=== PATIENT | male | born 2000 | race Caucasian/White ===

== ENCOUNTER 2019-03-16 00:37 | Emergency (ER) | payer MEDICAID, SELFPAY ==
[2019-03-16 00:38] VITALS: BP 162/92; PULSE 112; RESP 16; TEMP 36.8; O2SAT 98; BMI 29.9
--- NOTE | 2019-03-16 01:12 | ED.VISSUMM ---
- ER Visit Summary Date of Service: 03/16/19 Chief Complaint: Suicidal ideation History of Present Illness: The patient is a 18 M presenting with suicidal ideation. Patient states this started tonight. He states he wanted to talk to the on-call counselor. They were not available. He then ran away. He did not have a specific plan. States he tried to cut himself with a waggoner. History of previous suicide attempt 7-8 months ago. He denies visual or auditory hallucinations. He takes Lexapro for depression. Denies other complaints. Physical Examination: Vitals are stable. Patient is afebrile. Alert no acute distress. HEENT exam is unremarkable. Neck is supple. Lungs are clear and equal bilaterally. Heart is regular rate and rhythm. Extremities superficial abrasions left forearm Skin is warm and dry. No focal neurologic deficit. Suicidal ideation Remainder of exam is unremarkable. Emergency Department Course and Treatment: CBC, chemistries unremarkable. Tox is negative. Alcohol negative. Discussed with the counseling center for evaluation. Disposition: Per counseling center Impression: Suicidal ideation This note was generated with [employer] dictation software. It may contain incorrect words, spelling, and punctuation that were not noted in review of the chart prior to signing ED Disposition - Plan for ED Patient: Referrals: Dionisio Garza MD [Primary Care Provider] -
[2019-03-16 01:16] LABS: Absolute Neutrophil Count 4.3 X10^3/uL (2.0-7.7); Basophil# 0.01 X10^3/uL; Basophil% 0.1 % (0-1); Eosinophil# 0.05 X10^3/uL; Eosinophils% 0.7 % (0-5); Hematocrit 41.5 % (40-54); Hemoglobin 14.2 g/dl (13.0-16.5); Lymphocyte % 33.1 % (19-41); Mean Corp Hgb Conc 34.2 g/gl (32-36); Mean Corpuscular Hgb 30.3 pg (27.0-32.0); Mean Corpuscular Volume 88.7 fL (80-94); Mean Platelet Vol. 10.4 fl (6.2-12.0); Monocyte# 0.64 X10^3/uL; Monocyte% 8.5 % (0-10); Neutrophil # 4.33 X10^3/uL (2.7-7.7); Neutrophil % 57.3 % (47-70); Platelet Count 182 K/mm3 (150-450); RBC Distribution Width CV 12.8 % (11.6-14.6); RBC Distribution Width SD 41.2 fl (35.1-43.9); Red Blood Count 4.68 M/mm3 (4.6-6.2); White Blood Count 7.6 K/mm3 (4.4-11.0)
[2019-03-16 01:21] LABS: POSITIVE COUNT NO; POSITIVE DIFFERENTIAL NO; POSITIVE MORPHOLOGY NO
[2019-03-16 01:26] LABS: Anion Gap 8 (5-15); BUN 15 mg/dL (7-18); BUN/Creat Ratio 14.7 RATIO (10-20); Calcium,Total 8.8 mg/dL (8.5-10.1); Chloride 106 mmol/L (98-107); Creatinine, Serum 1.02 mg/dL (0.70-1.30); EST Glomerular Filtration Rate 98 mL/min (>60); Est Glom Filt Rate - Afr Amer 119 mL/min (>60); Estimated Creatinine Clearance 115.52 ml/min; Glucose 129 mg/dL (74-106); Potassium 3.6 mmol/L (3.5-5.1); Sodium Level 140 mmol/L (136-145)
[2019-03-16 01:28] LABS: Amphetamine Urine VISTA NEGATIVE (<1000 ng/mL); Barbiturate Urine VISTA NEGATIVE (< 200 ng/mL); Benzodiazepine Urine VISTA NEGATIVE (< 200 ng/mL); Cocaine Urine VISTA NEGATIVE (< 300 ng/mL); Ecstacy Urine VISTA NEGATIVE (< 500 ng/mL); Methadone Urine VISTA NEGATIVE (< 300 ng/mL); PCP Urine VISTA NEGATIVE (< 25 ng/mL); THC Urine VISTA NEGATIVE (< 50 ng/mL); Vista UDS pH Range 6
[2019-03-16 01:36] LABS: Alcohol, Blood (Medical)-Serum < 3.0 mg/dL
[2019-03-16 01:38] VITALS: RESP 16
--- NOTE | 2019-03-16 01:39 | ED.RN ---
CRISIS PAGED AT THIS TIME
--- NOTE | 2019-03-16 01:56 | ED.RN ---
CRISIS HERE TO SEE PATIENT
[2019-03-16 02:00] VITALS: RESP 16
[2019-03-16 02:27] VITALS: RESP 16
--- NOTE | 2019-03-16 02:28 | ED.DEP ---
ED Disposition - Plan for ED Patient: Instructions: ED Depression Referrals: Dionisio Garza MD [Primary Care Provider] -
== END 2019-03-16 03:01 | disposition home or self-care (01) ==
PROVIDERS: Emergency Provider Emergency Medicine; Family Provider Pediatrics; PCP Pediatrics
DX: R45.851 Suicidal ideations (principal); F32.9 Major depressive disorder, single episode, unspecified; Z79.899 Other long term (current) drug therapy
CPT/HCPCS: 80048; 80307; 80320; 85025; 99283; G0480

== ENCOUNTER 2019-07-10 20:47 | Emergency (ER) | payer MEDICAID, SELFPAY ==
[2019-07-10 20:48] VITALS: BP 139/77; PULSE 103; RESP 16; TEMP 36.5; O2SAT 98; BMI 27.1
[2019-07-10 21:00] VITALS: RESP 20
--- NOTE | 2019-07-10 21:08 | ED.VISSUMM ---
- ER Visit Summary Date of Service: 07/10/19 Chief Complaint: [Injury to right leg] History of Present Illness: The patient is a 18 M [presents to the emergency department with an injury to his right leg that occurred prior to arrival in the emergency department. Patient states that he was at [employer] doing leg curls when he felt a pop in the back of his leg and he is now having pain and hard time ambulating secondary to pain. Patient has no medical history.] Physical Examination: [Right leg-patient has tenderness to palpation over the distal lateral hamstring area of the bicep femoris. Patient has pain with flexion of the knee. Neurovascular intact distally with normal station normal cap refill. No bony tenderness on exam. Knees ligaments are stable.] Test Results: [None indicated] Emergency Department Course and Treatment: [Patient was given an Alex wrap and crutches] Treatment Plan: [Follow-up with orthopedics] Disposition: [Discharged home stable condition] Impression: [Right hamstring strain] This note was generated with [employer] dictation software. It may contain incorrect words, spelling, and punctuation that were not noted in review of the chart prior to signing ED Disposition - Plan for ED Patient: Referrals: Dionisio Garza MD [Primary Care Provider] -
[2019-07-10 21:10] VITALS: RESP 20
--- NOTE | 2019-07-10 21:10 | ED.DEP ---
ED Disposition - Plan for ED Patient: Instructions: MUSCLE STRAIN, Extremity Prescriptions: Ibuprofen [Motrin] 800 mg PO TID PRN PRN #20 tab PRN Reason: Pain Prescription Printed Referrals: Dionisio Garza MD [Primary Care Provider] - 5-7 Days Raman Grullon DO [STAFF PHYSICIAN] - 5-7 Days
[2019-07-10] MEDS: Ibuprofen 600 MG Tablet PO (21:35)
== END 2019-07-10 21:45 | disposition home or self-care (01) ==
PROVIDERS: Emergency Provider Emergency Medicine; Family Provider Pediatrics; PCP Pediatrics
DX: S76.311A Strain of muscle, fascia and tendon of the posterior muscle group at thigh level, right thigh, initial encounter (principal); X58.XXXA Exposure to other specified factors, initial encounter; Y93.B9 Activity, other involving muscle strengthening exercises; Y92.39 Other specified sports and athletic area as the place of occurrence of the external cause; Z72.0 Tobacco use
CPT/HCPCS: 99284

== ENCOUNTER 2019-07-24 14:33 | Emergency (ER) | payer MEDICAID, SELFPAY ==
[2019-07-24 14:35] VITALS: BP 142/80; PULSE 76; RESP 18; TEMP 36.9; O2SAT 100; BMI 28.8
--- NOTE | 2019-07-24 15:12 | NURSING ---
CHRISTOPHER, MICHAELA, CALLED. SHE WILL BE HERE IN ABOUT HALF HOUR
[2019-07-24 15:31] LABS: Absolute Lymphocyte Count 2.48 X10^3/uL (0.83-4.51); Absolute Neutrophil Count 3.2 X10^3/uL (2.0-7.7); Basophil# 0.03 X10^3/uL; Basophil% 0.5 % (0-1); Eosinophil# 0.06 X10^3/uL; Eosinophils% 0.9 % (0-5); Hematocrit 44.4 % (40-54); Hemoglobin 15.1 g/dL (13.0-16.5); Lymphocyte # 2.48 X10^3/ul (4.0); Lymphocyte % 38.7 % (19-41); Mean Corpuscular Volume 91.2 fL (80-94); Mean Platelet Vol. 10.4 fl (6.2-12.0); Monocyte# 0.62 X10^3/uL; Monocyte% 9.7 % (0-10); NRBC Flagged by Analyzer 0 % (0-5); Neutrophil # 3.19 X10^3/uL (2.7-7.7); Neutrophil % 49.7 % (47-70); Platelet Count 175 K/mm3 (150-450); RBC Distribution Width CV 12.4 % (11.6-14.6); RBC Distribution Width SD 41.4 fl (35.1-43.9); Red Blood Count 4.87 M/mm3 (4.6-6.2); White Blood Count 6.4 K/mm3 (4.4-11.0)
--- NOTE | 2019-07-24 15:37 | ED.VIS.PSYCH ---
History of Present Illness Chief Complaint: Overdose Informant: Patient, - - Clinical Quality Assurance Associate staff Onset: Today, Hours - 1 Context: Sudden Onset Conflict: - - Denies conflict Timing: Continuous Narrative: Patient admits to taking 4 of his Lexapro and 2 of his ibuprofen 800 mg tablets about an hour prior to arrival to get high. He states he had no other pills available, those are prescribed to him, so he took them. He understands that they were unlikely to get HI. He states he did no other drugs or substances, did not drink any alcohol today. He mostly answers yes or no to all of my questions and offers a very little information. alf staff states yesterday, he was very upset with her and usually they are friends. He recently left a senior living, [facility] a couple months ago and now lives in an apartment with roommates. He denies any suicidal ideation to me as he did with staff and nursing here. States he has had no thoughts of suicide. He states no one else was involved with his decision to take these pills today. He states he has no symptoms as a result of taking his pills. Clinical Quality Assurance Associate staff was concerned that he was walking crooked. They state that yesterday he spent the day with young man from the [facility], and they are concerned that they may be drug abusers and that his visit with them may be related to his ingestion today. When I asked about this the patient simply says no. - Past Medical History (1) Bipolar 1 disorder Status: Chronic Past Medical History - Allergies and Home Meds Allergies/Adverse Reactions: Allergies Penicillins [PCN] Adverse Reaction (Verified 07/24/19 14:34) Rash Primary Care Physician: Dionisio Garza MD [Primary Care Provider] - Lives: Roommate Smoking Status: Current some day smoker Alcohol: None Drugs: None Review of Systems General: Denies: Chills, Fever, Sweats Eyes: Denies: Visual changes - bilaterally, Diplopia ENT: Denies: Rhinorrhea, Sore throat Cardiovascular: Denies: Chest pain, Palpitations Respiratory: Denies: Dyspnea, Cough, Dyspnea on exertion Gastrointestinal: Denies: Abdominal pain, Nausea, Vomiting, Diarrhea, Melena, Hematochezia Genitourinary: Denies: Dysuria, Hematuria, Frequency Musculoskeletal: Denies: Back pain, Extremity Pain Skin: Denies: Rash, Wounds Neurological: Denies: Headache, Weakness, Numbness Psych: Denies: Depression, Anxiety, Suicidal thoughts, Suicidal ideations Physical Exam Vital Signs/Narrative: Vital Signs Temp Pulse Resp BP Pulse Ox 07/24/19 14:35 98.4 F 76 18 142/80 H 100 Inital Vital Signs reviewed: Yes General: Well nourished, Well developed Head: Normocephalic, Atraumatic Eyes: Perrl, EOMI ENT: Moist mucous membranes, No rhinorrhea Neck: Supple, Nontender Cardiovascular: Regular rate, Regular rhythm, No murmurs Respiratory: No distress, CTA bilaterally, Chest nontender Abdomen: Soft, Nontender, Nondistended, Normal bowel sounds Back: Nontender, Normal Inspection Extremities: Nontender, No Edema Skin: Normal color, No rash Neurological: Alert, Oriented x3, Cranial nerves II-XII grossly intact, Normal Strength, Normal Sensation Psych: No suicidal or homicidal ideation, Normal Appearance, Flat Affect, Poverty of Speech Diagnostic/Tx/Re-eval Laboratory Tests 07/24/19 07/24/19 07/24/19 Range/Units 15:20 15:20 15:20 WBC 6.4 (4.4-11.0) K/mm3 RBC 4.87 (4.6-6.2) M/mm3 Hgb 15.1 (13.0-16.5) g/dL Hct 44.4 (40-54) % MCV 91.2 (80-94) fL MCH 31.0 (27.0-32.0) pg MCHC 34.0 (32-36) g/dL RDW Std Deviation 41.4 (35.1-43.9) fl RDW Coeff of Rachel 12.4 (11.6-14.6) % Plt Count 175 (150-450) K/mm3 MPV 10.4 (6.2-12.0) fl Immature Gran % (Auto) 0.500 (0.0-0.9) % Neut % (Auto) 49.7 (47-70) % Lymph % (Auto) 38.7 (19-41) % Dawes % (Auto) 9.7 (0-10) % Eos % (Auto) 0.9 (0-5) % Baso % (Auto) 0.5 (0-1) % Absolute Neuts (auto) 3.2 (2.0-7.7) X10^3/uL Absolute Lymphs (auto) 2.48 (0.83-4.51) X10^3/uL Nucleated RBC % 0 (0-5) % Sodium 141 (136-145) mmol/L Potassium 4.0 (3.5-5.1) mmol/L Chloride 109 H (98-107) mmol/L Carbon Dioxide 26.0 (21.0-32.0) mmol/L Anion Gap 6 (5-15) BUN 13 (7-18) mg/dL Creatinine 0.85 (0.70-1.30) mg/dL Estim Creat Clear Calc 137.47 ml/min Est GFR (MDRD) Af Amer 147 (>60) mL/min Est GFR (MDRD) Non-Af 121 (>60) mL/min BUN/Creatinine Ratio 15.3 (10-20) RATIO Glucose 87 (74-106) mg/dL Calcium 9.1 (8.5-10.1) mg/dL Urine Opiates Screen NEGATIVE (< 300 ng/mL) Urine Methadone Screen NEGATIVE (< 300 ng/mL) Ur Barbiturates Screen NEGATIVE (< 200 ng/mL) Ur Phencyclidine Scrn NEGATIVE (< 25 ng/mL) Ur Amphetamines Screen NEGATIVE (<1000 ng/mL) U Methamphetamin-MDMA NEGATIVE (< 500 ng/mL) U Benzodiazepines Scrn NEGATIVE (< 200 ng/mL) Urine Cocaine Screen NEGATIVE (< 300 ng/mL) U Cannabinoids Screen NEGATIVE (< 50 ng/mL) Ur Drug Screen Comment Patient provides very limited information, and home administrator staff is very concerned about his actions today. At this time I do not have any information that would result in an appropriate pink slipping of the patient to keep him here. He states initially that he has no interest in talking with crisis and wants to leave. Nursing convinced him to eat a sandwich and stay in the room and await a brief conversation with crisis and at this time he is amenable. Labs are unremarkable, he is medically cleared for crisis evaluation. He did wait for crisis to evaluate, they found nothing high risk and are okay with him being discharged and following up with his counselor as scheduled. Patient is agreeable to this. ED Disposition - Plan for ED Patient: Disposition: Home or Assisted Living Diagnosis: Purposeful non-suicidal drug ingestion Instructions: Drug Abuse Referrals: Dionisio Garza MD [Primary Care Provider] - Keep Disha appointment (And/or your counselor)
--- NOTE | 2019-07-24 15:42 | NURSING ---
CHRISTOPHER, CRISIS, HERE
[2019-07-24 15:47] LABS: BUN 13 mg/dL (7-18); Creatinine, Serum 0.85 mg/dL (0.70-1.30); Estimated Creatinine Clearance 137.47 ml/min; Glucose 87 mg/dL (74-106)
[2019-07-24 15:48] LABS: Anion Gap 6 (5-15); BUN/Creat Ratio 15.3 RATIO (10-20); Calcium,Total 9.1 mg/dL (8.5-10.1); Chloride 109 mmol/L (98-107); EST Glomerular Filtration Rate 121 mL/min (>60); Est Glom Filt Rate - Afr Amer 147 mL/min (>60); Sodium Level 141 mmol/L (136-145)
[2019-07-24 15:49] LABS: Amphetamine Urine VISTA NEGATIVE (<1000 ng/mL); Barbiturate Urine VISTA NEGATIVE (< 200 ng/mL); Benzodiazepine Urine VISTA NEGATIVE (< 200 ng/mL); Cocaine Urine VISTA NEGATIVE (< 300 ng/mL); Ecstacy Urine VISTA NEGATIVE (< 500 ng/mL); Methadone Urine VISTA NEGATIVE (< 300 ng/mL); PCP Urine VISTA NEGATIVE (< 25 ng/mL); THC Urine VISTA NEGATIVE (< 50 ng/mL); Vista UDS pH Range 6
[2019-07-24 16:01] LABS: Alcohol, Blood (Medical)-Serum < 3.0 mg/dL
[2019-07-24 16:05] VITALS: BP 133/78; PULSE 85; RESP 16; O2SAT 99
--- NOTE | 2019-07-24 16:07 | ED.RN ---
Crisis spoke with patient at bedside. States he is safe to go home. Spoke with facility staff in the waiting room, verbalize understanding. Pt and staff deny questions or needs.
== END 2019-07-24 16:10 | disposition home or self-care (01) ==
PROVIDERS: Emergency Provider Emergency Medicine; Family Provider Pediatrics; PCP Pediatrics
DX: T43.221A Poisoning by selective serotonin reuptake inhibitors, accidental (unintentional), initial encounter (principal); T39.311A Poisoning by propionic acid derivatives, accidental (unintentional), initial encounter; F31.9 Bipolar disorder, unspecified; F17.200 Nicotine dependence, unspecified, uncomplicated
CPT/HCPCS: 36415; 80048; 80307; 80320; 85025; 99282; G0480

== ENCOUNTER 2019-08-15 18:10 | Emergency (ER) | payer MEDICAID, SELFPAY ==
[2019-08-15 18:11] VITALS: BP 142/74; PULSE 85; RESP 16; TEMP 36.3; O2SAT 98; BMI 32.1
--- NOTE | 2019-08-15 22:03 | ED.RN ---
PATIENT LEFT WITHOUT BEING SEEN FOR HIS EAR PAIN. HE WAS GOING TO FOLLOW UP WITH HIS DOCTOR.
== END 2019-08-15 22:04 | disposition left against medical advice (07) ==
LOC: ED 21:20
PROVIDERS: Emergency Provider Emergency Medicine; Family Provider Pediatrics; PCP Pediatrics
DX: H92.03 Otalgia, bilateral (principal)

== ENCOUNTER 2019-08-17 16:27 | Emergency (ER) | payer MEDICAID, SELFPAY ==
[2019-08-17 16:28] VITALS: BP 155/81; PULSE 83; RESP 16; TEMP 35.7; O2SAT 96; BMI 32.5
--- NOTE | 2019-08-17 16:36 | RAD_ITS ---
STUDY: X-RAY CHEST REASON FOR EXAM: Male, 19 years old. Cough TECHNIQUE: PA and lateral views of the chest COMPARISON: None. FINDINGS: The lungs are clear. There are no pleural effusions. There is no pneumothorax. The heart is normal in size. The visualized osseous structures are within normal limits. RAD/Chest PA and Lateral IMPRESSION: No acute thoracic pathology. Electronically Signed: Giacomo Peng, at 17:13 EDT Tel , Service support ,
--- NOTE | 2019-08-17 16:40 | ED.DCSUM_ITS ---
- ER Visit Summary Date of Service: 08/17/19 Chief Complaint: Cough and vomiting History of Present Illness: The patient is a [address] Garza. He reports that yesterday evening he developed left upper quadrant abdominal pain. He reports that the sharp pain is 7 out of 10 at worst and 6 out of 10 currently. Is worsened by nothing relieved by nothing. He has vomited 6 times since then. No blood in his emesis. No diarrhea. His last bowel movements today. No melena or hematochezia. Patient denies sick contacts. Has not been camping out of the country. No possible bad food exposure. Does not drink well water. No recent antibiotic use. Patient reports that he has a cough that began yesterday as well. Is productive yellow sputum without blood. He denies any fever, chills, chest pain, shortness of breath. Physical Examination: Vitals: Stable. Afebrile. General: Well-nourished and well-developed. Head: Normocephalic atraumatic. Neck: Supple, no lymphadenopathy. No JVD. Nontender. Cardiovascular: Regular rate and rhythm. No murmurs. Respiratory: No respiratory distress. Clear to auscultation bilaterally. Abdominal: Soft, mild left upper quadrant tenderness to palpation. No right lower or right upper quadrant tenderness to palpation, nondistended, normal bowel sounds. No guarding, rebound, or peritoneal signs. Back: Nontender. Extremities: Nontender, no edema. Skin: Normal color, no rash. Neurologic: Alert and oriented ?3. Cranial nerves II through XII are intact. Normal strength and sensation. Psych: Normal affect. Test Results: Chest x-ray shows no acute disease. Emergency Department Course and Treatment: Patient had an IV placed. He was given Toradol and Zofran IV. He has not vomited while here. He is resting comfortably. Treatment Plan: Patient will be discharged with Zofran and symptomatic care otherwise. Push fluids. Use Tylenol and/or ibuprofen for pain. Return to the emergency department for any worsening symptoms. Disposition: To home in improved and stable condition. Impression: 1. Vomiting. 2. URI. This note was generated with [employer] dictation software. It may contain incorrect words, spelling, and punctuation that were not noted in review of the chart prior to signing ED Disposition - Plan for ED Patient: Disposition: Home or Assisted Living Instructions: URI, Viral, No Abx (Adult), VOMITING (6y-Adult) Prescriptions: Ondansetron [Zofran Odt] 4 mg PO Q8H PRN PRN #10 tab PRN Reason: Nausea Prescription Printed Referrals: Dionisio Garza MD [Primary Care Provider] - 1-2 Days if not improving
[2019-08-17] MEDS: 0.9% Normal Saline 1,000 ML 1000 ML IV (16:58)
[2019-08-17] MEDS: Ondansetron 4 MG/2 ML Vial IV (16:59)
[2019-08-17] MEDS: Ketorolac 15 MG/ML Vial IV (16:59)
[2019-08-17 18:06] VITALS: BP 123/54; RESP 18
== END 2019-08-17 18:09 | disposition home or self-care (01) ==
PROVIDERS: Emergency Provider Emergency Medicine; Family Provider Pediatrics; PCP Pediatrics
DX: J06.9 Acute upper respiratory infection, unspecified (principal); R11.2 Nausea with vomiting, unspecified
CPT/HCPCS: 71046; 96361; 96374; 96375; 99284; J7030; J2405

== ENCOUNTER 2019-08-18 07:01 | Emergency (ER) | payer MEDICAID, SELFPAY ==
[2019-08-17 16:28] VITALS: BMI 32.5
[2019-08-18 07:02] VITALS: BP 128/87; PULSE 92; RESP 18; TEMP 36.8; O2SAT 98; BMI 33.9
--- NOTE | 2019-08-18 07:22 | ED.VISSUMM ---
- ER Visit Summary Date of Service: 08/18/19 Chief Complaint: Sore throat History of Present Illness: The patient is a 19 M who presents emergency department via EMS with a chief complaint of sore throat. He states that his throat is swollen and he has been coughing. He states that when he lays down his throat lays on his tongue. He denies any fevers. Denies any known chemical exposures. No myalgias. No significant runny nose he denies this ever happened to him before. Physical Examination: Afebrile vital signs stable Gen: Well-nourished well-developed Head: Normocephalic atraumatic Eyes: Perrl EOMI ENT: TMs clear no rhinorrhea moist mucous membranes patient is laying back in angle and handling his secretions. The soft palate is erythematous and there are approximately 3 small early aphthous ulcer-like lesions on the left soft palate. The uvula is swollen about 1.5 cm diameter there is no tonsillar swelling or peritonsillar abscess noted. No evidence of retropharyngeal abscess. Neck: Supple no lymphadenopathy no JVD nontender CVS: Regular rate rhythm no murmurs normal S1-S2 Respiratory: No distress clear to auscultation bilaterally chest nontender Abdomen: Soft nontender nondistended normal bowel sounds no masses Back: Nontender Extremity: Nontender no edema Skin: Normal color no rash Neuro: alert orientated ?3 CN II-XII intact normal strength sensation reflexes gait cerebellar Psych: Normal affect normal mood Test Results: Strep test was negative. Emergency Department Course and Treatment: Patient was given a dose of Decadron. He will use ice water at home may also use Benadryl. Return if worsening or concerns Impression: 1. Uvulitis 2. Pharyngitis This note was generated with [employer] dictation software. It may contain incorrect words, spelling, and punctuation that were not noted in review of the chart prior to signing ED Disposition - Plan for ED Patient: Disposition: Home or Assisted Living Instructions: Uvulitis Referrals: Dionisio Garza MD [Primary Care Provider] - 3-5 Days if not improving Additional Instructions: Tylenol or ibuprofen for pain Drink plenty of cold liquids to help with swelling.
[2019-08-18] MEDS: dexAMETHasone 10 MG/ML Vial PO.IVFORM (07:27)
== END 2019-08-18 08:33 | disposition home or self-care (01) ==
PROVIDERS: Emergency Provider Emergency Medicine; Family Provider Pediatrics; PCP Pediatrics
DX: J02.9 Acute pharyngitis, unspecified (principal); K12.2 Cellulitis and abscess of mouth; F41.9 Anxiety disorder, unspecified; F32.9 Major depressive disorder, single episode, unspecified
CPT/HCPCS: 87880; 99284

== ENCOUNTER 2023-06-03 10:51 | Emergency (ER) | payer MEDICAID, SELFPAY ==
[2023-06-03 10:52] VITALS: BP 116/82; PULSE 77; RESP 14; TEMP 36.7; O2SAT 99; BMI 28.2
--- NOTE | 2023-06-03 11:01 | EDS_ITS ---
HPI History of Present Illness Chief Complaint: Chest Other Informant: patient Onset/Context/Timing Onset: Days (2) Context: Gradual Onset Timing: Continuous Quality: Sharp Location: Left chest Worsened by: Movement Relieved by: Ibuprofen Narrative Narrative: Patient presents with left-sided chest pain that has been constant for the past 2 days. Patient states it came on gradually. Patient states his pain is sharp. Patient states the pain is over the left lateral chest. Patient states it began after smoking marijuana. Patient states it is worse with movement. Patient states he got better with ibuprofen. Patient denies any shortness of breath or cough. Patient denies any nausea or vomiting. Patient denies any diaphoresis. [facility] Medical History (Updated 06/03/23 @ 14:[address] Parker Taylor DO) Bipolar 1 disorder Allergy/AdvReac Type Severity Reaction Status Date / Time Penicillins [PCN] AdvReac Rash Verified 06/03/23 10:54 tomatoes Allergy Intermediate Rash Uncoded 06/03/23 11:29 Surgical History History of tonsillectomy Hx of thumb surgery Social History (Updated 06/03/23 @ 11:[address] Parker Taylor DO) Smoking Status: Current every day smoker tobacco type: cigarettes and e- cigarettes substance use type: marijuana ROS ROS ED Constitutional Constitutional ED: Denies chills or fever(s) Eyes Eyes: Denies blurry vision or change in vision ENT ENT ED: Reports sore throat; Denies rhinorrhea Cardiovascular Cardiovascular: Reports chest pain; Denies palpitations Respiratory/Chest Respiratory/Chest: Denies cough or dyspnea Gastrointestinal Gastrointestinal: Denies nausea or vomiting Genitourinary Genitourinary ED: Denies dysuria or hematuria Musculoskeletal Musculoskeletal: Denies back pain or neck pain Integumentary Reports rash; Denies abscess Neurologic Neurologic: Denies headache(s) or weakness Allergic/Immunologic Allergic/Immunologic ED: Denies mouth swelling or urticaria EXAM Physical Exam Const Vital Signs: 06/03/23 10:52 06/03/23 11:24 Temperature 98.1 F Temperature Source Temporal Pulse Rate 77 Respiratory Rate 14 Respiratory Effort Normal Respiratory Pattern Normal Blood Pressure 116/82 H Blood Pressure Mean 93 Pulse Ox 99 Oxygen Delivery Method Room Air Positive well nourished and well developed General Appearance ED: well developed and NAD HEENT Reports moist mucous membranes Neck supple and no JVD Chest Wall Chest Narrative: There is reproducible tenderness of the left lateral chest wall. There is no bony crepitance or step-off. There is no subcutaneous emphysema noted. There is no edema or ecchymosis noted. Resp normal respiratory effort and clear to auscultation bilaterally Cardio regular rate and regular rhythm GI non-tender and non-distended Palpation: soft Neuro oriented x3, CN's II-XII intact bilaterally and no sensory deficits noted Sensorium / Orientation: alert Motor Exam: strength 5/5 throughout Psych mental status grossly normal Skin Skin Narrative: There is erythema and mild warmth over the anterior aspect of the right distal thigh. There is no fluctuance. There is no discharge or drainage. There is no induration noted. MDM MDM MDM Narrative Medical decision making narrative: Differential diagnosis includes musculoskeletal pain, pneumothorax, pneumonia, anxiety, and cellulitis of the right thigh. Chest x-ray will be obtained to assess for pneumonia and pneumothorax. Radiography Diagnostic Testing: Clinical Impression(s) from Imaging Studies Chest X-Ray 06/03/23 11:30 IMPRESSION: Normal x-ray examination of the chest. Electronically Signed: Chinedu Yoon MD at 13:31 EDT , PA and lateral chest x-ray was obtained. There are 2 views. On my independent interpretation, lung ordaz are clear. There is normal cardiac silhouette. Bony thorax is normal. There is no acute process noted. Radiologist also interpreted the x-ray and agrees. Treatment and Re-Evaluation :: Patient was advised of his findings. Patient was instructed to take Tylenol or ibuprofen as needed for pain. Patient was instructed to stop smoking marijuana. Patient was instructed to follow-up with his primary care physician in 5 to 7 days. Patient was given a note for work for today. Patient understood and was agreeable with the plan. All questions were answered. Discharge Plan Triage Chief Complaint: Chest Other ED Provider: Parker Taylor Dx/Rx/DC Orders Clinical Impression: Pleurisy Instructions: ED Pleurisy Stand Alone Forms: ED Work / School Excuse Primary Care Provider: Care Physician,No Primary Referrals: Dionisio Garza MD [Non-Staff] - 5-7 Days Activity Restrictions/Additional Instructions: Use ice to the left chest wall. Take Tylenol or ibuprofen as needed for pain. Stop smoking marijuana. Disposition Disposition: Home, Self Care
--- NOTE | 2023-06-03 11:30 | RAD_ITS ---
STUDY: X-RAY CHEST REASON FOR EXAM: Male, 22 years old. Left-sided rib pain. TECHNIQUE: PA and lateral views of the chest. COMPARISON: Comparison is made with prior study dated August 17, 2019. FINDINGS: The lungs are clear and expanded. There is no demonstrated pleural abnormality. Normal size heart. Normal mediastinum and diane. Normal visualized pulmonary arteries. Normal visualized aortic arch and descending thoracic aorta. Normal visualized thoracic spine. Normal visualized ribs, clavicles, and shoulders. There is no demonstrated abnormality of the visualized soft tissue structures of the upper abdomen. RAD/Chest PA and Lateral IMPRESSION: Normal x-ray examination of the chest. Electronically Signed: Chinedu Yoon MD at 13:31 EDT ,
--- NOTE | 2023-06-03 13:44 | CM.ED ---
Social Work Note Referral Source: credit card control clerk Zo Referral Reason: no PCP SW met with patient and introduced herself and role as [facility] Nursing Consultant. Patient lying on hospital bed and agreeable to speak with SW. SW inquired about patient's insurance and current PCP. Patient verified insurance and reports no current PCP. SW provided patient with a list of local PCPs accepting new patients as well as information for [facility]. Patient was receptive towards list and voiced no other needs. SW remains available if needs arise. SW updated care team of information provided. Kelley Gramajo MSW, RYAN
--- NOTE | 2023-06-03 14:43 | CM.ED ---
Social Work Patient informed [place] local [place] [employer] Officer Moe Sexton was present when EMS met with patient and offered patient a ride home from hospital if needed. [place] explained [facility] has transportation services and would inquire about a ride as a back up and would speak with [facility] about contacting Officer Moe. [facility] Transportation are unable to assist with transportation for patient today. hi low truck driver updated and coordinating with [employer] Jagjit for further assistance. Kelley Gramajo MSW, RYAN
== END 2023-06-03 15:05 | disposition home or self-care (01) ==
PROVIDERS: Emergency Provider Emergency Medicine; Visit Provider Emergency Medicine
DX: R09.1 Pleurisy (principal); F17.210 Nicotine dependence, cigarettes, uncomplicated; F12.90 Cannabis use, unspecified, uncomplicated
CPT/HCPCS: 71046; 99284

== ENCOUNTER 2023-10-16 19:36 | Emergency (ER) | payer OTHER, MEDICAID, SELFPAY ==
[2023-10-16 19:38] VITALS: BP 131/87; PULSE 105; RESP 17; TEMP 36.5; O2SAT 98; BMI 27.6
--- NOTE | 2023-10-16 19:55 | EX.ED.UPPERE ---
HPI History of Present Illness Chief Complaint: Laceration Informant: patient Narrative Narrative: Patient presents secondary to left thumb laceration. He was washing dishes at work when the silverware slipped. As he grabbed at the distal end of his thumb suffered a laceration. He is unsure of his last tetanus update. He is right-hand dominant. [facility] Medical History Bipolar 1 disorder Allergy/AdvReac Type Severity Reaction Status Date / Time tomato AdvReac Intermediate Rash Verified 10/16/23 19:37 Penicillins [PCN] AdvReac Rash Verified 10/16/23 19:37 Surgical History History of tonsillectomy Hx of thumb surgery Social History Smoking Status: Current every day smoker tobacco type: cigarettes and e-cigarettes substance use type: marijuana ROS ROS ED Constitutional Constitutional ED: Denies chills or fever(s) ENT ENT ED: Denies rhinorrhea or sore throat Cardiovascular Cardiovascular: Denies chest pain Respiratory/Chest Respiratory/Chest: Denies cough or dyspnea Gastrointestinal Gastrointestinal: Denies abdominal pain, nausea or vomiting Musculoskeletal Musculoskeletal: Reports extremity pain; Denies back pain Integumentary Reports other Details: Laceration left thumb ; Denies Abrasions or rash Neurologic Neurologic: Denies headache(s) or weakness Psychiatric Psychiatric: Denies anxiety or depression Allergic/Immunologic Allergic/Immunologic ED: Denies lip swelling or urticaria EXAM Physical Exam Const Vital Signs: 10/16/23 19:38 Temperature 97.7 F L Temperature Source Temporal Pulse Rate 105 H Respiratory Rate 17 Blood Pressure 131/87 H Blood Pressure Mean 101 Pulse Ox 98 Oxygen Delivery Method Room Air Positive well nourished and well developed General Appearance ED: well developed HEENT Reports moist mucous membranes Eyes EOMs intact bilaterally Chest Wall inspection of chest normal and palpation of chest normal Resp normal respiratory effort and clear to auscultation bilaterally Cardio regular rate and regular rhythm GI non-tender Palpation: soft Extremity Extremity Narrative: Superficial flap laceration measuring 0.5 cm along the distal aspect of the left thumb along the nail border. Good cap refill and sensation distally. Neuro oriented x3, moves all extremities, no focal motor deficits and no sensory deficits noted MDM MDM MDM Narrative Medical decision making narrative: Digital block performed using 4 cc 1% lidocaine to the left thumb. Patient receives good anesthesia. Wound is thoroughly cleansed and irrigated. Flap is held down with Dermabond and Steri-Strip placed over the area. Dressing applied. Discharge Plan Triage Chief Complaint: Laceration ED Provider: Mirlande Sosa Dx/Rx/DC Orders Clinical Impression: Laceration of left thumb Instructions: ED Laceration, Hand: All Closures Stand Alone Forms: Work Status Form Primary Care Provider: Care Physician,No Primary Referrals: Corporate,Care [Group of Physicians] - 5-7 Days Care Physician,No Primary [Primary Care Provider] - Disposition Disposition: Home, Self Care
[2023-10-16] MEDS: Lidocaine 1% (20 ml mdv) 20 ML Vial INFILT (20:36)
[2023-10-16] MEDS: Diphth,Pertuss(Acell),Tet Vac 0.5 ML Vial IM (20:38)
== END 2023-10-16 20:56 | disposition home or self-care (01) ==
PROVIDERS: Emergency Provider Emergency Medicine; Visit Provider Emergency Medicine
DX: S61.012A Laceration without foreign body of left thumb without damage to nail, initial encounter (principal); F17.210 Nicotine dependence, cigarettes, uncomplicated; F17.290 Nicotine dependence, other tobacco product, uncomplicated; F12.90 Cannabis use, unspecified, uncomplicated; X58.XXXA Exposure to other specified factors, initial encounter
CPT/HCPCS: 12001; 90715; 99283

== ENCOUNTER 2024-09-11 17:32 | Emergency (ER) | payer MEDICAID, SELFPAY ==
[2024-09-11 17:33] VITALS: BP 134/79; PULSE 62; RESP 16; TEMP 36.7; O2SAT 100; BMI 31.1
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
== END 2024-09-11 18:28 | disposition home or self-care (01) ==
LOC: ED 18:26
PROVIDERS: Emergency Provider Emergency Medicine; Visit Provider Emergency Medicine
DX: T23.251A Burn of second degree of right palm, initial encounter (principal); W39.XXXA Discharge of firework, initial encounter; F17.210 Nicotine dependence, cigarettes, uncomplicated; F17.290 Nicotine dependence, other tobacco product, uncomplicated; Z23 Encounter for immunization; Z88.0 Allergy status to penicillin
CPT/HCPCS: 99282

== ENCOUNTER 2025-03-10 14:51 | Emergency (ER) | payer MEDICAID, SELFPAY ==
--- NOTE | 2025-03-10 15:13 | ED.RN ---
After being told we were unable to guarantee pt being discharged within 2 hrs, pt decided he did not want to be seen. Pt states he has hemorrhoids all the time, abd pain is fleeing and doesn't happen very often. Pt voices understanding to return for any further concerns. Pt ambulated out of dept without difficulty.
== END 2025-03-10 15:18 | disposition left against medical advice (07) ==
LOC: ED 16:01
DX: Z53.21 Procedure and treatment not carried out due to patient leaving prior to being seen by health care provider (principal)

== ENCOUNTER 2025-04-20 12:17 | Emergency (ER) | payer MEDICAID, SELFPAY ==
[2025-04-20 12:18] VITALS: BP 125/72; PULSE 60; RESP 15; TEMP 35.7; O2SAT 100; BMI 26.4
--- NOTE | 2025-04-20 12:43 | EX.ED.DYSGE1 ---
HPI History of Present Illness Chief Complaint: Headache Detail of Chief Complaint: Headache and diarrhea Informant: patient Narrative Narrative: Patient presents the emergency department with complaint of a headache and diarrhea. Patient states that he has had a headache off and on for couple weeks. Pain is mostly left frontal. Denies any falls or head injuries. Patient also states he started with diarrhea last evening and has had 2 episodes. He thinks he might be coming down with some sort of illness. Denies vomiting but is had some mild nausea. Does describe some mild photophobia. No diagnosed history of migraines. No family history of brain tumors or aneurysms. He denies any significant abdominal pain. Denies blood in the stool. He denies fever or cough or sore throat. [facility] Medical History Bipolar 1 disorder Allergy/AdvReac Type Severity Reaction Status Date / Time tomato AdvReac Intermediate Rash Verified 04/20/25 12:18 Penicillins (PCN) AdvReac Rash Verified 04/20/25 12:18 Surgical History History of tonsillectomy Hx of thumb surgery Social History Smoking Status: Current every day smoker tobacco type: cigarettes and e-cigarettes substance use type: marijuana ROS ROS ED Review of Systems ROS Unobtainable: other Constitutional Constitutional ED: Reports lethargy; Denies chills, fever(s), sweats or weight loss Eyes Eyes: Denies blurry vision, change in vision or diplopia ENT ENT ED: Denies rhinorrhea or sore throat Cardiovascular Cardiovascular: Reports chest pain and racing heartbeat; Denies orthopnea Respiratory/Chest Respiratory/Chest: Reports dyspnea and dyspnea on exertion; Denies cough, orthopnea or sputum Gastrointestinal Gastrointestinal: Reports diarrhea and nausea; Denies abdominal pain or vomiting Genitourinary Genitourinary ED: Denies dysuria, hematuria or urinary frequency Musculoskeletal Musculoskeletal: Denies arthralgias, back pain, myalgias or neck pain Integumentary Denies abscess, Abrasions or rash Neurologic Neurologic: Reports headache(s); Denies weakness Psychiatric Psychiatric: Denies anxiety, depression or suicidal thoughts Endocrine Endocrinology: Denies polydipsia, polyphagia or polyuria Hematologic/Lymphatic Hematologic/Lymphatic: Denies easy bleeding, easy bruising or lymphadenopathy Allergic/Immunologic Allergic/Immunologic ED: Denies mouth swelling, tongue swelling or urticaria EXAM Physical Exam Const Vital Signs: 04/20/25 12:18 Temperature 96.3 F L Temperature Source Temporal Pulse Rate 60 Respiratory Rate 15 Blood Pressure 125/72 H Blood Pressure Mean 89 Pulse Ox 100 Oxygen Delivery Method Room Air Positive well nourished and well developed General Appearance ED: well developed and NAD HEENT Reports TM's clear and moist mucous membranes normocephalic and atraumatic; Negative for trauma or tenderness Tympanic Membrane ED: Yes TM's clear Eyes PERRL and EOMs intact bilaterally General Eye ED: Negative for pale conjunctiva or scleral icterus Neck no lymphadenopathy, supple and no JVD General: Negative for tenderness Chest Wall inspection of chest normal and palpation of chest normal Chest: Negative for tenderness Resp normal respiratory effort and clear to auscultation bilaterally Effort and Inspection: Negative for respiratory distress or pain with movement Auscultation: Negative for rhonchi, wheezes or diminished lung sounds Cardio regular rate, regular rhythm, S1 normal heart sound, S2 normal heart sound and no murmurs Peripheral Pulses: pulses 2+ throughout GI normal to inspection, nondistended, normoactive bowel sounds, soft to palpation, non-tender, non-distended and no masses Back/Spine no CVA tenderness and no thoracic nor lumbar tenderness Extremity normal to inspection General Extremety ED: Negative for edema General Extremity: Negative for edema Neuro oriented x3, CN's II-XII intact bilaterally, no sensory deficits noted and gait normal Neuro Narrative: Finger-nose and heel rodriguez testing within normal limits, negative Romberg, negative pronator drift, fundi benign Sensorium / Orientation: awake, alert, oriented to person, oriented to place and oriented to time Motor Exam: strength 5/5 throughout and strength abnormal Psych mental status grossly normal Skin no rashes or lesions noted and no wounds MDM MDM MDM Narrative Medical decision making narrative: Patient presents with headache as well as a few episodes of diarrhea. Clinically looks well. In the differential would be viral syndrome versus migraine. IV line established. He was given a liter normal saline fluid bolus as well as Reglan and Benadryl and Toradol. His headache resolved. He is asking to be discharged. He feels much better. Discharge Plan Triage Chief Complaint: Headache ED Provider: Dolores Mack Dx/Rx/DC Orders Clinical Impression: Headache, migraine Instructions: ED, Migraine (Classical) Primary Care Provider: Care Physician,No Primary Referrals: Care Physician,No Primary [Primary Care Provider] - [facility] [[facility]] - 5-7 Days Print Language: [place] Disposition Disposition: Home, Self Care
[2025-04-20] MEDS: 0.9% Normal Saline (1000mL) 1,000 ML 1000 ML IV (12:52)
[2025-04-20] MEDS: Metoclopramide 10 MG/2 ML Vial IV (12:52)
[2025-04-20] MEDS: Ketorolac 30 MG/ML Syringe IV (12:52)
[2025-04-20] MEDS: DiphenhydrAMINE 50 MG/ML Syringe 25 MG IV (12:52)
[2025-04-20 13:48] VITALS: PULSE 71; RESP 16; O2SAT 100
== END 2025-04-20 13:48 | disposition home or self-care (01) ==
PROVIDERS: Emergency Provider Emergency Medicine; Visit Provider Emergency Medicine
DX: G43.909 Migraine, unspecified, not intractable, without status migrainosus (principal); F31.9 Bipolar disorder, unspecified; R19.7 Diarrhea, unspecified; F17.210 Nicotine dependence, cigarettes, uncomplicated; F17.290 Nicotine dependence, other tobacco product, uncomplicated
CPT/HCPCS: 96361; 96374; 96375; 99283; A4216

== ENCOUNTER 2025-05-06 21:02 | Emergency (ER) | payer MEDICAID, SELFPAY ==
[2025-05-06 21:02] VITALS: BP 123/71; PULSE 72; RESP 18; TEMP 36.1; O2SAT 100; BMI 27.1
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
--- OUTSIDE RECORDS SUMMARY | 2025-05-06 21:40 | XMS RPT_ITS | CCD ---
Author Organization [facility] Care Team Providers Care Parachute Inspector Name Role Phone RIDER, ALEJANDRO McraeJuve Unavailable Unavailable DIONISIO JAIMES Unavailable Unavailable Matt Hoover Unavailable Unavailable Surjit Heart Unavailable Unavailable Dionisio Jaimes Unavailable Unavailable Provider, Unspecified Primary Care Provider Unav ailable Provider, Unspecified Primary Care Provider Unav ailable Provider MD, Unspecified Primary Care Provider U navailable Pcp, None Primary Care Provider Unavailabl e Pcp, None Primary Care Provider Unavailabl e SLICK PHILLIPS Admitting Unavailable NO, PHYSICIAN Primary Care Unavailable No, Physician Primary Care Provider Unavailabl e Unavailable Primary Care Provider Unavailabl e JAMARCUS JEFFERSON Attending Unavailable DIONISIO JAIMES Primary Care Unavailable Unavailable Primary Care Provider Unavailabl e PCP, NONE Primary Care Unavailable GREG FULLER Admitting Unavailable GREG FULLER Attending Unavailable PCP, NONE Primary Care Unavailable SHAYNA CERVANTES Attending Unavailable PCP, NONE Primary Care Unavailable ANGEL LEARY Attending Unavailable PCP, NONE Primary Care Unavailable HELEN SHAYNA Admitting Unavailable SHAYNA CERVANTES Attending Unavailable ROCK CERVANTESYLA Referring Unavailable PHOENIX ARMSTRONG Attending Unavailable PCP, NONE Primary Care Unavailable PHOENIX ARMSTRONG Admitting Unavailable PCP, NONE Primary Care Unavailable YASEMIN LOPEZET Admitting Unavailable YASEMIN LOPEZET Attending Unavailable DENITA MARLEY Attending Unavailable NO, PHYSICIAN Primary Care Unavailable NO, PHYSICIAN Primary Care Unavailable NO, PHYSICIAN Primary Care Unavailable TIN COBB Attending Unavailable NO, PHYSICIAN Primary Care Unavailable MARY CHINCHILLA Attending Unavailable NO, PHYSICIAN Primary Care Unavailable SHAYY MARLEY Attending Unavailabl e NO, PHYSICIAN Primary Care Unavailable PABLO VOGT Attending Unavailab le NO, PHYSICIAN Primary Care Unavailable KACI ALFARO Attending Unavailable NO, PHYSICIAN Primary Care Unavailable ODETTE BRIONES Attending Unavailable NO, PHYSICIAN Primary Care Unavailable Unavailable Primary Care Provider Unavailabl e Unavailable Primary Care Provider Unavailabl e Care Physician, No Primary Primary Care Provider Unavailable Provider, Ed Physician Emergency Provider Unavai MISTY Greene Referring Unavailable Care Physician, No Primary Primary Care Unava ilable Dolores Mack Attending Unavailable LeLonnie Attending Unavailable Care Physician, No Primary Primary Care Unava ilable Provider, Ed Physician Attending Unavailab le Care Physician, No Primary Primary Care Unava ilable Allergies Allergy Classification Reported Allergen(s) Allergy Type Date of Onset Reaction(s) Facility Penicillins (antibiotic) (3 sources) Penicillins Drug Allergy 0 Rash [facility] Work Phone: (20 sources) Penicillins; Translations: [PENICILLINS] Propensity to adverse reactions to drug 201 0 Rash, Other (See Comments), Unknown [facility] (4 sources) Penicillins Propensity to adverse reactions to drug 10-22-201 0 Swelling, Rash, Other (See Comments), Unknown [facility] Work Phone: (3 sources) Penicillins Propensity to adverse reactions [address] [facility] (7 sources) tomatoes; Translations: [TOMATOES] Allergy to substance [address] [facility] (2 sources) tomato allergenic extract Drug Allergy [address] [facility] (1 source) Penicillins Propensity to adverse reactions to drug 4 Unknown [facility] (1 source) Penicillins Drug allergy (disorder) 5 [facility] (1 source) tomato allergenic extract Drug Allergy 5 [facility] Medications Current Medications Medication Drug Class(es) Dates Sig (Normalized) Sig (Original) acamprosate calcium 333 mg delayed release oral tablet (1 source) Start: 07-10-2022 End: 07-20-2022 take 2 tablets by mouth three times daily acamprosate (CAMPRAL) 333 mg tablet Indications: Opioid dependence in remission (HCC) Take 2 (two) tablets (666 mg total) by mouth 3 (three) times a day for 10 days . 60 tablet 0 07/10/2022 07/20/2022 Active acetaminophen 325 mg oral tablet (4 sources) Start: 05-29-2022 acetaminophen (TYLENOL) tablet 650 mg Start: 05-14-2022 acetaminophen (TYLENOL) tablet 650 mg Start: 08-22-2021 take 650 mg by mouth every four hours as needed for pain, then take 4000 mg by mouth every twenty-four hours as needed for pain 650 mg, Oral, EVERY 4 HOURS PRN, Mild Pain, Fever, Headaches, Starting on Thu08/22/21 at 2116, Until Discontinued Maximum dose of acetaminophen is 4000 mg from all sources in 24 hours. Start: 05-08-2021 take 650 mg by mouth every four hours as needed for pain, then take 4000 mg by mouth every twenty-four hours as needed for pain 650 mg, Oral, EVERY 4 HOURS PRN, Mild Pain, Starting on Thu05/08/21 at 2147, Until Discontinued Maximum dose of acetaminophen is 4000 mg from all sources in 24 hours. aluminum hydroxide 40 mg/ml / magnesium hydroxide 40 mg/ml oral suspension (4 sources) Start: 05-29-2022 aluminum-magne sium hydroxide 200-200 MG/5ML suspension 30 mL Start: 05-14-2022 aluminum-magne sium hydroxide 200-200 MG/5ML suspension 30 mL Start: 08-22-2021 take 30 mL by mouth every six hours as needed 30 mL, Oral, EVERY 6 HOURS PRN, Indigestion, Starting on Thu08/22/21 at 2116, Until Discontinued Start: 05-08-2021 take 30 mL by mouth every six hours as needed 30 mL, Oral, EVERY 6 HOURS PRN, Indigestion, Starting on Thu05/08/21 at 2147, Until Discontinued benzocaine 0.2 mg/mg oral gel (1 source) Standardized Chemical Allergen Start: 05-09-2021 benzocaine (ORAJEL) 20 % jelly 0.1 g benzonatate 200 mg oral capsule (7 sources) Non-narcotic Antitussive Start: 09-08-2022 End: 11-15-2022 take 1 capsule by mouth three times daily as needed for cough benzonatate 200 MG capsule Take 1 capsule by mouth 3 times daily as needed for Cough. 21 capsule 0 11/15/2022 Active Start: 11-11-2019 take 1 capsule by mo [facility] three times daily benzonatate (TESSALON) 100 MG capsule Take 1 capsule by mouth 3 times daily. 30 capsule 0 11/11/2019 Active 24 hr buPROPion hydrochloride 300 mg extended release oral tablet (3 sources) Aminoketone Start: 05-30-2022 buPROPion (WEL LBUTRIN XL) 24 hr tablet 300 mg busPIRone hydrochloride 5 mg oral tablet (3 sources) Start: 05-29-2022 busPIRone (BUS PAR) tablet 5 mg fluticasone propionate 0.05 mg/actuat metered dose nasal spray (3 sources) Corticosteroid Start: 05-08-2020 Fluticasone pr opionate (FLONASE) 50 MCG/ACT nasal spray Indications: Environmental allergies 1 spray by Each Nare route daily. 16 g 3 05/08/2020 Active Start: 02-19-2020 Fluticasone pr opionate (FLONASE) 50 MCG/ACT nasal spray 1 spray by Nasal route daily. 16 g 0 02/19/2020 Active 12 hr guaiFENesin 600 mg extended release oral tablet (1 source) Start: 05-29-2022 guaiFENesin ER (MUCINEX) 12 hr tablet 600 mg hydrOXYzine hydrochloride 25 mg oral tablet (5 sources) Antihistamine Start: 05-29-2022 hydrOXYzine (A TARAX) tablet 25 mg Start: 09-08-2019 End: 10-05-2019 take 1 capsule by mouth three times daily as needed hydrOXYzine (VISTARIL) 25 MG capsule Take 1 capsule by mouth 3 times daily as needed for Itching. 30 capsule 0 09/08/2019 10/05/2019 Discontinued ketorolac tromethamine 10 mg oral tablet (2 sources) Nonsteroidal Anti-inflammatory Drug, Cyclooxygenase Inhibitor Start: 05-21-2020 End: 05-26-2020 take 1 tablet by mouth every six hours as needed ketorolac (TORADOL) 10 MG tablet Indications: Acute right ankle pain Take 1 tablet by mouth every 6 hours as needed for up to 5 days. 20 tablet 0 05/21/2020 05/26/2020 Active Start: 10-05-2019 End: 10-05-2019 Ketorolac (TORADOL) injectio n 30 mg lidocaine hydrochloride 20 mg/ml mucous membrane topical solution (3 sources) Antiarrhythmic, Amide Local Anesthetic Start: 11-15-2022 Lidocaine HCl (Lidocaine viscous) 2 % Solution 15 mL by Mouth/Throat route 4 times daily as needed. Swish and spit-As needed for pain 150 mL 0 11/15/2022 Active Start: 07-08-2022 End: 08-10-2022 lidocaine (LIDODERM) 5 % Eva ce 1 patch onto the skin daily for 10 days 12 hours on, 12 hours off. 10 patch 0 07/31/2022 08/10/2022 Active LOCM iohexol (OMNIPAQUE 300 MG/ML) injection 100 mL (1 source) Start: 02-23-2021 End: 02-24-2021 LOCM iohexol (OMNIPAQUE 300 MG/ML) injection 100 mL loratadine 10 mg oral tablet (1 source) Start: 05-08-2020 take 1 tablet by mouth once daily loratadine (CLARITIN) 10 MG tablet Indications: Environmental allergies Take 1 tablet by mouth daily. 30 tablet 3 05/08/2020 Active 12 hr loratadine 5 mg / pseudoephedrine sulfate 120 mg extended release oral tablet (1 source) alpha-Adrenerg ic Agonist Start: 07-16-2021 End: 07-31-2021 take 5-120 mg by mouth once loratadine-pseudoep hedrine (CLARITIN-D 12-HOUR) 5-120 MG per tablet Indications: Sinus congestion Take 1 tablet by mouth two times a day for 15 days. 30 tablet 0 07/16/2021 07/31/2021 Active magnesium hydroxide 240 mg/ml oral suspension (4 sources) Start: 05-29-2022 Magnesium Hydr oxide (MOM) suspension (CONC) 10 mL Start: 05-14-2022 Magnesium Hydr oxide (MOM) suspension (CONC) 10 mL Start: 08-22-2021 take 10 mL by mouth once daily as needed for constipation 10 mL, Oral, DAILY PRN, Constipation, Starting on Alida 08/22/21 at 2116, Until Discontinued This is a rescue laxative. If last BM 3 days or greater OR outside of patient's normal elimination pattern, administer a rescue laxative. If first rescue laxative is ineffective, give a second rescue laxative different from the first option If the second rescue laxative is ineffective, contact the physician for further instructions. Start: 05-08-2021 take 10 mL by mouth once daily as needed for constipation 10 mL, Oral, DAILY PRN, Constipation, Starting on Thu05/08/21 at 2147, Until Discontinued This is a rescue laxative. If last BM 3 days or greater OR outside of patient's normal elimination pattern, administer a rescue laxative. If first rescue laxative is ineffective, give a second rescue laxative different from the first option If the second rescue laxative is ineffective, contact the physician for further instructions. methylPREDNISolone (2 sources) Corticosteroid Start: 05-21-2020 methylPREDNISo lone (MEDROL DOSEPAK) 4 MG tablet Indications: Acute right ankle pain follow package directions 21 tablet 0 05/21/2020 Active Start: 03-23-2020 methylPREDNISo lone (MEDROL DOSEPAK) 4 MG tablet Indications: Left leg pain follow package directions 21 tablet 0 03/23/2020 Active multivitamin capsule (1 source) Start: 09-21-2018 take 1 capsule by mouth once daily multivitamin capsule Take 1 capsule by mouth daily . 0 09/21/2018 Active mupirocin 0.02 mg/mg topical ointment (1 source) RNA Synthetase Inhibitor Antibacterial Start: 12-12-2020 mupirocin (BACTROBAN) 2 % ointment Indications: Furuncle of upper back excluding scapular region Apply a thin layer to affect area once or twice daily. 22 g 0 12/12/2020 Active naloxone hydrochloride 40 mg/ml nasal spray (1 source) Opioid Antagonist Start: 07-08-2022 naloxone (Narcan) 4 mg/actuation [place] Indications: Opioid dependence in remission (HCC) Administer 1 spray into one nostril for known or suspected opioid overdose. If patient worsens or does not respond, may repeat in 2-3 minutes. . 2 each 0 07/08/2022 Active naltrexone hydrochloride 50 mg oral tablet (3 sources) Opioid Antagonist Start: 05-30-2022 naltrexone (DEPADE) tablet 50 mg 24 hr nicotine 0.875 mg/hr transdermal system (4 sources) Cholinergic Nicotinic Agonist Start: 05-29-2022 nicotine (NICODERM CQ) 21 MG/24HR 1 patch Start: 05-29-2022 nicotine polac rilex (COMMIT) lozenge 4 mg Start: 05-14-2022 nicotine (TJ DERM CQ) 21 MG/24HR 1 patch Start: 05-14-2022 nicotine polac rilex (COMMIT) lozenge 4 mg ondansetron 4 mg disintegrating oral tablet (20 sources) Serotonin-3 Receptor Antagonist Start: 11-15-2022 take 1 tablet by mouth every four hours as needed ondansetron 4 MG Tab Dispersible tablet Take 1 tablet by mouth every 4 hours as needed for Nausea. Place on tongue 30 tablet 0 11/15/2022 Active Start: 05-06-2022 take 1 tablet by romulo th every eight hours as needed ondansetron (Zofran) 4 MG tablet Take 1 (one) tablet (4 mg total) by mouth every 8 (eight) hours as needed . 20 tablet 0 05/06/2022 Active Start: 12-12-2021 End: 05-30-2022 take 1 tablet by mouth every eight hours as needed for nausea and vomiting Ondansetron (ZOFRAN-ODT) 4 MG disintegrating tablet Indications: Non-intractable vomiting with nausea, unspecified vomiting type Take 1 tablet by mouth every 8 hours as needed for Nausea and/or Vomiting. Dissolve on tongue then swallow. 20 tablet 0 12/12/2021 05/30/2022 Discontinued (Discontinued during inpatient admission) Start: 07-16-2021 End: 08-22-2021 take 1 tablet by mouth every eight hours as needed for nausea and vomiting Ondansetron (ZOFRAN-ODT) 4 MG disintegrating tablet Indications: Nausea Take 1 tablet by mouth every 8 hours as needed for Nausea and/or Vomiting. Dissolve on tongue then swallow. 20 tablet 0 07/16/2021 08/22/2021 Discontinued Start: 05-07-2021 End: 05-08-2021 take 1 tablet by mouth every eight hours as needed for nausea and vomiting Ondansetron (ZOFRAN ODT) 4 MG disintegrating tablet Indications: Non-intractable vomiting with nausea, unspecified vomiting type , Viral illness Take 1 tablet by mouth every 8 hours as needed for Nausea and/or Vomiting. Dissolve on tongue then swallow. 20 tablet 0 05/07/2021 05/08/2021 Discontinued Start: 02-23-2021 End: 02-23-2021 ondansetron hcl (ZOFRAN) inj ection 4 mg Start: 11-11-2019 End: 11-11-2019 ondansetron hcl (ZOFRAN) inj ection 8 mg Start: 10-24-2019 End: 10-24-2019 ondansetron hcl (ZOFRAN) inj ection 4 mg Start: 10-05-2019 End: 10-05-2019 ondansetron hcl (ZOFRAN) inj ection 4 mg Start: 10-05-2019 End: 10-24-2019 take 1 tablet by mouth every eight hours as needed for nausea and vomiting Ondansetron (ZOFRAN-ODT) 4 MG disintegrating tablet Take 1 tablet by mouth every 8 hours as needed for Nausea and/or Vomiting. Dissolve on tongue then swallow. 20 tablet 0 11/11/2019 Active oseltamivir 75 mg oral capsule (1 source) Neuraminidase Inhibitor Start: 01-04-2025 End: 01-09-2025 take 1 capsule by mouth twice daily oseltamivir (TAMIFLU) 75 mg capsule Indications: Flu-like symptoms , Exposure to the flu Take 1 capsule by mouth two times a day for 5 days. 10 capsule 01/04/2025 01/09/2025 Active predniSONE 20 mg oral tablet (1 source) Start: 09-08-2022 End: 09-14-2022 take 2 tablets by mouth once daily, then take 1 tablet by mouth once daily predniSONE 20 MG tablet Take 2 tablets by mouth daily for 3 days, THEN 1 tablet daily for 3 days. 40,40,40,20,20,20. 9 tablet 0 09/08/2022 09/14/2022 Active QUEtiapine 100 mg oral tablet (3 sources) Atypical Antipsychotic Start: 05-29-2022 QUEtiapine (SEROQUEL) tablet 100 mg sertraline 50 mg oral tablet (3 sources) Serotonin Reuptake Inhibitor Start: 05-30-2022 sertraline (ZOLOFT) tablet 50 mg traZODone hydrochloride 50 mg oral tablet (1 source) Serotonin Reuptake Inhibitor Start: 01-27-2018 take 1 tablet by mouth once daily as needed for sleep traZODone (DESYREL) 50 MG tablet Take 1 tablet by mouth nightly as needed for Sleep 30 tablet 0 01/27/2018 Active Completed/Discontinued Medications Medication Drug Class(es) Dates Sig (Normalized) Sig (Original) carbamide peroxide 65 mg/ml otic solution (2 sources) Start: 02-27-2020 End: 02-27-2020 carbamide peroxide 6.5 % otic solution 5 drop Start: 02-27-2020 carbamide carmen xide 6.5 % otic solution Place 5 drops into the right ear 2 times daily as needed for Other. 14.8 mL 0 02/27/2020 Active cefdinir 300 mg oral capsule (2 sources) Cephalosporin Antibacterial Start: 02-27-2020 End: 03-05-2020 cefdinir (OMNICEF) capsule 300 mg ciprofloxacin 3 mg/ml / dexamethasone 1 mg/ml otic suspension (1 source) Corticosteroid, Quinolone Antimicrobial Start: 02-27-2020 End: 02-27-2020 ciprofloxacin-dexame thasone (CIPRODEX) otic suspension 4 drop cyclobenzaprine hydrochloride 5 mg oral tablet (11 sources) Muscle Relaxant Start: 03-04-2021 End: 05-08-2021 take 1 tablet by mouth three times daily as needed for muscle spasms cyclobenzaprine (FLEXERIL) 5 MG tablet Indications: Rib pain on left side Take 1 tablet by mouth 3 times daily as needed for Muscle spasms. 30 tablet 0 03/04/2021 05/08/2021 Discontinued Start: 03-23-2020 take 1 tablet by romulo th three times daily as needed for muscle spasms cyclobenzaprine (FLEXERIL) 10 MG tablet Indications: Left leg pain Take 1 tablet by mouth 3 times daily as needed for Muscle spasms. 30 tablet 1 03/23/2020 Active Start: 10-24-2019 take 1 tablet by romulo th three times daily as needed for muscle spasms cyclobenzaprine (FLEXERIL) 10 MG tablet Take 1 tablet by mouth 3 times daily as needed for Muscle spasms. 15 tablet 0 10/24/2019 Active DULoxetine 30 mg delayed release oral capsule (12 sources) Serotonin and Norepinephrine Reuptake Inhibitor Start: 08-26-2021 End: 05-30-2022 take 1 capsule by mouth once daily DULoxetine (CYMBALTA) 30 MG capsule Indications: Major depressive disorder, recurrent severe without psychotic features (HCC) Take 1 capsule by mouth daily. 15 capsule 1 08/26/2021 05/30/2022 Discontinued (Discontinued during inpatient admission) Start: 08-26-20[address] [facility] once daily DULoxetine (CYMBALTA) 30 MG capsule Indications: Major depressive disorder, recurrent severe without psychotic features (HCC) Take 1 capsule by mouth daily. 15 capsule 1 08/26/2021 Active Start: 08-23-2021 DULoxetine (CY MBALTA) DR capsule 30 mg Start: 05-12-2021 take [address] [facility] once daily DULoxetine (CYMBALTA) 30 MG capsule Take 1 capsule by mouth daily. 15 capsule 1 05/12/2021 Active Start: 05-09-2021 End: 08-22-2021 DULoxetine (CYMBALTA) DR cap bhaskar 30 mg escitalopram 20 mg oral tablet (9 sources) Serotonin Reuptake Inhibitor Start: 08-24-2018 End: 03-10-2025 take 1 tablet by mouth once daily escitalopram oxalate (LEXAPRO) 20 mg tablet Take 1 tablet by mouth once daily. 08/24/2018 03/10/2025 Discontinued Comment on above: Take 1 tablet by [facility] once daily. hyoscyamine sulfate 0.125 mg sublingual tablet (1 source) Start: 02-23-2021 End: 02-23-2021 Hyoscyamine (LEVSIN/SL) SL tablet 0.125 mg Start: 02-23-2021 End: 02-23-2021 Hyoscyamine (LEVSIN/SL) SL t ablet 0.125 mg ibuprofen 600 mg oral tablet (6 sources) Nonsteroidal Anti-inflammatory Drug Start: 07-31-2022 End: 07-31-2022 ibuprofen (ADVIL;MOTRIN) tablet 600 mg Start: 05-29-2022 ibuprofen (ADV IL,MOTRIN) tablet 400 mg Start: 07-10-2019 End: 12-19-2022 take 1 tablet by mouth three times daily as needed for pain Ibuprofen 800 MG tablet Discontinued 800 mg PO 3 TIMES DAILY NEEDED as needed for Pain July 10, 2019 12:00am December 19, 2022 9:51am loperamide hydrochloride 2 mg oral capsule (4 sources) Opioid Agonist Start: 12-12-2021 End: 05-30-2022 take 1 capsule by mouth four times daily as needed for diarrhea loperamide (IMODIUM) 2 MG capsule Indications: Diarrhea, unspecified type Take 1 capsule by mouth 4 times daily as needed for Diarrhea. 30 capsule 0 12/12/2021 05/30/2022 Discontinued (Discontinued during inpatient admission) 1 ml morphine sulfate 4 mg/ml cartridge (1 source) Opioid Agonist Start: 02-23-2021 End: 02-23-2021 Morphine Sulfate (PF) injection 4 mg Start: 02-23-2021 End: 02-23-2021 Morphine Sulfate (PF) inject ion 4 mg Multivitamin capsule (5 sources) Start: 09-21-2018 End: 03-10-2025 take 1 capsule by mouth once daily Multivitamin capsule Take 1 capsule by mouth once daily. 30 capsule 09/21/2018 03/10/2025 Discontinued Start: 09-21-2018 take 1 capsule by mo [facility] once daily Multivitamin capsule Take 1 capsule by mouth once daily. 30 capsule 09/21/2018 Active Start: 09-21-2018 take 1 capsule by mo [facility] once daily Multivitamin capsule Take 1 capsule by mouth once daily. 30 capsule 0 09/21/2018 Active Comment on above: Take 1 capsule by mo [facility] once daily. naproxen 500 mg oral tablet (13 sources) Nonsteroidal Anti-inflammatory Drug Start: 05-07-20 End: 05-08-20 take 1 tablet by mouth twice daily at mealtime naproxen (NAPROSYN) 500 MG tablet Indications: Chest pain, musculoskeletal Take 1 tablet by mouth 2 times daily (with meals). 30 tablet 0 05/07/2021 05/08/2021 Discontinued Start: 02-27-2021 take 1 tablet by romulo th twice daily at mealtime naproxen (NAPROSYN) 500 MG tablet Indications: Muscle strain of right lower leg, initial encounter Take 1 tablet by mouth 2 times daily (with meals). 30 tablet 0 02/27/2021 Active Start: 01-30-2021 take 1 tablet by romulo th twice daily at mealtime naproxen (NAPROSYN) 500 MG tablet Indications: Abrasion Take 1 tablet by mouth 2 times daily (with meals). 30 tablet 0 01/30/2021 Active Start: 10-05-2019 End: 02-19-2020 take 1 tablet by mouth twice daily naproxen (NAPROSYN) 500 MG tablet Take 1 tablet by mouth two times a day. 15 tablet 0 02/19/2020 Active Oral Electrolytes ([employer] ELECTROLYTE SOLUTION) SOLN (2 sources) Start: 05-07-2021 End: 05-08-2021 take 10 mL by mouth twice daily Oral Electrolytes ([employer] ELECTROLYTE SOLUTION) SOLN Indications: Non-intractable vomiting with nausea, unspecified vomiting type , Viral illness , Diarrhea, unspecified type Take 10 mLs by mouth two times per day. 1000 mL 0 05/07/2021 05/08/2021 Discontinued Start: 05-07-2021 take 10 mL by mouth twice daily Oral Electrolytes ([employer] ELECTROLYTE SOLUTION) SOLN Indications: Non-intractable vomiting with nausea, unspecified vomiting type , Viral illness , Diarrhea, unspecified type Take 10 mLs by mouth two times per day. 1000 mL 0 05/07/2021 Active 50 ml sodium chloride 9 mg/m l injection (2 sources) Start: 11-11-2019 End: 11-11-2019 sodium chloride 0.9% bolus 0 .9 % solution 1,000 mL Start: 10-05-2019 End: 10-05-2019 sodium chloride 0.9% bolus 0 .9 % solution 1,000 mL Problems Active Problems Problem Classification Problem Date Documented Da te Episodic/Chronic Abdominal pain (8 sources) Right flank pain; Translations: [Flank pain] Onset: 2 Episodic Adjustment disorders (3 sources) Adjustment disorder with depressed mood; Translations: [Adjustment disorder with depressed mood] Onset: 2 Chronic Alcohol-related disorders (2 sources) Alcohol dependence, uncomplicated; Translations: [Alcohol dependence, uncomplicated] Onset: 2 Chronic Anxiety disorders (1 source) Anxiety attack ; Translations: [Anxiety attack] Chronic Chronic obstructive pulmonary disease and bronchiectasis (1 source) Bronchitis; Translations: [Bronchitis] Episodic Conditions associated with dizziness or vertigo (1 source) Lightheadedness; Translations: [Lightheadedness] Episodic Gastrointestinal hemorrhage (2 sources) Gastrointestinal hemorrhage; Translations: [Hemorrhage of anus and rectum] 03-10-2025 Episodic Headache; including migraine (1 source) Headache; including migraine; Translations: [Headache, unspecified] Onset: 5 Immunizations and screening for infectious disease (5 sources) Contact with and (suspected) exposure to other viral communicable diseases; Translations: [Contact with or suspected exposure to other viral communicable disease] 12-19-2022 Episodic Mood disorders (20 sources) Bipolar I disorder; Translations: [Bipolar disorder, unspecified] Onset: 8 Resolved: 1 03-04-2021 Chronic Nausea and vomiting (8 sources) Nausea; Translations: [Nausea and vomiting] Onset: 2 Episodic Noninfectious gastroenteritis (1 source) Gastroenteritis; Translations: [Gastroenteritis] Episodic Open wounds of extremities (2 sources) Laceration of left thumb; Translations: [Laceration without foreign body of left thumb without damage to nail, initial encounter] 10-16-2023 Episodic Other connective tissue disease (1 source) Pain in left lower limb; Translations: [Left leg pain] Episodic Other connective tissue disease (2 sources) Pain in left foot; Translations: [Pain in left foot] 03-18-2024 Episodic Other ear and sense organ disorders (1 source) Acute otitis externa; Translations: [Acute swimmer's ear of left side] Episodic Other ear and sense organ disorders (1 source) Impacted cerumen in right ear; Translations: [Impacted cerumen of right ear] Other ear and sense organ disorders (1 source) Otalgia of left ear; Translations: [Left ear pain] Other gastrointestinal disorders (2 sources) Diarrhea; Translations: [Diarrhea,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 [address] WBC 7.1 x10 3/uL Normal 4.3-10.3 [email or web address] Comment on above: Performed By: #### 4 [id number] #### [employer] [address] [address] CBC with Differentialon 06-3 0-2021 Absolute Immature Granulocytes 0.1 0 10 3/uL [email or web address] Absolute Lymph 2.5 [email or web address] Absolute Bill[place] 0.6 [email or web address] Basophils (Bld) [#/Vol] 0.0 10*3/uL [email or web address] Basophils/100 WBC (Bld) 0.6 % [employer] [facility] Eosinophils (Bld) [#/Vol] 0.1 10*3/uL [email or web address] Eosinophils/100 WBC (Bld) 0.8 % [email or web address] Erythrocyte distribution width (RBC) [Ratio] 13.0 % 11.5 - 14.5 % [employer] [facility] Hematocrit (Bld) [Volume fraction] 42.7 % 37.7 - 51.1 % [email or web address] Hemoglobin (Bld) [Mass/Vol] 14.2 g/dL 12.8 - 17.7 g/dL [email or web address] Immature granulocytes/100 WBC (Bld) 0.7 % [email or web address] Lymphocytes/100 WBC (Bld) 34.6 % [facility] MCH (RBC) [Entitic mass] 30.3 pg 27.0 - 34.2 pg [facility] MCHC (RBC) [Mass/Vol] 33.3 g/dL 31.4 - 36.2 g/dl [facility] MCV (RBC) [Entitic vol] 91.2 fL 80.6 - 99.0 fL [facility] Monocytes/100 WBC (Bld) 7.9 % [facility] Neutrophils (Bld) [#/Vol] 3.9 10*3/uL [facility] Neutrophils/100 WBC (Bld) 55.4 % [facility] Platelets (Bld) [#/Vol] 194.0 10*3/uL [facility] RBC (Bld) [#/Vol] 4.68 10*6/uL [facility] WBC LM Ql (Sput) 7.1 [facility] Comprehensive metabolic pane jan 05-29-2022 Albumin [Mass/Vol] 4.4 g/dL 3.5 - 5.0 g/dL [facility] Alk Phos 117 U/L 24 - 126 U/L [facility] ALT [Catalytic activity/Vol] 21 U/L 4 - 50 U/L [facility] AST [Catalytic activity/Vol] 26 U/L 3 - 55 U/L [facility] Bilirubin [Mass/Vol] 0.4 mg/dL 0.2 - 1 .6 mg/dL [facility] Calcium [Mass/Vol] 9.5 mg/dL 8.4 - 10. 4 mg/dL [facility] Chloride [Moles/Vol] 105 mmol/L 96 - 10 9 mmol/L [facility] CO2 [Moles/Vol] 31 mmol/L High 22 - 30 mmol/L [facility] Creatinine [Mass/Vol] 0.84 mg/dL 0.66 - 1.25 mg/dL [facility] Glucose [Mass/Vol] 84 mg/dL 65 - 100 mg/dL [facility] Potassium [Moles/Vol] 4.1 mmol/L 3.6 - 5.1 mmol/L [facility] Protein [Mass/Vol] 7.6 g/dL 6.3 - 8.2 g/dL [facility] Sodium [Moles/Vol] 143 mmol/L 135 - 147 mmol/L [facility] Urea nitrogen [Mass/Vol] 10 mg/dL 8 - 26 mg/dL [facility] ETHANOL-SERUMon 05-29-2022 ETHANOL-SERUM <10 Normal NOT DETECTED [facility] Comment on above: Performed By: #### 4 [id number] #### [place] [address] GFRon 05-29-2022 GFR >60 Normal [facility] Comment on above: Result Comment: To e stimate the GFR for Americans, multiply the result provided by 1.21. Population mean GFR = 116 ml/min/1.73 sq.m. for ages 18-29 yrs. The MDRD is validated in individuals 18-70 years of age. It is less accurate in patients with extremes of muscle mass, restriction of dietary protein, ingestion of creatine, extra-renal metabolism of creatinine, or treatment with medications that affect renal tubular creatinine secretion. GFR Categories in Chronic Kidney Disease (CKD) Category: GFR(mL/min/1.73m^2) Interpretation: G1* 90 or greater Normal or high G2* 60-89 Mild decrease G3a 45-59 Mild to moderate decrease G3b 30-44 Moderate to severe decrease G4 15-29 Severe decrease G5 14 or less Kidney failure *G1&G2: In the absence of evidence of kidney damage, neither GFR category G1 nor G2 fulfill the criteria for CKD Kidney Int Suppl.2013;3:1-150 Performed By: #### G FR1 #### [place] [address] GLOMERULAR FILTRATION RATEon 05-29-2022 GFR >60 [facility] Comment on above: To estimate the GFR for Americans, multiply the result provided by 1.21. Population mean GFR = 116 ml/min/1.73 sq.m. for ages 18-29 yrs. The MDRD is validated in individuals 18-70 years of age. It is less accurate in patients with extremes of muscle mass, restriction of dietary protein, ingestion of creatine, extra-renal metabolism of creatinine, or treatment with medications that affect renal tubular creatinine secretion. GFR Categories in Chronic Kidney Disease (CKD) Category: GFR(mL/min/1.73m^2) Interpretation: G1* 90 or greater Normal or high G2* 60-89 Mild decrease G3a 45-59 Mild to moderate decrease G3b 30-44 Moderate to severe decrease G4 15-29 Severe decrease G5 14 or less Kidney failure *G1&G2: In the absence of evidence of kidney damage, neither GFR category G1 nor G2 fulfill the criteria for CKD Kidney Int Suppl.2013;3:1-150 METABOLIC PANELon 05-29-2022 ALK PHOS 117 U/L Normal 24-126 [email or web address] Comment on above: Performed By: #### 4 [id number] #### [place] [address] ALT [Catalytic activity/Vol] 21 U/L Normal 4-50 [email or web address] Comment on above: Performed By: #### 4 [id number] #### [place] [address] AST [Catalytic activity/Vol] 26 U/L Normal 3-55 [email or web address] Comment on above: Performed By: #### 4 [id number] #### [place] [address] Bilirubin [Mass/Vol] 0.4 mg/dL Normal 0.2-1.6 [employer] Comment on above: Performed By: #### 4 [id number] #### [place] [address] Calcium [Mass/Vol] 9.5 mg/dL Normal 8.4-10.4 [employer] Comment on above: Performed By: #### 4 [id number] #### [place] [address] CO2 [Moles/Vol] 31 mmol/L High 22-30 [facility] [employer] [facility] Comment on above: Performed By: #### 4 [id number] #### [place] [address] Glucose [Mass/Vol] 84 mg/dL Normal 65-100 [facility] [employer] [facility] Comment on above: Performed By: #### 4 [id number] #### [place] [address] Protein [Mass/Vol] 7.6 g/dL Normal 6.3-8.2 [facility] [employer] [facility] Comment on above: Performed By: #### 4 [id number] #### [place] [address] Urea nitrogen [Mass/Vol] 10 mg/dL Normal 8-26 [employer] Comment on above: Performed By: #### 4 [id number] #### [place] [address] Creatinine [Mass/Vol] 0.84 mg/dL Normal 0.66-1.25 [facility] [employer] [facility] Comment on above: Performed By: #### 4 [id number] #### [place] [address] Albumin [Mass/Vol] 4.4 g/dL Normal 3.5-5.0 [facility] [employer] [facility] Comment on above: Performed By: #### 4 [id number] #### [place] [address] Chloride [Moles/Vol] 105 mmol/L Normal 96-109 [facility] [employer] [facility] Comment on above: Performed By: #### 4 [id number] #### [place] [address] Potassium [Moles/Vol] 4.1 mmol/L Normal 3.6-5.1 [facility] [employer] Comment on above: Performed By: #### 4 [id number] #### [place] [address] Sodium [Moles/Vol] 143 mmol/L Normal 135-147 [facility] Comment on above: Performed By: #### 4 [id number] #### [place] [address] No Panel Informationon 05-29 Interpretation and review of laboratory results Abnormal [facility] nRBC 0 [facility] SALICYLATEon 05-29-2022 SALICYLATE <1.0 Low 15.0-30.0 [facility] Comment on above: Performed By: #### 4 [id number] #### [place] [address] Salicylate levelon Salicylates [Mass/Vol] mg/dL Low 15.0 - 30.0 mg/dL [facility] TSH CASCADEon 05-29-2022 TSH CASCADE 1.910 uIU/mL Normal 0.465-4.680 [facility] Comment on above: Performed By: #### 4 [id number] #### [place] [address] Thyroid Cascadeon 05-29-2022 TSH Harney 1.910 [facility] UR DRUG SCREEN-7 PANELon PCP Not detected Normal CUTOFF <25 [facility] Comment on above: Performed By: #### 4 [id number] #### [place] [address] MARIJUANA/THC Not detected Normal CUTOFF <50 [facility] Comment on above: Performed By: #### 4 [id number] #### [place] [address] Opiates Ql (U) Not detected Normal CUTOFF <300 [facility] Comment on above: Performed By: #### 4 [id number] #### [place] [address] COCAINE/BE Not detected Normal CUTOFF <300 [facility] Comment on above: Performed By: #### 4 [id number] #### [place] [address] AMPHETAMINES/METH Not detected Normal CUTOFF <1000 [facility] Comment on above: Performed By: #### 4 [id number] #### [place] [address] BARBITURATE Not detected Normal CUTOFF <200 [facility] Comment on above: Performed By: #### 4 [id number] #### [place] [address] FENTANYL Not detected Normal CUTOFF 1.0 [facility] Comment on above: Performed By: #### 4 [id number] #### [place] [address] BENZODIAZEPINE Not detected Normal CUTOFF <200 [facility] Comment on above: Performed By: #### 4 [id number] #### [place] [address] TOX MESSAGE see below Normal [facility] Comment on above: Result Comment: Note s: 1. SCREENING RESULTS SHOULD BE CONSIDERED PRESUMPTIVE UNLESS THE PRESENCE OF THE ANALYTE HAS BEEN CONFIRMED BY A REFERENCE LAB. 2. ALL DRUG GROUPS ARE ANALYZED ON URINE. Performed By: #### 4 [id number] #### [place] [address] Urine Toxicologyon 2 Amphetamines Screen method >1000 ng/mL Ql (U) Not detected CUTOFF <1000 ng/mL [facility] Barbiturates Screen method >200 ng/mL Ql (U) Not detected CUTOFF <200 ng/mL [facility] Benzodiazepines Ql (U) Not detected CUTOF F <200 ng/mL [facility] Benzoylecgonine Screen (U) [Mass/Vol] Not detected CUTOFF <300 ng/mL [facility] Cannabinoids Screen method >50 ng/mL Ql (U) Not detected CUTOFF <50 ng/mL [facility] Fentanyl Not detected CUTOFF 1.0 ng/mL [facility] Opiates Screen (U) [Mass/Vol] Not detected CUTOFF <300 ng/mL [facility] Phencyclidine (U) [Mass/Vol] Not detected CUTOFF <25 ng/mL [email or web address] Tox Message see below [email or web address] Comment on above: Notes: 1. SCREENING RESULTS SHOULD BE CONSIDERED PRESUMPTIVE UNLESS THE PRESENCE OF THE ANALYTE HAS BEEN CONFIRMED BY A REFERENCE LAB. 2. ALL DRUG GROUPS ARE ANALYZED ON URINE. [email or web address] CBC WITH DIFFERENTIALon 04-30 ABSOLUTE BASO 0.0 10 3/uL Normal 0.0-0.1 [email or web address] Comment on above: Performed By: #### 4 [id number] #### [employer] [place] [phone] ABSOLUTE EOSIN 0.0 10 3/uL Low 0.1-0.3 [email or web address] Comment on above: Performed By: #### 4 [id number] #### [place] [address] ABSOLUTE LYMPH 2.0 10 3/uL Normal 1.2-3.3 [email or web address] Comment on above: Performed By: #### 4 [id number] #### [place] [address] ABSOLUTE MONO 0.5 10 3/uL Normal 0.2-0.6 [email or web address] Comment on above: Performed By: #### 4 [id number] #### [place] [address] ABSOLUTE NEUT 7.5 10 3/uL High 2.4-6.6 [email or web address] Comment on above: Performed By: #### 4 [id number] #### [place] [address] Basophils/100 WBC (Bld) 0.3 % Normal [employer] [facility] Comment on above: Performed By: #### 4 [id number] #### [place] [address] Eosinophils/100 WBC (Bld) 0.2 % Normal [employer] [facility] Comment on above: Performed By: #### 4 [id number] #### [place] [address] Erythrocyte distribution width (RBC) [Ratio] 12.8 % Normal 11.5-14.5 [employer] [facility] Comment on above: Performed By: #### 4 [id number] #### [employer] [place] [address] Hematocrit (Bld) [Volume fraction] 43.5 % Normal 37.7-51.1 [employer] Comment on above: Performed By: #### 4 [id number] #### [employer] [place] [phone] Hemoglobin (Bld) [Mass/Vol] 14.3 g/dL Normal 12.8-17.7 [employer] Comment on above: Performed By: #### 4 [id number] #### [employer] [place] [address] IG ABSOLUTE 0.0 10 3/uL Normal 0 [employer] Comment on above: Performed By: #### 4 [id number] #### [employer] [place] [phone] IG PERCENT 0.4 % Normal [facility] [employer] [facility] Comment on above: Performed By: #### 4 [id number] #### [facility] [employer] [place] [phone] Lymphocytes/100 WBC (Bld) 19.4 % Normal [employer] [facility] Comment on above: Performed By: #### 4 [id number] #### [place] [phone] MCH (RBC) [Entitic mass] 30.0 pg Normal 27.0-34.2 [facility] [employer] [facility] Comment on above: Performed By: #### 4 [id number] #### [employer] [place] [address] MCHC (RBC) [Mass/Vol] 32.9 g/dL Normal 31.4-36.2 [facility] [employer] [facility] Comment on above: Performed By: #### 4 [id number] #### [place] [address] MCV (RBC) [Entitic vol] 91.2 fL Normal 80.6-99.0 [email or web address] Comment on above: Performed By: #### 4 [id number] #### [place] [address] Monocytes/100 WBC (Bld) 5.4 % Normal [email or web address] Comment on above: Performed By: #### 4 [id number] #### [place] [address] Neutrophils/100 WBC (Bld) 74.3 % Normal [email or web address] Comment on above: Performed By: #### 4 [id number] #### [place] [address] NRBC 0 Normal 0-1 [email or web address] Comment on above: Performed By: #### 4 [id number] #### [employer] [place] [phone] PLATELET 206.0 x10 3/uL Normal 150.0-400.0 [email or web address] Comment on above: Performed By: #### 4 [id number] #### [place] [address] RBC 4.77 x10 6/uL Normal 3.70-5.70 [email or web address] Comment on above: Performed By: #### 4 [id number] #### [place] [address] WBC 10.1 x10 3/uL Normal 4.3-10.3 [email or web address] Comment on above: Performed By: #### 4 [id number] #### [place] [address] CBC with Differentialon 04-30 [facility] Granulocytes 0.0 0 10 3/uL [email or web address] Absolute Lymph 2.0 [email or web address] Absolute Billings 0.5 [email or web address] Basophils (Bld) [#/Vol] 0.0 10*3/uL [facility] Basophils/100 WBC (Bld) 0.3 % [facility] Eosinophils (Bld) [#/Vol] 0.0 10*3/uL Low [facility] Eosinophils/100 WBC (Bld) 0.2 % [facility] Erythrocyte distribution width (RBC) [Ratio] 12.8 % 11.5 - 14.5 % [facility] Hematocrit (Bld) [Volume fraction] 43.5 % 37.7 - 51.1 % [facility] Hemoglobin (Bld) [Mass/Vol] 14.3 g/dL 12.8 - 17.7 g/dL [facility] Immature granulocytes/100 WBC (Bld) 0.4 % [facility] Interpretation and review of laboratory results Abnormal [facility] Lymphocytes/100 WBC (Bld) 19.4 % [facility] MCH (RBC) [Entitic mass] 30.0 pg 27.0 - 34.2 pg [facility] MCHC (RBC) [Mass/Vol] 32.9 g/dL 31.4 - 36.2 g/dl [facility] MCV (RBC) [Entitic vol] 91.2 fL 80.6 - 99.0 fL [facility] Monocytes/100 WBC (Bld) 5.4 % [facility] Neutrophils (Bld) [#/Vol] 7.5 10*3/uL High [facility] Neutrophils/100 WBC (Bld) 74.3 % [facility] Platelets (Bld) [#/Vol] 206.0 10*3/uL [facility] RBC (Bld) [#/Vol] 4.77 10*6/uL [facility] WBC LM Ql (Sput) 10.1 [facility] Comprehensive Metabolic Pane jan 05-14-2022 Albumin [Mass/Vol] 4.7 g/dL 3.5 - 5.0 g/dL [facility] Alk Phos 148 U/L High 24 - 126 U/L [facility] ALT [Catalytic activity/Vol] 27 U/L 4 - 50 U/L [facility] AST [Catalytic activity/Vol] 27 U/L 3 - 55 U/L [facility] Bilirubin [Mass/Vol] 0.9 mg/dL 0.2 - 1 .6 mg/dL [facility] Calcium [Mass/Vol] 9.2 mg/dL 8.4 - 10. 4 mg/dL [facility] Chloride [Moles/Vol] 104 mmol/L 96 - 10 9 mmol/L [facility] CO2 [Moles/Vol] 28 mmol/L 22 - 30 mmol/L [facility] Creatinine [Mass/Vol] 0.87 mg/dL 0.66 - 1.25 mg/dL [facility] Glucose [Mass/Vol] 100 mg/dL 65 - 100 mg/dL [facility] Interpretation and review of laboratory results Abnormal [facility] Potassium [Moles/Vol] 3.9 mmol/L 3.6 - 5.1 mmol/L [facility] Protein [Mass/Vol] 8.1 g/dL 6.3 - 8.2 g/dL [facility] Sodium [Moles/Vol] 140 mmol/L 135 - 147 mmol/L [facility] Urea nitrogen [Mass/Vol] 13 mg/dL 8 - 26 mg/dL [facility] ETHANOL-SERUMon 05-14-2022 ETHANOL-SERUM <10 Normal NOT DETECTED [facility] Comment on above: Performed By: #### 4 [id number] #### [place] [address] Ethanolon 05-14-2022 Ethanol Ql (U) <10 NOT DETECTED mg/dL [facility] GFRon 05-14-2022 GFR >60 Normal [facility] Comment on above: Result Comment: To e stimate the GFR for Americans, multiply the result provided by 1.21. Population mean GFR = 116 ml/min/1.73 sq.m. for ages 18-29 yrs. The MDRD is validated in individuals 18-70 years of age. It is less accurate in patients with extremes of muscle mass, restriction of dietary protein, ingestion of creatine, extra-renal metabolism of creatinine, or treatment with medications that affect renal tubular creatinine secretion. GFR Categories in Chronic Kidney Disease (CKD) Category: GFR(mL/min/1.73m^2) Interpretation: G1* 90 or greater Normal or high G2* 60-89 Mild decrease G3a 45-59 Mild to moderate decrease G3b 30-44 Moderate to severe decrease G4 15-29 Severe decrease G5 14 or less Kidney failure *G1&G2: In the absence of evidence of kidney damage, neither GFR category G1 nor G2 fulfill the criteria for CKD Kidney Int Suppl.2013;3:1-150 Performed By: #### G FR1 #### [place] [address] GLOMERULAR FILTRATION RATEon 05-14-2022 GFR >60 [facility] [facility] Comment on above: To estimate the GFR for Americans, multiply the result provided by 1.21. Population mean GFR = 116 ml/min/1.73 sq.m. for ages 18-29 yrs. The MDRD is validated in individuals 18-70 years of age. It is less accurate in patients with extremes of muscle mass, restriction of dietary protein, ingestion of creatine, extra-renal metabolism of creatinine, or treatment with medications that affect renal tubular creatinine secretion. GFR Categories in Chronic Kidney Disease (CKD) Category: GFR(mL/min/1.73m^2) Interpretation: G1* 90 or greater Normal or high G2* 60-89 Mild decrease G3a 45-59 Mild to moderate decrease G3b 30-44 Moderate to severe decrease G4 15-29 Severe decrease G5 14 or less Kidney failure *G1&G2: In the absence of evidence of kidney damage, neither GFR category G1 nor G2 fulfill the criteria for CKD Kidney Int Suppl.2013;3:1-150 METABOLIC PANELon 05-14-2022 ALT [Catalytic activity/Vol] 27 U/L Normal 4-50 [email or web address] Comment on above: Performed By: #### 4 [id number] #### [place] [address] ALK PHOS 148 U/L High 24-126 [employer] [facility] Comment on above: Performed By: #### 4 [id number] #### [employer] [address] [address] AST [Catalytic activity/Vol] 27 U/L Normal 3-55 [facility] Comment on above: Performed By: #### 4 [id number] #### [place] [address] Bilirubin [Mass/Vol] 0.9 mg/dL Normal 0.2-1.6 [facility] Comment on above: Performed By: #### 4 [id number] #### [place] [id number] Calcium [Mass/Vol] 9.2 mg/dL Normal 8.4-10.4 [facility] [employer] [facility] Comment on above: Performed By: #### 4 [id number] #### [employer] [place] [address] CO2 [Moles/Vol] 28 mmol/L Normal 22-30 [facility] Comment on above: Performed By: #### 4 [id number] #### [employer] [place] [address] Creatinine [Mass/Vol] 0.87 mg/dL Normal 0.66-1.25 [facility] Comment on above: Performed By: #### 4 [id number] #### [facility] [address] [address] Glucose [Mass/Vol] 100 mg/dL Normal 65-100 [facility] [employer] [facility] Comment on above: Performed By: #### 4 [id number] #### [employer] [place] [id number] Protein [Mass/Vol] 8.1 g/dL Normal 6.3-8.2 [facility] [employer] [facility] Comment on above: Performed By: #### 4 [id number] #### [employer] [place] [id number] Urea nitrogen [Mass/Vol] 13 mg/dL Normal 8-26 [facility] Comment on above: Performed By: #### 4 [id number] #### [employer] [place] [id number] Potassium [Moles/Vol] 3.9 mmol/L Normal 3.6-5.1 [facility] Comment on above: Performed By: #### 4 [id number] #### [place] [id number] Albumin [Mass/Vol] 4.7 g/dL Normal 3.5-5.0 [facility] Comment on above: Performed By: #### 4 [id number] #### [place] [address] Chloride [Moles/Vol] 104 mmol/L Normal 96-109 [facility] [employer] [facility] Comment on above: Performed By: #### 4 [id number] #### [place] [address] Sodium [Moles/Vol] 140 mmol/L Normal 135-147 [facility] Comment on above: Performed By: #### 4 [id number] #### [place] [address] No Panel Informationon 05-14 [facility] [email or web address] [facility] nRBC 0 [email or web address] [facility] Toxicology screen, urineon 0 05-14-2022 Amphetamines Screen method >1000 ng/mL Ql (U) Not detected CUTOFF <1000 ng/mL [facility] Barbiturates Screen method >200 ng/mL Ql (U) Not detected CUTOFF <200 ng/mL [email or web address] Benzodiazepines Ql (U) Not detected CUTOF F <200 ng/mL [facility] Benzoylecgonine Screen (U) [Mass/Vol] Not detected CUTOFF <300 ng/mL [email or web address] Cannabinoids Screen method >50 ng/mL Ql (U) Positive Abnormal CUTOFF <50 ng/mL [email or web address] Fentanyl Not detected CUTOFF 1.0 ng/mL [facility] [employer] Interpretation and review of laboratory results Abnormal [facility] [employer] Opiates Screen (U) [Mass/Vol] Not detected CUTOFF <300 ng/mL [email or web address] Phencyclidine (U) [Mass/Vol] Not detected CUTOFF <25 ng/mL [facility] Tox Message see below [facility] Comment on above: Notes: 1. SCREENING RESULTS SHOULD BE CONSIDERED PRESUMPTIVE UNLESS THE PRESENCE OF THE ANALYTE HAS BEEN CONFIRMED BY A REFERENCE LAB. 2. ALL DRUG GROUPS ARE ANALYZED ON URINE. UR DRUG SCREEN-7 PANELon PCP Not detected Normal CUTOFF <25 [facility] Comment on above: Performed By: #### 4 [id number] #### [place] [address] COCAINE/BE Not detected Normal CUTOFF <300 [facility] Comment on above: Performed By: #### 4 [id number] #### [place] [address] Opiates Ql (U) Not detected Normal CUTOFF <300 [facility] Comment on above: Performed By: #### 4 [id number] #### [place] [address] MARIJUANA/THC Positive Abnormal CUTOFF <50 [facility] Comment on above: Performed By: #### 4 [id number] #### [place] [address] BARBITURATE Not detected Normal CUTOFF <200 [facility] Comment on above: Performed By: #### 4 [id number] #### [place] [address] AMPHETAMINES/METH Not detected Normal CUTOFF <1000 Gen [facility] Comment on above: Performed By: #### 4 [id number] #### [place] [address] BENZODIAZEPINE Not detected Normal CUTOFF <200 [facility] Comment on above: Performed By: #### 4 [id number] #### [place] [address] FENTANYL Not detected Normal CUTOFF 1.0 [facility] Comment on above: Performed By: #### 4 [id number] #### [place] [address] TOX MESSAGE see below Normal [facility] Comment on above: Result Comment: Note s: 1. SCREENING RESULTS SHOULD BE CONSIDERED PRESUMPTIVE UNLESS THE PRESENCE OF THE ANALYTE HAS BEEN CONFIRMED BY A REFERENCE LAB. 2. ALL DRUG GROUPS ARE ANALYZED ON URINE. Performed By: #### 4 [id number] #### [place] [address] URINALYSIS W/REFLEXon 2021 Appearance (U) Clear Normal [facility] Comment on above: Performed By: #### 4 [id number] #### [place] [address] Bacteria identified Cx Nom (U) NOT INDICATED Normal [facility] Comment on above: Performed By: #### 4 [id number] #### [employer] [place] [address] Bilirubin Ql (U) Negative Normal Negative [facility] Comment on above: Performed By: #### 4 [id number] #### [employer] [address] Color (U) Yellow Normal [facility] Comment on above: Performed By: #### 4 [id number] #### [employer] [address] Glucose Ql (U) Negative Normal Negative [facility] Comment on above: Performed By: #### 4 [id number] #### [employer] [address] Ketones Ql (U) Negative Normal Negative [facility] Comment on above: Performed By: #### 4 [id number] #### [email or web address] [address] [address] LEUKOESTERASE Negative Normal Negative [facility] Comment on above: Performed By: #### 4 [id number] #### [employer] [place] [id number] MUCOUS-URINE Moderate Normal [facility] Comment on above: Performed By: #### 4 [id number] #### [employer] [place] [id number] Nitrite Ql (U) Negative Normal Negative [facility] Comment on above: Performed By: #### 4 [id number] #### [place] [phone] OCCULT BLOOD Negative Normal Negative [facility] Comment on above: Performed By: #### 4 [id number] #### [place] [phone] pH (U) 6.0 [pH] Normal [facility] Comment on above: Performed By: #### 4 [id number] #### [place] [phone] Protein Ql (U) Negative Normal Negative [facility] Comment on above: Performed By: #### 4 [id number] #### [place] [phone] RBC LM.HPF (Urine sed) [#/Area] /[HPF] Normal 0-5 [facility] Comment on above: Performed By: #### 4 [id number] #### [place] [phone] Specific gravity (U) [Rel density] 1.025 Normal 1.003-1.029 [facility] Comment on above: Performed By: #### 4 [id number] #### [place] [phone] Urobilinogen (U) [Mass/Vol] Negative Normal <2.0 [facility] Comment on above: Performed By: #### 4 [id number] #### [employer] [address] WBC LM.HPF (Urine sed) [#/Area] 1 /[HPF] Normal 0-5 [facility] Comment on above: Performed By: #### 4 [id number] #### [email or web address] [place] [phone] URINE SOURCE Voided Normal [facility] Comment on above: Performed By: #### 4 [id number] #### [employer] [place] [address] Urinalysis with Reflex Cultu reon 05-14-2022 Appearance (U) Clear [facility] [employer] Bacteria identified Aer cx Nom (Unsp spec) NOT INDICATED [facility] [employer] Bilirubin Ql (U) Negative Negative [email or web address] Color (CSF) Yellow [facility] [employer] Glucose Ql (U) Negative Negative mg/dL [facility] [employer] Hemoglobin Ql (U) <1 [facility] [employer] Ketones Ql (U) Negative Negative mg/dL [facility] [employer] Leukoesterase Negative Negative [facility] [employer] Mucous-Urine Moderate /LPF [facility] [employer] Nitrite Ql (U) Negative Negative [facility] [employer] Occult Bld Negative Negative [facility] [employer] pH (U) 6.0 [pH] [facility] [employer] Protein (U) [Mass/Vol] Negative Negative mg/d L [facility] [employer] Specific gravity (U) [Rel density] 1.025 [facility] [employer] Urine Source Voided [facility] [employer] Urobilinogen Qn (U) Negative <2.0 mg/dL [employer] [facility] WBC (U) [#/Vol] 1 /uL [facility] CT KIDNEY STONEon 05-06-2022 CT KIDNEY STONE EXAMINATION: CT KIDNEY STONE HISTORY: ORDERING SYSTEM PROVIDED HISTORY: Flank pain, kidney stone suspected, TECHNOLOGIST PROVIDED HISTORY: Illness/Other Reason for exam: left flank pain x2 days Encounter Type: Initial Additional signs and symptoms: n/a ORDERING SYSTEM PROVIDED DIAGNOSIS CODES: COMPARISON: None. TECHNIQUE: Dose reduction techniques were achieved by using automated exposure control and/or adjustment of mA and/or kV according to patient size and/or use of iterative reconstruction technique. Contiguous axial images were obtained through the abdomen and pelvis without IV contrast. Multiplanar reconstructions performed. FINDINGS: CT abdomen: The included liver and splenic parenchyma as well as the gallbladder, pancreas, adrenal glands, and both kidneys have a normal noncontrast appearance. No renal calculus, pelvicaliectasis, or hydroureter. No retroperitoneal adenopathy. CT pelvis: The bladder is only mildly distended. Most of the colon is well distended with stool, and there are no dilated loops of small bowel. The appendix is visualized and normal. The osseous structures appear intact. IMPRESSION: 1. Bladder wall thickening accentuated by minimal distention. An acute cystitis cannot be excluded if of clinical concern. 2. Otherwise, negative study. No genitourinary calcification identified. DPR/ads Workstation ID: [id number] Dictated by: ADITYA SORIA on ThuMay 06, 2022 9:31:11 PM EDT Transcribed by: DAMARIS SALVADOR on ThuMay 06, 2022 9:32:47 PM EDT Finalized by: ADITYA SORIA on ThuMay 06, 2022 9:34:36 PM EDT Normal [facility] Comment on above: Order Comment: Injur y/Trauma or Illness?:Illness/Other How long have you had these symptoms (acute/chronic)?:Acute Reason for exam?:left flank pain x2 days Type of Exam?:Initial Additional signs and symptoms?:n/a SARS-COV-2, QPCRon 2 SARS-CoV-2 (COVID-19) RNA ARABELLA+probe Ql (Unsp spec) Not detected Normal Not Detected [email or web address] Comment on above: Result Comment: Resu lts are for the identification of SARS-CoV-2 RNA. The SARS-CoV-2 RNA is generally detectable in upper respiratory and bronchoalveolar lavage (BAL) specimens during the acute phase of infection. Positive results are indicative of the presence of SARS-CoV-2 RNA; clinical correlation with patient history and other diagnostic information is necessary to determine patient infection status. Positive results do not rule out bacterial infection or co-infection with other viruses. The agent detected may not be the definite cause of disease. Negative results do not preclude SARS-CoV-2 infection and should not be used as the sole basis for patient management decisions. Negative results must be combined with clinical observations, patient history, and epidemiological information. Performed By: #### 4 [id number] #### [email or web address] [address] INFLUENZA Aon 12-13-2021 INFLUENZA A MOLECULAR Negative Normal NEGATIVE [employer] [facility] Comment on above: Performed By: #### 3 [id number] #### [email or web address] [place] [id number] INFLUENZA B MOLECULAR Negative Normal NEGATIVE [employer] [facility] Comment on above: Performed By: #### [id number] #### [place] [address] Influenza A&B Molecularon Influenza A Molecular Negative NEGATIVE Gen [facility] Influenza B Molecular Negative NEGATIVE Gen [facility] Toxicology screen, urineon 0 08-22-2021 Amphetamines Screen method >1000 ng/mL Ql (U) Not detected CUTOFF <1000 ng/mL [facility] Barbiturates Screen method >200 ng/mL Ql (U) Not detected CUTOFF <200 ng/mL [facility] Benzodiazepines Ql (U) Not detected CUTOF F <200 ng/mL [facility] Benzoylecgonine Screen (U) [Mass/Vol] Not detected CUTOFF <300 ng/mL [facility] Cannabinoids Screen method >50 ng/mL Ql (U) Not detected CUTOFF <50 ng/mL [facility] Fentanyl Not detected CUTOFF 1.0 ng/mL [facility] Opiates Screen (U) [Mass/Vol] Not detected CUTOFF <300 ng/mL [facility] Phencyclidine (U) [Mass/Vol] Not detected CUTOFF <25 ng/mL [facility] Tox Message see below [facility] Comment on above: Notes: 1. SCREENING RESULTS SHOULD BE CONSIDERED PRESUMPTIVE UNLESS THE PRESENCE OF THE ANALYTE HAS BEEN CONFIRMED BY A REFERENCE LAB. 2. ALL DRUG GROUPS ARE ANALYZED ON URINE. [facility] Urinalysis with reflex cultu reon 08-22-2021 Appearance (U) Clear [facility] Bacteria identified Aer cx Nom (Unsp spec) NOT INDICATED [facility] Bilirubin Ql (U) Negative Negative [facility] Color (CSF) Yellow [facility] Glucose Ql (U) Negative Negative mg/dL [facility] Hemoglobin Ql (U) 1 [facility] Ketones Ql (U) Negative Negative mg/dL [facility] Leukoesterase Negative Negative [facility] Mucous-Urine Few /LPF [facility] Nitrite Ql (U) Negative Negative [facility] Occult Bld Negative Negative [facility] pH (U) 6.0 [pH] [facility] Protein (U) [Mass/Vol] Negative Negative mg/d L [facility] Specific gravity (U) [Rel density] 1.028 [facility] Urine Source Clean Catch [facility] Urobilinogen Qn (U) 4.0 mg/dL <2.0 [facility] WBC (U) [#/Vol] 1 /uL [facility] Lipid panelOrdered By: Israel Miller on 05-11-2021 Cholesterol [Mass/Vol] 115 mg/dL 0 - 200 mg/dL [facility] Comment on above: CHOLESTEROL REFERENC E RANGE Desirable <200 mg/dL Borderline 200-239 mg/dL High >240 mg/dL . Cholesterol in HDL [Mass/Vol] 32.8 mg/dL Low 40.0 - 59.9 mg/dL [facility] Comment on above: Interpretive data fo r HDL Cholesterol states: HDL <40 mg/dL is low and constitutes a coronary disease risk factor. HDL >60 mg/dL is a negative risk factor for coronary heart disease. . Cholesterol in LDL [Mass/Vol] 67 mg/dL 0 - 100 mg/dL [facility] Comment on above: LDL REFERENCE RANGE Optimal <100 mg/dl Near Optimal 100-129 mg/dL Borderline High 130-159 mg/dL High 160-189 mg/dL Very High >=190 mg/dL . Cholesterol in VLDL [Mass/Vol] 16 mg/dL <42 [facility] Interpretation and review of laboratory results Abnormal [facility] Triglyceride [Mass/Vol] 78 mg/dL 0 - 150 mg/dL [facility] Comment on above: TRIGLYCERIDE REFEREN CE RANGE Normal <150 mg/dL Borderline High 150-199 mg/dL High 200-499 mg/dL Very High >=500 mg/dL . [facility] Syphilis Treponema AntibodyO rdered By: Olvin Miller on 05-11-2021 Syphilis Treponema Antibody Non-Reactive Nonreactive [facility] Thyroid Function PanelOrdere d By: Olvin Miller on 05-11-2021 TSH Harney 2.040 [facility] Toxicology screen, urineOrde red By: Juan Diego Corral on 05-08-2021 Amphetamines Screen method >1000 ng/mL Ql (U) Not detected CUTOFF <1000 ng/mL [facility] Barbiturates Screen method >200 ng/mL Ql (U) Not detected CUTOFF <200 ng/mL [facility] Benzodiazepines Ql (U) Not detected CUTOF F <200 ng/mL [facility] Benzoylecgonine Screen (U) [Mass/Vol] Not detected CUTOFF <300 ng/mL [facility] Cannabinoids Screen method >50 ng/mL Ql (U) Not detected CUTOFF <50 ng/mL [facility] Fentanyl Not detected CUTOFF 1.0 ng/mL [facility] Opiates Screen (U) [Mass/Vol] Not detected CUTOFF <300 ng/mL [facility] Phencyclidine (U) [Mass/Vol] Not detected CUTOFF <25 ng/mL [facility] Tox Message see below [facility] Comment on above: Notes: 1. SCREENING RESULTS SHOULD BE CONSIDERED PRESUMPTIVE UNLESS THE PRESENCE OF THE ANALYTE HAS BEEN CONFIRMED BY A REFERENCE LAB. 2. ALL DRUG GROUPS ARE ANALYZED ON URINE. [facility] Urinalysis with reflex cultu reOrdered By: Juan Diego Corral on 05-08-2021 Appearance (U) Cloudy [facility] Bacteria identified Aer cx Nom (Unsp spec) NOT INDICATED [facility] Bilirubin Ql (U) Negative Negative [facility] Color (CSF) Yellow [facility] Glucose Ql (U) Negative Negative mg/dL [facility] Hemoglobin Ql (U) 1 [facility] Interpretation and review of laboratory results Abnormal [facility] Ketones Ql (U) Negative Negative mg/dL [facility] Leukoesterase Negative Negative [facility] Mucous-Urine Many /LPF [facility] Nitrite Ql (U) Negative Negative [facility] Occult Bld Negative Negative [facility] pH (U) 6.0 [pH] [facility] Protein (U) [Mass/Vol] 30 mg/dL Abnormal Negative [facility] Specific gravity (U) [Rel density] 1.026 [facility] Squamous Epi Cells 11 /LPF [facility] Urine Source Voided [facility] Urobilinogen Qn (U) 2.0 mg/dL <2.0 [facility] WBC (U) [#/Vol] 3 /uL [facility] AmylaseOrdered By: Concepcion montoya on 05-07-2021 Amylase [Catalytic activity/Vol] 47 U/L 30 - 110 U/L [facility] CBC with DifferentialOrdered By: Concepcion Fortune on 05-07-2021 Absolute Immature Granulocytes 0.0 0 10 3/uL [facility] Absolute Lymph 2.9 [facility] Absolute Billings 0.7 High [facility] Basophils (Bld) [#/Vol] 0.0 10*3/uL [facility] Basophils/100 WBC (Bld) 0.4 % [facility] Eosinophils (Bld) [#/Vol] 0.1 10*3/uL [facility] Eosinophils/100 WBC (Bld) 0.6 % [facility] Erythrocyte distribution width (RBC) [Ratio] 13.0 % 11.5 - 14.5 % [facility] Hematocrit (Bld) [Volume fraction] 45.5 % 37.7 - 51.1 % [facility] Hemoglobin (Bld) [Mass/Vol] 14.5 g/dL 12.8 - 17.7 g/dL [facility] Immature granulocytes/100 WBC (Bld) 0.3 % [facility] Interpretation and review of laboratory results Abnormal [facility] Lymphocytes/100 WBC (Bld) 30.7 % [facility] MCH (RBC) [Entitic mass] 29.2 pg 27.0 - 34.2 pg [facility] MCHC (RBC) [Mass/Vol] 31.9 g/dL 31.4 - 36.2 g/dl [facility] MCV (RBC) [Entitic vol] 91.7 fL 80.6 - 99.0 fL [facility] Monocytes/100 WBC (Bld) 7.3 % [facility] Neutrophils (Bld) [#/Vol] 5.8 10*3/uL [facility] Neutrophils/100 WBC (Bld) 60.7 % [facility] Platelets (Bld) [#/Vol] 221.0 10*3/uL [facility] RBC (Bld) [#/Vol] 4.96 10*6/uL [facility] WBC LM Ql (Sput) 9.5 [facility] Comprehensive metabolic pane lOrdered By: Concepcion Fortune on 05-07-2021 Albumin [Mass/Vol] 4.4 g/dL 3.5 - 5.0 g/dL [facility] Alk Phos 160 U/L High 24 - 126 U/L [facility] ALT [Catalytic activity/Vol] 24 U/L 4 - 50 U/L [facility] AST [Catalytic activity/Vol] 26 U/L 3 - 55 U/L [facility] Bilirubin [Mass/Vol] 0.7 mg/dL 0.2 - 1 .6 mg/dL [facility] Calcium [Mass/Vol] 9.4 mg/dL 8.4 - 10. 4 mg/dL [facility] Chloride [Moles/Vol] 104 mmol/L 96 - 10 9 mmol/L [facility] CO2 [Moles/Vol] 27 mmol/L 22 - 30 mmol/L [facility] Creatinine [Mass/Vol] 0.83 mg/dL 0.66 - 1.25 mg/dL [facility] Glucose [Mass/Vol] 89 mg/dL 65 - 100 mg/dL [facility] Interpretation and review of laboratory results Abnormal [facility] Potassium [Moles/Vol] 3.9 mmol/L 3.6 - 5.1 mmol/L [facility] Protein [Mass/Vol] 7.5 g/dL 6.3 - 8.2 g/dL [facility] Sodium [Moles/Vol] 141 mmol/L 135 - 147 mmol/L [facility] Urea nitrogen [Mass/Vol] 14 mg/dL 8 - 26 mg/dL [facility] GLOMERULAR FILTRATION RATEOr dered By: Concepcion Fortune on 05-07-2021 GFR >60 [facility] Comment on above: To estimate the GFR for Americans, multiply the result provided by 1.21. Population mean GFR = 116 ml/min/1.73 sq.m. for ages 18-29 yrs. The MDRD is validated in individuals 18-70 years of age. It is less accurate in patients with extremes of muscle mass, restriction of dietary protein, ingestion of creatine, extra-renal metabolism of creatinine, or treatment with medications that affect renal tubular creatinine secretion. GFR Categories in Chronic Kidney Disease (CKD) Category: GFR(mL/min/1.73m^2) Interpretation: G1* 90 or greater Normal or high G2* 60-89 Mild decrease G3a 45-59 Mild to moderate decrease G3b 30-44 Moderate to severe decrease G4 15-29 Severe decrease G5 14 or less Kidney failure *G1&G2: In the absence of evidence of kidney damage, neither GFR category G1 nor G2 fulfill the criteria for CKD Kidney Int Suppl.2013;3:1-150 LipaseOrdered By: Concepcion zelaya on 05-07-2021 Lipase [Catalytic activity/Vol] 38 U/L 23 - 300 U/L [facility] No Panel InformationOrdered By: Concepcion Fortune on 05-07-2021 nRBC 0 [facility] XR Ribs Left w/ PA Cheston 0 03-04-2021 No radiographic evidence of acute cardiopulmonary disease. No left rib fractures. [facility] EXAMINATION: 3 XRAY VIEWS OF THE LEFT RIBS WITH FRONTAL XRAY VIEW OF THE CHEST 03/04/2021 3:59 pm COMPARISON: 10/05/2019 chest radiograph. HISTORY: Pleurodynia: Diagnosis: Rib pain on left side R07.81 (ICD-10-CM) Left axillary rib pain x1 day. No known injury. FINDINGS: The lungs are well expanded. There are no focal consolidations or pleural effusions. Cardiomediastinal silhouette is normal. Osseous thorax is unremarkable. No definite left rib fractures. No pneumothorax. [facility] Marcin, Rad Results In - 03/04/2021 6:22 PM EDT EXAMINATION: 3 XRAY VIEWS OF THE LEFT RIBS WITH FRONTAL XRAY VIEW OF THE CHEST 03/04/2021 3:59 pm COMPARISON: 10/05/2019 chest radiograph. HISTORY: Pleurodynia: Diagnosis: Rib pain on left side R07.81 (ICD-10-CM) Left axillary rib pain x1 day. No known injury. FINDINGS: The lungs are well expanded. There are no focal consolidations or pleural effusions. Cardiomediastinal silhouette is normal. Osseous thorax is unremarkable. No definite left rib fractures. No pneumothorax. IMPRESSION: No radiographic evidence of acute cardiopulmonary disease. No left rib fractures. [facility] Basic metabolic panel aka Ch em 8on 02-23-2021 Calcium [Mass/Vol] 9.2 mg/dL 8.4 - 10. 4 mg/dL [facility] Chloride [Moles/Vol] 108 mmol/L 96 - 10 9 mmol/L [facility] CO2 [Moles/Vol] 24 mmol/L 22 - 30 mmol/L [facility] Comprehensive metabolic 2000 panel 0.90 mg/dL 0.66 - 1.25 mg/dL [facility] Glucose [Mass/Vol] 86 mg/dL 65 - 100 mg/dL [facility] Potassium [Moles/Vol] 4.3 mmol/L 3.6 - 5.1 mmol/L [facility] Sodium [Moles/Vol] 142 mmol/L 135 - 147 mmol/L [facility] Urea nitrogen [Mass/Vol] 19 mg/dL 8 - 26 mg/dL [facility] CBC with Differentialon 01-29 Absolute Billings 0.6 [facility] Basophils (Bld) [#/Vol] 0.0 10*3/uL [facility] Basophils/100 WBC (Bld) 0.4 % [facility] Eosinophils (Bld) [#/Vol] 0.1 10*3/uL [facility] Eosinophils/100 WBC (Bld) 1.1 % [facility] Erythrocyte distribution width (RBC) [Ratio] 12.7 % 11.5 - 14.5 % [facility] Hematocrit (Bld) [Volume fraction] 40.2 % 37.7 - 51.1 % [facility] Hemoglobin (Bld) [Mass/Vol] 13.3 g/dL 12.8 - 17.7 g/dL [facility] Lymphocytes (Bld) [#/Vol] 2.4 10*3/uL [facility] Lymphocytes/100 WBC (Bld) 29.9 % [facility] MCH (RBC) [Entitic mass] 29.8 pg 27 - 34.2 pg [facility] MCHC (RBC) [Mass/Vol] 33.1 g/dL 31.4 - 36.2 g/dl [facility] MCV (RBC) [Entitic vol] 89.9 fL 80.6 - 99 fL [facility] Monocytes/100 WBC (Bld) 7.8 % [facility] Neutrophils (Bld) [#/Vol] 4.8 10*3/uL [facility] Neutrophils/100 WBC (Bld) 60.8 % [facility] Platelets (Bld) [#/Vol] 202.0 10*3/uL [facility] RBC (Bld) [#/Vol] 4.47 10*6/uL [facility] WBC LM Ql (Sput) 7.9 [facility] GLOMERULAR FILTRATION RATEon 02-23-2021 GFR/1.73 sq M.predicted MDRD (S/P/Bld) [Vol rate/Area] mL/min/{1.73_m2} [facility] Comment on above: To estimate the GFR for Americans, multiply the result provided by 1.21. Population mean GFR = 116 ml/min/1.73 sq.m. for ages 18-29 yrs. The MDRD is validated in individuals 18-70 years of age. It is less accurate in patients with extremes of muscle mass, restriction of dietary protein, ingestion of creatine, extra-renal metabolism of creatinine, or treatment with medications that affect renal tubular creatinine secretion. GFR Categories in Chronic Kidney Disease (CKD) Category: GFR(mL/min/1.73m^2) Interpretation: G1* 90 or greater Normal or high G2* 60-89 Mild decrease G3a 45-59 Mild to moderate decrease G3b 30-44 Moderate to severe decrease G4 15-29 Severe decrease G5 14 or less Kidney failure *G1&G2: In the absence of evidence of kidney damage, neither GFR category G1 nor G2 fulfill the criteria for CKD Kidney Int Suppl.2013;3:1-150 Hepatic Function Panelon Albumin [Mass/Vol] 4.3 g/dL 3.5 - 5 g/dL [facility] Alk Phos 136 U/L High 24 - 126 U/L [facility] ALT [Catalytic activity/Vol] 21 U/L 4 - 50 U/L [facility] AST [Catalytic activity/Vol] 55 U/L 3 - 55 U/L [facility] Bilirubin [Mass/Vol] 0.9 mg/dL 0.2 - 1 .6 mg/dL [facility] Bilirubin.conjugated [Mass/Vol] 0.2 mg/dL 0 - 0.5 mg/dL [facility] Interpretation and review of laboratory results Abnormal [facility] Protein [Mass/Vol] 7.5 g/dL 6.3 - 8.2 g/dL [facility] Lipaseon 02-23-2021 Lipase [Catalytic activity/Vol] 34 U/L 23 - 300 U/L [facility] Otheron 02-23-2021 [facility] Urinalysis with reflex cultu reon 02-23-2021 Appearance (U) Clear [facility] Bacteria identified Aer cx Nom (Unsp spec) NOT INDICATED [facility] Bilirubin Ql (U) Negative Negative [facility] Color (CSF) Yellow [facility] Glucose Ql (U) Negative Negative mg/dL [facility] Hemoglobin Ql (U) <1 [facility] Interpretation and review of laboratory results Abnormal [facility] Ketones Ql (U) Negative Negative mg/dL [facility] Leukoesterase Negative Negative [facility] Mucous-Urine Rare /LPF [facility] Nitrite Ql (U) Negative Negative [facility] Occult Bld Negative Negative [facility] pH (U) 5.0 [pH] [facility] Protein (U) [Mass/Vol] Negative Negative mg/d L [facility] Specific gravity (U) [Rel density] 1.030 High [facility] Urine Source Voided [facility] Urobilinogen Qn (U) 2.0 mg/dL <2.0 [facility] WBC (U) [#/Vol] /uL [facility] Influenza A&B Molecularon Influenza A Molecular Negative NEGATIVE Gen [facility] Influenza B Molecular Negative NEGATIVE Gen [facility] XR Knee LT 3 Viewson 020 Joint effusion without evidence of acute fracture [facility] EXAMINATION: THREE XRAY VIEWS OF THE LEFT KNEE 02/19/2020 5:42 pm COMPARISON: None. HISTORY: anterior left knee pain without injury NKI, anterior, distal femur pain since . No hx of sx. FINDINGS: Mild medial joint space narrowing. Small joint effusion. No visible fracture. [facility] Marcin, Rad Results In - 02/19/2020 6:00 PM EDT EXAMINATION: THREE XRAY VIEWS OF THE LEFT KNEE 02/19/2020 5:42 pm COMPARISON: None. HISTORY: anterior left knee pain without injury NKI, anterior, distal femur pain since . No hx of sx. FINDINGS: Mild medial joint space narrowing. Small joint effusion. No visible fracture. IMPRESSION: Joint effusion without evidence of acute fracture [facility] Basic metabolic panel aka Ch em 8on 11-11-2019 Calcium [Mass/Vol] 9.8 mg/dL 8.4 - 10. 4 mg/dL [facility] Chloride [Moles/Vol] 104 mmol/L 96 - 10 9 mmol/L [facility] CO2 [Moles/Vol] 30 mmol/L 22 - 30 mmol/L [facility] Comprehensive metabolic 2000 panel 0.86 mg/dL 0.66 - 1.25 mg/dL [facility] Glucose [Mass/Vol] 94 mg/dL 65 - 100 mg/dL [facility] Potassium [Moles/Vol] 4.4 mmol/L 3.6 - 5.1 mmol/L [facility] Sodium [Moles/Vol] 141 mmol/L 135 - 147 mmol/L [facility] Urea nitrogen [Mass/Vol] 16 mg/dL 8 - 26 mg/dL [facility] CBC with Differentialon 10-30 Absolute Billings 0.4 [facility] Basophils (Bld) [#/Vol] 0.0 10*3/uL [facility] Basophils/100 WBC (Bld) 0.4 % [facility] Eosinophils (Bld) [#/Vol] 0.1 10*3/uL [facility] Eosinophils/100 WBC (Bld) 1.2 % [facility] Erythrocyte distribution width (RBC) [Ratio] 12.9 % 11.5 - 14.5 % [facility] Hematocrit (Bld) [Volume fraction] 44.2 % 37.7 - 51.1 % [facility] Hemoglobin (Bld) [Mass/Vol] 15.0 g/dL 12.8 - 17.7 g/dL [facility] Lymphocytes (Bld) [#/Vol] 2.1 10*3/uL [facility] Lymphocytes/100 WBC (Bld) 36.8 % [facility] MCH (RBC) [Entitic mass] 31.0 pg 27 - 34.2 pg [facility] MCHC (RBC) [Mass/Vol] 33.9 g/dL 31.4 - 36.2 g/dl [facility] MCV (RBC) [Entitic vol] 91.3 fL 80.6 - 99 fL [facility] Monocytes/100 WBC (Bld) 7.5 % [facility] Neutrophils (Bld) [#/Vol] 3.0 10*3/uL [facility] Neutrophils/100 WBC (Bld) 54.1 % [facility] Platelets (Bld) [#/Vol] 176.0 10*3/uL [facility] RBC (Bld) [#/Vol] 4.84 10*6/uL [facility] WBC LM Ql (Sput) 5.6 [facility] GLOMERULAR FILTRATION RATEon 11-11-2019 GFR/1.73 sq M.predicted MDRD (S/P/Bld) [Vol rate/Area] mL/min/{1.73_m2} [email or web address] Comment on above: To estimate the GFR for Americans, multiply the result provided by 1.21. Population mean GFR = 116 ml/min/1.73 sq.m. for ages 18-29 yrs Five stages of CKD and GFR for each stage: Stage 1 GFR >=90 Stage 2 GFR 60-89 Stage 3 GFR 30-59 Stage 4 GFR 15-29 Stage 5 GFR <15 Hepatic Function Panelon Albumin [Mass/Vol] 4.9 g/dL 3.5 - 5 g/dL [facility] [employer] [facility] Alk Phos 138 U/L High 24 - 126 U/L [employer] ALT [Catalytic activity/Vol] 23 U/L 4 - 50 U/L [employer] AST [Catalytic activity/Vol] 40 U/L 3 - 55 U/L [employer] Bilirubin [Mass/Vol] 1.0 mg/dL 0.2 - 1 .6 mg/dL [employer] Bilirubin.conjugated [Mass/Vol] 0.1 mg/dL 0 - 0.5 mg/dL [employer] Interpretation and review of laboratory results Abnormal [email or web address] Protein [Mass/Vol] 7.8 g/dL 6.3 - 8.2 g/dL [facility] [employer] Lipaseon 11-11-2019 Lipase [Catalytic activity/Vol] 26 U/L 23 - 300 U/L [email or web address] Strep A Molecularon 11-11-20 19 Strep A Molecular Negative NEGATIVE [email or web address] XR Chest PA and laton 2018 No active cardiopulmonary disease. [email or web address] Marcin, Rad Results In - 11/11/2019 11:24 AM EST EXAMINATION: TWO XRAY VIEWS OF THE CHEST 11/11/2019 10:44 am COMPARISON: Chest, single view 10/05/2019 HISTORY: cough for one week. Pt states that he is having dizziness FINDINGS: PA and lateral views of the chest were obtained. Heart, mediastinum, and pulmonary vasculature are within normal limits. Lungs and pleural spaces are clear. IMPRESSION: No active cardiopulmonary disease. [email or web address] EXAMINATION: TWO XRAY VIEWS OF THE CHEST 11/11/2019 10:44 am COMPARISON: Chest, single view 10/05/2019 HISTORY: cough for one week. Pt states that he is having dizziness FINDINGS: PA and lateral views of the chest were obtained. Heart, mediastinum, and pulmonary vasculature are within normal limits. Lungs and pleural spaces are clear. [email or web address] CBC with Differentialon 10-01 Absolute Billings 0.5 [email or web address] Basophils (Bld) [#/Vol] 0.0 10*3/uL [email or web address] Basophils/100 WBC (Bld) 0.3 % [email or web address] Eosinophils (Bld) [#/Vol] 0.1 10*3/uL [email or web address] [facility] Eosinophils/100 WBC (Bld) 1.1 % [email or web address] Erythrocyte distribution width (RBC) [Ratio] 12.8 % 11.5 - 14.5 % [email or web address] Hematocrit (Bld) [Volume fraction] 43.8 % 37.7 - 51.1 % [email or web address] Hemoglobin (Bld) [Mass/Vol] 14.6 g/dL 12.8 - 17.7 g/dL [email or web address] Lymphocytes (Bld) [#/Vol] 2.5 10*3/uL [email or web address] Lymphocytes/100 WBC (Bld) 33.2 % [email or web address] MCH (RBC) [Entitic mass] 30.7 pg 27 - 34.2 pg [email or web address] MCHC (RBC) [Mass/Vol] 33.3 g/dL 31.4 - 36.2 g/dl [email or web address] MCV (RBC) [Entitic vol] 92.0 fL 80.6 - 99 fL [email or web address] Monocytes/100 WBC (Bld) 6.6 % [email or web address] Neutrophils (Bld) [#/Vol] 4.5 10*3/uL [email or web address] Neutrophils/100 WBC (Bld) 58.8 % [email or web address] Platelets (Bld) [#/Vol] 174.0 10*3/uL [email or web address] [facility] RBC (Bld) [#/Vol] 4.76 10*6/uL [facility] WBC LM Ql (Sput) 7.[address] [email or web address] [address] Abdomen / Pelvis Without ANY Contraston 10-24-2019 EXAMINATION: CT OF THE ABDOMEN AND PELVIS WITHOUT CONTRAST 10/24/2019 8:42 pm TECHNIQUE: CT of the abdomen and pelvis was performed without the administration of intravenous contrast. Multiplanar reformatted images are provided for review. Dose modulation, iterative reconstruction, and/or weight based adjustment of the mA/kV was utilized to reduce the radiation dose to as low as reasonably achievable. COMPARISON: None. HISTORY: right flank pain; assess for renal stone Pt c/o right flank pain, hematuria and blood in stools x2 days FINDINGS: Lower Chest: No infiltrate or effusion in the visible lower chest. Organs: No acute noncontrast organ abnormality is identified. GI/Bowel: Not dilated. Normal appendix Pelvis: No acute noncontrast organ abnormality is identified. Peritoneum/Retroperi toneum: No ascites Bones/Soft Tissues: No acute abnormality, small umbilicus fat hernia [facility] Marcin, Rad Results In - 10/24/2019 9:09 PM EST EXAMINATION: CT OF THE ABDOMEN AND PELVIS WITHOUT CONTRAST 10/24/2019 8:42 pm TECHNIQUE: CT of the abdomen and pelvis was performed without the administration of intravenous contrast. Multiplanar reformatted images are provided for review. Dose modulation, iterative reconstruction, and/or weight based adjustment of the mA/kV was utilized to reduce the radiation dose to as low as reasonably achievable. COMPARISON: None. HISTORY: right flank pain; assess for renal stone Pt c/o right flank pain, hematuria and blood in stools x2 days FINDINGS: Lower Chest: No infiltrate or effusion in the visible lower chest. Organs: No acute noncontrast organ abnormality is identified. GI/Bowel: Not dilated. Normal appendix Pelvis: No acute noncontrast organ abnormality is identified. Peritoneum/Retroperi toneum: No ascites Bones/Soft Tissues: No acute abnormality, small umbilicus fat hernia IMPRESSION: No renal calculus or renal or bowel obstruction. [facility] No renal calculus or renal or bowel obstruction. [facility] Comprehensive metabolic pane l aka Metaboon 10-24-2019 Albumin [Mass/Vol] 4.9 g/dL 3.5 - 5 g/dL [facility] Alk Phos 132 U/L High 24 - 126 U/L [facility] ALT [Catalytic activity/Vol] 21 U/L 4 - 50 U/L [facility] AST [Catalytic activity/Vol] 23 U/L 3 - 55 U/L [facility] Bilirubin [Mass/Vol] 0.6 mg/dL 0.2 - 1 .6 mg/dL [facility] Calcium [Mass/Vol] 9.6 mg/dL 8.4 - 10. 4 mg/dL [facility] Chloride [Moles/Vol] 104 mmol/L 96 - 10 9 mmol/L [facility] CO2 [Moles/Vol] 28 mmol/L 22 - 30 mmol/L [facility] Comprehensive metabolic 2000 panel 0.83 mg/dL 0.66 - 1.25 mg/dL [facility] Glucose [Mass/Vol] 109 mg/dL High 65 - 100 mg/dL [facility] Interpretation and review of laboratory results Abnormal [facility] Potassium [Moles/Vol] 4.2 mmol/L 3.6 - 5.1 mmol/L [facility] Protein [Mass/Vol] 7.7 g/dL 6.3 - 8.2 g/dL [facility] Sodium [Moles/Vol] 142 mmol/L 135 - 147 mmol/L [facility] Urea nitrogen [Mass/Vol] 13 mg/dL 8 - 26 mg/dL [facility] EKG 12-LEADon 10-24-2019 Stationary ECG Study Test Date: 2019-10-24 Pat Name: KANDACE HUGO Department: Room: Gender: Male [employer]: TIM : 2000 Requested By: Order Number: Reading MD: Adalberto Wagner Measurements Intervals [place] Rate: 85 P: 35 AK: 152 QRS: -2 QRSD: 97 T: 25 QT: 349 QTc: 391 Interpretive Statements SINUS RHYTHM NORMAL ECG UNCONFIRMED REPORT Electronically Signed On 10-24-2019 20:14:55 EST by Adalberto Wagner [facility] GLOMERULAR FILTRATION RATEon 10-24-2019 GFR/1.73 sq M.predicted MDRD (S/P/Bld) [Vol rate/Area] mL/min/{1.73_m2} [facility] Comment on above: To estimate the GFR for Americans, multiply the result provided by 1.21. Population mean GFR = 116 ml/min/1.73 sq.m. for ages 18-29 yrs Five stages of CKD and GFR for each stage: Stage 1 GFR >=90 Stage 2 GFR 60-89 Stage 3 GFR 30-59 Stage 4 GFR 15-29 Stage 5 GFR <15 Lipaseon 10-24-2019 Lipase [Catalytic activity/Vol] 31 U/L 23 - 300 U/L [facility] Magnesiumon 10-24-2019 Magnesium [Mass/Vol] 2.0 mg/dL 1.6 - 2 .3 mg/dL [facility] Urinalysis with reflex cultu reon 10-24-2019 Appearance (U) Clear [facility] Bacteria identified Aer cx Nom (Unsp spec) NOT INDICATED [facility] Bilirubin Ql (U) Negative Negative [facility] Color (CSF) Yellow [facility] Glucose Ql (U) Negative Negative mg/dL [facility] Hemoglobin Ql (U) 1 [facility] Ketones Ql (U) Negative Negative mg/dL [facility] Leukoesterase Negative Negative [facility] Nitrite Ql (U) Negative Negative [facility] Occult Bld Negative Negative [facility] pH (U) 6.0 [pH] [facility] Protein (U) [Mass/Vol] Negative Negative mg/d L [facility] Specific gravity (U) [Rel density] 1.012 [facility] Urine Source Voided [facility] Urobilinogen Qn (U) Negative <2.0 mg/dL [facility] WBC (U) [#/Vol] /uL [facility] Basic metabolic panel aka Ch em 8on 10-05-2019 Calcium [Mass/Vol] 9.8 mg/dL 8.4 - 10. 4 mg/dL [facility] Chloride [Moles/Vol] 103 mmol/L 96 - 10 9 mmol/L [facility] CO2 [Moles/Vol] 28 mmol/L 22 - 30 mmol/L [facility] Comprehensive metabolic 2000 panel 0.81 mg/dL 0.66 - 1.25 mg/dL [facility] Glucose [Mass/Vol] 89 mg/dL 65 - 100 mg/dL [facility] Potassium [Moles/Vol] 4.2 mmol/L 3.6 - 5.1 mmol/L [facility] Sodium [Moles/Vol] 139 mmol/L 135 - 147 mmol/L [facility] Urea nitrogen [Mass/Vol] 14 mg/dL 8 - 26 mg/dL [facility] CBC with Differentialon Absolute [place] 0.6 [facility] Basophils (Bld) [#/Vol] 0.0 10*3/uL [facility] Basophils/100 WBC (Bld) 0.2 % [facility] Eosinophils (Bld) [#/Vol] 0.0 10*3/uL Low [facility] Eosinophils/100 WBC (Bld) 0.4 % [facility] Erythrocyte distribution width (RBC) [Ratio] 12.6 % 11.5 - 14.5 % [facility] Hematocrit (Bld) [Volume fraction] 44.5 % 37.7 - 51.1 % [facility] Hemoglobin (Bld) [Mass/Vol] 15.0 g/dL 12.8 - 17.7 g/dL [facility] Interpretation and review of laboratory results Abnormal [facility] Lymphocytes (Bld) [#/Vol] 2.1 10*3/uL [facility] Lymphocytes/100 WBC (Bld) 22.9 % [facility] MCH (RBC) [Entitic mass] 31.0 pg 27 - 34.2 pg [facility] MCHC (RBC) [Mass/Vol] 33.7 g/dL 31.4 - 36.2 g/dl [facility] MCV (RBC) [Entitic vol] 91.9 fL 80.6 - 99 fL [facility] Monocytes/100 WBC (Bld) 6.0 % [facility] Neutrophils (Bld) [#/Vol] 6.5 10*3/uL [facility] Neutrophils/100 WBC (Bld) 70.5 % [facility] Platelets (Bld) [#/Vol] 206.0 10*3/uL [facility] RBC (Bld) [#/Vol] 4.84 10*6/uL [facility] WBC LM Ql (Sput) 9.3 [facility] D-dimeron 10-05-2019 Fibrin D-dimer FEU (PPP) [Mass/Vol] 0.19 [facility] Comment on above: Diagnostic Cutoff (P E/DVT): <=0.50mg/L (FEU) The results of this test should always be interpreted in conjunction with pretest probability assessment as a negative indicator for deep-vein thrombosis (DVT) or pulmonary embolism (PE). GLOMERULAR FILTRATION RATEon 10-05-2019 GFR/1.73 sq M.predicted MDRD (S/P/Bld) [Vol rate/Area] mL/min/{1.73_m2} [email or web address] Comment on above: To estimate the GFR for Americans, multiply the result provided by 1.21. Population mean GFR = 116 ml/min/1.73 sq.m. for ages 18-29 yrs Five stages of CKD and GFR for each stage: Stage 1 GFR >=90 Stage 2 GFR 60-89 Stage 3 GFR 30-59 Stage 4 GFR 15-29 Stage 5 GFR <15 Troponin Ion 10-05-2019 Troponin I.cardiac [Mass/Vol] ng/mL 0 - 0.033 ng/mL [email or web address] Comment on above: NEGATIVE; No detectable troponin-I. Troponin I.cardiac [Mass/Vol] ng/mL 0 - 0.033 ng/mL [email or web address] Comment on above: NEGATIVE; No detectable troponin-I. XR Chest 1 Viewon 10-05-2019 EXAMINATION: ONE XRAY VIEW OF THE CHEST 10/05/2019 3:39 pm COMPARISON: 09/08/2019 HISTORY: chest pain Pt. States anterior chest pain x1 day, Hx of smoking x5 months. FINDINGS: Normal cardiac size. Clear lungs. No pneumothorax noted. Normal bony structures. [email or web address], Rad Results In - 10/05/2019 3:47 PM EST EXAMINATION: ONE XRAY VIEW OF THE CHEST 10/05/2019 3:39 pm COMPARISON: 09/08/2019 HISTORY: chest pain Pt. States anterior chest pain x1 day, Hx of smoking x5 months. FINDINGS: Normal cardiac size. Clear lungs. No pneumothorax noted. Normal bony structures. IMPRESSION: No acute finding noted in the chest. [email or web address] No acute finding noted in the chest. [email or web address] Troponin Ion 09-08-2019 Troponin I.cardiac [Mass/Vol] ng/mL 0 - 0.033 ng/mL [email or web address] Comment on above: NEGATIVE; No detectable troponin-I. XR Chest PA and laton 2018 No acute disease. [email or web address] EXAMINATION: TWO XRAY VIEWS OF THE CHEST 09/08/2019 10:18 pm COMPARISON: None. HISTORY: chest pain and SOB Anxiety attack. Palpitations and right hand numbness. FINDINGS: The lungs are clear. There is no pleural effusion. The cardiomediastinal silhouette is normal. There is no pneumothorax. [email or web address] Marcin, Rad Results In - 09/08/2019 10:41 PM EDT EXAMINATION: TWO XRAY VIEWS OF THE CHEST 09/08/2019 10:18 pm COMPARISON: None. HISTORY: chest pain and SOB Anxiety attack. Palpitations and right hand numbness. FINDINGS: The lungs are clear. There is no pleural effusion. The cardiomediastinal silhouette is normal. There is no pneumothorax. IMPRESSION: No acute disease. [email or web address] .GFRon 01-28-2018 eGFR (non-black) 133 ml/min/1.73sqm Normal [facility] ([place]) Comment on above: Result Comment: GFR Population mean for , Non- Americans Ages 20-29 = 116 mL/min/1.73 sq.m. Ages 30-39 = 107 mL/min/1.73 sq.m. Ages 40-49 = 99 mL/min/1.73 sq.m. Ages 50-59 = 93 mL/min/1.73 sq.m. Ages 60-69 = 85 mL/min/1.73 sq.m. Ages 70+ = 75 mL/min/1.73 sq.m.Chronic Kidney Disease: Less than 60 mL/min/1.73 square metersEnd Stage Renal Disease: Less than 15 mL/min/1.73 square meters Performed By: #### C BC, ADIFF, ANEU, GFR, CMP, ACETA, ALC, GEGE ####[place] [place], [place] [address] eGFR (non-black) mL/min/{1.73_m2} Normal [facility] ([place]) Comment on above: Result Comment: GFR Population mean for , Non- Americans Ages 20-29 = 116 mL/min/1.73 sq.m. Ages 30-39 = 107 mL/min/1.73 sq.m. Ages 40-49 = 99 mL/min/1.73 sq.m. Ages 50-59 = 93 mL/min/1.73 sq.m. Ages 60-69 = 85 mL/min/1.73 sq.m. Ages 70+ = 75 mL/min/1.73 sq.m.Chronic Kidney Disease: Less than 60 mL/min/1.73 square metersEnd Stage Renal Disease: Less than 15 mL/min/1.73 square meters Performed By: #### C BC, ADIFF, ANEU, GFR, CMP, ACETA, ALC, GEGE ####[id number] [place], [place] [address] ACETAon 01-28-2018 Acetaminophen mass conc <15.0 Low 15.0-30.0 [facility] ([place]) Comment on above: Performed By: #### C BC, ADIFF, ANEU, GFR, CMP, ACETA, ALC, GEGE ####[address] [place], [place] [address] Gabino 01-28-2018 Ethanol Level <10 Normal [facility] ([place]) Comment on above: Performed By: #### C BC, ADIFF, ANEU, GFR, CMP, ACETA, ALC, GEGE ####[address] [place], [place] [address] CMPon 01-28-2018 Alanine aminotransferase (ALT) 42 U/L High 10-35 [facility] ([place]) Comment on above: Performed By: #### C BC, ADIFF, ANEU, GFR, CMP, ACETA, ALC, GEGE ####[facility] [address] [place], [place] [address] Albumin/Globulin Ratio 2.3 {ratio} Normal 1.1-2.5 [facility] ([place]) Comment on above: Performed By: #### C BC, ADIFF, ANEU, GFR, CMP, ACETA, ALC, GEGE ####[address] [place], [place] [address] Alk Phos 146 IU/L High 40-135 [facility] ([place]) Comment on above: Performed By: #### C BC, ADIFF, ANEU, GFR, CMP, ACETA, ALC, GEGE ####[address] [place], [place] [address] Aspartate aminotransferase (AST) 28 U/L Normal 10-40 [facility] ([place] Comment on above: Performed By: #### C BC, ADIFF, ANEU, GFR, CMP, ACETA, ALC, GEGE ####[address] [place], [place] [address] Bili Total 0.7 mg/dL Normal 0.2-1.0 [facility] ([place] Comment on above: Performed By: #### C BC, ADIFF, ANEU, GFR, CMP, ACETA, ALC, GEGE ####[address] [place] [address] Globulin 2.2 G/dL Normal [facility] ([place] Comment on above: Performed By: #### C BC, ADIFF, ANEU, GFR, CMP, ACETA, ALC, GEGE ####[id number] [place] [address] Glucose mass conc 124 mg/dL High 70-105 [facility] ([place]) Comment on above: Performed By: #### C BC, ADIFF, ANEU, GFR, CMP, ACETA, ALC, GEGE ####[address] [place], [place] [address] Protein 7.3 G/dL Normal 6.0-8.3 [facility] ([place] Comment on above: Performed By: #### C BC, ADIFF, ANEU, GFR, CMP, ACETA, ALC, GEGE ####[address] [place] [address] BUN/Creatinine Ratio 16 ratio Normal 7-27 [facility] ([place]) Comment on above: Performed By: #### C BC, ADIFF, ANEU, GFR, CMP, ACETA, ALC, GEGE ####[address] [place] [address] Creatinine 0.9 mg/dL Normal 0.6-1.2 [facility] ([place] Comment on above: Performed By: #### C BC, ADIFF, ANEU, GFR, CMP, ACETA, ALC, GEGE ####[address] [place] [address] Calcium 9.3 mg/dL Normal 8.4-10.2 [facility] ([place] Comment on above: Performed By: #### C BC, ADIFF, ANEU, GFR, CMP, ACETA, ALC, GEGE ####[address] [place] [address] CO2 29 mmol/L Normal 22-29 [facility] ([place] Comment on above: Performed By: #### C BC, ADIFF, ANEU, GFR, CMP, ACETA, ALC, GEGE ####[address] [place] [address] Electrolyte Balance 10.0 mEq/L Normal [facility] Comment on above: Performed By: #### C BC, ADIFF, ANEU, GFR, CMP, ACETA, ALC, GEGE ####[address] [place] [address] Albumin 5.1 G/dL High 3.5-5.0 [facility]) Comment on above: Performed By: #### C BC, ADIFF, ANEU, GFR, CMP, ACETA, ALC, GEGE ####[address] Emergency Room Note on 01-28-2018 [place] [facility] Note Normal [facility] ([place]) [place] [facility] Note Normal [facility] ([place]) Patient Summary Documentson 01-28-2018 Patient Summary Documents Normal [facility] ([place]) SALon 01-28-2018 Salicylate Level <1.0 Low 10.0-25.0 [facility] ([place]) Comment on above: Performed By: #### C BC, ADIFF, ANEU, GFR, CMP, ACETA, ALC, EGGE ####[address] [place] [address] .Auto Diffon 01-27-2018 Basophils Auto #/vol (Bld) 0.10 10 3/mcL Normal 0.00-0.19 [facility] ([place]) Comment on above: Performed By: #### C BC, ADIFF, ANEU, GFR, CMP, ACETA, ALC, GEGE ####[address] [place], [place] [address] Basophils/100 WBC Auto (Bld) 0.7 % Normal 0.0-2.5 [facility] ([place] Comment on above: Performed By: #### C BC, ADIFF, ANEU, GFR, CMP, ACETA, ALC, GEGE ####[address] [place], [place] [address] Eosinophils 0.00 10 3/mcL Normal 0.00-0.40 [facility] ([place]) Comment on above: Performed By: #### C BC, ADIFF, ANEU, GFR, CMP, ACETA, ALC, GEGE ####[address] [place], [place] [address] Eosinophils/100 leukocytes 0.4 % Normal 0.0-7.0 [facility] ([place] Comment on above: Performed By: #### C BC, ADIFF, ANEU, GFR, CMP, ACETA, ALC, GEGE ####[address] [place], [place] [address] Lymphocytes 2.50 10 3/mcL Normal 0.77-3.85 [facility] ([place]) Comment on above: Performed By: #### C BC, ADIFF, ANEU, GFR, CMP, ACETA, ALC, GEGE ####[address] [place], [place] [address] Lymphocytes/100 leukocytes 23.5 % Normal 10.0-50.0 [facility] ([place] Comment on above: Performed By: #### C BC, ADIFF, ANEU, GFR, CMP, ACETA, ALC, GEGE ####[address] [place], [place] [address] Monocytes 0.80 10 3/mcL Normal 0.15-1.00 [facility] ([place]) Comment on above: Performed By: #### C BC, ADIFF, ANEU, GFR, CMP, ACETA, ALC, GEGE ####[address] [place], [place] [address] Monocytes/100 leukocytes 7.6 % Normal 1.7-13.0 [facility] ([place]) Comment on above: Performed By: #### C BC, ADIFF, ANEU, GFR, CMP, ACETA, ALC, GEGE ####[address] [place], [place] [address] Neutrophils/100 WBC Auto (Bld) 67.8 % Normal 37.0-80.0 [facility] ([place]) Comment on above: Performed By: #### C BC, ADIFF, ANEU, GFR, CMP, ACETA, ALC, GEGE ####[address] [place], [place] [address] .NEUABSon 01-27-2018 Neutrophils 7.20 10 3/mcL High 2.85-6.16 [facility] ([place]) Comment on above: Performed By: #### C BC, ADIFF, ANEU, GFR, CMP, ACETA, ALC, GEGE ####[address] [place], [place] [address] CBCon 01-27-2018 Erythrocyte distribution width Auto Ratio (RBC) 13.4 % Normal 11.5-14.5 [facility] ([place]) Comment on above: Performed By: #### C BC, ADIFF, ANEU, GFR, CMP, ACETA, ALC, GEGE ####[address] [place], [place] [address] Erythrocytes (RBC) 4.83 10 6/mcL Normal 4.04-6.13 [facility] ([place]) Comment on above: Performed By: #### C BC, ADIFF, ANEU, GFR, CMP, ACETA, ALC, GEGE ####[address] [place], [place] [address] Hematocrit (HCT) 44.2 % Normal 42.0-52.0 [facility] ([place] Comment on above: Performed By: #### C BC, ADIFF, ANEU, GFR, CMP, ACETA, ALC, GEGE ####[address] [place], [place] [address] Hemoglobin mass conc (Bld) 14.9 G/dL Normal 14.0-18.0 [facility] ([place]) Comment on above: Performed By: #### C BC, ADIFF, ANEU, GFR, CMP, ACETA, ALC, GEGE ####[address] [place], [place] [address] MCH 30.9 pg Normal 27.0-31.2 [facility] ([place]) Comment on above: Performed By: #### C BC, ADIFF, ANEU, GFR, CMP, ACETA, ALC, GEGE ####[address] [place], [place] [address] MCHC mass conc (RBC) 33.7 G/dL Normal 31.8-35.4 [facility] ([place]) Comment on above: Performed By: #### C BC, ADIFF, ANEU, GFR, CMP, ACETA, ALC, GEGE ####[address] [place], [place] [address] MCV 91.6 fL Normal 80.0-94.0 [facility] ([place]) Comment on above: Performed By: #### C BC, ADIFF, ANEU, GFR, CMP, ACETA, ALC, GEGE ####[address] [place], [place] [address] Platelet mean volume (PMV) 8.9 fL Normal 7.4-10.4 [facility] ([place]) Comment on above: Performed By: #### C BC, ADIFF, ANEU, GFR, CMP, ACETA, ALC, GEGE ####[address] [place], [place] [address] Platelets 160 10 3/mcL Normal 130-400 [facility] ([place]) Comment on above: Performed By: #### C BC, ADIFF, ANEU, GFR, CMP, ACETA, ALC, GEGE ####[address] [place], [place] [address] WBC (Leukocytes) 10.70 10 3/mcL Normal 4.60-10.80 [facility] ([place]) Comment on above: Performed By: #### C BC, ADIFF, ANEU, GFR, CMP, ACETA, ALC, GEGE ####[address] [place], [place] [address] CMPon 01-27-2018 Urea nitrogen 14.5 mg/dL Normal 7.0-18.0 [facility] ([place]) Comment on above: Performed By: #### C BC, ADIFF, ANEU, GFR, CMP, ACETA, ALC, GEGE ####[address] [place], [place] [address] Chloride 104 mmol/L Normal 98-107 [facility] ([place]) Comment on above: Performed By: #### C BC, ADIFF, ANEU, GFR, CMP, ACETA, ALC, GEGE ####[address] [place], [place] [address] Potassium molar conc 4.1 mmol/L Normal 3.5-5.1 [facility] ([place]) Comment on above: Performed By: #### C BC, ADIFF, ANEU, GFR, CMP, ACETA, ALC, GEGE ####[address] [place], [place] [address] Sodium 143 mmol/L Normal 136-146 [facility] ([place]) Comment on above: Performed By: #### C BC, ADIFF, ANEU, GFR, CMP, ACETA, ALC, GEGE ####[address] [place], [place] [address] TOXSCon 01-27-2018 QC TOXSC Valid [facility] ([place]) Comment on above: Performed By: #### T OXSC ####[address] [place], [place] [address] U Ampheta (AO) Negative [facility] ([place]) Comment on above: Performed By: #### T OXSC ####[address] [place], [place] [address] U Alessandra (AO) Negative [facility] ([place]) Comment on above: Performed By: #### T OXSC ####[address] [place], [place] [address] U Chaim (AO) Negative [facility] ([place]) Comment on above: Performed By: #### T OXSC ####[address] [place], [place] [address] U Cannab (AO) Negative Replaced by [facility] ([place]) Comment on above: Performed By: #### T OXSC ####[id number] [place], [place] [address] U Cocaine (AO) Negative Normal [facility] ([place]) Comment on above: Performed By: #### T OXSC ####[id number] [place], [place] [address] U Methadone (AO) Negative Normal [facility] ([place]) Comment on above: Performed By: #### T OXSC ####[address] [place], [place] [address] U PCP (AO) Negative [facility] ([place]) Comment on above: Performed By: #### T OXSC ####[id number] [place], [place] [address] U TCA (AO) Negative [facility] ([place] Comment on above: Performed By: #### T OXSC ####[address] [place], [place] [address] Urine Opiates (AO) Negative [facility] ([place]) Comment on above: Performed By: #### T OXSC ####[address] [place], [place] [address] Vital Signs Date Time Vital Sign Value Performing Clinician Facility 03-10-2025 14:21-040 Body mass index (BMI) [Ratio] 26.54 kg/m2 Ildefonso Flanagan MD Work Phone: [facility] 03-10-2025 14:21040 Body temperature 97.7 [degF] Ildefonso Flanagan MD Work Phone: [facility] 03-10-2025 14:040 Body weight 83.9 kg Ildefonso Flanagan MD Work Phone: [facility] 03-10-2025 14:21040 Diastolic blood pressure 74 mm[Hg] Ildefonso Flanagan MD Work Phone: [facility] 03-10-2025 14:21-040 Heart rate 75 /min Ildefonso Flanagan MD Work Phone: [facility] 03-10-2025 14:21-0400 Respiratory rate 18 /min Ildefonso Flanagan MD Work Phone: [facility] 03-10-2025 14:21-0400 SaO2% (BldA) [Mass fraction] 98 % Ildefonso Flanagan MD Work Phone: [facility] 03-10-2025 14:21-0400 Systolic blood pressure 122 mm[Hg] Ildefonso Flanagan MD Work Phone: [facility] 02-17-2025 09:27-0400 Body mass index (BMI) [Ratio] 26.57 kg/m2 Mellissa Clutter PA-C Work Phone: [facility] 02-17-2025 09:27-0400 Body temperature 97.59 [degF] Mellissa Clutter PA-C Work Phone: [facility] 02-17-2025 09:27-0400 Body weight 84 kg Mellissa Clutter PA-C Work Phone: [facility] 02-17-2025 09:27-0400 Diastolic blood pressure 82 mm[Hg] Mellissa Clutter PA-C Work Phone: [facility] 02-17-2025 09:27-0400 Heart rate 60 /min Mellissa Clutter PA-C Work Phone: [facility] 02-17-2025 09:27-0400 Respiratory rate 20 /min Mellissa Clutter PA-C Work Phone: [facility] 02-17-2025 09:27-0400 SaO2% (BldA) [Mass fraction] 100 % Mellissa Clutter PA-C Work Phone: [facility] 02-17-2025 09:27-0400 Systolic blood pressure 126 mm[Hg] Mellissa Clutter PA-C Work Phone: [facility] 01-04-2025 16:19-0500 Body mass index (BMI) [Ratio] 27.2 kg/m2 Rasheed Yadav APRN.CNP Work Phone: [facility] 01-04-2025 16:19-0500 Body temperature 98.8 [degF] Rasheed Leif ELECTRIC TRIPPER MACHINE OPERATOR.DIAL MAKER Work Phone: [facility] 01-04-2025 16:19-0500 Body weight 86 kg Rasheed Yadav ELECTRIC TRIPPER MACHINE OPERATOR.DIAL MAKER Work Phone: [facility] 01-04-2025 16:19-0500 Diastolic blood pressure 78 mm[Hg] Rasheed Leif ELECTRIC TRIPPER MACHINE OPERATOR.DIAL MAKER Work Phone: [facility] 01-04-2025 16:19-0500 Heart rate 74 /min Rasheed Leif ELECTRIC TRIPPER MACHINE OPERATOR.DIAL MAKER Work Phone: [facility] 01-04-2025 16:19-0500 Respiratory rate 16 /min Rasheed Leif ELECTRIC TRIPPER MACHINE OPERATOR.DIAL MAKER Work Phone: [facility] 01-04-2025 16:19-0500 SaO2% (BldA) [Mass fraction] 96 % Rasheed Leif ELECTRIC TRIPPER MACHINE OPERATOR.DIAL MAKER Work Phone: [facility] 01-04-2025 16:19-0500 Systolic blood pressure 122 mm[Hg] Rasheed Leif ELECTRIC TRIPPER MACHINE OPERATOR.DIAL MAKER Work Phone: [facility] 03-18-2024 07:53-0400 Body temperature 97.2 [degF] Misty Mobley ELECTRIC TRIPPER MACHINE OPERATOR.DIAL MAKER Work Phone: [facility] 03-18-2024 07:53-0400 Body weight 82 kg Misty Mobley ELECTRIC TRIPPER MACHINE OPERATOR.DIAL MAKER Work Phone: [facility] 03-18-2024 07:53-0400 Diastolic blood pressure 55 mm[Hg] Misty Mobley ELECTRIC TRIPPER MACHINE OPERATOR.DIAL MAKER Work Phone: [facility] 03-18-2024 07:53-0400 Heart rate 79 /min Misty Mobley ELECTRIC TRIPPER MACHINE OPERATOR.DIAL MAKER Work Phone: [facility] 03-18-2024 07:53-0400 Respiratory rate 18 /min Misty Mobley ELECTRIC TRIPPER MACHINE OPERATOR.DIAL MAKER Work Phone: [facility] 03-18-2024 07:53-0400 SaO2% (BldA) [Mass fraction] 100 % Misty Mobley ELECTRIC TRIPPER MACHINE OPERATOR.DIAL MAKER Work Phone: [facility] 03-18-2024 07:53-0400 Systolic blood pressure 105 mm[Hg] Misty Mobley ELECTRIC TRIPPER MACHINE OPERATOR.DIAL MAKER Work Phone: [facility] 10-16-2023 19:38-0500 Body height 175.26 cm [facility] 10-16-2023 19:38-0500 Body mass index (BMI) [Ratio] 27.6 kg/m2 [facility] 10-16-2023 19:38-0500 Body temperature 97.7 [degF] [facility] 10-16-2023 19:38-0500 Body weight 84.86 kg [facility] 10-16-2023 19:38-0500 Diastolic blood pressure 87 mm[Hg] [facility] 10-16-2023 19:38-0500 Heart rate 105 /min [facility] 10-16-2023 19:38-0500 Respiratory rate 17 /min [facility] 10-16-2023 19:38-0500 SaO2% (BldA) [Mass fraction] 98 % [facility] 10-16-2023 19:38-0500 Systolic blood pressure 131 mm[Hg] [facility] 06-03-2023 10:52-0400 Body height 175.26 cm [facility] 06-03-2023 10:52-0400 Body mass index (BMI) [Ratio] 28.2 kg/m2 [facility] 06-03-2023 10:52-0400 Body temperature 98.1 [degF] [facility] 06-03-2023 10:52-0400 Body weight 86.63 kg [facility] 06-03-2023 10:52-0400 Diastolic blood pressure 82 mm[Hg] [facility] 06-03-2023 10:52-0400 Heart rate 77 /min [facility] 06-03-2023 10:52-0400 Respiratory rate 14 /min [facility] 06-03-2023 10:52-0400 SaO2% (BldA) [Mass fraction] 99 % [facility] 06-03-2023 10:52-0400 Systolic blood pressure 116 mm[Hg] [facility] 11-15-2022 13:44-0500 Body height 175.3 cm [facility] [employer] [facility] 11-15-2022 13:43-0500 Body temperature 97.2 [degF] [employer] [facility] 11-15-2022 13:43-0500 Diastolic blood pressure 74 mm[Hg] [facility] 11-15-2022 13:43-0500 Heart rate 85 /min [facility] 11-15-2022 13:43-0500 Respiratory rate 20 /[facility] 11-15-2022 13:43-0500 SaO2% (BldA) [Mass fraction] 97 % [facility] 11-15-2022 13:43-0500 Systolic blood pressure 138 mm[Hg] [facility] 09-08-2022 11:11-0400 Body height 182.9 cm [facility] [employer] [facility] 09-08-2022 11:10-0400 Body temperature 96.49 [degF] [facility] 09-08-2022 11:10-0400 Diastolic blood pressure 80 mm[Hg] [facility] 09-08-2022 11:10-0400 Heart rate 71 /min [facility] 09-08-2022 11:10-0400 Respiratory rate 18 /min [facility] 09-08-2022 11:10-0400 SaO2% (BldA) [Mass fraction] 98 % [facility] 09-08-2022 11:10-0400 Systolic blood pressure 137 mm[Hg] [facility] 07-31-2022 12:52-0400 Body height 175.3 cm Jamarcus Jefferson DO Work Phone: [employer] [facility] 07-31-2022 12:52-0400 Body mass index (BMI) [Ratio] 32.49 kg/m2 Jamarcus Jefferson DO Work Phone: [employer] 07-31-2022 12:52-0400 Body temperature 98.4 [degF] Jamarcus Jefferson DO Work Phone: [employer] 07-31-2022 12:52-0400 Body weight 99.79 kg Jamarcus Jefferson DO Work Phone: [employer] 07-31-2022 12:52-0400 Diastolic blood pressure 74 mm[Hg] Jamarcus Jefferson DO Work Phone: [employer] 07-31-2022 12:52-0400 Heart rate 85 /min Jamarcus Jefferson DO Work Phone: [employer] 07-31-2022 12:52-0400 Respiratory rate 16 /min Jamarcus Jefferson DO Work Phone: [employer] 07-31-2022 12:52-0400 SaO2% (BldA) [Mass fraction] 98 % Jamarcus Jefferson DO Work Phone: [employer] 07-31-2022 12:52-0400 Systolic blood pressure 130 mm[Hg] Jamarcus Jefferson DO Work Phone: [employer] 05-30-2022 04:43-0400 Body temperature 97.7 [degF] Kaila Rogele DO Work Phone: [employer] [facility] 05-30-2022 04:43-0400 Diastolic blood pressure 64 mm[Hg] Kaila Lo DO Work Phone: [email or web address] [facility] 05-30-2022 04:43-0400 Heart rate 70 /min Kaila Lo DO Work Phone: [employer] [facility] 05-30-2022 04:43-0400 Respiratory rate 16 /min Kaila Lo DO Work Phone: [email or web address] [facility] 05-30-2022 04:43-0400 SaO2% (BldA) [Mass fraction] 97 % Kaila Lo DO Work Phone: [email or web address] [facility] 05-30-2022 04:43-0400 Systolic blood pressure 119 mm[Hg] Kaila Lo DO Work Phone: [employer] 05-29-2022 16:02-0400 Body height 175.3 cm Kaila Lo DO Work Phone: [email or web address] 05-29-2022 16:02-0400 Body mass index (BMI) [Ratio] 32.49 kg/m2 Kaila Lo DO Work Phone: [email or web address] 05-29-2022 16:02-0400 Body weight 99.79 kg Kaila Lo DO Work Phone: [email or web address] 05-15-2022 06:15-0400 Body temperature 97.9 [degF] Viktoriya Mendez MD Work Phone: [email or web address] 05-15-2022 06:15-0400 Diastolic blood pressure 55 mm[Hg] Viktoriya Mendez MD Work Phone: [email or web address] 05-15-2022 06:15-0400 Heart rate 62 /min Viktoriya Mendez MD Work Phone: [email or web address] 05-15-2022 06:15-0400 Respiratory rate 16 /min Viktoriya Mendez MD Work Phone: [email or web address] 05-15-2022 06:15-0400 SaO2% (BldA) [Mass fraction] 98 % Viktoriya Mendez MD Work Phone: [email or web address] 05-15-2022 06:15-0400 Systolic blood pressure 109 mm[Hg] Viktoriya Mendez MD Work Phone: [email or web address] 05-14-2022 20:37-0400 Body height 175.3 cm Viktoriya Mendez MD Work Phone: [email or web address] 05-14-2022 20:37-0400 Body mass index (BMI) [Ratio] 32.49 kg/m2 Viktoriya Mendez MD Work Phone: [email or web address] 05-14-2022 20:37-0400 Body weight 99.79 kg Viktoriya Mendez MD Work Phone: [email or web address] 05-14-2022 16:36-0400 Body height 175.3 cm Phoenix Armstrong MD Work Phone: [phone] [place] [address] 05-14-2022 16:36-0400 Body mass index (BMI) [Ratio] 32.49 kg/m2 Phoenix Armstrong MD Work Phone: [phone] [place] [address] 05-14-2022 16:36-0400 Body temperature 98.71 [degF] Phoenix Armstrong MD Work Phone: [phone] [place] [address] 05-14-2022 16:36-0400 Body weight 99.79 kg Phoenix rAmstrong MD Work Phone: [phone] [place] [address] 05-14-2022 16:36-0400 Diastolic blood pressure 74 mm[Hg] Phoenix Armstrong MD Work Phone: [phone] [place] [address] 05-14-2022 16:36-0400 Heart rate 75 /min Phoenix Armstrong MD Work Phone: [phone] [place] [address] 05-14-2022 16:36-0400 Respiratory rate 20 /min Phoenix Armstrong MD Work Phone: [phone] [place] [address] 05-14-2022 16:36-0400 SaO2% (BldA) [Mass fraction] 99 % Phoenix Armstrong MD Work Phone: [phone] [place] [address] 05-14-2022 16:36-0400 Systolic blood pressure 123 mm[Hg] Phoenix Armstrong MD Work Phone: [phone] [place] [address] 08-25-2021 06:24-0400 Body temperature 98.01 [degF] Juan Diego Corral MD Work Phone: [phone] [place] [address] 08-25-2021 06:24-0400 Diastolic blood pressure 67 mm[Hg] Juan Diego Corral MD Work Phone: [phone] [place] [address] 08-25-2021 06:24-0400 Heart rate 84 /min Juan Diego Corral MD Work Phone: [phone] [place] [address] 08-25-2021 06:24-0400 Respiratory rate 16 /min Juan Diego Corral MD Work Phone: [phone] [place] [address] 08-25-2021 06:24-0400 SaO2% (BldA) [Mass fraction] 97 % Juan Diego Corral MD Work Phone: [facility] 08-25-2021 06:24-0400 Systolic blood pressure 125 mm[Hg] Juan Diego Corral MD Work Phone: [facility] 08-22-2021 21:50-0400 Body height 175.3 cm Juan Diego Corral MD Work Phone: [facility] 08-22-2021 21:50-0400 Body mass index (BMI) [Ratio] 33.97 kg/m2 Juan Diego Corral MD Work Phone: [phone] [address] 08-22-2021 21:50-0400 Body weight 104.33 kg Juan Diego Corral MD Work Phone: [facility] 05-11-2021 07:41-0400 Body temperature 97.59 [degF] Juan Diego Corral MD Work Phone: [phone] [address] 05-11-2021 07:41-0400 Diastolic blood pressure 56 mm[Hg] Juan Diego Corral MD Work Phone: [phone] [address] 05-11-2021 07:41-0400 Heart rate 70 /min Juan Diego Corral MD Work Phone: [facility] 05-11-2021 07:41-0400 Respiratory rate 18 /min Juan Diego Corral MD Work Phone: [facility] 05-11-2021 07:41-0400 SaO2% (BldA) [Mass fraction] 98 % Juan Diego Corral MD Work Phone: [facility] 05-11-2021 07:41-0400 Systolic blood pressure 116 mm[Hg] Juan Diego Corral MD Work Phone: [facility] 05-08-2021 22:35-0400 Body height 172.7 cm Juan Diego Corral MD Work Phone: [facility] 05-08-2021 22:35-0400 Body mass index (BMI) [Ratio] 36.49 kg/m2 Juan Diego Corral MD Work Phone: [facility] 05-08-2021 22:35-0400 Body weight 108.86 kg Juan Diego Corral MD Work Phone: [facility] 02-23-2021 18:16-0400 BP Diastolic 71 mm[Hg] Candido Ebeling [facility] 02-23-2021 18:16-0400 BP Systolic 151 mm[Hg] Candido Summers [facility] 02-23-2021 18:16-0400 Pulse (Heart Rate) 81 /min [facility] 02-23-2021 18:16-0400 Pulse Oximetry 99 % [facility] 02-23-2021 18:16-0400 Respiratory Rate 18 /min [facility] 02-23-2021 17:08-0400 BMI (Body Mass Index) 33 kg/m2 [facility] 02-23-2021 17:08-0400 Body Temperature 97.3 [degF] [facility] 02-23-2021 17:08-0400 Body weight 104.[address] [facility] 02-23-2021 17:08-0400 Height 177.8 cm [facility] 02-27-2020 20:55-0400 BP Diastolic 80 mm[Hg] Lázaro Murray [facility] 02-27-2020 20:55-0400 BP Systolic 129 mm[Hg] Lázaro Murray [facility] 02-27-2020 20:55-0400 Pulse (Heart Rate) 84 /min Lázaro Murray [facility] 02-27-2020 20:55-0400 Pulse Oximetry 98 % Lázaro Murray [facility] 02-27-2020 20:55-0400 Respiratory Rate 20 /min Lázaro Murray [facility] 02-27-2020 20:05-0400 BMI (Body Mass Index) 29.53 kg/m2 Lázaro Murary [facility] 02-27-2020 20:05-0400 Body weight 90.72 kg Lázaro Murray [facility] 02-27-2020 19:57-0400 Body Temperature 98.8 [degF] Lázaro Acuna [facility] 02-27-2020 19:57-0400 Height 175.3 cm Lázaro [facility] 02-19-2020 17:09-0400 BMI (Body Mass Index) 35.44 kg/m2 Chelsie Marquez [facility] 02-19-2020 17:09-0400 Body Temperature 97.5 [degF] Chelsie Acuna [facility] 02-19-2020 17:09-0400 Body weight 108.86 kg [facility]siesammie [facility] 02-19-2020 17:09-0400 BP Diastolic 71 mm[Hg] [facility] 02-19-2020 17:09-0400 BP Systolic 161 mm[Hg] [facility] 02-19-2020 17:09-0400 Height 175.3 cm [facility] 02-19-2020 17:09-0400 Pulse (Heart Rate) 87 /min [facility] 02-19-2020 17:09-0400 Pulse Oximetry 97 % [facility] 02-19-2020 17:09-0400 Respiratory Rate 20 /min Chelsie Acuna [facility] 11-11-2019 12:03-0500 BP Diastolic 72 mm[Hg] Chelsie [facility] 11-11-2019 12:03-0500 BP Systolic 127 mm[Hg] [facility]sie [facility] 11-11-2019 12:03-0500 Pulse (Heart Rate) 65 /min [facility] 11-11-2019 12:03-0500 Pulse Oximetry 100 % Chelsie [facility] 11-11-2019 12:03-0500 Respiratory Rate 23 /min Chelsie Acuna [facility] 11-11-2019 09:39-0500 BMI (Body Mass Index) 34.8 kg/m2 Chelsiesammie Marquez [facility] 11-11-2019 09:39-0500 Body Temperature 98.4 [degF] Chelsie Acuna [facility] 11-11-2019 09:39-0500 Body weight 100.79 kg Chelsie [facility] 11-11-2019 09:39-0500 Height 170.2 cm [facility] 10-24-2019 21:18-0500 Body Temperature 98.8 [degF] Adalberto Acuna [facility] 10-24-2019 21:18-0500 BP Diastolic 64 mm[Hg] [facility]alberto [facility] 10-24-2019 21:18-0500 BP Systolic 116 mm[Hg] [facility]alberto [facility] 10-24-2019 21:18-0500 Pulse (Heart Rate) 71 /min Adalberto Acuna [facility] 10-24-2019 21:18-0500 Pulse Oximetry 99 % [facility] 10-24-2019 21:18-0500 Respiratory Rate 16 /min Adalberto Wagner [facility] 10-24-2019 20:04-0500 BMI (Body Mass Index) 31.01 kg/m2 Adalberto Wagner [facility] 10-24-2019 20:04-0500 Body weight 95.25 kg [facility]to [facility] 10-24-2019 20:04-0500 Height 175.3 cm [facility] 10-05-2019 21:15-0500 Body Temperature 98.6 [degF] Viktoriya Acuna [facility] 10-05-2019 21:15-0500 BP Diastolic 64 mm[Hg] [facility]toriya [facility] 10-05-2019 21:15-0500 BP Systolic 123 mm[Hg] Viktoriya [facility] 10-05-2019 21:15-0500 Pulse (Heart Rate) 83 /min Vik[facility]oriya [facility] 10-05-2019 21:15-0500 Pulse Oximetry 96 % Viktoriya [facility] 10-05-2019 21:15-0500 Respiratory Rate 20 /min Viktoriya Acuna [facility] 10-05-2019 19:53-0500 BMI (Body Mass Index) 31.01 kg/m2 Viktoriya Mendez [facility] 10-05-2019 19:53-0500 Body weight 95.25 kg Viktoriya [facility] 10-05-2019 19:53-0500 Height 175.3 cm Viktoriya [facility] 10-05-2019 18:02-0500 BP Diastolic 63 mm[Hg] Viktoriya [facility] 10-05-2019 18:02-0500 BP Systolic 133 mm[Hg] Viktoriya [facility] 10-05-2019 18:02-0500 Pulse (Heart Rate) 81 /min [facility] 10-05-2019 18:02-0500 Pulse Oximetry 98 % Viktoriya [facility] 10-05-2019 18:02-0500 Respiratory Rate 17 /min Viktoriya [facility] 10-05-2019 15:00-0500 Body Temperature 99.39 [degF] Viktoriya [facility] 09-08-2019 23:35-0400 Body Temperature 98.4 [degF] Lan [facility] 09-08-2019 23:35-0400 Pulse (Heart Rate) 81 /min [facility] 09-08-2019 23:35-0400 Pulse Oximetry 97 % Lan [facility] 09-08-2019 23:35-0400 Respiratory Rate 22 /min Lan Acuna [facility] 09-08-2019 23:32-0400 BP Diastolic 69 mm[Hg] Lan [facility] 09-08-2019 23:32-0400 BP Systolic 125 mm[Hg] Lan [facility] 09-08-2019 21:35-0400 BMI (Body Mass Index) 29.29 kg/m2 Lan [facility] 09-08-2019 21:35-0400 Body weight 95.25 kg Lan Diaz [facility] 09-08-2019 21:35-0400 Height 180.3 cm [facility] Encounters Encounter Date Encounter Type Care Provider Facility Start: 04-20-2025 End: 04-20-2025 Emergency department patient visit No Primary Care Physician Facility:[facility] Start: 03-10-2025 End: 03-10-2025 Emergency department patient visit No Primary Care Physician -Emergency Department Work Phone: Start: 03-10-2025 End: 03-10-2025 ambulatory [facility] Facility:[facility] Start: 03-10-2025 End: 03-10-2025 Office outpatient visit 15 minutes Ildefonso Flanagan MD Work Phone: [facility] Comment on above: Bright red blood per rectum (Primary Dx); Right lateral abdominal pain Start: 02-17-2025 End: 02-17-2025 Patient encounter procedure Mellissa Joyce PA-C Work Phone: [facility] Comment on above: RUQ abdominal pain ( Primary Dx) Start: 02-17-2025 End: 02-17-2025 ambulatory [facility] Facility:[facility] Start: 01-04-2025 End: 01-04-2025 ambulatory [facility] Facility:[facility] Start: 01-04-2025 End: 01-04-2025 Patient encounter procedure Rasheed Yadav APRN.DIAL MAKER Work Phone: [facility] Comment on above: Flu-like symptoms (P rimary Dx); Exposure to the flu Start: 09-11-2024 End: 09-11-2024 Emergency department patient visit Lonnie Caldwell Facility:[facility] Start: 03-18-2024 End: 03-18-2024 Subsequent hospital visit by physician Shonna [facility] Work Phone: Radiology Comment on above: Foot pain, left [[id number]] Start: 03-18-2024 End: 03-18-2024 ambulatory [facility] Facility:[facility] Start: 03-18-2024 End: 03-18-2024 Patient encounter procedure Misty Mobley APRN.DIAL MAKER Work Phone: [facility] Comment on above: Foot pain, left (Krista sidra Dx) Start: 10-16-2023 End: 10-16-2023 Emergency department patient visit [facility] Work Phone: Start: 06-03-2023 End: 06-03-2023 Emergency department patient visit [facility] Work Phone: Start: 12-18-2022 End: 12-18-2022 Emergency department patient visit [facility] Start: 11-15-2022 End: 11-15-2022 Emergency department patient visit [facility] Start: 11-15-2022 End: 11-15-2022 Emergency department patient visit [facility] Start: 11-13-2022 End: 11-13-2022 Emergency department patient visit PHYSICIAN [facility] Start: 09-08-2022 End: 09-08-2022 Emergency department patient visit [facility] Start: 09-08-2022 End: 09-08-2022 Emergency department patient visit [facility] Start: 08-17-2022 End: 08-17-2022 Emergency department patient visit DENITA MARLEY [facility] Start: 08-12-2022 End: 08-12-2022 Emergency department patient visit ODETTE BRIONES [facility] Start: 08-11-2022 End: 08-11-2022 Emergency department patient visit PHYSICIAN [facility] Start: 07-31-2022 End: 07-31-2022 Emergency department patient visit JAMARCUS JEFFERSON [facility] Start: 07-31-2022 End: 07-31-2022 Emergency department patient visit Jamarcus Jefferson DO Work Phone: [facility] Comment on above: Right hip pain (Prim jose Dx); Contusion of right hip, initial encounter Start: 07-18-2022 Telephone encounter Bernadine zelaya [facility] Start: 07-17-2022 End: 07-18-2022 Emergency department patient visit PHYSICIAN [facility] Start: 07-09-2022 End: 07-13-2022 ambulatory [facility] Start: 07-09-2022 End: 07-09-2022 Emergency department patient visit PHYSICIAN NO [facility] Start: 06-30-2022 End: 07-01-2022 Emergency department patient visit PHYSICIAN [facility] Start: 05-29-2022 End: 05-30-2022 ambulatory NONE [facility]CP [email or web address] Start: 05-29-2022 End: 05-30-2022 Emergency department patient visit Kaila Lo DO Work Phone: [email or web address] Comment on above: Suicidal ideation (P rimary Dx) Start: 05-14-2022 End: 05-15-2022 ambulatory NONE [facility] Start: 05-14-2022 End: 05-15-2022 Emergency department patient visit Viktoriya Mendez MD Work Phone: [facility] Comment on above: Suicidal ideation (P rimary Dx) Start: 05-14-2022 End: 05-14-2022 Emergency department patient visit PHOENIX ARMSTRONG [facility] Start: 05-14-2022 End: 05-14-2022 Emergency department patient visit Phoenix Armstrong MD Work Phone: [facility] Comment on above: Mood disorder (HCC) (Primary Dx) Start: 05-06-2022 End: 05-07-2022 Emergency department patient visit PHYSICIAN ARGUELLO [facility] Start: 12-12-2021 End: 12-12-2021 ambulatory NONE [facility] Start: 12-12-2021 End: 12-13-2021 ambulatory NONE [facility] Start: 12-12-2021 End: 12-12-2021 Subsequent hospital visit by physician Shayna KNIGHT Work Phone: [facility] Comment on above: URI with cough and c ongestion; Non-intractable vomiting with nausea, unspecified vomiting type; Diarrhea, unspecified type; At increased risk of exposure to COVID-19 virus Start: 08-22-2021 End: 08-25-2021 Admission to establishment Juan Diego Corral MD Work Phone: [facility] Start: 08-22-2021 End: 08-25-2021 Evaluation and management of inpatient Juan Diego Corral MD Work Phone: [facility] Comment on above: Medical clearance fo r psychiatric admission (Primary Dx); Suicidal ideation; Major depressive disorder, recurrent severe without psychotic features (HCC) Start: 07-16-2021 End: 07-16-2021 Subsequent hospital visit by physician Ayde KNIGHT Work Phone: [facility] Comment on above: Cough Start: 05-08-2021 End: 05-11-2021 Admission to establishment Juan Diego Corral MD Work Phone: [facility] Start: 05-08-2021 End: 05-11-2021 Evaluation and management of inpatient Juan Diego Corral MD Work Phone: [facility] Comment on above: Suicidal ideation (P rimary Dx); Medical clearance for psychiatric admission Start: 05-07-2021 End: 05-07-2021 Subsequent hospital visit by physician Concepcion Fortune APRN, NP Work Phone: [facility] Comment on above: Viral illness; Generalized abdominal pain; Non-intractable vomiting with nausea, unspecified vomiting type; Diarrhea, unspecified type Start: 03-04-2021 End: 03-04-2021 Subsequent hospital visit by physician Phill Ozuna Work Phone: [facility] [place] Comment on above: Rib pain on left woodrow e Start: 02-23-2021 End: 02-23-2021 Emergency department patient visit Candido Vance Work Phone: [facility] Comment on above: Flank pain (Primary Dx) Start: 05-21-2020 End: 05-21-2020 Subsequent hospital visit by physician Phill Ozuna Work Phone: [facility] [place] Comment on above: Acute right ankle pa in Start: 04-13-2020 End: 04-13-2020 Subsequent hospital visit by physician Etta Rico Work Phone: [facility] [place] Comment on above: Acute pain of left k nee Start: 03-23-2020 End: 03-23-2020 Subsequent hospital visit by physician Etta Rico Work Phone: [facility] [place] Comment on above: Left leg pain Start: 02-27-2020 End: 02-27-2020 Emergency department patient visit Lázaro Murray Work Phone: [facility] Comment on above: Acute swimmer's ear of left side (Primary Dx); Impacted cerumen of right ear; Left ear pain Start: 02-19-2020 End: 02-19-2020 Emergency department patient visit Chelsie Marquez Work Phone: [facility] Comment on above: Effusion of left kne e (Primary Dx); Nasal congestion; Encounter to obtain excuse from work Start: 11-17-2019 End: 11-17-2019 Letter encounter Grant Medrano Work Phone: [facility] Start: 11-11-2019 End: 11-11-2019 Emergency department patient visit Chelsie Marquez Work Phone: [facility] Comment on above: Gastroenteritis (Krista sidra Dx); Bronchitis Start: 10-24-2019 End: 10-24-2019 Emergency department patient visit Adalberto Wanger Work Phone: [facility] Comment on above: Right flank pain (Pr imary Dx) Start: 10-05-2019 End: 10-05-2019 Emergency department patient visit Viktoriya Mendez Work Phone: [facility] Comment on above: Musculoskeletal ches t pain (Primary Dx) Start: 10-05-2019 End: 10-05-2019 Emergency department patient visit Viktoriya Mendez Work Phone: [facility] Comment on above: Chest pain, unspecif ied type (Primary Dx); Nausea; Lightheadedness Start: 09-08-2019 End: 09-08-2019 Emergency department patient visit Lan Diaz Work Phone: [facility] Comment on above: Anxiety attack (Prim jose Dx) Start: 01-27-2018 End: 01-28-2018 Emergency department patient visit ALEJANDRO DOTY Facility:[facility] Start: 01-21-2018 Emergency department patient visit [facility] Procedures Date Procedure Procedure Detail Performing Clinician Start: 03-18-2024 Radex foot complete minimum 3 views Misty Mobley ELECTRIC TRIPPER MACHINE OPERATOR.DIAL MAKER Work Phone: Start: 06-03-2023 Plain chest X-ray Start: 11-15-2022 Iaadiadoo streptococ cus group a Gabriella Bassett PA-C Work Phone: Start: 11-15-2022 Quantitative PCR analysis Gabriella Bassett PA-C Work Phone: Start: 09-08-2022 Iadna nos amplified probe tq each organism Gabriella Bassett PA-C Work Phone: Start: 07-31-2022 Radex hip unilateral with pelvis 2-3 views Nilesh Catrachito ELECTRIC TRIPPER MACHINE OPERATOR - [employer] Work Phone: Start: 05-29-2022 CBC W Auto Different ial panel - Blood Kaila Lo DO Work Phone: Start: 05-29-2022 Comprehensive metabo lic panel Kaila Lo DO Work Phone: Start: 05-29-2022 GLOMERULAR FILTRATION RATE Kaila Lo DO Work Phone: Start: 05-29-2022 End: 05-29-2022 Lipid panel Kaila Lo DO Work Phone: Start: 05-14-2022 CBC W Auto Different ial panel - Blood Phoenix Armstrong MD Work Phone: Start: 05-14-2022 Comprehensive metabo lic panel Phoenix Armstrong MD Work Phone: Start: 05-14-2022 Drug screen quantita tive alcohols Phoenix Armstrong MD Work Phone: Start: 05-14-2022 GLOMERULAR FILTRATION RATE Phoenix Armstrong MD Work Phone: Start: 05-14-2022 Urnls dip stick/tabl et reagent auto microscopy Phoenix Armstrong MD Work Phone: Start: 12-13-2021 Infectious agent dna /rna influenza 1st 2 types Shayna KNIGHT Work Phone: Start: 12-12-2021 Adult depression scr eening assessment Shayna KNIGHT Work Phone: Start: 08-22-2021 Drug tst prsmv instr mnt chem analyzers pr date Juan Diego Corral MD Work Phone: Start: 08-22-2021 Urnls dip stick/tabl et reagent auto microscopy Juan Diego Corral MD Work Phone: Start: 07-16-2021 Adult depression scr eening assessment Ayde KNIGHT Work Phone: Start: 05-11-2021 Assay of thyroid stimulating hormone tsh Olvin Miller MD Work Phone: Start: 05-11-2021 Lipid panel Olvin sahu MD Work Phone: Start: 05-08-2021 Drug tst prsmv instr mnt chem analyzers pr date Juan Diego Corral MD Work Phone: Start: 05-08-2021 Urnls dip stick/tabl et reagent auto microscopy Juan Diego Corral MD Work Phone: Start: 05-07-2021 CBC W Auto Different ial panel - Blood Concepcion Fortune [employer] Work Phone: Start: 05-07-2021 Comprehensive metabo lic panel Concepcion Fortune [employer] Work Phone: Start: 05-07-2021 GLOMERULAR FILTRATION RATE Concepcion Fortune [employer] Work Phone: Start: 05-07-2021 Adult depression scr eening assessment Concepcion Fortune [employer] Work Phone: Start: 03-04-2021 Radex ribs uni w/posteroant ch minimum 3 views Phill Ozuna Work Phone: Start: 03-04-2021 Adult depression scr eening assessment Phill Ozuna Start: 02-23-2021 Assay of lipase Maryr Martinez Pricilla Work Phone: Start: 02-23-2021 Basic metabolic pane l calcium total Marry Martinez Pricilla Work Phone: Start: 02-23-2021 CBC WITH DIFFERENTIAL J shakir Martinez Pricilla Work Phone: Start: 02-23-2021 GLOMERULAR FILTRATION RATE Marry Dayer Work Phone: Start: 02-23-2021 Hepatic function panel Marry Martinez Pricilla Work Phone: Start: 02-23-2021 Urnls dip stick/tabl et reagent auto microscopy Marry Martinez Pricilla Work Phone: Start: 02-14-2021 Adult depression scr eening assessment Candido Vance Start: 05-21-2020 Adult depression scr eening assessment Phill Ozuna Start: 03-23-2020 Adult depression scr eening assessment Etta Rico Start: 02-19-2020 Radiologic examinati on knee 3 views Davonte Hickman Work Phone: Start: 02-19-2020 Infectious agent dna /rna influenza 1st 2 types Davonte Hickman Work Phone: Start: 11-11-2019 XR Chest PA and late ral upright Chelsie Marquez Work Phone: Start: 11-11-2019 Iadna streptococcus group a amplified probe tq Chelsie Marquez Work Phone: Start: 11-11-2019 Assay of lipase Chelsie Martha griffithleonel Work Phone: Start: 11-11-2019 Basic metabolic pane l calcium total Yovany Yadav Work Phone: Start: 11-11-2019 CBC WITH DIFFERENTIAL R deloris Yadav Work Phone: Start: 11-11-2019 GLOMERULAR FILTRATION RATE Yovany Yadav Work Phone: Start: 11-11-2019 Hepatic function panel Chelsie Marquez Work Phone: Start: 10-25-2019 CT Abdomen and Pelvi s WO contrast Jeni Meraz Work Phone: Start: 10-25-2019 Urnls dip stick/tabl et reagent auto microscopy Adalberto Wagner Work Phone: Start: 10-25-2019 Assay of lipase Adalberto saba Work Phone: Start: 10-25-2019 Assay of magnesium Talha Wagner Work Phone: Start: 10-25-2019 CBC WITH DIFFERENTIAL J irene Wagner Work Phone: Start: 10-25-2019 Comprehensive metabo lic panel Adalberto Wagner Work Phone: Start: 10-25-2019 GLOMERULAR FILTRATION RATE Adalberto Wagner Work Phone: Start: 10-25-2019 Standard ECG Adalberto Rascon ey Work Phone: Start: 10-06-2019 Assay of troponin quantitative Viktoriya Mendez Work Phone: Start: 10-06-2019 Fibrin dgradj produc ts d-dimer quantitative Viktoriya Mendez Work Phone: Start: 10-05-2019 XR Chest Single view El gabriel Mendez Work Phone: Start: 10-05-2019 Assay of troponin quantitative Viktoriya Mendez Work Phone: Start: 10-05-2019 Basic metabolic pane l calcium total Viktoriya Mendez Work Phone: Start: 10-05-2019 CBC WITH DIFFERENTIAL E addi Mendez Work Phone: Start: 10-05-2019 GLOMERULAR FILTRATION RATE Viktoriya Mendez Work Phone: Start: 10-05-2019 Standard ECG Viktoriya Tod d Work Phone: Start: 09-09-2019 Assay of troponin quantitative Lan Diaz Work Phone: Start: 09-09-2019 XR Chest PA and late ral upright Lan Diaz Work Phone: Plan of Treatment Date Care Activity Detail Author Start: 10-16-2033 Urine microalbumin profile DTaP,Tdap,Td Vaccine (8 - Td or Tdap) [facility] Start: 07-31-2024 Covid-19 Vaccine () Covid-19 Vaccine () [facility] Start: 07-31-2024 Covid-19 Vaccine () Cov[facility]-19 Vaccine () [facility] [facility] Start: 07-31-2024 Influenza vaccination C [facility] Start: 10-16-2023 [facility] Start: 07-31-2023 Covid-19 Vaccine () Covid-19 Vaccine () [facility] Start: 12-12-2022 Depression screening using PHQ-9 (Patient Health Questionnaire 9) score DEPRESSION SCREENING [facility] Start: 07-31-2022 Influenza vaccination [facility] Start: 07-31-2022 Influenza vaccinatio n given [facility] Start: 07-21-2022 End: 07-21-2022 Patient encounter procedure 07/21/2022 Office Visit Primary Care Shelli Diaz MD [address] [place] [address] [phone] [facility] Start: 07-16-2022 Depression screening using PHQ-9 (Patient Health Questionnaire 9) score DEPRESSION SCREENING [facility] Start: 06-18-2022 Depression screening using PHQ-9 (Patient Health Questionnaire 9) score DEPRESSION SCREENING [facility] Start: 05-07-2022 Depression screening using PHQ-9 (Patient Health Questionnaire 9) score DEPRESSION SCREENING [facility] Start: 02-27-2022 Adult depression screening assessment DEPRESSION SCREENING [facility] Start: 02-14-2022 Adult depression screening assessment DEPRESSION SCREENING [facility] Start: 09-26-2021 COVID-19 VACCINE (3 - Booster for Moderna series) COVID-19 VACCINE (3 - Booster for Moderna series) [facility] Start: 09-04-2021 End: 09-04-2021 Telemedicine consultation with patient 09/04/2021 Telemedicine Behavioral Health [place] [address] [facility] Start: 08-29-2021 End: 08-29-2021 Telemedicine consultation with patient 08/29/2021 Telemedicine Behavioral Health Jackie Cavazos, ELECTRIC TRIPPER MACHINE OPERATOR [address] [place] [address] [facility] Start: 08-27-2021 COVID-19 VACCINE (3 - Booster for Moderna series) COVID-19 VACCINE (3 - Booster for Moderna series) [facility] Start: 07-31-2021 Influenza vaccinatio n given [facility] Start: 05-08-2021 End: 05-08-2021 Telemedicine consultation with patient 05/08/2021 Telemedicine Behavioral Health [place] [address] [facility] Start: 05-03-2021 Adult depression screening assessment DEPRESSION SCREENING [facility] Start: 03-27-2021 End: 03-27-2021 Immunization 03/27/2021 Immunization Family Medicine [facility] Start: 03-23-2021 Adult depression screening assessment DEPRESSION SCREENING [facility] Start: 02-28-2021 End: 02-28-2021 Office Visit 02/28/2021 Office Visit Podiatry Aditya Abarca, YAAKOV [address] [place] [address] [phone] [facility] Start: 07-31-2020 Influenza vaccinatio n given [facility] Start: 2020 Annual PCP Team Accounting Machine Servicer kyara Disease Visit Annual PCP Team Chronic Disease Visit [facility] Start: 02-28-2020 Administration of diphtheria + tetanus + acellular pertussis vaccine DTAP/TDAP/TD VACCINE (7 - Td or Tdap) [facility] Start: 02-28-2020 Diphtheria + pertuss is + tetanus vaccine (product) [facility] Start: 02-28-2020 DTaP/Tdap/Td vaccine (7 - Td or Tdap) DTaP/Tdap/Td vaccine (7 - Td or Tdap) [facility] Start: 02-28-2020 Tetanus vaccination [facility] Start: 12-13-2019 End: 12-13-2019 Office Visit 12/13/2019 Office Visit Family Medicine Ngozi Pride APRN DIAL MAKER [address] [place] [address] [phone] [facility] Start: 10-10-2019 End: 10-10-2019 Office Visit 10/10/2019 Office Visit Family Medicine Suma Bran APRN DIAL MAKER [address] [place] [address] [phone] [facility] Start: 07-31-2019 Influenza vaccinatio n given INFLUENZA VACCINE (#1) [facility] Start: 2019 Tetanus, diphtheria and acellular pertussis vaccination TDAP/TD ADULT [facility] Start: 2016 Annual PCP Team Accounting Machine Servicer kyara Disease Visit Annual PCP Team Chronic Disease Visit [facility] Start: 2016 ANNUAL WELLNESS VISIT ANNUAL WELLNES S VISIT [facility] Start: 2016 Anxiety Screening Anxiety Screening [facility] Start: 2016 HIV screening HIV Screening [facility] Start: 2016 WELLNESS ANNUAL VISIT WELLNESS ANNUA L VISIT [facility] Start: 2013 HIV screening HIV SCREENING DISCUSSION [facility] Start: 2013 Vaccination for mikayla n papillomavirus HPV VACCINES (GARDASIL) (1 - Male 3-dose series) [facility] Start: 2012 Peds To Adult Transi tion Annual Assessment Peds To Adult Transition Annual Assessment [facility] Start: 2010 Adult depression screening assessment [facility] Start: [address] [facility] Start: 2010 Peds To Adult Transi tion Initial Discussion Peds To Adult Transition Initial Discussion [facility] Start: 2009 Diphtheria + pertuss is + tetanus vaccine (product) DTAP/TDAP/TD VACCINE (1 - Tdap) [facility] Start: 2009 Vaccination for mikayla n papillomavirus HPV VACCINES (GARDASIL) (1 - Male 2-dose series) [facility] Start: 2004 Pneumococcal Vaccine : Ped or At-Risk (1 - PCV) Pneumococcal Vaccine: Ped or At-Risk (1 - PCV) [facility] Start: 2001 History and physical examination, annual for health maintenance Wellness Visit [facility] Start: 01-12-1999 COVID-19 VACCINE (#1) COVID-19 VACCI NE (#1) [facility] Start: 1998 Hepatitis B vaccination HEP B VACCINE (1 of 3 - 3-dose series) [facility] Start: 1998 Hepatitis C screening HEPATITI S C VIRUS SCREENING [facility] End: 02-23-2021 CT Abdomen and Pelvis W contrast IV CT Abdomen / Pelvis With IV Contrast ONLY Imaging [facility] One time imaging One time imaging for 1 Occurrences starting 02/23/2021 until 02/23/2021 [facility] Comment on above: One time imaging One time imaging for 1 Occurrences starting 02/23/2021 until 02/23/2021 End: 05-15-2022 Lipid panel Lipid panel Lab Routine One Time for 1 Occurrences starting 05/15/2022 until 05/15/2022 [facility] Comment on above: One Time for 1 Occur rences starting 05/15/2022 until 05/15/2022 Patient Education [facility] Work Phone: Patient referral [facility] Work Phone: End: 05-14-2022 Pulse oximetry, spot Room Air Pulse oximetry, spot Room Air Respiratory Care Routine One Time for 1 Occurrences starting 05/14/2022 until 05/14/[address] [facility] Work Phone: Comment on above: One Time for 1 Occur rences starting 05/14/2022 until 05/14/2022 End: 07-16-2021 SARS-COV-2, qPCR ([facility]) SARS-COV-2, qPCR ([facility]) Microbiology Routine Cough 1 Occurrences starting 07/16/2021 until 07/16/2021 [facility] Comment on above: 1 Occurrences starti ng 07/16/2021 until 07/16/2021 SARS-COV-2, qPCR ([facility]) SARS-COV-2, qPCR ([facility]) Microbiology Routine Cough 07/16/2021 12:18 PM EDT [facility] End: 12-13-2021 SARS-COV-2, qPCR ([facility]) [facility] Work Phone: Comment on above: 1 Occurrences starti ng 12/13/2021 until 12/13/2021 Standard ECG [facility] End: 05-15-2022 Syphilis Treponema Antibody Syphilis Treponema Antibody Lab Routine One Time for 1 Occurrences starting 05/15/2022 until 05/15/2022 [facility] Comment on above: One Time for 1 Occur rences starting 05/15/2022 until 05/15/2022 Throat culture CULTURE THROAT Microbiology Routine 11/15/2022 1:50 PM [facility] Work Phone: End: 05-15-2022 Thyroid Function Panel Thyroid Function Panel Lab Routine One Time for 1 Occurrences starting 05/15/2022 until 05/15/2022 [facility] Comment on above: One Time for 1 Occur rences starting 05/15/2022 until 05/15/2022 End: 05-21-2020 XR Ankle RT 3 View (Routine) XR Ankle RT 3 View (Routine) Imaging Routine Acute right ankle pain 1 Occurrences starting 05/21/2020 until 05/21/2020 [facility] Comment on above: 1 Occurrences starti ng 05/21/2020 until 05/21/2020 XR Ankle RT 3 View (Routine) XR Ankle RT 3 View (Routine) Imaging Routine Acute right ankle pain 05/21/2020 3:21 PM EDT [facility] End: 03-23-2020 XR Femur LT AP and lat XR Femur LT AP and lat Imaging Routine Left leg pain 1 Occurrences starting 03/23/2020 until 03/23/2020 [facility] Comment on above: 1 Occurrences starti ng 03/23/2020 until 03/23/2020 XR Femur LT AP and lat XR Femur LT AP and lat Imaging Routine Left leg pain 03/23/2020 5:44 PM EDT [facility] End: 04-13-2020 XR Knee Left 3 Views (Routine) XR Knee Left 3 Views (Routine) Imaging Routine Acute pain of left knee 1 Occurrences starting 04/13/2020 until 04/13/2020 [facility] Comment on above: 1 Occurrences starti ng 04/13/2020 until 04/13/2020 XR Knee Left 3 Views (Routine) XR Knee Left 3 Views (Routine) Imaging Routine Acute pain of left knee 04/13/2020 1:03 PM EDT [facility] Immunizations Immunization Date Immunization Notes Care Provider [facility] 10-16-2023 tetanus toxoid, redu elan diphtheria toxoid, and acellular pertussis vaccine, adsorbed [facility] 03-27-2021 Moderna Covid-19 Vaccine Mimi Fortune APRN [employer] Work Phone: [facility] 02-28-2021 Moderna Covid-19 Vaccine Phill Hodgson [facility] Work Phone: 08-15-2019 influenza, seasonal, injectable [facility] 08-15-2019 influenza virus vacc ine, unspecified formulation [facility] 11-12-2018 influenza, injectabl e, quadrivalent, preservative free [facility] 11-12-2018 influenza, seasonal, injectable [facility] 08-24-2018 tuberculin skin test ; purified protein derivative solution, intradermal [facility]r [facility] Work Phone: [facility] 07-24-2014 meningococcal polysaccharide (groups A, C, Y and W-135) diphtheria toxoid conjugate vaccine (MCV4P) [facility] 04-26-2013 hepatitis A vaccine, pediatric/adolescent dosage, 2 dose schedule [facility] 10-26-2012 hepatitis A vaccine, pediatric/adolescent dosage, 2 dose schedule [facility] 10-26-2012 human papilloma viru s vaccine, quadrivalent [facility] 10-26-2012 influenza, seasonal, injectable [facility] 04-22-2012 human papilloma viru s vaccine, quadrivalent [facility] 02-27-2010 human papilloma viru s vaccine, quadrivalent [facility] 02-27-2010 meningococcal polysaccharide (groups A, C, Y and W-135) diphtheria toxoid conjugate vaccine (MCV4P) [facility] 02-27-2010 tetanus toxoid, redu elan diphtheria toxoid, and acellular pertussis vaccine, adsorbed [facility] 02-27-2010 varicella virus vaccine [facility] 11-09-2009 novel influenza-H1N1 -09, all formulations [facility] 11-09-2009 novel influenza-H1N1 -09, preservative-free, injectable [facility] 09-02-2009 influenza, seasonal, injectable [facility] 07-26-2003 diphtheria, tetanus toxoids and acellular pertussis vaccine, 5 pertussis antigens [facility] 07-26-2003 diphtheria, tetanus toxoids and acellular pertussis vaccine, unspecified formulation [facility] Work Phone: 07-26-2003 measles, mumps and rubella virus vaccine [facility] 07-26-2003 poliovirus vaccine, inactivated [facility] 04-23-2000 varicella virus vaccine [facility] 10-11-1999 diphtheria, tetanus toxoids and acellular pertussis vaccine, 5 pertussis antigens [facility] 10-11-1999 diphtheria, tetanus toxoids and acellular pertussis vaccine, unspecified formulation [facility] 10-11-1999 haemophilus influenz ae type b vaccine, HbOC conjugate [facility] 10-11-1999 measles, mumps and rubella virus vaccine [facility] 10-11-1999 poliovirus vaccine, inactivated [facility] 10-11-1999 trivalent poliovirus vaccine, live, oral [facility] 03-14-1999 diphtheria, tetanus toxoids and acellular pertussis vaccine, 5 pertussis antigens [facility] 03-14-1999 diphtheria, tetanus toxoids and acellular pertussis vaccine, unspecified formulation [facility] 03-14-1999 haemophilus influenz ae type b vaccine, HbOC conjugate Misty Mobley ELECTRIC 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 MACHINE 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.DIAL MAKER Work Phone: [facility] 03-14-1999 haemophilus influenz ae type b vaccine, PRP-OMP conjugate [facility] 03-14-1999 hepatitis B vaccine, pediatric or pediatric/adolescent dosage [facility] 01-10-1999 diphtheria, tetanus toxoids and acellular pertussis vaccine, 5 pertussis antigens [facility] 01-10-1999 diphtheria, tetanus toxoids and acellular pertussis vaccine, unspecified formulation [facility] 01-10-1999 haemophilus influenz ae type b vaccine, HbOC conjugate Misty Mobley ELECTRIC TRIPPER MACHINE OPERATOR.DIAL MAKER Work Phone: [facility] 01-10-1999 haemophilus influenz ae type b vaccine, PRP-OMP conjugate [facility] 01-10-1999 poliovirus vaccine, inactivated [facility] 1998 diphtheria, tetanus toxoids and acellular pertussis vaccine, 5 pertussis antigens [facility] 1998 diphtheria, tetanus toxoids and acellular pertussis vaccine, unspecified formulation [facility] 1998 haemophilus influenz ae type b vaccine, HbOC conjugate Misty Mobley [facility] Work Phone: [facility] 1998 haemophilus influenz ae type b vaccine, PRP-OMP conjugate [facility] 1998 hepatitis B vaccine, pediatric or pediatric/adolescent dosage [facility] 1998 poliovirus vaccine, inactivated [facility] 1998 hepatitis B vaccine, pediatric or pediatric/adolescent dosage [facility] Payers Date Payer Category Payer Self-pay [id number] 2021 Medicaid [id number] 2019 Medicaid [id number] 2019 Medicaid [id number] 2019 Medicaid [id number] 2018 Medicaid [id number] 1998 Unknown [id number] 2.16. [id number] 1998 Unknown [id number] 2.16.8 40.1.211044.3.579.2.177 1998 Unknown [id number] 2.16. 840.1.658262.3.579.2.297 1998 Unknown [id number] 2.16. 840.1.423531.3.579.2.297 1998 Unknown [id number] 2.16. 840.1.545619.3.579.2.297 1998 Unknown [id number] 2.16. 840.1.332112.3.579.2.297 1998 Unknown [id number] 2.16. 840.1.364697.3.579.2.297 1998 Unknown [id number] 2.16. 840.1.097376.3.579.2.297 1998 Unknown [id number] 2.16.8 40.1.213119.3.579.2.983 1998 Unknown [id number] 2.16.8 40.1.315073.3.579.2.983 1998 Unknown [id number] 2.16. 840.1.703047.3.579.2.903 1998 Unknown [id number] 2.16. 840.1.291217.3.579.2.903 1998 Unknown [id number] 2.16. 840.1.792071.3.579.2.903 1998 Unknown [id number] 2.16. 840.1.875523.3.579.2.903 1998 Unknown [id number] 2.16. 840.1.658328.3.579.2.903 1998 Unknown [id number] 2.16. 840.1.945812.3.579.2.903 1998 Unknown [id number] 2.16. 840.1.555340.3.579.2.903 1998 Unknown [id number] 2.16. 840.1.687659.3.579.2.903 1998 Unknown [id number] 2.16. 840.1.464795.3.579.2.903 Unknown Unknown [facility] [id number] Unknown [id number] 2.16.8 [id number] Unknown [id number] 2.16.8 40.1.126953.3.579.2.462 Unknown [id number] 2.16.8 [id number] Social History Date Type Detail Facility Start: 10-22-2010 End: 05-08-2023 Tobacco smoking status NHIS Never smoker [facility] Start: 10-22-2010 End: 12-10-2023 Alcohol intake No [facility] Start: 1998 Sex Assigned At Not on file G [facility] Start: 10-05-2019 End: 03-10-2025 Alcohol intake Current non-drinker of alcohol (finding) [facility] Start: 10-24-2019 End: 09-11-2024 Tobacco smoking status NCIS Current every day smoker [facility] History of tobacco use Cigarette Smoker [facility] Start: 10-24-2019 End: 12-10-2023 Cigarettes smoked current (pack per day) - Reported [facility] Start: 04-13-2020 End: 07-16-2021 Tobacco smoking status [facility] Former smoker [facility] Exposure to SARS-CoV-2 (event) Unable to assess [facility] Start: 05-21-2020 End: 09-08-2022 Tobacco use and exposure Never used [facility] Start: 07-07-2022 End: 09-08-2022 Exposure to SARS-CoV-2 (event) Not sure [facility] Start: 05-14-2022 Education 13 [facility] Start: 05-14-2022 Tobacco Comment Pt. declined [facility] Start: 05-29-2022 Tobacco use and exposure Former smokeless tobacco user [facility] Start: 05-29-2022 End: 11-15-2022 Alcohol intake Ex-drinker (finding) [facility] Start: 05-29-2022 History SDOH Alcohol Comment was daily, in [place] 05/25/2022 x 4 days sober [facility] Start: 05-29-2022 Tobacco Comment no desire to quit [facility] Start: 07-08-2022 Tobacco smoking status NCIS Occasional tobacco smoker [facility] History of tobacco use Cigar Smoker [facility] Start: 07-17-2022 End: 09-08-2022 Alcohol intake Current drinker of alcohol (finding) [facility] Start: 07-17-2022 Alcohol Comment weekly [facility] Start: 09-08-2022 Alcohol Comment socially [facility] Start: 06-03-2023 End: 10-16-2023 Tobacco smoking status NHIS Unknown if ever smoked [facility] Start: 07-24-2019 None [facility] Start: 07-24-2019 Roommate [facility] Start: 08-18-2019 Non-smoker [facility] Start: 1998 Sex Assigned At Male [facility] Start: 05-08-2023 Tobacco use and exposure User of smokeless tobacco [facility] Adult Depression Screening Assessment 0 [facility] Start: 05-08-2023 [facility] Start: 03-10-2025 Sex Male (finding) [facility] NEGATED: Highlighted rowStart: PRICILLA History of tobacco use Passive smoker [facility] Work Phone: Functional Status Date Assessment Result Facility 05-22-2015 Are you deaf, or do you have serious difficulty hearing No 05/22/2015 1:29 PM Cathleen Lewis LPN No [facility] 05-22-2015 Are you blind, or do you have serious difficulty seeing, even when wearing glasses No 05/22/2015 1:29 PM Cathleen Lewis LPN No [facility] 05-22-2015 Do you have serious difficulty walking or climbing stairs No 05/22/2015 1:29 PM Cathleen Lewis LPN No [facility] 05-22-2015 Do you have difficul ty dressing or bathing No 05/22/2015 1:29 PM Cathleen Lewis LPN No [facility] 05-22-2015 Because of a physica l, mental, or emotional condition, do you have difficulty doing errands alone such as visiting a physician's office or shopping No 05/22/2015 1:29 PM Cathleen Lewis LPN No [facility] Mental Status Date Assessment Result Facility 06-03-2023 Cognitive function Level Of Cons ciousness Awake;Alert;Appropriate;Fol lows Commands [facility] Work Phone: 05-22-2015 Because of a physica l, mental, or emotional condition, do you have serious difficulty concentrating, remembering, or making decisions No 05/22/2015 1:29 PM Cathleen Lewis TEST ANALYST No [facility] Clinical Notes 05-08-2021 to 03-10-2025 Ildefonso Flanagan MD - 03/10/2025 2:44 PM EDTCMellissa barone PA-C - 02/17/2025 10:05 AM Rasheed Weaver APRN.DIAL MAKER - 01/04/2025 4:25 PM ESTPatient InstructionsInstructionsAttachmentsInstructions Note Date & Type Note Facility 03-10-2025 Note HNO ID: [id number] Author: ILDEFONSO FLANAGAN MD Service: ? Author Type: Physician Type: Progress Notes Filed: 03/10/2025 14:59 Note Text: [facility] Subjective Kandace Hugo JR is a 24 year old male. Patient presents with: Rectal Problem: Blood in stool, constipation Patient presents to the express care with concerns for rectal bleeding. He has had red blood with bowel movements intermittently for the past few weeks. He can have it with every bowel movement and then no bowel movements for a week before it resumes. He describes his bowel movement sometimes is just milton blood with no formed stool. Occasionally has constipation but denies any significant anal pain. He is unsure if he has a hemorrhoid. He does have right abdominal pain. He was sent to the ER for from here 02/17/2025 for severe right abdominal pain but did not stay to be seen because the wait was too long. He is still having pain on the right side. He denies nausea, vomiting, hematemesis, pyrosis, diarrhea, blood from his mouth, hematuria, dizziness, light-headedness, shortness of breath. Review of Systems Objective BP 122/74 Pulse 75 Temp 36.5 ?C (97.7 ?F) Resp 18 Wt 83.9 kg (184 lb 15.5 oz) SpO2 98% BMI 26.54 kg/m? Last 4 Encounter Wt Readings: Date: Wt: 03/10/2025 83.9 kg (184 lb 15.5 oz) 02/17/2025 84 kg (185 lb 3 oz) 01/04/2025 86 kg (189 lb 9.5 oz) 03/18/2024 82 kg (180 lb 12.4 oz) Physical Exam Constitutional: General: He is not in acute distress. Appearance: He is not ill-appearing. Eyes: Extraocular Movements: Extraocular movements intact. Conjunctiva/sclera: Conjunctivae normal. Pupils: Pupils are equal, round, and reactive to light. Cardiovascular: Rate and Rhythm: Normal rate and regular rhythm. Heart sounds: No murmur heard. Pulmonary: Effort: Pulmonary effort is normal. Breath sounds: Normal breath sounds. Abdominal: General: There is no distension. Palpations: Abdomen is soft. There is no mass. Tenderness: There is abdominal tenderness (tender right lateral abdomen). There is no right CVA tenderness or left CVA tenderness. Genitourinary: Comments: Small bulge right anal verge without erythema, induration, or ulceration. Musculoskeletal: Cervical back: Normal range of motion and neck supple. Skin: Coloration: Skin is not jaundiced. Neurological: Mental Status: He is alert. SENSITIVE EXAMINATION CONSENT: [employer] present for anal exam. The sensitive examination was discussed with the Patient or Patient's Authorized Supervisor Chemical. As applicable, any other physician, advance practice provider, medical student, or other health professional student that will be observing or involved in the sensitive examination for educational or training purposes was discussed with the Patient or Authorized Supervisor Chemical. The Patient or Authorized Supervisor Chemical has agreed to proceed with the sensitive examination. {ASSESSMENT/PLAN: 1. Bright red blood per rectum - ICD9: 569.3, ICD10: K62.5 (primary diagnosis) 2. Right lateral abdominal pain - ICD9: 789.09, ICD10: R10.9 While patient may have bleeding from a hemorrhoid, tenderness on exam raises concern for a right colitis producing his hematochezia. Patient advised to seek ER evaluation where imaging and stat lab are available. He will go to the [place] ED for further evaluation. - CONSULT TO GENERAL SURGERY Ildefonso Flanagan MD Differential Diagnoses - hemorrhoidal bleeding is more likely for the following reason(s): suggested by HANDP - right colitis is more likely for the following reason(s): suggested by HANDP Procedures [facility] 03-10-2025 History of Present illness Narrative [facility] Subjective Kandace Hugo JR is a 24 year old male. Patient presents with: Rectal Problem: Blood in stool, constipation Patient presents [facility] with concerns for rectal bleeding. He has had red blood with bowel movements intermittently for the past few weeks. He can have it with every bowel movement and then no bowel movements for a week before it resumes. He describes his bowel movement sometimes is just milton blood with no formed stool. Occasionally has constipation but denies any significant anal pain. He is unsure if he has a hemorrhoid. He does have right abdominal pain. He was sent to the ER for from here 02/17/2025 for severe right abdominal pain but did not stay to be seen because the wait was too long. He is still having pain on the right side. He denies nausea, vomiting, hematemesis, pyrosis, diarrhea, blood from his mouth, hematuria, dizziness, light-headedness, shortness of breath. Review of Systems Objective BP 122/74 Pulse 75 Temp 36.5 C (97.7 F) Resp 18 Wt 83.9 kg (184 lb 15.5 oz) SpO2 98% BMI 26.54 kg/m Last 4 Encounter Wt Readings: Date: Wt: 03/10/2025 83.9 kg (184 lb 15.5 oz) 02/17/2025 84 kg (185 lb 3 oz) 01/04/2025 86 kg (189 lb 9.5 oz) 03/18/2024 82 kg (180 lb 12.4 oz) Physical Exam Constitutional: General: He is not in acute distress. Appearance: He is not ill-appearing. Eyes: Extraocular Movements: Extraocular movements intact. Conjunctiva/sclera: Conjunctivae normal. Pupils: Pupils are equal, round, and reactive to light. Cardiovascular: Rate and Rhythm: Normal rate and regular rhythm. Heart sounds: No murmur heard. Pulmonary: Effort: Pulmonary effort is normal. Breath sounds: Normal breath sounds. Abdominal: General: There is no distension. Palpations: Abdomen is soft. There is no mass. Tenderness: There is abdominal tenderness (tender right lateral abdomen). There is no right CVA tenderness or left CVA tenderness. Genitourinary: Comments: Small bulge right anal verge without erythema, induration, or ulceration. Musculoskeletal: Cervical back: Normal range of motion and neck supple. Skin: Coloration: Skin is not jaundiced. Neurological: Mental Status: He is alert. SENSITIVE EXAMINATION CONSENT: [employer] present for anal exam. The sensitive examination was discussed with the Patient or Patient's Authorized Supervisor Chemical. As applicable, any other physician, advance practice provider, medical student, or other health professional student that will be observing or involved in the sensitive examination for educational or training purposes was discussed with the Patient or Authorized Supervisor Chemical. The Patient or Authorized Supervisor Chemical has agreed to proceed with the sensitive examination. {ASSESSMENT/PLAN: 1. Bright red blood per rectum - ICD9: 569.3, ICD10: K62.5 (primary diagnosis) 2. Right lateral abdominal pain - ICD9: 789.09, ICD10: R10.9 While patient may have bleeding from a hemorrhoid, tenderness on exam raises concern for a right colitis producing his hematochezia. Patient advised to seek ER evaluation where imaging and stat lab are available. He will go to the [place] ED for further evaluation. - CONSULT TO GENERAL SURGERY Ildefonso Flanagan MD Differential Diagnoses - hemorrhoidal bleeding is more likely for the following reason(s): suggested by H&P - right colitis is more likely for the following reason(s): suggested by H&P Procedures documented in this encounter [facility] 02-17-2025 Note HNO ID: [id number] Author: MELLISSA JOYCE PA-C Service: ? Author Type: Physician Litigation Services Manager Type: Progress Notes Filed: 02/17/2025 10:07 Note Text: This note was created using GoNabitriter. Subjective Kandace Hugo JR is a 24 year old male. Patient is a 24-year-old male who complains of intermittent episodes of right upper quadrant abdominal pain with nausea and vomiting that he has been experiencing for approximately the past 5 days. Patient states that he did go to work this morning but left after 2 hours due to acute worsening of his right upper quadrant abdominal pain. Patient has no history of gallbladder disease but states that he has a strong family history of same. Patient was immediately advised that he requires evaluation in an emergency department laboratory testing, CT scan and ultrasound imaging can be obtained. Patient verbalizes excellent understanding of this recommendation and states that he will report immediately to the emergency department at [facility] after departing this [facility] care facility. Review of Systems Objective BP 126/82 Pulse 60 Temp 36.4 ?C (97.6 ?F) Resp 20 Wt 84 kg (185 lb 3 oz) SpO2 100% BMI 26.57 kg/m? Physical Exam Assessment and Plan [facility] 02-17-2025 History of Present illness Narrative This note was created using Wurl. Subjective Kandace Hugo JR is a 24 year old male. Patient is a 24-year-old male who complains of intermittent episodes of right upper quadrant abdominal pain with nausea and vomiting that he has been experiencing for approximately the past 5 days. Patient states that he did go to work this morning but left after 2 hours due to acute worsening of his right upper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 ill-appearing, toxic-appearing or diaphoretic. HENT: Right Ear: Tympanic membrane normal. Left Ear: Tympanic membrane normal. Nose: No congestion or rhinorrhea. Mouth/Throat: Mouth: Mucous membranes are moist. No oral lesions. Pharynx: No oropharyngeal exudate or uvula swelling. Tonsils: No tonsillar exudate. Cardiovascular: Rate and Rhythm: Normal rate and regular rhythm. Pulmonary: Effort: Pulmonary effort is normal. No respiratory distress. Breath sounds: No wheezing. Abdominal: Palpations: Abdomen is soft. Neurological: Mental Status: He is alert. Vital Signs During ED Visit Patient Vitals for the past 24 hrs: BP Temp Temp src Pulse Resp SpO2 Height 11/15/22 1344 -- -- -- -- -- -- 1.753 m (5' 9) 11/15/22 1343 138/74 97.2 F (36.2 C) Temporal 85 20 97 % -- Orders/Results: Orders Placed This Encounter [facility] - NASOPHARYNGEAL CULTURE THROAT INFLUENZA A AND B, PCR RAPID STREP A ANTIGEN AMB REFERRAL TO [facility] benzonatate 200 MG capsule ondansetron 4 MG Tab Dispersible tablet Lidocaine HCl (Lidocaine viscous) 2 % Solution Results for orders placed or performed during the hospital encounter of 11/15/22 [facility] 1 - NASOPHARYNGEAL Specimen: NASOPHARYNGEAL; Fluid/Swab Result Value Ref Range SARS COV 2 RNA, QL REAL TIME RT PCR NOT DETECTED NOT DETECTED NARRATIVE -1 This test was performed using isothermal [employer] and has been approved as Emergency Use Authorization (EUA) for the qualitative detection [id number] nucleic acid. INFLUENZA A AND B, PCR Result Value Ref Range INFLUENZA A NEGATIVE NEGATIVE INFLUENZA B NEGATIVE NEGATIVE RAPID STREP A ANTIGEN Result Value Ref Range RAPID STREP, GROUP A NEGATIVE NEGATIVE Radiographic Imaging No orders to display Procedures: Procedures ED Summary/MDM MDM Number of Diagnoses or Management Options Viral illness: new, needed workup Diagnosis management comments: Patient comes emergency room with a sore throat. At this time the patient able take fluids. There is no signs of any airway compromise. I encouraged to increase fluids, saltwater gargles and plenty of rest. I also encouraged cold fluids and popsicles to help with pain. They can also try warm beverages to help with any mucus. They're to continue Tylenol and Motrin to help with any pain or fevers. At this time there is no signs of any airway compromise. Differential diagnosis does include strep pharyngitis, viral pharyngitis, [place] angina, croup, upper respiratory infection, otitis media, peritonsillar abscess, foreign body. I feel this will get better within the next week and patient is encouraged to follow up with their family care physician in the next 2 days to be rechecked. They can always return back to emergency department if they develop any problems breathing, drooling, respiratory distress, difficulty swallowing or changing and in their voice. Amount and/or Complexity of Data Reviewed Clinical lab tests: ordered and reviewed Discussion of test results with the performing providers: no Obtain history from someone other than the patient: no Discuss the patient with other providers: no Risk of Complications, Morbidity, and/or Mortality Presenting problems: low Diagnostic procedures: low Management options: low Patient Progress Patient progress: stable Clinical Impression: 1. Viral illness No follow-ups on file. Discharge Medication List as of 11/15/2022 2:40 PM START taking these medications Details Lidocaine HCl (Lidocaine viscous) 2 % Solution 15 mL by Mouth/Throat route 4 times daily as needed. Swish and spit-As needed for pain Normal Disp-150 mL, R-0 ondansetron 4 MG Tab Dispersible tablet Take 1 tablet by mouth every 4 hours as needed for Nausea. Place on tongue Normal Disp-30 tablet, R-0 Discharge Medication List as of 11/15/2022 2:40 PM An After Visit Summary was printed and given to the patient with above information. . Portions of this chart were created using [employer] electronic dictation. Please excuse any typographical or grammatical errors contained herein. They were seen independently by myself, however my attending physician was available for any questions or concerns. . Patient is encouraged to follow up in a timely matter. Patient also encouraged to return if worse. Gabriella Bassett PA-C 11/15/22 1511 Associated attestation - Rojelio Lehman MD - 11/15/2022 5:56 PM EST Attending note: I was available for consultation regarding this patient. The patient was seen, evaluated and dispositioned by the mid-level provider independently. documented in this encounter [facility] 11-15-2022 Emergency department Note Sore throat In 2-3 days. 7/10 pain. No distress. Side rails up x2. Call light in reach. [facility] 11-15-2022 Physician Emergency department Note Emergency Department Report [facility] Service Date:.11/15/22 PCP: No primary care provider on file. Chief Complaint: Chief Complaint Patient presents with Sore Throat 2-3 days of dizziness, cough, sore throat HPI Kandace Hugo is a 22 y.o. male presents to the ED today due to Patient comes to the ER with dizziness, ST, and cough. Started a few days ago. He also has nausea, vomiting x 1 and diarrhea. No abd pain. No wheezing. He states the ST bothers him the most. No known fevers. No chest pain or palpitations. Review of Systems: Review of Systems Constitutional: Negative for fever. HENT: Positive for sore throat. Respiratory: Positive for cough. Negative for shortness of breath. Gastrointestinal: Positive for diarrhea, nausea and vomiting. Musculoskeletal: Positive for myalgias. Neurological: Positive for dizziness and headaches. Past Medical History: No past medical history on file. Past Surgical History: No past surgical history on file. Allergies: Allergies Allergen Reactions Penicillins Medications: Discharge Medication List as of 11/15/2022 2:40 PM START taking these medications Details Lidocaine HCl (Lidocaine viscous) 2 % Solution 15 mL by Mouth/Throat route 4 times daily as needed. Swish and spit-As needed for pain Normal Disp-150 mL, R-0 ondansetron 4 MG Tab Dispersible tablet Take 1 tablet by mouth every 4 hours as needed for Nausea. Place on tongue Normal Disp-30 tablet, R-0 CONTINUE these medications which have CHANGED Details benzonatate 200 MG capsule Take 1 capsule by mouth 3 times daily as needed for Cough. Normal Disp-21 capsule, R-0 CONTINUE these medications which have NOT CHANGED Details DULoxetine [address] Particles capsule DR Take 30 mg by mouth daily. Historical Med Family History: History reviewed. No pertinent family history. Social History: Social History Socioeconomic History Marital status: Single Spouse name: Not on file Number of children: Not on file Years of education: Not on file Highest education level: Not on file Occupational History Not on file Tobacco Use Smoking status: Never Smokeless tobacco: Never Vaping Use Vaping Use: Never used Substance and Sexual Activity Alcohol use: Not Currently Comment: socially Drug use: Yes Types: Marijuana Comment: daily, off the street Sexual activity: Yes Other Topics Concern Not on file Social History Narrative Not on file Social Determinants of Health Financial Resource Strain: Not on file Food Insecurity: Not on file Transportation Needs: Not on file Physical Activity: Not on file Stress: Not on file Social Connections: Not on file Intimate Partner Violence: Not on file Housing Stability: Not on file Physical Exam: Physical Exam Vitals and nursing note reviewed. Constitutional: General: He is not in acute distress. Appearance: He is not ill-appearing, toxic-appearing or diaphoretic. HENT: Right Ear: Tympanic membrane normal. Left Ear: Tympanic membrane normal. Nose: No congestion or rhinorrhea. Mouth/Throat: Mouth: Mucous membranes are moist. No oral lesions. Pharynx: No oropharyngeal exudate or uvula swelling. Tonsils: No tonsillar exudate. Cardiovascular: Rate and Rhythm: Normal rate and regular rhythm. Pulmonary: Effort: Pulmonary effort is normal. No respiratory distress. Breath sounds: No wheezing. Abdominal: Palpations: Abdomen is soft. Neurological: Mental Status: He is alert. Vital Signs During ED Visit Patient Vitals for the past 24 hrs: BP Temp Temp src Pulse Resp SpO2 Height 11/15/22 1344 -- -- -- -- -- -- 1.753 m (5' 9) 11/15/22 1343 138/74 97.2 F (36.2 C) Temporal 85 20 97 % -- Orders/Results: Orders Placed This Encounter [facility] - NASOPHARYNGEAL CULTURE THROAT INFLUENZA A AND B, PCR RAPID STREP A ANTIGEN AMB REFERRAL TO [facility] benzonatate 200 MG capsule ondansetron 4 MG Tab Dispersible tablet Lidocaine HCl (Lidocaine viscous) 2 % Solution Results for orders placed or performed during the hospital encounter of 11/15/22 [facility] 1 - NASOPHARYNGEAL Specimen: NASOPHARYNGEAL; Fluid/Swab Result Value Ref Range SARS COV 2 RNA, QL REAL TIME RT PCR NOT DETECTED NOT DETECTED NARRATIVE -1 This test was performed using isothermal [employer] and has been approved as Emergency Use Authorization (EUA) for the qualitative detection [id number] nucleic acid. INFLUENZA A AND B, PCR Result Value Ref Range INFLUENZA A NEGATIVE NEGATIVE INFLUENZA B NEGATIVE NEGATIVE RAPID STREP A ANTIGEN Result Value Ref Range RAPID STREP, GROUP A NEGATIVE NEGATIVE Radiographic Imaging No orders to display Procedures: Procedures ED Summary/MDM MDM Number of Diagnoses or Management Options Viral illness: new, needed workup Diagnosis management comments: Patient comes emergency room with a sore throat. At this time the patient able take fluids. There is no signs of any airway compromise. I encouraged to increase fluids, saltwater gargles and plenty of rest. I also encouraged cold fluids and popsicles to help with pain. They can also try warm beverages to help with any mucus. They're to continue Tylenol and Motrin to help with any pain or fevers. At this time there is no signs of any airway compromise. Differential diagnosis does include strep pharyngitis, viral pharyngitis, [place] angina, croup, upper respiratory infection, otitis media, peritonsillar abscess, foreign body. I feel this will get better within the next week and patient is encouraged to follow up with their family care physician in the next 2 days to be rechecked. They can always return back to emergency department if they develop any problems breathing, drooling, respiratory distress, difficulty swallowing or changing and in their voice. Amount and/or Complexity of Data Reviewed Clinical lab tests: ordered and reviewed Discussion of test results with the performing providers: no Obtain history from someone other than the patient: no Discuss the patient with other providers: no Risk of Complications, Morbidity, and/or Mortality Presenting problems: low Diagnostic procedures: low Management options: low Patient Progress Patient progress: stable Clinical Impression: 1. Viral illness No follow-ups on file. Discharge Medication List as of 11/15/2022 2:40 PM START taking these medications Details Lidocaine HCl (Lidocaine viscous) 2 % Solution 15 mL by Mouth/Throat route 4 times daily as needed. Swish and spit-As needed for pain Normal Disp-150 mL, R-0 ondansetron 4 MG Tab Dispersible tablet Take 1 tablet by mouth every 4 hours as needed for Nausea. Place on tongue Normal Disp-30 tablet, R-0 Discharge Medication List as of 11/15/2022 2:40 PM An After Visit Summary was printed and given to the patient with above information. . Portions of this chart were created using [employer] electronic dictation. Please excuse any typographical or grammatical errors contained herein. They were seen independently by myself, however my attending physician was available for any questions or concerns. . Patient is encouraged to follow up in a timely matter. Patient also encouraged to return if worse. Gabriella Bassett PA-C 11/15/22 1511 Associated attestation - Rojelio Lehman MD - 11/15/2022 5:56 PM EST Attending note: I was available for consultation regarding this patient. The patient was seen, evaluated and dispositioned by the mid-level provider independently. [facility] 09-08-2022 Emergency department Note Patient given discharge instructions and informed of prescriptions sent to pharmacy, verbalized understanding, denies questions. No distress noted. Respirations even and unlabored. Gait steady out of ED. [facility] 09-08-2022 Emergency department Note Patient given discharge instructions and informed of prescriptions sent to pharmacy, verbalized understanding, denies questions. No distress noted. Respirations even and unlabored. Gait steady out of ED. Pt siittinng slightly up. Side rails up No new needs mentioned at this time.Call light in reach. Patient c/o cough x2 days with yellow sputum. No other complaints. No distress noted. Respirations even and unlabored. Skin pink, warm, and dry. Call light within reach. Water provided. Emergency Department Report [facility] Service Date:.09/08/22 PCP: No primary care provider on file. Chief Complaint: Chief Complaint Patient presents with Cough X2 days with yellow sputum. No further symptoms. SURYA Hugo is a 22 y.o. male presents to the ED today due to Patient comes to the ER with a cough. No known fevers. Was [place] weekend. Does smoke weed. No wheezing. No yellow sputum. No known fevers. Started a few days ago. No nausea, vomiting or chest pain. Good oral intake. No known COVID exposure. No ST or ear pain. Symptoms are mild. Review of Systems: Review of Systems Constitutional: Negative for chills, diaphoresis, fatigue and fever. HENT: Positive for congestion. Negative for sneezing and sore throat. Respiratory: Positive for cough. Cardiovascular: Negative for chest pain, palpitations and leg swelling. Gastrointestinal: Negative for abdominal pain, diarrhea, nausea and vomiting. Skin: Negative for color change. Past Medical History: No past medical history on file. Past Surgical History: No past surgical history on file. Allergies: Allergies Allergen Reactions Penicillins Medications: Patient's Medications New Prescriptions BENZONATATE 200 MG CAPSULE Take 1 capsule by mouth 3 times daily as needed for Cough. PREDNISONE 20 MG TABLET Take 2 tablets by mouth daily for 3 days, THEN 1 tablet daily for 3 days. 40,40,40,20,20,20. Previous Medications DULOXETINE [address] PARTICLES CAPSULE DR Take 30 mg by mouth daily. Modified Medications No medications on file Discontinued Medications No medications on file Family History: History reviewed. No pertinent family history. Social History: Social History Socioeconomic History Marital status: Single Spouse name: Not on file Number of children: Not on file Years of education: Not on file Highest education level: Not on file Occupational History Not on file Tobacco Use Smoking status: Never Smokeless tobacco: Never Vaping Use Vaping Use: Never used Substance and Sexual Activity Alcohol use: Yes Comment: socially Drug use: Yes Types: Marijuana Sexual activity: Yes Other Topics Concern Not on file Social History Narrative Not on file Social Determinants of Health Financial Resource Strain: Not on file Food Insecurity: Not on file Transportation Needs: Not on file Physical Activity: Not on file Stress: Not on file Social Connections: Not on file Intimate Partner Violence: Not on file Housing Stability: Not on file Physical Exam: Physical Exam Vitals and nursing note reviewed. Constitutional: Appearance: Normal appearance. HENT: Mouth/Throat: Mouth: Mucous membranes are moist. Pharynx: No oropharyngeal exudate or posterior oropharyngeal erythema. Cardiovascular: Rate and Rhythm: Normal rate. Pulmonary: Effort: Pulmonary effort is normal. No respiratory distress. Breath sounds: Normal breath sounds. No wheezing. Musculoskeletal: Cervical back: Normal range of motion. Skin: General: Skin is warm. Neurological: General: No focal deficit present. Mental Status: He is alert and oriented to person, place, and time. Vital Signs During ED Visit Patient Vitals for the past 24 hrs: BP Temp Temp src Pulse Resp SpO2 Height 09/08/22 1111 -- -- -- -- -- -- 1.829 m (6') 09/08/22 1110 137/80 96.5 F (35.8 C) Temporal 71 18 98 % -- Orders/Results: Orders Placed This Encounter [facility] 1 - NASOPHARYNGEAL benzonatate 200 MG capsule predniSONE 20 MG tablet Results for orders placed or performed during the hospital encounter of 09/08/22 [facility] 1 - NASOPHARYNGEAL Specimen: NASOPHARYNGEAL; Fluid/Swab Result Value Ref Range SARS COV 2 RNA, QL REAL TIME RT PCR NOT DETECTED NOT DETECTED NARRATIVE -1 This test was performed using isothermal [employer] and has been approved as Emergency Use Authorization (EUA) for the qualitative detection [id number] nucleic acid. Radiographic Imaging No orders to display Procedures: Procedures ED Summary/MDM MDM Number of Diagnoses or Management Options Acute cough: new, needed workup Diagnosis management comments: Patient looks and acts well here in the emergency department. There is no signs of any distress or airway compromise. I feel is more likely a viral upper respiratory infection. At this point I would not recommend any antibiotics. I encouraged them to continue any Tylenol or Motrin for any fevers, body aches or pain. I encouraged salt water gargles. I also encouraged fluids and rest. They're to return back to the emergency department if they develop any wheezing, high fevers, shortness of breath or worsening symptoms. Differential diagnosis does include bronchitis, pneumonia, or body aspiration, croup, epiglottitis, sepsis, pharyngitis. Patient is encouraged to follow up with her family care physician in the next few days to be rechecked return back if worse. After my independent evaluation, they appear to have a self-limiting illness likely due to a viral URI. At this time, there is a no evidence of pneumonia, hypoxia, OM, bacterial sinus infection, bacterial bronchitis, bacteremia, or sepsis. Amount and/or Complexity of Data Reviewed Clinical lab tests: ordered and reviewed Discussion of test results with the performing providers: no Obtain history from someone other than the patient: no Discuss the patient with other providers: no Risk of Complications, Morbidity, and/or Mortality Presenting problems: low Diagnostic procedures: low Management options: low Patient Progress Patient progress: stable Clinical Impression: 1. Acute cough No follow-ups on file. New Prescriptions BENZONATATE 200 MG CAPSULE Take 1 capsule by mouth 3 times daily as needed for Cough. PREDNISONE 20 MG TABLET Take 2 tablets by mouth daily for 3 days, THEN 1 tablet daily for 3 days. 40,40,40,20,20,20. Discontinued Medications No medications on file An After Visit Summary was printed and given to the patient with above information. . Portions of this chart were created using [employer] electronic dictation. Please excuse any typographical or grammatical errors contained herein. They were seen independently by myself, however my attending physician was available for any questions or concerns. Patient is encouraged to follow up in a timely matter. Patient also encouraged to return if worse. Gabriella Bassett PA-C 09/08/22 1209 Associated attestation - Giacomo Blackwell DO - 09/08/2022 12:47 PM EDT Attending note: I was available for consultation regarding this patient. The patient was seen, evaluated and dispositioned by the mid-level provider independently. //Supervising APC visit, physician attestation. Based on the medical record the care appears appropriate. ................................ ................................ ................................ .............................. //Shared APC visit, physician attestation: [id number] This visit was performed by both a physician and in APC. I performed all aspects of MDM as documented. documented in this encounter [facility] 09-08-2022 Emergency department Note Pt siittinng slightly up. Side rails up No new needs mentioned at this time.Call light in reach. [facility] 09-08-2022 Emergency department Note Patient c/o cough x2 days with yellow sputum. No other complaints. No distress noted. Respirations even and unlabored. Skin pink, warm, and dry. Call light within reach. Water provided. [facility] 09-08-2022 Physician Emergency department Note Emergency Department Report [facility] Service Date:.09/08/22 PCP: No primary care provider on file. Chief Complaint: Chief Complaint Patient presents with Cough X2 days with yellow sputum. No further symptoms. SURYA Hugo is a 22 y.o. male presents to the ED today due to Patient comes to the ER with a cough. No known fevers. Was at [place] last weekend. Does smoke weed. No wheezing. No yellow sputum. No known fevers. Started a few days ago. No nausea, vomiting or chest pain. Good oral intake. No known COVID exposure. No ST or ear pain. Symptoms are mild. Review of Systems: Review of Systems Constitutional: Negative for chills, diaphoresis, fatigue and fever. HENT: Positive for congestion. Negative for sneezing and sore throat. Respiratory: Positive for cough. Cardiovascular: Negative for chest pain, palpitations and leg swelling. Gastrointestinal: Negative for abdominal pain, diarrhea, nausea and vomiting. Skin: Negative for color change. Past Medical History: No past medical history on file. Past Surgical History: No past surgical history on file. Allergies: Allergies Allergen Reactions Penicillins Medications: Patient's Medications New Prescriptions BENZONATATE 200 MG CAPSULE Take 1 capsule by mouth 3 times daily as needed for Cough. PREDNISONE 20 MG TABLET Take 2 tablets by mouth daily for 3 days, THEN 1 tablet daily for 3 days. 40,40,40,20,20,20. Previous Medications DULOXETINE [address] PARTICLES [address]SULE DR Take 30 mg by mouth daily. Modified Medications No medications on file Discontinued Medications No medications on file Family History: History reviewed. No pertinent family history. Social History: Social History Socioeconomic History Marital status: Single Spouse name: Not on file Number of children: Not on file Years of education: Not on file Highest education level: Not on file Occupational History Not on file Tobacco Use Smoking status: Never Smokeless tobacco: Never Vaping Use Vaping Use: Never used Substance and Sexual Activity Alcohol use: Yes Comment: socially Drug use: Yes Types: Marijuana Sexual activity: Yes Other Topics Concern Not on file Social History Narrative Not on file Social Determinants of Health Financial Resource Strain: Not on file Food Insecurity: Not on file Transportation Needs: Not on file Physical Activity: Not on file Stress: Not on file Social Connections: Not on file Intimate Partner Violence: Not on file Housing Stability: Not on file Physical Exam: Physical Exam Vitals and nursing note reviewed. Constitutional: Appearance: Normal appearance. HENT: Mouth/Throat: Mouth: Mucous membranes are moist. Pharynx: No oropharyngeal exudate or posterior oropharyngeal erythema. Cardiovascular: Rate and Rhythm: Normal rate. Pulmonary: Effort: Pulmonary effort is normal. No respiratory distress. Breath sounds: Normal breath sounds. No wheezing. Musculoskeletal: Cervical back: Normal range of motion. Skin: General: Skin is warm. Neurological: General: No focal deficit present. Mental Status: He is alert and oriented to person, place, and time. Vital Signs During ED Visit Patient Vitals for the past 24 hrs: BP Temp Temp src Pulse Resp SpO2 Height 09/08/22 1111 -- -- -- -- -- -- 1.829 m (6') 09/08/22 1110 137/80 96.5 F (35.8 C) Temporal 71 18 98 % -- Orders/Results: Orders Placed This Encounter [facility] - NASOPHARYNGEAL benzonatate 200 MG capsule predniSONE 20 MG tablet Results for orders placed or performed during the hospital encounter of 09/08/22 [facility] - NASOPHARYNGEAL Specimen: NASOPHARYNGEAL; Fluid/Swab Result Value Ref Range SARS COV 2 RNA, QL REAL TIME RT PCR NOT DETECTED NOT DETECTED NARRATIVE -1 This test was performed using isothermal [employer] and has been approved as Emergency Use Authorization (EUA) for the qualitative detection [id number] nucleic acid. Radiographic Imaging No orders to display Procedures: Procedures ED Summary/MDM MDM Number of Diagnoses or Management Options Acute cough: new, needed workup Diagnosis management comments: Patient looks and acts well here in the emergency department. There is no signs of any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 Dispense Refill Last Dose DULoxetine (CYMBALTA) 30 MG capsule Take 1 capsule by mouth daily. 15 capsule 1 loperamide (IMODIUM) 2 MG capsule Take 1 capsule by mouth 4 times daily as needed for Diarrhea. 30 capsule 0 Ondansetron (ZOFRAN-ODT) 4 MG disintegrating tablet Take 1 tablet by mouth every 8 hours as needed for Nausea and/or Vomiting. Dissolve on tongue then swallow. 20 tablet 0 Allergies Allergen Reactions Penicillins Rash Social History Socioeconomic History Marital status: Single Number of children: 1 Years of education: 12 Highest education level: High school graduate Tobacco Use Smoking status: Former Smoker Packs/day: 0.25 Types: Cigarettes Smokeless tobacco: Never Used Tobacco comment: Pt. declined Vaping Use Vaping Use: Never used Substance and Sexual Activity Alcohol use: No Drug use: No Sexual activity: Not Currently Social History Narrative Pt. Reported that he resides with his mother. Social History Social History Narrative Pt. Reported that he resides with his mother. He denies any history of abuse. He is single. He has 1 child. He lives with his mother in [place]. He does use marijuana. He has high school education. He is unemployed. Admission on 05/14/2022, Discharged on 05/14/2022 Component Date Value Ref Range Status White Blood Cells 05/14/2022 10.1 4.3 - 10.3 x10 3/uL Final RBC 05/14/2022 4.77 3.70 - 5.70 x10 6/uL Final Hgb 05/14/2022 14.3 12.8 - 17.7 g/dL Final Hematocrit 05/14/2022 43.5 37.7 - 51.1 % Final MCV 05/14/2022 91.2 80.6 - 99.0 fL Final MCH 05/14/2022 30.0 27.0 - 34.2 pg Final MCHC 05/14/2022 32.9 31.4 - 36.2 g/dl Final RDW 05/14/2022 12.8 11.5 - 14.5 % Final Platelets 05/14/2022 206.0 150.0 - 400.0 x10 3/uL Final Neutrophil 05/14/2022 74.3 % Final Absolute Neutrophil 05/14/2022 7.5 (A) 2.4 - 6.6 10 3/uL Final Lymphocyte 05/14/2022 19.4 % Final Absolute Lymph 05/14/2022 2.0 1.2 - 3.3 10 3/uL Final Monocytes 05/14/2022 5.4 % Final Absolute Billings 05/14/2022 0.5 0.2 - 0.6 10 3/uL Final Eosinophil 05/14/2022 0.2 % Final Absolute Eosinophil 05/14/2022 0.0 (A) 0.1 - 0.3 10 3/uL Final Basophil 05/14/2022 0.3 % Final Absolute Basophil 05/14/2022 0.0 0.0 - 0.1 10 3/uL Final Immature Granulocytes 05/14/2022 0.4 % Final Absolute Immature Granulocytes 05/14/2022 0.0 0 10 3/uL Final nRBC 05/14/2022 0 0 - 1 Final nRBC 05/14/2022 0 0 - 1 Final Sodium 05/14/2022 140 135 - 147 mmol/L Final Potassium 05/14/2022 3.9 3.6 - 5.1 mmol/L Final Chloride 05/14/2022 104 96 - 109 mmol/L Final CO2 05/14/2022 28 22 - 30 mmol/L Final Glucose 05/14/2022 100 65 - 100 mg/dL Final BUN 05/14/2022 13 8 - 26 mg/dL Final Creatinine 05/14/2022 0.87 0.66 - 1.25 mg/dL Final Total Protein 05/14/2022 8.1 6.3 - 8.2 g/dL Final Albumin 05/14/2022 4.7 3.5 - 5.0 g/dL Final Alk Phos 05/14/2022 148 (A) 24 - 126 U/L Final ALT 05/14/2022 27 4 - 50 U/L Final AST 05/14/2022 27 3 - 55 U/L Final Calcium 05/14/2022 9.2 8.4 - 10.4 mg/dL Final Total Bilirubin 05/14/2022 0.9 0.2 - 1.6 mg/dL Final Ethanol-Serum 05/14/2022 <10 NOT DETECTED mg/dL Final Amphetamine/Meth 05/14/2022 NOT DETECTED CUTOFF <1000 ng/mL Final Barbiturates 05/14/2022 NOT DETECTED CUTOFF <200 ng/mL Final Benzodiazepines 05/14/2022 NOT DETECTED CUTOFF <200 ng/mL Final Cocaine Screen 05/14/2022 NOT DETECTED CUTOFF <300 ng/mL Final Opiates 05/14/2022 NOT DETECTED CUTOFF <300 ng/mL Final PCP 05/14/2022 NOT DETECTED CUTOFF <25 ng/mL Final Marijuana/THC 05/14/2022 POSITIVE (A) CUTOFF <50 ng/mL Final Fentanyl 05/14/2022 NOT DETECTED CUTOFF 1.0 ng/mL Final Tox Message 05/14/2022 see below Final Urine Source 05/14/2022 Voided Final Color 05/14/2022 Yellow Final Appearance Urine 05/14/2022 Clear Final Specific Mead, Urine 05/14/2022 1.025 1.003 - 1.029 Final pH, Urine 05/14/2022 6.0 Final Protein, Ur 05/14/2022 Negative Negative mg/dL Final Glucose-Urine 05/14/2022 Negative Negative mg/dL Final Ketones 05/14/2022 Negative Negative mg/dL Final Occult Bld 05/14/2022 Negative Negative Final Urobilinogen, UA 05/14/2022 Negative <2.0 mg/dL Final Leukoesterase 05/14/2022 Negative Negative Final Nitrites 05/14/2022 Negative Negative Final Bilirubin, Urine 05/14/2022 Negative Negative Final WBC, UA 05/14/2022 1 0 - 5 /HPF Final RBC, UA 05/14/2022 <1 0 - 5 /HPF Final Mucous-Urine 05/14/2022 Moderate /LPF Final Culture 05/14/2022 NOT INDICATED Final GFR 05/14/2022 >60 Final PHYSICAL REVIEW OF SYSTEMS: CONSTITUTIONAL: The patient denied fever, chills, weight changes, and appetite changes. SKIN: Patient denied any rashes or nonhealing lesions. MUSCULOSKELETAL: The patient denied any bone pain, joint pain, joint swelling, muscle aches, and history of fractures. HEAD: The patient denied any headaches and dizziness. EYES: The patient denied any changes in vision, pain in eyes, or double vision. ENT: The patient denied any pain, decreased hearing, bleeding or enlarged glands. RESPIRATORY: The patient denied any cough or shortness of breath. CARDIOVASCULAR: The patient denied any shortness of breath, palpitations, or chest pain. GASTROINTESTINAL: The patient denied any heartburn, nausea, vomiting, constipation, diarrhea, or melena. GENITOURINARY: The patient denied any urinary problems, kidney problems. NEUROLOGIC: The patient denied any paralysis, weakness of extremities, memory loss, or vertigo. ENDOCRINE: The patient denied any intolerance to heat or cold, frequent thirst, hunger, or urination. HEMATOLOGIC: The patient denied any easy bruising or anemia. PSYCHIATRIC: It was done in detail in [facility]. Objective: Patient Vitals for the past 8 hrs: BP Temp Temp src Pulse Resp SpO2 05/15/22 0615 109/55 97.9 F (36.6 C) Tympanic 62 16 98 % PHYSICAL EXAMINATION: HEENT: Atraumatic, normocephalic. Extraocular movement intact. NECK: Supple without thyromegaly. CHEST: Lungs clear bilaterally. HEART: Regular rate and rhythm. ABDOMEN: Soft, nontender, positive bowel sounds. EXTREMITIES: Full range of motion without deformity. NEUROLOGIC: Extraocular movements are intact. Pupils equal, reactive to light. No facial asymmetry noted. Dbmblr-[id number] within normal limits. Reflexes 2+ and strength 5/5. Mental Status Evaluation: APPEARANCE: Stated age. GROOMING: Casual. ATTITUDE: Cooperative and spontaneous. EYE CONTACT: Good SENSORIUM: Alert and oriented to time, place, and person. PSYCHOMOTOR MOVEMENTS: No agitation. No slowing. No abnormal movements noted. Gait steady. SPEECH: Normal in rate and volume. MOOD: Fine AFFECT: Neutral THOUGHT CONTENT: The patient denies suicidal ideation, denied any intent or plan. Denied any homicidal ideation, intent, or plan. The patient denied any delusions, or ideas of references. PERCEPTION: The patient denied any auditory or visual hallucinations. THOUGHT PROCESS: Goal directed. No loosening of association. Attention and concentration intact. MEMORY: Intact for recent and remote memory. FUND OF KNOWLEDGE: Average. INSIGHT: Fair. JUDGMENT: Fair. Diagnosis: Active Hospital Problems Diagnosis Adjustment disorder with depressed mood [F43.21] Plan: Treatment options and alternatives reviewed with patient and they concur with the plan. Labs were reviewed. Patient admitted to [facility] and will be kept on safety watch. Encouraged to attend groups. We will provide a therapeutic, non threatening environment. Medications-patient will continue outpatient medication Family conference and discharge planning will be done. Patient is denying any suicidal thoughts and states that he only came here because he did not have a ride to [place]. He feels comfortable with discharge. He is okay with going to a homeless fci if he is not able to get a ride to [place] today. Lilly Lopez 05/15/2022 documented in this encounter [facility] 05-14-2022 Emergency department Note Report to psych. Spoke to Jennifer. Pt does not need precerted because he is medicaid. Voluntary Admission consent form signed at this time. Witnessed by this MST. ED Diagnosis and Summary 1. Suicidal ideation ED Summary History Chief Complaint Patient presents with Psychiatric Evaluation Patient's medications and allergies were reviewed and updated as appropriate. Patient's medications, allergies, past medical, surgical, social and family histories were reviewed and updated as appropriate. HPI Patient is a 21-year-old male presents today due to concern for suicidal ideation. Patient was seen earlier today as he had a fight with the mother of his child and then held a knife to his neck threatening to kill himself. He was seen in the emergency department after this episode and at that time reported that he was not truly suicidal and would not kill himself due to his son. Patient's mother was contacted with whom he lives and states that he does have a safe place to go in [facility] but no way to get there. Patient's ride is currently in [place] with plans to return in 3 days. Patient was discharged to a fci as he did not meet admission criteria at that time. Patient states that after discharge began having suicidal thoughts again. He states he does not feel safe and is ready might hurt himself. No other concerns. Review of Systems Constitutional: Negative. HENT: Negative. Eyes: Negative. Respiratory: Negative. Cardiovascular: Negative. Gastrointestinal: Negative. Genitourinary: Negative. Musculoskeletal: Negative. Skin: Negative. Neurological: Negative. Psychiatric/Behavioral: Positive for dysphoric mood and suicidal ideas. The patient is nervous/anxious. Physical Exam ED Triage Vitals [05/14/222036] BP 135/68 Heart Rate 76 Resp 22 Temp 97.9 F (36.6 C) Temp src SpO2 95 % Weight 220 lb (99.8 kg) Height 5' 9 (1.753 m) BMI (Calculated) 32.47 Physical Exam Vitals and nursing note reviewed. Constitutional: General: He is not in acute distress. Appearance: Normal appearance. He is not ill-appearing, toxic-appearing or diaphoretic. HENT: Head: Normocephalic and atraumatic. Eyes: Extraocular Movements: Extraocular movements intact. Conjunctiva/sclera: Conjunctivae normal. Cardiovascular: Rate and Rhythm: Normal rate and regular rhythm. Heart sounds: No murmur heard. Pulmonary: Effort: Pulmonary effort is normal. No respiratory distress. Breath sounds: No stridor. No wheezing, rhonchi or rales. Abdominal: General: There is no distension. Palpations: Abdomen is soft. Tenderness: There is no abdominal tenderness. Musculoskeletal: General: Normal range of motion. Cervical back: Normal range of motion. Skin: General: Skin is warm and dry. Neurological: General: No focal deficit present. Mental Status: He is alert and oriented to person, place, and time. ED Course Procedures Medical Decision Making Patient is a 21-year-old male who presents today due to concern for suicidal ideation. Patient was afebrile and hemodynamically stable. Physical exam is unremarkable. On discussion with patient he endorses suicidal ideation and is unable to contract for safety. Patient had previous work-up that was grossly unremarkable. In discussion with on-call psychiatrist decision made to admit patient to behavioral health unit. Patient is medically cleared admitted in stable condition. Viktoriya Mendez MD 05/15/22 0349 This MST is 1:1 at this time. Arrives to ER via EMS. Reports that he tried to kill himself but was stopped by law enforcement. Reports that he had a knife to his throat. Denies drug or alcohol use today. Pt is calm and cooperative. documented in this encounter [facility] 05-14-2022 Emergency department Note Written and verbal discharge instructions provided to patient. Pt verbalizes understanding of same. Pt A&O, skin p/w/d, respirations easy, NAD noted on discharge. Pt ambulates to discharge lobby with personal belongings. Pt being transported to [facility] by [facility] Police. Pt arrived ro er from a friends home via EMS for s/i with a plan. Pt. Had threatened to kill himself with a knife earlier. Pt. Had 2 past BH admission to [facility] with the last being 08/22/21 for MDD, S/I. This RN met with pt. In room, also present is a sitter at bedside. Pt is a/o x 4. He reports he moved to [place] 1 month ago after he and his baby Momma broke up. He is living with his mother. Pt reports his mothers boyfriend brought him to [place] so he could see his baby then got into an argument with the mother of his baby, grabbed a knife and said he was going to kill himself. Pt reports he has not seen a psychiatrist in 7-8 months. He has not gotten linked with a psychiatrist in [place] as yet. The pt. Is unsure of his medications and reports his mother gives his medications to him. He does not know what pharmacy he uses. The pt. reports he has been to [facility] 3 times for alcohol and Percocet. His last admission there was April 26-May 03, 2022. He reports no substance abuse since April 26. Pt reports sleep and appetite are good. He denies current s/i, h/i or hallucinations. Reports he is only concerned about how he will get back to [place] as no is able to get him. This RN called his mother Kaila at [phone] and verified current meds. She verbalizes no concerns with pt. being discharged and feels he will be safe to go her to her but does need a ride. Report called to Dr Lopez and he agrees that pt. Does not meet criteria for admission. Report given to Dr Armstrong. Called case maker Anne and informed of need ride home. She will work on this. Pt states that if he can get to [place] he has a safe place there. Pt also states that the person whos coming to get Him Thursday is currently in [place] Pt attempts to call [employer] at this time with no answer . This staff member 1:1 at this time [facility] at pts bedside at this time Dr armstrong at bedside This staff member setting 1:1 at this time . Pt is awake in bed on his phone Pt to ED from a friends house via EMS with suicidal thoughts and plan. Pt threatened to kill himself with a knife earlier today. Pt arrives to ED ambulatory to room. Cooperative with staff. No medical complaints. Respirations easy. Skin p/w/d. NAD noted. Bed: 10 [facility] Expected date: Expected time: Means of arrival: Comments: 21 yr old SI/plan documented in this encounter [facility] 08-25-2021 History of Present illness Narrative Psychiatry Progress Note Chief Complaint: Depression Date of Service: 08/25/2021 Discussed with treatment team and chart was reviewed. Subjective: 08/24/2021 patient is feeling better. He is denying any suicidal homicidal thoughts. Depression is improved. Denies any hallucinations or delusion. 08/25/2021 patient continues to feel better. He is denying any suicidal or homicidal thoughts. He reports depression is much improved. He denies any hallucinations or delusion ROS: Denies headache Allergies: Penicillins Scheduled Meds: DULoxetine 30 mg Oral Daily PRN Meds: acetaminophen aluminum-magnesium hydroxide Magnesium Hydroxide Objective: Vital signs in last 24 hours: Temp: [98 F (36.7 C)] 98 F (36.7 C) Heart Rate: [84] 84 Resp: [16] 16 BP: (125)/(67) 125/67 Mental Status Evaluation: APPEARANCE: Stated age. GROOMING: Casual. ATTITUDE: Cooperative and spontaneous. EYE CONTACT: Fair SENSORIUM: Alert and oriented to time, place, and person. PSYCHOMOTOR MOVEMENTS: No agitation. No slowing. No abnormal movements noted. Gait steady. SPEECH: Normal in rate and volume. MOOD: Better AFFECT: Appropriate. THOUGHT CONTENT: Denied suicidal ideation, denied any intent or plan. Denied any homicidal ideation, intent, or plan. The patient denied any delusions, or ideas of references. PERCEPTION: The patient denied any auditory or visual hallucinations. THOUGHT PROCESS: Goal directed. No loosening of association. Attention and concentration intact. MEMORY: Intact for recent and remote memory. FUND OF KNOWLEDGE: Average. INSIGHT: Fair. JUDGMENT: Fair. 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 Labs were reviewed. Patient admitted to [facility] and will be kept on safety watch. Encouraged to attend groups. We will provide a therapeutic, non threatening environment. Medications-will be continued Family conference and discharge planning will be done. Estimated length of stay 2-4 days 08/24/2021 continue plan 2621 discharge today Psychiatry Progress Note Chief Complaint: Depression Date of Service: 08/24/2021 Discussed with treatment team and chart was reviewed. Subjective: 08/24/2021 patient is feeling better. He is denying any suicidal homicidal thoughts. Depression is improved. Denies any hallucinations or delusion. ROS: Denies headache Allergies: Penicillins Scheduled Meds: DULoxetine 30 mg Oral Daily PRN Meds: acetaminophen aluminum-magnesium hydroxide Magnesium Hydroxide Objective: Vital signs in last 24 hours: Temp: [96.7 F (35.9 C)] 96.7 F (35.9 C) Heart Rate: [64] 64 Resp: [18] 18 BP: (115)/(57) 115/57 Mental Status Evaluation: APPEARANCE: Stated age. GROOMING: Casual. ATTITUDE: Cooperative and spontaneous. EYE CONTACT: Fair SENSORIUM: Alert and oriented to time, place, and person. PSYCHOMOTOR MOVEMENTS: No agitation. No slowing. No abnormal movements noted. Gait steady. SPEECH: Normal in rate and volume. MOOD: Euthymic AFFECT: Appropriate. THOUGHT CONTENT: Denied suicidal ideation, denied any intent or plan. Denied any homicidal ideation, intent, or plan. The patient denied any delusions, or ideas of references. PERCEPTION: The patient denied any auditory or visual hallucinations. THOUGHT PROCESS: Goal directed. No loosening of association. Attention and concentration intact. MEMORY: Intact for recent and remote memory. FUND OF KNOWLEDGE: Average. INSIGHT: Fair. JUDGMENT: Fair. 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 Labs were reviewed. Patient admitted to [facility] and will be kept on safety watch. Encouraged to attend groups. We will provide a therapeutic, non threatening environment. Medications-will be continued Family conference and discharge planning will be done. Estimated length of stay 2-4 days 08/24/2021 continue plan documented in this encounter [facility] 08-25-2021 Miscellaneous Notes Problem: 1. N - Risk for harm to self or others. Goal: A. STG - Patient will not harm self/others during inpatient stay. Outcome: Adequate for Discharge Note: Pt denies any thoughts of harm to himself and others, no attempts made. Pt denies dep and anxiety, restful sleep, and is hopeful for the future. Problem: 2. N - Alteration in Sleep Goal: A. STG - Patient will report improvement with amount and quality of sleep Outcome: Adequate for Discharge Note: Pt has describes sleep as restful Problem: 23. S - Interrupted Family Process Goal: A. Support system will Participate in information gathering and discharge planning Outcome: Completed Goal: B. Patient/Family will accept assistance/support from community agencies and services Outcome: Completed Family Information Form Kandace Hugo [id number] 2000 Conference Scheduled for 08/25/21 09:15-09:31 Refused No The following information about the patient was provided by the family or significant other: Aditya Hugo (uncle) [phone] via speaker phone. Family Concerns: SW spoke with uncle via speaker phone regarding current issues and treatment concerns. Patient also attended conference. He appeared calm and cooperative throughout conference. He denies SI/HI, A/V Hallucinations at this time. Patient denies having any current concerns with returning home today. Uncle also reports feeling comfortable with pt returning home today. He denies having any current concerns at this time. Relationship Issues: Patient reports admitting to facility after, his now ex-girlfriend had told him that she wanted to be in an open relationship. He reports that he will continue to have contact with her due to having a son together. He reports that, this is as far as the relationship will go, however. Patient reports having a good relationship with his uncle. Uncle reports that the plan is for him to moving in with pt on the first. He reports that he is unable to move in sooner, due to taking care of his brother who recently had surgery. Behavioral Issues: Signs/Symptoms: pt ID trigger to be his now ex-girlfriend had told him that she wanted to be in an open relationship. Safety Plan: pt's safety plan was not completed at this time. Coping Skills: pt ID coping skills to be working, keeping himself busy, playing games, and taking walks. Who Can you call; pt ID his support system to be uncle Aditya and his other uncle Sancho. Discharge Plans: Who will patient follow up with: [facility] Where will patient live: alone, until the august. Who will pick patient up: [facility] Comfortable with Discharge? Uncle reports feeling comfortable with pt discharging today. Safety Plan: Weapons In/Out of the Home: Patient states there are no weapons in the home at this time. Patient reports feeling comfortable having access to sharps and medication. Who will be responsible for Medications: pt Current thoughts of SI/HI, Hallucinations: pt denies SI/HI, A/V Hallucinations at this time. Medication/Treatment Compliance: pt says he will be compliant with medication. Crisis Hotline Number: Yes EDUCATIONAL/COMMUNITY RESOURCES OFFERED: Accepted Nurse Marry Park RN notified, regarding TYLER Castano 08/25/2021 Problem: 2. N - Alteration in Sleep Goal: A. STG - Patient will report improvement with amount and quality of sleep Outcome: Progressing Pt observed to sleep for 6.75 hours. Problem: 1. N - Risk for harm to self or others. Goal: A. STG - Patient will not harm self/others during inpatient stay. Outcome: Progressing Patient reports no thoughts to harm self or others thus far this shift. No attempts made. Patient denies any current depression. Problem: 2. N - Alteration in Sleep Goal: A. STG - Patient will report improvement with amount and quality of sleep Outcome: Progressing Patient reports feeling rested. Noted to sleep 7 hours. Interdisciplinary Intervention Record Kandace Hugo 2000 Intervention: Music Therapy Time: 900-930 Number of Patients: 2 Achieved Goals: Progressing Goals: 17B, 19A Not Progressing Goals: Regressing Goals: Overall Level of Response: +2 = Explores issues; repeated info Topic: Star Analysis- Future Wish Note: Pt actively participated in a star analysis by highlighting relevant lyrics and sharing with the group. Lyrics focused on what you wished you could be and a future thought process. Pt was able to relate to specific lyrics sharing hope, the idea of being needed, and the idea of working on yourself. Pt was given the opportunity to create some statements off of the phrase I wish I was. Pt created phrases focused on self improvement and being a better person for themselves in order to be a better person for those around them. Pt was able to identify the importance of consistency in mental health treatment related to medicine and therapy treatments. Sarah Luna 08/24/2021 9:47 AM Problem: 2. N - Alteration in Sleep Goal: A. STG - Patient will report improvement with amount and quality of sleep Outcome: Progressing Note: 7 Problem: 1. N - Risk for harm to self or others. Goal: A. STG - Patient will not harm self/others during inpatient stay. Outcome: Progressing Note: Pt denies SI or HI thus far this shift. Interdisciplinary Intervention Record Kandace Powell Hugo 2000 Intervention: Music Therapy Time: 3339-7988 Number of Patients: 3 Achieved Goals: Progressing Goals: 17B, 20B Not Progressing Goals: Regressing Goals: Overall Level of Response: +2 = Explores issues; repeated info Topic: Relaxation Note: Pt explored the importance of relaxing and taking time for themselves by listening to relaxing music. During this time frame, pt was given a blank mandala and asked to create whatever they wanted. Pt participated and expressed feeling relaxed afterwards. Tx stressed the importance of taking time for yourself every day to relax or doing something they enjoy. Sarah Luna 08/23/2021 4:36 PM Interdisciplinary Intervention Record Kandace Hugo 2000 Intervention: Art Therapy Time: 1430 - 1515 Number of Patients: 3 Achieved Goals: Progressing Goals: 17D Not Progressing Goals: Regressing Goals: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 tolerated By signing below, I understand that if any problems occur once I leave the hospital I am to [facility] ([facility]oll free ) or Doctor's Office . Adjustment Disorder: Care Instructions Overview Adjustment disorder is a mental health condition that results from stress and can cause severe emotional and behavioral responses. But your response to the stress is far more severe than expected. Itis severe enough to affect your work or social life and may lead to depression and physical pains and problems. Events that may cause this response can include a divorce, money problems, orstarting school or a new job. It might be anything that causes some stress. This disorder is most often a short-term condition. It happens within 3 months of the stressful event or change. If the response lasts longer than 6 monthsafter the event ends, you may have a different mental health condition. Follow-up care is a waggoner part of your treatment and safety. Be sure to make and go to all appointments, and call your doctor if you are having problems. It's also a good idea to know your test resultsand keep alist of the medicines you take. How can you care for yourself at home? Go to all counseling sessions. Do not skip any because you are feeling better. If your doctor prescribed medicines, take them exactly as prescribed. Call your doctor if you thinkyou are having a problem with your medicine. You will get more details on the specific medicines your doctor prescribes. Discuss the causes of your stress with a good friend or family member. Or you can join a support group for people with similar problems. Talking to others sometimes relieves stress. Get at least 30 minutes of exercise on most days of the week. Walking is a good choice. You also may want to do other activities, such as running, swimming, cycling, or playing tennis or team sports. Relaxation techniques Do relaxation exercises 10 to 20 minutes a day. You can play soothing, relaxingmusic while you do them, if you wish. Tell others in your house that you are going to do your relaxation exercises. Ask them not to disturb you. Find a comfortable, quiet place. Lie down on your back, or sit with your back straight. Focus on your breathing. Make it slow and steady. Breathe in through your nose. Breathe out through either your nose or mouth. Breathe deeply, filling up the area between your navel and your rib cage. Breathe so that your belly goes up and down. Do not hold your breath. Breathe like this for 5 to 10 minutes. Notice the feeling of calmness throughout your whole body. As you continue to breathe slowly and deeply, relax by doing these next stepsfor another 5 to 10 minutes: Tighten and relax each muscle group in your body. Start at your toes, and work your way up to your head. Imagine your muscle groups relaxing and getting heavy. Empty your mind of all thoughts. Let yourself relax more and more deeply. Be aware of the state of calmness that surrounds you. When your relaxation time is over, you can bring yourself back to alertness by moving your fingers and toes. Then move your hands and feet. And then move your entire body. Sometimes people fall asleep during relaxation. But they most often wake up soon. Always give yourself time to return to full alertness before you drive a car. Wait to do anything that might cause an accident if you are not fully alert. Never play a relaxation tape while you drivea car. When should you call for help? Call 911 anytime you think you may need emergency care. For example, call if: You feel you cannot stop from hurting yourself or someone else. If you or someone you know talks about suicide, self-harm, or feeling hopeless, get help right away. Call the National Suicide Prevention Lifeline at 2-693-793-FMBV ( ) or text HOME to 170736 to access the CrisisMySiteAppt Line. Consider saving these numbers in your phone. Watch closely for changes in your health, and be sure to contact your doctor if: You have new anxiety, or your anxiety gets worse. You have been feeling sad, depressed, or hopeless or have lost interest in things that you usually enjoy. You do not get better as expected. Where can you learn more? Scan the [employer] code or Go to https://www.[facility] [facility].net/patientEd Enter R087 in the search box to learn more about Adjustment Disorder: Care Instructions. Current as of: May 15, 2021 Content Version: 13.2 [email or web address]. Care instructions adapted under license by your healthcare professional. If you have questions about a medical condition or this instruction, always ask your healthcare professional. [employer] disclaims any warranty or liability for your use of this information. [facility]* Attachments The following attachments cannot be sent through Care Everywhere. * Musculoskeletal Pain (Hungarian) * Contusion (Hungarian) [facility]: Hospital Discharge instructions* Attachments The following attachments cannot be sent through Care Everywhere. * Cough (Hungarian) [facility]* Attachments The following attachments cannot be sent through Care Everywhere. * Viral Infections (Hungarian) * Gastroenteritis (Hungarian) * Sore Throat (Hungarian) [facility] Additional Instructions Use ice to the left chest wall. Take Tylenol or ibuprofen as needed for pain. Stop smoking marijuana.[facility] Work Phone: Reason for referral (narrative)* Consultation (Urgent) - New Request Specialty Diagnoses / Procedures Referred By Contac t Referred To Contact Family Medicine Diagnoses Viral illness Gabriella Bassett PA-C [address] [place] [id number] Referral ID Status Reason Start Date Expiration Date V isits Requested Visits Authorized [id number] New Request 11/15/2022 12/10/2023 1 1 Healthcare System for referral (narrative)* Diagnostic Procedure Only (Urgent) - Pending Review Specialty Diagnoses / Procedures Referred By Contac t Referred To Contact XR IMAGING Diagnoses Foot pain, left Procedures XR FOOT GENERAL 3V AP/LAT/OBL LEFT RADEX FOOT COMPLETE MINIMUM 3 VIEWS Misty Mobley, ELECTRIC TRIPPER MACHINE OPERATOR.DIAL MAKER [address] [place] [address] [place] [id number] Referral ID Status Reason Start Date Expiration Date Visits Requested Visits Authorized [id number] Pending Review Auto-Generat ed Referral 03/18/2024 04/17/2025 1 1 [facility] for referral (narrative)No reason for referral information availableWAdena Health System Work Phone: Reason for visit Narrative* Diagnostic Procedure Only (Urgent) - Pending Review Specialty Diagnoses / Procedures Referred By Contac t Referred To Contact XR IMAGING Diagnoses Foot pain, left Procedures XR FOOT GENERAL 3V AP/LAT/OBL LEFT RADEX FOOT COMPLETE MINIMUM 3 VIEWS Misty Mobley, ELECTRIC TRIPPER MACHINE OPERATOR.DIAL MAKER [address] [facility] [place] [address] [place] [id number] Referral ID Status Reason Start Date Expiration Date Visits Requested Visits Authorized [id number] Pending Review Auto-Generat ed Referral 03/18/2024 04/17/2025 1 1 [facility] Summary Purpose Family History No Family History Records FoundNo Family History Records FoundNo Family History Records FoundNo Family History Records FoundNo Family History Records FoundNo Family History Records FoundNo Family History Records FoundNo Family History Records FoundNo Family History Records Found Advance Directives No Advanced Directives Records FoundDocuments on File Type Date Recorded 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 Advance Directives and Living Will Power of Flexo Operator Documents on File Type Date Recorded 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 Advance Directives and Living Will Power of Flexo Operator Latest Code Status on File Code Status Date Activated Date Inactivated Comments Full Code 05/08/2021 9:50 PM Full Code 05/08/2021 9:47 PM 05/08/2021 9:50 PM Latest Code Status on File Code Status Date Activated Date Inactivated Comments Full Code 05/08/2021 9:50 PM 05/11/2021 8:24 PM Latest Code Status on File Code Status Date Activated Date Inactivated Comments Full Code 08/22/2021 9:17 PM Full Code 05/08/2021 9:50 PM 05/11/2021 8:24 PM Documents on File Type Date Recorded 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 Advance Directives and Living Will Power of Flexo Operator DNR Documentation Latest Code Status on File Code Status Date Activated Date Inactivated Comments Full Code 08/22/2021 9:17 PM 08/25/2021 7:08 PM Latest Code Status on File Code Status Date Activated Date Inactivated Comments Full Code 05/14/2022 10:17 PM Full Code 08/22/2021 9:17 PM 08/25/2021 7:08 PM Latest Code Status on File Code Status Date Activated Date Inactivated Comments Full Code 05/29/2022 4:23 PM Full Code 05/14/2022 10:17 PM 05/15/2022 6:22 PM Latest Code Status on File Code Status Date Activated Date Inactivated Comments Full Code 01/22/2018 12:31 AM 01/27/2018 4:33 PM Advance Directive Response Recorded Date/ Time Living Will No June 03, 2023 1 1:24am Power of Flexo Operator No June 03, 2023 11:24am Advance Directive Response Recorded Date/ Time Living Will No October 16, 023 8:54pm Power of Flexo Operator No October 16, 2023 8:54pm Discharge Instructions * Attachments The following attachments cannot be sent through Care Everywhere. * Panic Attacks (Malaysian Hungarian) documented in this encounter* Attachments The following attachments cannot be sent through Care Everywhere. * Chest Pain: Musculoskeletal (Malaysian Hungarian) documented in this encounter* Attachments The following attachments cannot be sent through Care Everywhere. * Chest Pain: Musculoskeletal (Malaysian Hungarian) documented in this encounter* Attachments The following attachments cannot be sent through Care Everywhere. * Gastroenteritis (Malaysian Hungarian) * Bronchitis (Malaysian Hungarian) documented in this encounter* Instructions* Davonte Hickman PA - 02/19/2020 Please follow-up with orthopedics regarding the visit to this department. Please return with any new or worsening symptoms. Please take the naproxen as prescribed and use the Flonase as needed for nasal congestion. documented in this encounter* Instructions* Janel Caputo APRN DIAL MAKER - 02/27/[address] debrox in your right ear as prescribed. Please place 4 drops of ciprodex in your left ear twice daily for 10 days. * Attachments The following attachments cannot be sent through Care Everywhere. * Otitis Externa (Malaysian Hungarian) * Earwax Blockage (Malaysian Hungarian) * Earache: Adult (Malaysian Hungarian) documented in this encounter* Attachments The following attachments cannot be sent through Care Everywhere. * Flank Pain (Malaysian Hungarian) documented in this encounter* Attachments The following attachments cannot be sent through Care Everywhere. * Flank Pain (Malaysian Hungarian) documented in this encounter Assessments Diagnosis Anxiety attack- Primary Panic disorder without agoraphobia Diagnosis Chest pain, unspecified type- Primary Nausea Nausea alone Lightheadedness Dizziness and giddiness Diagnosis Musculoskeletal chest pain- Primary Other chest pain Diagnosis Gastroenteritis- Primary Other and unspecified noninfectious gastroenteritis and colitis Bronchitis Bronchitis, not specified as acute or chronic Diagnosis Left leg pain Pain in limb Diagnosis Acute pain of left knee Diagnosis Effusion of left knee Effusion of lower leg joint Nasal congestion Other diseases of nasal cavity and sinuses Encounter to obtain excuse from work Diagnosis Acute swimmer's ear of left side Impacted cerumen of right ear Impacted cerumen Left ear pain Otalgia, unspecified Diagnosis Acute right ankle pain Diagnosis Right flank pain- Primary Abdominal pain, unspecified site Diagnosis Flank pain- Primary Abdominal pain, unspecified site Diagnosis Rib pain on left side Chest pain, unspecified Reason for Referral Status Reason Specialty Diagnoses / Procedures Referred By Contact Referred To Contact Authorized Family Medicine Diagnoses Chest pain, unspecified type Nausea Lightheadedness Viktoriya Mendez MD [address] [place] [address] [facility] [address] [facility] [place] [address] Status Reason Specialty Diagnoses / Procedures Referred By Contact Referred To Contact Incomplete Family Medicine Diagnoses Gastroenteritis Bronchitis Chelsie Marquez MD [facility] [place] [address] [facility] [address] [place] [address] Status Reason Specialty Diagnoses / Procedures Referred By Contact Referred To Contact Open Orthopedic Surgery Diagnoses [place]usion of [place] [address] [place] [address] [facility] [address] [place] [address] Dr. [place] [facility] [place] [address] [place] [address] Status Reason Specialty Diagnoses / Procedures Referred By Contact Referred To Contact Canceled Family Medicine Diagnoses Acute swimmer's ear of left side Impacted cerumen of right ear Janel Caputo APRN DIAL MAKER [address] [place] [address] [facility] [address] [facility] [place] [address] Status Reason Specialty Diagnoses / Procedures Referred By Contact Referred To Contact Open Family Medicine Diagnoses Right flank pain Jeni Meraz PA [address] [place] [address] [facility] [address] [facility] [place] [address] [place] [address] Specialty Diagnoses / Procedures Referred By Contac t Referred To Contact Podiatry Diagnoses Foot pain, left Procedures CONSULT TO PODIATRY OFFICE/OUTPATIENT [facility] 60 MINUTES Misty Mobley, MARY.DIAL MAKER [address] [place] [address] Referral ID Status Reason Start Date Expiration Date Visits Requested Visits Authorized [id number] Authorized PCP Requested Referral 03/18/2024 03/18/2025 1 1 Specialty Diagnoses / Procedures Referred By Contac t Referred To Contact XR IMAGING Diagnoses Foot pain, left Procedures XR FOOT GENERAL 3V AP/LAT/OBL LEFT RADEX FOOT COMPLETE MINIMUM 3 VIEWS Misty Mobley, MARY.DIAL MAKER [address] [place] [address] [id number] Referral ID Status Reason Start Date Expiration Date Visits Requested Visits Authorized [id number] Pending Review Auto-Generat ed Referral 03/18/2024 04/17/2025 1 1 Chief Complaint and Reason for Visit Chief Complaint LEFT RIB PAIN Chief Complaint LAC Chief Complaint Admit Date Abd pain, rectal bleeding March 10 2:51pm Additional Source Comments (unrecognized sect ion and content) No Status Records FoundNo Status Records FoundNo Status Records FoundNo Status Records FoundNo Status Records FoundNo Status Records FoundNo Status Records FoundNo Status Records FoundNo Status Records Found INFORMATION SOURCE (unrecogn ized section and content) DATE CREATED AUTHOR 05/21/2018 [facility] ([place]) DATE CREATED AUTHOR AUTHOR'S ORGANIZ ATION 05/21/2018 [facility] DATE CREATED AUTHOR AUTHOR'S ORGANIZ ATION 07/13/2022 [facility] DATE CREATED AUTHOR AUTHOR'S ORGANIZ ATION 08/01/2022 [facility] DATE CREATED AUTHOR AUTHOR'S ORGANIZ ATION 11/21/2022 [facility] DATE CREATED AUTHOR AUTHOR'S ORGANIZ ATION 11/27/2022 [facility] DATE CREATED AUTHOR AUTHOR[facility]S [facility]IZ ATION [facility] DATE CREATED AUTHOR AUTHOR'S ORGANIZ ATION 03/12/2025 [facility] DATE CREATED AUTHOR AUTHOR'S ORGANIZ ATION 04/29/2025 [facility] Reason for Visit (unrecogniz ed section and content) Reason Comments Panic Attack Reason Comments Chest Pain Dizziness Reason Comments Chest Pain Reason Comments Emesis Dizziness Reason Comments Knee Pain Reason Comments Otalgia left Reason Comments Flank Pain Reason Comments Abdominal Pain Reason Comments Suicidal Status Reason Specialty Diagnoses / Procedures Referre d By Contact Referred To Contact Diagnoses Adjustment disorder with depressed mood Suicidal ideation Medical clearance for psychiatric admission Procedures h Reason Comments Psychiatric Evaluation Specialty Diagnoses / Procedures Referred By Contac t Referred To Contact Diagnoses Suicidal ideation Mood disorder (HCC) Medical clearance for psychiatric admission Major depression, recurrent (HCC) Procedures Referral ID Status Reason Start Date Expiration Date Visits Re quested Visits Authorized [id number] 1 1 Specialty Diagnoses / Procedures Referred By Contac t Referred To Contact Diagnoses Suicidal ideation Suicidal ideations Adjustment disorder with depressed mood Procedures h Referral ID Status Reason Start Date Expiration Date Visits Re quested Visits Authorized [id number] 1 1 Specialty Diagnoses / Procedures Referred By Contac t Referred To Contact Diagnoses Suicidal ideation Major depressive disorder, single episode, unspecified Procedures Referral ID Status Reason Start Date Expiration Date Visits Re quested Visits Authorized [id number] 1 1 Reason Comments Hip Pain Reason Comments Cough X2 days with yellow sputum. No further symptoms. Reason Comments Sore Throat 2-3 days of dizzines s, cough, sore throat Reason Comments Foot Pain (Midfoot) Left foot, top of fo ot, swelling, no known injury x 2 weeks Reason Comments Sore Throat ST and [place] x 2 days Reason Comments Nausea & Vomiting Emesis x 1-2 x's, na useated, headache, chills, stuffy nose, occasional diarrhea, coughing x 3 daysStates stomach issues have been for awhile Reason Comments Rectal Problem Blood in stool, cons tipation Miguelangel Sandoval RN - 02/23/2021 6:32 PM Miguelangel Montalvo RN - 02/23/2021 5:37 PM Miguelangel Montalvo RN - 02/23/2021 5:36 PM Belle Steen Signal Wirer - 02/23/2021 5:25 PM EDT ED Notes (unrecognized secti on and content) Pt informs this nurse he cannot stay as he lives 20 minutes away and his o and m supervisor is leaving his child. Dr. Vance aware of same. Dr. Vance spoke with pt, informed pt he should return to ED at soonest convenience, preferably within [address] scan, as pt is not able to stay for testing today. Pt verbalizes understanding. This nurse reinforms pt to return to ED tomorrow for CT scan. Dr. Vance bedside. Pt presents to ED with c/o L sided abd pain that started at 0545 this morning. Pt reports vomiting once. Denies fevers, diarrhea, constipation. NAD noted. Skin p/w/d. A&O x 4 Urine specimen obtained, labeled and sent to lab. Pt ambulates to triage states I wasn't feeling good this morning. pt reports having abdominal pain, headache, vomiting x 1, denies diarrhea or fever. Skin pink,dry. A/O x 4. Respirations regular/easy documented in this encounter Scheduled Active and Recently Administ ered Medications (unrecognized section and content) Medication Order 05/09/2021 05/10/2021 05/11/2021 DULoxetine (CYMBALTA) DR capsule 30 mg 30 mg, Oral, DAILY, First dose on Alida 05/09/21 at 1045, Until Discontinued, Caution: Do not crush or chew. May add contents of capsule to apple juice or applesauce but NOT chocolate. Caution: This medication looks and/or sounds like another medication. 1035 (Given - Provider: Kelly Fortune LPN) 0937 (Given - Provider: Mary Jo Echols RN) 0912 (Given - Provider: Neelam Looney LPN) PRN Medication Order 05/09/2021 05/10/2021 05/11/2021 acetaminophen (TYLENOL) tablet 650 mg 650 mg, Oral, EVERY 4 HOURS PRN, Mild Pain, Starting on Thu05/08/21 at 2147, Until Discontinued, Maximum dose of acetaminophen is 4000 mg from all sources in 24 hours. 1219 (Given - Provider: Kelly Fortune LPN)1627 (Given - Provider: Sole Green, MIROSLAVA) aluminum-magnesium hydroxide 200-200 MG/5ML suspension 30 mL 30 mL, Oral, EVERY 6 HOURS PRN, Indigestion, Starting on Thu05/08/21 at 2147, Until Discontinued 2316 (Given - Provider: Misty Newton, MIROSLAVA) benzocaine (ORAJEL) 20 % jelly 0.1 g 0.1 g, Mouth/Throat, 4 TIMES DAILY PRN, Mild Pain, Starting on Alida 05/09/21 at 1633, Until Discontinued 1851 (Given - Provider: Sole Green, MIROSLAVA)2347 (Given - Provider: Celeste Osborne, MIROSLAVA) 1123 (Given - Provider: Mary Jo Echols, MIROSLAVA)1427 (Given - Provider: Mary Jo Echols, RN)2056 (Given - Provider: Sole Green, MIROSLAVA) 1300 (Given - Provider: Mary Jo Echols, MIROSLAVA) Magnesium Hydroxide (MOM) suspension (CONC) 10 mL 10 mL, Oral, DAILY PRN, Constipation, Starting on Thu05/08/21 at 2147, Until Discontinued, This is a rescue laxative. If last BM 3 days or greater OR outside of patient's normal elimination pattern, administer a rescue laxative. If first rescue laxative is ineffective, give a second rescue laxative different from the first option If the second rescue laxative is ineffective, contact the physician for further instructions. Scheduled Medication Order 08/23/2021 08/24/2021 08/25/2021 DULoxetine (CYMBALTA) DR capsule 30 mg 30 mg, Oral, DAILY, First dose on Thu08/23/21 at 0930, Until Discontinued, Caution: Do not crush or chew. May add contents of capsule to apple juice or applesauce but NOT chocolate. Caution: This medication looks and/or sounds like another medication. 0854 (Given - Provider: Memo Issa RN) 0823 (Given - Provider: Rox Kurtz LPN) 0936 (Given - Provider: Esther Gramajo RN) PRN Medication Order 08/23/2021 08/24/2021 08/25/2021 acetaminophen (TYLENOL) tablet 650 mg 650 mg, Oral, EVERY 4 HOURS PRN, Mild Pain, Fever, Headaches, Starting on Alida 08/22/21 at 2116, Until Discontinued, Maximum dose of acetaminophen is 4000 mg from all sources in 24 hours. 0016 (Given - Provider: Ferdinand Ross RN)0853 (Given - Provider: Memo Issa RN)1618 (Given - Provider: Misty Newton RN) 0934 (Given - Provider: Rox Kurtz LPN) aluminum-magnesium hydroxide 200-200 MG/5ML suspension 30 mL 30 mL, Oral, EVERY 6 HOURS PRN, Indigestion, Starting on Alida 08/22/21 at 2116, Until Discontinued Magnesium Hydroxide (MOM) suspension (CONC) 10 mL 10 mL, Oral, DAILY PRN, Constipation, Starting on Alida 08/22/21 at 2116, Until Discontinued, This is a rescue laxative. If last BM 3 days or greater OR outside of patient's normal elimination pattern, administer a rescue laxative. If first rescue laxative is ineffective, give a second rescue laxative different from the first option If the second rescue laxative is ineffective, contact the physician for further instructions. Scheduled Medication Order 05/13/2022 05/14/2022 05/15/2022 nicotine (NICODERM CQ) 21 MG/24HR 1 patch 1 patch (21 mg), Transdermal, EVERY 24 HOURS, First dose on Thu05/14/22 at 2300, Until Discontinued 0104 (Not Given - Pr ovider: Ferdinand Ross RN - Reason: Patient/family refused)0800 (Patch Applied - Provider: Latisha Motta LPN)2259 (Due: Patch Removed - Provider: Latisha Motta LPN)2300 (Due) PRN Medication Order 05/13/2022 05/14/2022 05/15/2022 acetaminophen (TYLENOL) tablet 650 mg 650 mg, Oral, EVERY 4 HOURS PRN, Mild Pain, Fever, Headaches, Starting on Thu05/14/22 at 2214, Until Discontinued, Maximum dose of acetaminophen is 4000 mg from all sources in 24 hours. aluminum-magnesium hydroxide 200-200 MG/5ML suspension 30 mL 30 mL, Oral, EVERY 6 HOURS PRN, Indigestion, Starting on Thu05/14/22 at 2214, Until Discontinued Magnesium Hydroxide (MOM) suspension (CONC) 10 mL 10 mL, Oral, DAILY PRN, Constipation, Starting on Thu05/14/22 at 2214, Until Discontinued, This is a rescue laxative. If last BM 3 days or greater OR outside of patient's normal elimination pattern, administer a rescue laxative. If first rescue laxative is ineffective, give a second rescue laxative different from the first option If the second rescue laxative is ineffective, contact the physician for further instructions. nicotine polacrilex (COMMIT) lozenge 4 mg 4 mg, Oral, EVERY 1 HOUR PRN, Smoking cessation, Starting on Thu05/14/22 at 2215, Until Discontinued, Caution: Do not crush or chew. Scheduled Medication Order 05/28/2022 05/29/2022 05/30/2022 buPROPion (WELLBUTRIN XL) 24 hr tablet 300 mg 300 mg, Oral, DAILY, First dose on Thu05/30/22 at 0900, Until Discontinued, Caution: Do not crush or chew. Caution: This medication looks and/or sounds like another medication. 09 (Given - Provid er: Rox Kurtz LPN) busPIRone (BUSPAR) tablet 5 mg 5 mg, Oral, EVERY 8 HOURS SCHEDULED (3 times per day), First dose on Thu05/29/22 at 1845, Until Discontinued 182 (Given - Provider: Jody Jacob RN)2118 (Given - Provider: Jody Jacob RN) 0901 (Given - Provider: Rox Kurtz LPN)1437 (Given - Provider: Rox Kurtz LPN)2100 (Due - Provider: Cleo Sheikh CPhT) naltrexone (DEPADE) tablet 50 mg 50 mg, Oral, DAILY, First dose on Thu05/30/22 at 0900, Until Discontinued 1127 (Given - Provid er: Rox Kurtz LPN) nicotine (NICODERM CQ) 21 MG/24HR 1 patch 1 patch (21 mg), Transdermal, EVERY 24 HOURS, First dose on Alida 05/29/22 at 1700, Until Discontinued 180 (Patch Applied - Provider: Chele Yepez RN - Comment: patient request) 1653 (Patch Applied - Provider: Cristal Flowers RN) QUEtiapine (SEROQUEL) tablet 100 mg 100 mg, Oral, NIGHTLY, First dose on Alida 05/29/22 at 2100, Until Discontinued, Caution: This medication looks and/or sounds like another medication. 2118 (Given - Provider: Jody Jacob RN) 2099 (Due) sertraline (ZOLOFT) tablet 50 mg 50 mg, Oral, DAILY, First dose on Thu05/30/22 at 0900, Until Discontinued 900 (Given - Provid er: Rox Kurtz LPN) PRN Medication Order 05/28/2022 05/29/2022 05/30/2022 acetaminophen (TYLENOL) tablet 650 mg 650 mg, Oral, EVERY 4 HOURS PRN, Mild Pain, Fever, Headaches, Starting on Alida 05/29/22 at 1620, Until Discontinued, Maximum dose of acetaminophen is 4000 mg from all sources in 24 hours. aluminum-magnesium hydroxide 200-200 MG/5ML suspension 30 mL 30 mL, Oral, EVERY 6 HOURS PRN, Indigestion, Starting on Thu05/29/22 at 1621, Until Discontinued 2207 (Given - Provider: Chele Yepez RN) guaiFENesin ER (MUCINEX) 12 hr tablet 600 mg 600 mg, Oral, EVERY 12 HOURS PRN, Congestion, Starting on Alida 05/29/22 at 1810, Until Discontinued, Caution: Do not crush or chew. hydrOXYzine (ATARAX) tablet 25 mg 25 mg, Oral, EVERY 6 HOURS PRN, Anxiety, Starting on Alida 05/29/22 at 2127, Until Discontinued, Caution: This medication looks and/or sounds like another medication. ibuprofen (ADVIL,MOTRIN) tablet 400 mg 400 mg, Oral, EVERY 6 HOURS PRN, Mild Pain, Starting on Alida 05/29/22 at 2126, Until Discontinued Magnesium Hydroxide (MOM) suspension (CONC) 10 mL 10 mL, Oral, DAILY PRN, Constipation, Starting on Alida 05/29/22 at 1620, Until Discontinued, This is a rescue laxative. If last BM 3 days or greater OR outside of patient's normal elimination pattern, administer a rescue laxative. If first rescue laxative is ineffective, give a second rescue laxative different from the first option If the second rescue laxative is ineffective, contact the physician for further instructions. nicotine polacrilex (COMMIT) lozenge 4 mg 4 mg, Oral, EVERY 1 HOUR PRN, Smoking cessation, Starting on Alida 05/29/22 at 1622, Until Discontinued, Caution: Do not crush or chew. Scheduled Medication Order 07/29/2022 07/30/2022 07/31/2022 ibuprofen (ADVIL;MOTRIN) tablet 600 mg (COMPLETED) 600 mg, Oral, ONCE, 1 dose, On Alida 07/31/22 at 1315, Do not crush or chew. 1353 (Given - Provid er: Jackie Treviño RN) Care Teams (unrecognized sec tion and content) Team Status: Active Member Role Status Dates No Primary Care Physician Primary Care Provider Active Team Status: Inactive Member Role Status Dates No Primary Care Physician Primary Care Provider Active Start: March 10, 2025 End: March 10, 2025 Ed Physician Provider Emergency Provider Active Start: March 10, 2025 End: March 10, 2025 Team Status: Active Member Role Status Dates Dr. Dionisio Jaimes MD Family Provider Active No Primary Care Physician Primary Care Provider Active Team Status: Inactive Member Role Status Dates Dr. Parker Taylor , Emergency Provider Active No Primary Care Physician Primary Care Provider Active Parachute Inspector Relationship Specialty Start Date End Date No, Physician [facility] PCP - General 06/30/22 Parachute Inspector Relationship Specialty Start Date End Date Pcp, None [address] [place] [address] PCP - General 08/22/21 Ordered Prescriptions (unrec ognized section and content) Prescription Sig Dispensed Refills Start Date End Da te lidocaine (LIDODERM) 5 % Place 1 patch onto the skin daily for 10 days 12 hours on, 12 hours off. 10 patch 0 07/31/2022 08/10/2022 Goals (unrecognized section and content) Goals may be documented in a n alternate sectionGoals may be documented in an alternate sectionGoals may be documented in an alternate section Source Comments (unrecognize d section and content) In the event this informatio n is protected by the Federal Confidentiality of Alcohol and Drug Abuse Patient Records regulations: The Federal rules restrict any use of the information to criminally investigate or prosecute any alcohol or drug abuse patient.[facility] Center[facility] the event this information is protected by the Federal Confidentiality of Alcohol and Drug Abuse Patient Records regulations: The Federal rules restrict any use of the information to criminally investigate or prosecute any alcohol or drug abuse patient.[facility] CenterIn the event this information is protected by the Federal Confidentiality of Alcohol and Drug Abuse Patient Records regulations: The Federal rules restrict any use of the information to criminally investigate or prosecute any alcohol or drug abuse patient.[facility] Center[facility] the event this information is protected by the Federal Confidentiality of Alcohol and Drug Abuse Patient Records regulations: The Federal rules restrict any use of the information to criminally investigate or prosecute any alcohol or drug abuse patient.[facility] the event this information is protected by the Federal Confidentiality of Alcohol and Drug Abuse Patient Records regulations: The Federal rules restrict any use of the information to criminally investigate or prosecute any alcohol or drug abuse patient.[facility] FOR RECORDS PERTAINING TO PATIENTS WHO ARE OR HAVE BEEN ENROLLED IN A CHEMICAL DEPENDENCY/SUBSTANCEABUSE PROGRAM, SOME INFORMATION MAY BE OMITTED. This clinical summary was aggregated from multiple sources. Caution should be exercised in using it in the provision of clinical care. This summary normalizes information from multiple sources, and as a consequence, information in this document may materially change the coding, format and clinical context of patient data. In addition, data may be omitted in some cases. CLINICAL DECISIONS SHOULD BE BASED ON THE PRIMARY CLINICAL RECORDS. [employer] [facility]. provides no warranty or guarantee of the accuracy or completeness of information in this document.
--- NOTE | 2025-05-06 22:15 | EX.ED.DYSGE1 ---
HPI History of Present Illness Chief Complaint: Lower Extremity Injury [facility] Medical History Bipolar 1 disorder Allergy/AdvReac Type Severity Reaction Status Date / Time tomato AdvReac Intermediate Rash Verified 05/06/25 21:02 Penicillins (PCN) AdvReac Rash Verified 05/06/25 21:02 Surgical History History of tonsillectomy Hx of thumb surgery Social History (Updated 05/06/25 @ 21:15 by Pushpa Baeza) household members: significant other housing: house Smoking Status: Current every day smoker tobacco type: cigarettes and e-cigarettes substance use type: marijuana EXAM Physical Exam Const Vital Signs: 05/06/25 21:02 05/06/25 22:31 Temperature 97 F L 97 F L Temperature Source Temporal Pulse Rate 72 72 Respiratory Rate 18 18 Blood Pressure 123/71 H 123/71 H Blood Pressure Mean 88 88 Pulse Ox 100 100 Oxygen Delivery Method Room Air [facility] Narrative Medical decision making narrative: HISTORY OF PRESENT ILLNESS: Chief complaint: Left ankle pain 24-year-old male presents left ankle pain after twisting yesterday playing softball. REVIEW OF SYSTEMS: Pertinent positives: Left ankle pain Pertinent negatives: Numbness, tingling, loss PHYSICAL EXAM: Nursing triage notes reviewed, Vital signs reviewed Constitutional: please see mdm Extremities: No edema, TTP over left lateral malleolus. No obvious deformities. Compartments are soft Neuro: Intact sensation L1-S1 dermatomal distributions. Intact 5/5 strength in hip flexion (T12-L3). Knee extension (L2-L4). Ankle dorsiflexion (L4-L5). Ankle plantar flexion (S1). Great toe extension (L5). 2+ patellar and Achilles DTRs. Skin: No rash or lesions noted, no sign of open fracture MEDICAL DECISION MAKING: Chief Complaint: please see [facility] Narrative: Patient was initially hemodynamically stable, afebrile and nontoxic-appearing. Exam with TTP over left lateral malleolus I considered the following differential diagnosis: Ankle fracture, dislocation, contusion ALL IMAGES (IF OBTAINED) HAVE BEEN PERSONALLY REVIEWED AND INTERPRETED BY MYSELF. X-ray obtained X-ray was read reviewed personally also showed no evidence of obvious bony fracture. Radiology reviewed my interpretation. Patient like send from an ankle sprain. Will encourage RICE therapy, Tylenol or ibuprofen. PCP follow-up instructed. The patient and/or family, caregivers express understanding. The patient and/or family, caregivers agrees with the plan. Shared decision making: I will have a discussion with the patient and or visitors regarding risk/benefits of further testing or admission. They will be made aware of of the risk/benefits inherent in this decision they will be given the opportunity to voice understanding. Total critical care time today provided was at least 0 minutes. This excludes separately billable procedures. Critical care time (if documented) is secondary to the patient having high probability of clinically significant/life threatening deterioration in the patient's condition which required my urgent intervention. Impression: 1. Acute ankle pain 2. Acute ankle sprain Dispo: Discharge home This note was generated with TinyTap dictation software. It may contain incorrect words, spelling, and punctuation that were not noted in review of the chart prior to signing. Radiography Chest X-Ray - ED: Read by ED Physician Diagnostic Testing: Clinical Impression(s) from Imaging Studies Ankle X-Ray 05/06/25 21:40 IMPRESSION: NO ACUTE FRACTURE OR DISLOCATION. Reading Location: [facility] Discharge Plan Triage Chief Complaint: Lower Extremity Injury ED Provider: Jelani Arias Dx/Rx/DC Orders Clinical Impression: Ankle sprain Instructions: ED Ankle Sprain (Adult) Primary Care Provider: Care Physician,No Primary Referrals: Adryan English MD [Med Staff - Active Staff] - Care Physician,No Primary [Primary Care Provider] - Activity Restrictions/Additional Instructions: Thank you for trusting us with your care today! Please take Tylenol (2 pills, 650 mg), ibuprofen (2 pills, 400 mg) every 6 hours as needed for pain and fever control. Please return to the emergency department if your symptoms change or worsen. Please follow with your primary care physician for further outpatient evaluation and management. Print Language: Romansh Disposition Disposition: Home, Self Care Discharge Date/Time: 05/06/25 22:32
[2025-05-06 22:31] VITALS: BP 123/71; PULSE 72; RESP 18; TEMP 36.1; O2SAT 100
== END 2025-05-06 22:32 | disposition home or self-care (01) ==
PROVIDERS: Emergency Provider Emergency Medicine; Referring Provider Emergency Medicine; Visit Provider Emergency Medicine
DX: S93.402A Sprain of unspecified ligament of left ankle, initial encounter (principal); F31.9 Bipolar disorder, unspecified; F17.210 Nicotine dependence, cigarettes, uncomplicated; F17.290 Nicotine dependence, other tobacco product, uncomplicated; F12.90 Cannabis use, unspecified, uncomplicated; Y93.64 Activity, baseball
CPT/HCPCS: 73610; 99282

== ENCOUNTER 2025-07-21 13:10 | Emergency (ER) | payer MEDICAID, SELFPAY ==
[2025-07-21 13:11] VITALS: BP 146/91; PULSE 73; RESP 15; TEMP 36.3; O2SAT 99; BMI 28.6
--- NOTE | 2025-07-21 13:20 | RAD_ITS ---
PROCEDURE: HAND MIN 3 VIEWS 07/21/2025 REASON FOR EXAM: FALL/ INJURY TECHNIQUE: HAND MIN 3 VIEWS Laterality: Right hand COMPARISON: None FINDINGS: Bones: Nondisplaced transverse fracture of the distal portion of the 5th metacarpal with dorsal angulation in keeping with the boxer type fracture. Joints: Normal alignment. Soft tissues: Soft tissue swelling. Other: RAD/Hand Min 3 Views IMPRESSION: Nondisplaced fracture of the distal 5th metacarpal with dorsal angulation in ke eping with the boxer type fracture. Soft tissue swelling. Reading Location: [id number]
[2025-07-21] MEDS: HYDROcodone Bitartrate/Apap 5/325 Tablet PO (15:28)
--- NOTE | 2025-07-21 15:28 | EX.ED.UPPERE ---
HPI History of Present Illness Chief Complaint: Upper Extremity Injury Informant: patient Narrative Narrative: [id number] male presents right hand injury yesterday. He states he was rushing to work he slipped down the steps he did not injure himself however he got angry from slipping he hit the ground with his hand. Increasing swelling took ibuprofen yesterday. No history of fractures. No other injuries. [facility] Medical History Bipolar 1 disorder Home Medications ?Medication ?Instructions ?Recorded ?Last Taken ?Type hydrocodone-acetaminophen 5-325mg 1 tab PO Q6H PRN PRN Pain 3 days 07/21/25 Unknown Rx 5mg-325mg #12 TABLETS ibuprofen 600 mg tablet 600 mg PO Q6H PRN PRN pain #20 07/21/25 Unknown Rx TABLETS Allergy/AdvReac Type Severity Reaction Status Date / Time tomato AdvReac Intermediate Rash Verified 07/21/25 13:11 Penicillins (PCN) AdvReac Rash Verified 07/21/25 13:11 Surgical History History of tonsillectomy Hx of thumb surgery Social History household members: significant other housing: house Smoking Status: Current every day smoker tobacco type: cigarettes and e-cigarettes substance use type: marijuana ROS ROS ED Constitutional Constitutional ED: Denies fever(s) Cardiovascular Cardiovascular: Denies chest pain Respiratory/Chest Respiratory/Chest: Denies cough Gastrointestinal Gastrointestinal: Denies diarrhea or vomiting Musculoskeletal Musculoskeletal: Reports other Details: Right hand pain and injury Integumentary Denies rash or wounds Neurologic Neurologic: Denies weakness EXAM Physical Exam Const Vital Signs: 07/21/25 13:11 Temperature 97.4 F L Temperature Source Temporal Pulse Rate 73 Respiratory Rate 15 Blood Pressure 146/91 H Blood Pressure Mean 109 Pulse Ox 99 Oxygen Delivery Method Room Air Positive well nourished and well developed General Appearance ED: well developed HEENT normocephalic and atraumatic Eyes General Eye ED: Yes normal appearance of both eyes Neck full ROM Resp normal respiratory effort and normal air movement Cardio regular rate and regular rhythm GI soft to palpation Extremity Extremity Narrative: Right upper extremity: No elbow or wrist tenderness. Swelling to the hand with healing abrasions at the MCP along with the DIP. Tenderness to the distal fifth metacarpal. Skin is intact. Neuro oriented x3 Skin no rashes or lesions noted and no wounds MDM MDM MDM Narrative Medical decision making narrative: Interventions / MDM: Differential diagnosis: Closed right hand fracture, right hand contusion Diagnosis considered but do not suspect: No open fracture. My EKG interpretation: N/A Imaging independently reviewed and interpreted by myself: Three-view x-ray right hand: Distal metacarpal fracture dorsal angulation no displacement. External documents reviewed: N/A Test considered but not ordered:N/A ED course: X-ray performed through triage confirms fracture. Discussed results with the patient. Will treat him with Motrin and [place]. Will splint. Procedure note: Verbal consent. Nylon sleeve was placed over the hand, padding was placed over the wrist and hand along with fingers. There was padding placed between the 4th and 5th digit. 4 inch plaster splint used placed patient into an ulnar gutter splint. Secured with Alex wrap. Cap refill less than 3 seconds post splinting. No paresthesias. Short prescription for pain control with orthopedic follow-up given. Re-evaluation: stable Disposition discussed with patient/family/significant other: Patient Case discussed with consulting clinician: N/A This note was generated with [employer] dictation software. It may contain incorrect words, spelling, and punctuation that were not noted in checking the note before signing. Radiography Diagnostic Testing: Clinical Impression(s) from Imaging Studies Hand X-Ray 07/21/25 13:20 IMPRESSION: Nondisplaced fracture of the distal 5th metacarpal with dorsal angulation in keeping with the boxer type fracture. Soft tissue swelling. Reading Location: [id number] Discharge Plan Triage Chief Complaint: Upper Extremity Injury ED Provider: Lonnie Caldwell Dx/Rx/DC Orders Clinical Impression: Closed boxer's fracture, Injury of hand, right Instructions: ED Boxer Fracture Prescriptions: New hydrocodone-acetaminophen 5-325 mg tablet 1 tab PO Q6H PRN PRN (Reason: Pain) 3 Days Qty: 12 0RF ibuprofen 600 mg tablet 600 mg PO Q6H PRN PRN (Reason: pain) Qty: 20 0RF Stand Alone Forms: ED Work / School Excuse Primary Care Provider: Care Physician,No Primary Referrals: Antony Ramesh DO [Med Staff - Active Staff] - 3-5 Days Care Physician,No Primary [Primary Care Provider] - Activity Restrictions/Additional Instructions: Keep splint on until you follow-up with orthopedic service. Take medications as prescribed. No driving or heavy machinery if taking the hydrocodone. Print Language: Persian Disposition Disposition: Home, Self Care Discharge Date/Time: 07/21/25 16:06
[2025-07-21 16:05] VITALS: BP 138/98; PULSE 79; RESP 16; TEMP 36.6; O2SAT 99
== END 2025-07-21 16:06 | disposition home or self-care (01) ==
PROVIDERS: Emergency Provider Emergency Medicine; Visit Provider Emergency Medicine
DX: S62.306A Unspecified fracture of fifth metacarpal bone, right hand, initial encounter for closed fracture (principal); F17.210 Nicotine dependence, cigarettes, uncomplicated; F17.290 Nicotine dependence, other tobacco product, uncomplicated; W10.9XXA Fall (on) (from) unspecified stairs and steps, initial encounter
CPT/HCPCS: 29125; 73130; 99283

== ENCOUNTER 2025-11-08 10:43 | Emergency (ER) | payer MEDICAID, SELFPAY ==
[2025-11-08 10:44] VITALS: BP 125/88; PULSE 77; RESP 18; TEMP 36.8; O2SAT 100; BMI 27.9
--- NOTE | 2025-11-08 11:18 | EDS_ITS ---
HPI History of Present Illness Chief Complaint: General Illness Detail of Chief Complaint: Systemic viral symptoms Informant: patient Onset/Context/Timing Onset: Yesterday Context: Sudden Onset Timing: Continuous and Waxes and wanes Quality: Myalgias, arthralgias, head pain, nausea, vomiting diarrhea and productive Location: Generalized Current Severity: Mild Maximum Severity: Moderate Worsened by: Patient's significant other diagnosed with COVID yesterday Relieved by: Nothing Associated Symptoms Associated Symptoms: Detailed in the HPI narrative Narrative Narrative: Patient is a 25-year-old male. He smokes marijuana daily. He states he does not smoke cigarettes. He presents with headache, chills, rhinorrhea, congestion, productive cough of colored sputum, green. He also endorses nausea, vomiting diarrhea. He has had 3 episodes of vomiting since yesterday and 7 loose stools. He does not note any blood or mucus in his stool. He does complain of generalized muscle and joint discomfort. He has not noted a rash. He states yesterday when he self tested his COVID test was negative. Patient denies any urologic symptoms. She does endorse thirst and dry mouth as well as lightheadedness when standing. Prior similar symptoms: No Recent Illness/Hospitalization: No PFSH PFSH Medical History Bipolar 1 disorder Home Medications ?Medication ?Instructions ?Recorded ?Last Taken ?Type ondansetron 4 mg disintegrating 4 mg PO Q8H PRN PRN Na usea #10 tabs 11/08/25 Unknown Rx tablet Allergy/AdvReac Type Severity Reaction Status Date / Time tomato AdvReac Intermediate Rash Verified 11/08/25 10:45 Penicillins (PCN) AdvReac Rash Verified 11/08/25 10:45 Surgical History History of tonsillectomy Hx of thumb surgery Social History household members: significant other housing: house Smoking Status: Current every day smoker tobacco type: cigarettes and e- cigarettes substance use type: marijuana ROS ROS ED Constitutional Constitutional ED: Reports chills, fever(s) and subjective; Denies sweats or weight loss Eyes Eyes: Denies blurry vision, change in vision or diplopia ENT ENT ED: Reports rhinorrhea; Denies ear pain or sore throat Cardiovascular Cardiovascular: Denies chest pain, orthopnea, palpitations, paroxysmal nocturnal dyspnea or racing heartbeat Respiratory/Chest Respiratory/Chest: Reports cough and sputum; Denies dyspnea, dyspnea on exertion, orthopnea or paroxysmal nocturnal dyspnea Gastrointestinal Gastrointestinal: Reports diarrhea, nausea and vomiting; Denies abdominal pain or melena Genitourinary Genitourinary ED: Denies dysuria, hematuria or urinary frequency Musculoskeletal Musculoskeletal: Reports arthralgias and myalgias; Denies back pain or neck pain Integumentary Denies rash Neurologic Neurologic: Reports headache(s) and weakness; Denies paresthesias Endocrine Endocrinology: Denies cold intolerance or heat intolerance Hematologic/Lymphatic Hematologic/Lymphatic: Reports systems reviewed and no addt'l complaints, except as documented EXAM Physical Exam Const Vital Signs: 11/08/25 10:44 11/08/25 11:36 11/08/25 12:01 Temperature 98.2 F Temperature Source Oral Pulse Rate 77 Pulse Rate [Lying] 56 L Pulse Rate [Sitting (for 1 minute prior to obtaining)] 56 L Pulse Rate [Standing (for 1 minute prior to obtaining)] 62 Respiratory Rate 18 Respiratory Pattern Normal Blood Pressure 125/88 H Blood Pressure [Lying] 122/69 H Blood Pressure [Sitting (for 1 minute prior to obtaining)] 126/78 H Blood Pressure [Standing (for 1 minute prior to obtaining)] 140/82 H Blood Pressure Mean 100 Blood Pressure Mean [Lying] 86 Blood Pressure Mean [Sitting (for 1 minute prior to obtaining)] 94 Blood Pressure Mean [Standing (for 1 minute prior to obtaining)] 101 Pulse Ox 100 Oxygen Delivery Method Room Air 11/08/25 12:44 Temperature Temperature Source Pulse Rate 68 Pulse Rate [Lying] Pulse Rate [Sitting (for 1 minute prior to obtaining)] Pulse Rate [Standing (for 1 minute prior to obtaining)] Respiratory Rate 16 Respiratory Pattern Blood Pressure 129/70 H Blood Pressure [Lying] Blood Pressure [Sitting (for 1 minute prior to obtaining)] Blood Pressure [Standing (for 1 minute prior to obtaining)] Blood Pressure Mean 89 Blood Pressure Mean [Lying] Blood Pressure Mean [Sitting (for 1 minute prior to obtaining)] Blood Pressure Mean [Standing (for 1 minute prior to obtaining)] Pulse Ox 100 Oxygen Delivery Method Positive well nourished and well developed Constitutional Narrative: Patient does appear ill. He is overweight. Vital signs indicate a slightly elevated blood pressure. General Appearance ED: well developed and NAD; Negative for cyanotic, diaphoretic or pallor HEENT Reports dry mucous membranes HEENT Narrative: Head is atraumatic and normocephalic. Ears normal. Posterior pharynx not erythema or exudate. Mouth ED: Yes dry mucous membranes Mouth: dry mucous membranes Eyes PERRL and EOMs intact bilaterally General Eye ED: Negative for pale conjunctiva or scleral icterus Neck no lymphadenopathy, supple and no JVD Resp normal respiratory effort and clear to auscultation bilaterally Cardio regular rate, regular rhythm, S1 normal heart sound, S2 normal heart sound and no murmurs GI normal to inspection, nondistended, normoactive bowel sounds, non-tender, non- distended, hepatosplenomegaly and no masses GI Narrative: Patient complains of tenderness when he was unaware that I was palpating his abdomen he had no grimacing or complaint of discomfort. Palpation: soft Extremity normal to inspection General Extremety ED: Negative for edema or tenderness General Extremity: Negative for edema Neuro oriented x3 and CN's II-XII intact bilaterally Sensorium / Orientation: alert Psych mental status grossly normal Skin no rashes or lesions noted, no wounds and skin turgor normal General Skin Exam: Negative for elasticity normal, jaundice or pallor MDM MDM MDM Narrative Medical decision making narrative: Suspect patient has COVID and is the cause of his constellation of symptoms. Clinically is dehydrated. Since he is young not on a diuretic and has no significant past medical history laboratory testing was not obtained at this time. He received 1 L of normal saline wide open. He received Zofran for his nausea vomiting and Imodium for his diarrhea. If he does not improve will obtain laboratory tests at that time. Treatment and Re-Evaluation :: Patient was reassessed has had no nausea or vomiting. His nausea is resolved. He has had no diarrhea. Plan is to discharge to home with work excuse, Zofran ODT prescription and for patient to take Imodium with any loose stools. Discharge Plan Triage Chief Complaint: General Illness ED Provider: Chivo Bateman Dx/Rx/DC Orders Clinical Impression: COVID-19, Acute dehydration, Nausea, vomiting and diarrhea Instructions: Coronavirus Disease 2019 (COVID-19): Caring for Yourself or Others Prescriptions: New ondansetron 4 mg tablet,disintegrating 4 mg PO Q8H PRN PRN (Reason: Nausea) Qty: 10 0RF Stand Alone Forms: ED Work / School Excuse Primary Care Provider: Care Physician,No Primary Referrals: Care Physician,No Primary [Primary Care Provider, Medical] Doctor,Your [Non-Staff, None] - 10-14 Days if not better Activity Restrictions/Additional Instructions: 1. Follow-up with your doctor if no improvement in 10 days. The name of your doctor is located on your insurance card. Print Language: Mohawk Disposition Disposition: Home, Self Care
[2025-11-08] MEDS: 0.9% Normal Saline (1000mL) 1,000 ML 1000 ML IV (11:19)
[2025-11-08 12:01] VITALS: BP 122/69; BP 126/78; BP 140/82; PULSE 56; PULSE 62
--- OUTSIDE RECORDS SUMMARY | 2025-11-08 12:30 | XMS RPT_ITS | CCD ---
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 [address] CO2 [Moles/Vol] 31 mmol/L High 22-30 [facility] Comment on above: Performed By: #### 4 [id number] #### [place] [address] Glucose [Mass/Vol] 84 mg/dL Normal 65-100 [employer] Comment on above: Performed By: #### 4 [id number] #### [place] [address] Protein [Mass/Vol] 7.6 g/dL Normal 6.3-8.[address] [facility] Comment on above: Performed By: #### 4 [id number] #### [place] [address] Urea nitrogen [Mass/Vol] 10 mg/dL Normal 8-26 [facility] Comment on above: Performed By: #### 4 [id number] #### [place] [address] Creatinine [Mass/Vol] 0.84 mg/dL Normal 0.66-1.25 [facility] [place] Comment on above: Performed By: #### 4 [id number] #### [place] [address] Albumin [Mass/Vol] 4.4 g/dL Normal 3.5-5.[address] [facility] Comment on above: Performed By: #### 4 [id number] #### [place] [address] Chloride [Moles/Vol] 105 mmol/L Normal 96-109 [facility] Comment on above: Performed By: #### 4 [id number] #### [place] [address] Potassium [Moles/Vol] 4.1 mmol/L Normal 3.6-5.1 [facility] [place] [facility] Comment on above: Performed By: #### 4 [id number] #### [place] [id number] Sodium [Moles/Vol] 143 mmol/L Normal 135-[address] [facility] Comment on above: Performed By: #### 4 [id number] #### [place] [address] No Panel Informationon 05-29 Interpretation and review of laboratory results Abnormal [facility] nRBC 0 [facility] SALICYLATEon 05-29-2022 SALICYLATE <1.0 Low 15.0-30.0 [facility] Comment on above: Performed By: #### 4 [id number] #### [place] [address] Salicylate levelon Salicylates [Mass/Vol] mg/dL Low 15.0 - 30.0 mg/dL [facility] TSH CASCADEon 05-29-2022 TSH CASCADE 1.910 uIU/mL Normal 0.465-4.680 [facility] Comment on above: Performed By: #### 4 [id number] #### [place] [address] Thyroid Cascadeon 05-29-2022 TSH [place] 1.910 [facility] UR DRUG SCREEN-7 PANELon PCP Not detected Normal CUTOFF <25 [facility] Comment on above: Performed By: #### 4 [id number] #### [place] [address] MARIJUANA/THC Not detected Normal CUTOFF <50 [facility] Comment on above: Performed By: #### 4 [id number] #### [place] [id number] Opiates Ql (U) Not detected Normal CUTOFF <300 [facility] Comment on above: Performed By: #### 4 [id number] #### [place] [address] COCAINE/BE Not detected Normal CUTOFF <300 [facility] Comment on above: Performed By: #### 4 [id number] #### [place] [id number] AMPHETAMINES/METH Not detected Normal CUTOFF <1000 [facility] Comment on above: Performed By: #### 4 [id number] #### [place] [id number] BARBITURATE Not detected Normal CUTOFF <200 [facility] Comment on above: Performed By: #### 4 [id number] #### [phone] FENTANYL Not detected Normal CUTOFF 1.0 [facility] Comment on above: Performed By: #### 4 [id number] #### [phone] BENZODIAZEPINE Not detected Normal CUTOFF <200 [facility] Comment on above: Performed By: #### 4 [id number] #### [phone] TOX MESSAGE see below Normal [facility] Comment on above: Result Comment: Note s: 1. SCREENING RESULTS SHOULD BE CONSIDERED PRESUMPTIVE UNLESS THE PRESENCE OF THE ANALYTE HAS BEEN CONFIRMED BY A REFERENCE LAB. 2. ALL DRUG GROUPS ARE ANALYZED ON URINE. Performed By: #### 4 [id number] #### [phone] Urine Toxicologyon Amphetamines Screen method >1000 ng/mL Ql (U) Not detected CUTOFF <1000 ng/mL [facility] Barbiturates Screen method >200 ng/mL Ql (U) Not detected CUTOFF <200 ng/mL [facility] Benzodiazepines Ql (U) Not detected CUTOF F <200 ng/mL [facility] Benzoylecgonine Screen (U) [Mass/Vol] Not detected CUTOFF <300 ng/mL [facility] Cannabinoids Screen method >50 ng/mL Ql (U) Not detected CUTOFF <50 ng/mL [facility] Fentanyl Not detected CUTOFF 1.0 ng/mL [facility] Opiates Screen (U) [Mass/Vol] Not detected CUTOFF <300 ng/mL [facility] Phencyclidine (U) [Mass/Vol] Not detected CUTOFF <25 ng/mL [facility] Tox Message see below [facility] Comment on above: Notes: 1. SCREENING RESULTS SHOULD BE CONSIDERED PRESUMPTIVE UNLESS THE PRESENCE OF THE ANALYTE HAS BEEN CONFIRMED BY A REFERENCE LAB. 2. ALL DRUG GROUPS ARE ANALYZED ON URINE. [facility] CBC WITH DIFFERENTIALon 04-30 ABSOLUTE BASO 0.0 10 3/uL Normal 0.0-0.1 [facility] [employer] Comment on above: Performed By: #### 4 [id number] #### [facility] [place] [phone] ABSOLUTE EOSIN 0.0 10 3/uL Low 0.1-0.3 [facility] [employer] Comment on above: Performed By: #### 4 [id number] #### [facility] [phone] ABSOLUTE LYMPH 2.0 10 3/uL Normal 1.2-3.3 [facility] [employer] Comment on above: Performed By: #### 4 [id number] #### [facility] [phone] ABSOLUTE MONO 0.5 10 3/uL Normal 0.2-0.6 [facility] [employer] Comment on above: Performed By: #### 4 [id number] #### [facility] [phone] ABSOLUTE NEUT 7.5 10 3/uL High 2.4-6.6 [facility] [employer] Comment on above: Performed By: #### 4 [id number] #### [facility] [place] [phone] Basophils/100 WBC (Bld) 0.3 % Normal [facility] [employer] Comment on above: Performed By: #### 4 [id number] #### [facility] [phone] Eosinophils/100 WBC (Bld) 0.2 % Normal [facility] [place] [facility] Comment on above: Performed By: #### 4 [id number] #### [place] [address] Erythrocyte distribution width (RBC) [Ratio] 12.8 % Normal 11.5-14.5 [facility] [employer] Comment on above: Performed By: #### 4 [id number] #### [facility] [place] [phone] Hematocrit (Bld) [Volume fraction] 43.5 % Normal 37.7-51.1 [facility] [place] [facility] Comment on above: Performed By: #### 4 [id number] #### [place] [address] Hemoglobin (Bld) [Mass/Vol] 14.3 g/dL Normal 12.8-17.7 [facility] [place] [facility] Comment on above: Performed By: #### 4 [id number] #### [place] [phone] IG ABSOLUTE 0.0 10 3/uL Normal 0 [facility] [employer] Comment on above: Performed By: #### 4 [id number] #### [facility] [place] [phone] IG PERCENT 0.4 % Normal [facility] [employer] Comment on above: Performed By: #### 4 [id number] #### [place] [phone] Lymphocytes/100 WBC (Bld) 19.4 % Normal [facility] [employer] Comment on above: Performed By: #### 4 [id number] #### [place] [phone] MCH (RBC) [Entitic mass] 30.0 pg Normal 27.0-34.2 [facility] [employer] Comment on above: Performed By: #### 4 [id number] #### [place] [address] MCHC (RBC) [Mass/Vol] 32.9 g/dL Normal 31.4-36.2 [facility] Comment on above: Performed By: #### 4 [id number] #### [place] [address] MCV (RBC) [Entitic vol] 91.2 fL Normal 80.6-99.0 [facility] [employer] Comment on above: Performed By: #### 4 [id number] #### [place] [address] Monocytes/100 WBC (Bld) 5.4 % Normal [facility] [place] [facility] Comment on above: Performed By: #### 4 [id number] #### [place] [address] Neutrophils/100 WBC (Bld) 74.3 % Normal [facility] [place] [facility] Comment on above: Performed By: #### 4 [id number] #### [place] [address] NRBC 0 Normal 0-1 [facility] Comment on above: Performed By: #### 4 [id number] #### [place] [address] PLATELET 206.0 x10 3/uL Normal 150.0-400.0 [facility] [employer] Comment on above: Performed By: #### 4 [id number] #### [place] [address] RBC 4.77 x10 6/uL Normal 3.70-5.70 [facility] [employer] Comment on above: Performed By: #### 4 [id number] #### [place] [address] WBC 10.1 x10 3/uL Normal 4.3-10.3 [facility] [employer] Comment on above: Performed By: #### 4 [id number] #### [place] [address] CBC with Differentialon 04-30 [facility] Immature Granulocytes 0.0 0 10 3/uL [facility] Absolute Lymph 2.0 [facility] Absolute Alexander 0.5 [facility] Basophils (Bld) [#/Vol] 0.0 10*3/uL [facility] Basophils/100 WBC (Bld) 0.3 % [facility] Eosinophils (Bld) [#/Vol] 0.0 10*3/uL Low [facility] Eosinophils/100 WBC (Bld) 0.2 % [facility] Erythrocyte distribution width (RBC) [Ratio] 12.8 % 11.5 - 14.5 % [facility] Hematocrit (Bld) [Volume fraction] 43.5 % 37.7 - 51.1 % [facility] Hemoglobin (Bld) [Mass/Vol] 14.3 g/dL 12.8 - 17.7 g/dL [facility] Immature granulocytes/100 WBC (Bld) 0.4 % [facility] Interpretation and review of laboratory results Abnormal [facility] Lymphocytes/100 WBC (Bld) 19.4 % [facility] MCH (RBC) [Entitic mass] 30.0 pg 27.0 - 34.[address] [facility] MCHC (RBC) [Mass/Vol] 32.9 g/dL 31.4 - 36.2 g/dl [facility] MCV (RBC) [Entitic vol] 91.2 fL 80.6 - 99.[address] [facility] Monocytes/100 WBC (Bld) 5.4 % [facility] Neutrophils (Bld) [#/Vol] 7.5 10*3/uL High [facility] Neutrophils/100 WBC (Bld) 74.3 % [facility] Platelets (Bld) [#/Vol] 206.0 10*3/uL [facility] RBC (Bld) [#/Vol] 4.77 10*6/uL [facility] WBC LM Ql (Sput) 10.1 [facility] Comprehensive Metabolic Pane jan 05-14-2022 Albumin [Mass/Vol] 4.7 g/dL 3.5 - 5.0 g/dL [facility] Alk Phos 148 U/L High 24 - 126 U/L [facility] ALT [Catalytic activity/Vol] 27 U/L 4 - 50 U/L [facility] AST [Catalytic activity/Vol] 27 U/L 3 - 55 U/L [facility] Bilirubin [Mass/Vol] 0.9 mg/dL 0.2 - 1 .6 mg/dL [facility] Calcium [Mass/Vol] 9.2 mg/dL 8.4 - 10. 4 mg/dL [facility] Chloride [Moles/Vol] 104 mmol/L 96 - 10 9 mmol/L [facility] CO2 [Moles/Vol] 28 mmol/L 22 - 30 mmol/L [facility] Creatinine [Mass/Vol] 0.87 mg/dL 0.66 - 1.25 mg/dL [facility] Glucose [Mass/Vol] 100 mg/dL 65 - 100 mg/dL [employer] [facility] Interpretation and review of laboratory results Abnormal [facility] Potassium [Moles/Vol] 3.9 mmol/L 3.6 - 5.1 mmol/L [facility] [employer] Protein [Mass/Vol] 8.1 g/dL 6.3 - 8.2 g/dL [employer] [facility] Sodium [Moles/Vol] 140 mmol/L 135 - 147 mmol/L [facility] Urea nitrogen [Mass/Vol] 13 mg/dL 8 - 26 mg/dL [facility] ETHANOL-SERUMon 05-14-2022 ETHANOL-SERUM <[address] [facility] Comment on above: Performed By: #### 4 [id number] #### [facility] [place] [address] Ethanolon 05-14-2022 Ethanol Ql (U) <10 NOT DETECTED mg/dL [facility] GFRon 05-14-2022 GFR >[address] [facility] Comment on above: Result Comment: To e [...] Suppl.2013;3:1-150 Performed By: #### G FR1 #### [place] [address] GLOMERULAR FILTRATION RATEon 05-14-2022 GFR >60 [facility] [place] [facility] Comment on above: To estimate the [...] ALT [Catalytic activity/Vol] 27 U/L Normal 4-50 [facility] Comment on above: Performed By: #### 4 [id number] #### [place] [address] ALK PHOS 148 U/L High 24-126 [facility] Comment on above: Performed By: #### 4 [id number] #### [facility] [place] [phone] AST [Catalytic activity/Vol] 27 U/L Normal 3-55 [facility] Comment on above: Performed By: #### 4 [id number] #### [facility] [place] [phone] Bilirubin [Mass/Vol] 0.9 mg/dL Normal 0.2-1.6 [facility] [place] [facility] Comment on above: Performed By: #### 4 [id number] #### [place] [address] Calcium [Mass/Vol] 9.2 mg/dL Normal 8.4-10.4 [facility] [place] [facility] Comment on above: Performed By: #### 4 [id number] #### [place] [address] CO2 [Moles/Vol] 28 mmol/L Normal 22-30 [facility] [place] [facility] Comment on above: Performed By: #### 4 [id number] #### [place] [address] Creatinine [Mass/Vol] 0.87 mg/dL Normal 0.66-1.25 [facility] [place] [facility] Comment on above: Performed By: #### 4 [id number] #### [place] [address] Glucose [Mass/Vol] 100 mg/dL Normal 65-100 [facility] [place] [facility] Comment on above: Performed By: #### 4 [id number] #### [place] [address] Protein [Mass/Vol] 8.1 g/dL Normal 6.3-8.2 [facility] [place] [facility] Comment on above: Performed By: #### 4 [id number] #### [place] [address] Urea nitrogen [Mass/Vol] 13 mg/dL Normal 8-26 [facility] [place] [facility] Comment on above: Performed By: #### 4 [id number] #### [place] [address] Potassium [Moles/Vol] 3.9 mmol/L Normal 3.6-5.1 [facility] [employer] Comment on above: Performed By: #### 4 [id number] #### [place] [address] Albumin [Mass/Vol] 4.7 g/dL Normal 3.5-5.0 [facility] [place] [facility] Comment on above: Performed By: #### 4 [id number] #### [place] [address] Chloride [Moles/Vol] 104 mmol/L Normal 96-109 [facility] [place] [facility] Comment on above: Performed By: #### 4 [id number] #### [place] [address] Sodium [Moles/Vol] 140 mmol/L Normal 135-147 [facility] [place] [facility] Comment on above: Performed By: #### 4 [id number] #### [place] [address] No Panel Informationon 05-14 [facility] nRBC 0 [facility] Toxicology screen, urineon 0 05-14-2022 Amphetamines Screen method >1000 ng/mL Ql (U) Not detected CUTOFF <1000 ng/mL [facility] Barbiturates Screen method >200 ng/mL Ql (U) Not detected CUTOFF <200 ng/mL [facility] Benzodiazepines Ql (U) Not detected CUTOF F <200 ng/mL [facility] Benzoylecgonine Screen (U) [Mass/Vol] Not detected CUTOFF <300 ng/mL [facility] Cannabinoids Screen method >50 ng/mL Ql (U) Positive Abnormal CUTOFF <50 ng/mL [facility] [employer] Fentanyl Not detected CUTOFF 1.0 ng/mL [facility] [employer] Interpretation and review of laboratory results Abnormal [facility] Opiates Screen (U) [Mass/Vol] Not detected CUTOFF <300 ng/mL [facility] Phencyclidine (U) [Mass/Vol] Not detected CUTOFF <25 ng/mL [facility] Tox Message see below [facility] Comment on above: Notes: 1. SCREENING RESULTS SHOULD BE CONSIDERED PRESUMPTIVE UNLESS THE PRESENCE OF THE ANALYTE HAS BEEN CONFIRMED BY A REFERENCE LAB. 2. ALL DRUG GROUPS ARE ANALYZED ON URINE. UR DRUG SCREEN-7 PANELon PCP Not detected Normal CUTOFF <25 [facility] Comment on above: Performed By: #### 4 [id number] #### [facility] [place] [address] COCAINE/BE Not detected Normal CUTOFF <300 [facility] Comment on above: Performed By: #### 4 [id number] #### [facility] [place] [address] Opiates Ql (U) Not detected Normal CUTOFF <300 [facility] Comment on above: Performed By: #### 4 [id number] #### [facility] [place] [address] MARIJUANA/THC Positive Abnormal CUTOFF <50 [facility] Comment on above: Performed By: #### 4 [id number] #### [place] [address] BARBITURATE Not detected Normal CUTOFF <200 [facility] Comment on above: Performed By: #### 4 [id number] #### [place] [address] AMPHETAMINES/METH Not detected Normal CUTOFF <1000 [facility] Comment on above: Performed By: #### 4 [id number] #### [place] [address] BENZODIAZEPINE Not detected Normal CUTOFF <200 [facility] Comment on above: Performed By: #### 4 [id number] #### [place] [address] FENTANYL Not detected Normal CUTOFF 1.0 [facility] Comment on above: Performed By: #### 4 [id number] #### [place] [address] TOX MESSAGE see below Normal [facility] Comment on above: Result Comment: Note s: 1. SCREENING RESULTS SHOULD BE CONSIDERED PRESUMPTIVE UNLESS THE PRESENCE OF THE ANALYTE HAS BEEN CONFIRMED BY A REFERENCE LAB. 2. ALL DRUG GROUPS ARE ANALYZED ON URINE. Performed By: #### 4 [id number] #### [place] [address] URINALYSIS W/REFLEXon 2021 Appearance (U) Clear Normal [facility] Comment on above: Performed By: #### 4 [id number] #### [facility] [place] [id number] Bacteria identified Cx Nom (U) NOT INDICATED Normal [facility] Comment on above: Performed By: #### 4 [id number] #### [place] [address] Bilirubin Ql (U) Negative Normal Negative [facility] Comment on above: Performed By: #### 4 [id number] #### [place] [address] Color (U) Yellow Normal [facility] Comment on above: Performed By: #### 4 [id number] #### [place] [address] Glucose Ql (U) Negative Normal Negative [facility] Comment on above: Performed By: #### 4 [id number] #### [facility] [address] [address] Ketones Ql (U) Negative Normal Negative [facility] Comment on above: Performed By: #### 4 [id number] #### [facility] [address] [address] LEUKOESTERASE Negative Normal Negative [facility] Comment on above: Performed By: #### 4 [id number] #### [facility] [place] [phone] MUCOUS-URINE Moderate Normal [facility] Comment on above: Performed By: #### 4 [id number] #### [facility] [address] [address] Nitrite Ql (U) Negative Normal Negative [facility] Comment on above: Performed By: #### 4 [id number] #### [facility] [address] [address] OCCULT BLOOD Negative Normal Negative [facility] Comment on above: Performed By: #### 4 [id number] #### [place] [address] pH (U) 6.0 [pH] Normal [facility] Comment on above: Performed By: #### 4 [id number] #### [place] [address] Protein Ql (U) Negative Normal Negative [facility] Comment on above: Performed By: #### 4 [id number] #### [place] [address] RBC LM.HPF (Urine sed) [#/Area] /[HPF] Normal 0-5 [facility] Comment on above: Performed By: #### 4 [id number] #### [place] [address] Specific gravity (U) [Rel density] 1.025 Normal 1.003-1.029 [facility] Comment on above: Performed By: #### 4 [id number] #### [place] [address] Urobilinogen (U) [Mass/Vol] Negative Normal <2.0 [facility] Comment on above: Performed By: #### 4 [id number] #### [place] [address] WBC LM.HPF (Urine sed) [#/Area] 1 /[HPF] Normal 0-5 [facility] Comment on above: Performed By: #### 4 [id number] #### [place] [address] URINE SOURCE Voided Normal [facility] Comment on above: Performed By: #### 4 [id number] #### [place] [address] Urinalysis with Reflex Cultu reon 05-14-2022 Appearance (U) Clear [facility] Bacteria identified Aer cx Nom (Unsp spec) NOT INDICATED [facility] Bilirubin Ql (U) Negative Negative [facility] Color (CSF) Yellow [facility] [employer] Glucose Ql (U) Negative Negative mg/dL [facility] [employer] Hemoglobin Ql (U) <1 [facility] Ketones Ql (U) Negative Negative mg/dL [facility] [employer] [facility] [employer] Leukoesterase Negative Negative [facility] [employer] Mucous-Urine Moderate /LPF [facility] [employer] Nitrite Ql (U) Negative Negative [facility] [employer] Occult Bld Negative Negative [facility] [employer] pH (U) 6.0 [pH] [facility] [facility] Protein (U) [Mass/Vol] Negative Negative mg/d L [facility] Specific gravity (U) [Rel density] 1.025 [place] [facility] Urine Source Voided [place] [facility] Urobilinogen Qn (U) Negative <2.0 mg/dL [facility] WBC (U) [#/Vol] 1 /uL [place] [facility] CT KIDNEY STONEon 05-06-2022 CT KIDNEY STONE [...] ThuMay 06, 2022 9:34:36 PM EDT Normal [facility] Comment on above: Order Comment: Injur y/Trauma or Illness?:Illness/Other How long have you had these symptoms (acute/chronic)?:Acute Reason for exam?:left flank pain x2 days Type of Exam?:Initial Additional signs and symptoms?:n/a SARS-COV-2, QPCRon SARS-CoV-2 (COVID-19) RNA ARABELLA+probe Ql (Unsp spec) Not detected Normal Not Detected [facility] Comment on above: Result Comment: Resu lts [...] and epidemiological information. Performed By: #### [id number] #### [place] [facility] [place] [phone] INFLUENZA Aon 12-13-2021 INFLUENZA A MOLECULAR Negative Normal NEGATIVE [facility] Comment on above: Performed By: #### [id number] #### [place] [phone] INFLUENZA B MOLECULAR Negative Normal NEGATIVE [facility] Comment on above: Performed By: #### [id number] #### [place] [phone] Influenza A&B Molecularon Influenza A Molecular Negative NEGATIVE [facility] Influenza B Molecular Negative NEGATIVE [facility] Toxicology screen, urineon 0 08-22-2021 Amphetamines Screen method >1000 ng/mL Ql (U) Not detected CUTOFF <1000 ng/mL [facility] Barbiturates Screen method >200 ng/mL Ql (U) Not detected CUTOFF <200 ng/mL [facility] Benzodiazepines Ql (U) Not detected CUTOF F <200 ng/mL [facility] Benzoylecgonine Screen (U) [Mass/Vol] Not detected CUTOFF <300 ng/mL [facility] Cannabinoids Screen method >50 ng/mL Ql (U) Not detected CUTOFF <50 ng/mL [facility] Fentanyl Not detected CUTOFF 1.0 ng/mL [facility] Opiates Screen (U) [Mass/Vol] Not detected CUTOFF <300 ng/mL [facility] Phencyclidine (U) [Mass/Vol] Not detected CUTOFF <25 ng/mL [facility] Tox Message see below [facility] Comment on above: Notes: 1. SCREENING RESULTS SHOULD BE CONSIDERED PRESUMPTIVE UNLESS THE PRESENCE OF THE ANALYTE HAS BEEN CONFIRMED BY A REFERENCE LAB. 2. ALL DRUG GROUPS ARE ANALYZED ON URINE. [facility] Urinalysis with reflex cultu reon 08-22-2021 Appearance (U) Clear [facility] Bacteria identified Aer cx Nom (Unsp spec) NOT INDICATED [facility] Bilirubin Ql (U) Negative Negative [facility] Color (CSF) Yellow [facility] Glucose Ql (U) Negative Negative mg/dL [facility] Hemoglobin Ql (U) 1 [facility] Ketones Ql (U) Negative Negative mg/dL [facility] Leukoesterase Negative Negative [facility] Mucous-Urine Few /LPF [facility] Nitrite Ql (U) Negative Negative [facility] Occult Bld Negative Negative [facility] pH (U) 6.0 [pH] [facility] Protein (U) [Mass/Vol] Negative Negative mg/d L [facility] Specific gravity (U) [Rel density] 1.028 [facility] Urine Source Clean Catch [facility] Urobilinogen Qn (U) 4.0 mg/dL <2.0 [facility] WBC (U) [#/Vol] 1 /uL [facility] Lipid panelOrdered By: Israel Millre on 05-11-2021 Cholesterol [Mass/Vol] 115 mg/dL 0 - 200 mg/dL [facility] Comment on above: CHOLESTEROL REFERENC E RANGE Desirable <200 mg/dL Borderline 200-239 mg/dL High >240 mg/dL . Cholesterol in HDL [Mass/Vol] 32.8 mg/dL Low 40.0 - 59.9 mg/dL [facility] Comment on above: Interpretive data fo r HDL Cholesterol states: HDL <40 mg/dL is low and constitutes a coronary disease risk factor. HDL >60 mg/dL is a negative risk factor for coronary heart disease. . Cholesterol in LDL [Mass/Vol] 67 mg/dL 0 - 100 mg/dL [facility] Comment on above: LDL REFERENCE RANGE Optimal <100 mg/dl Near Optimal 100-129 mg/dL Borderline High 130-159 mg/dL High 160-189 mg/dL Very High >=190 mg/dL . Cholesterol in VLDL [Mass/Vol] 16 mg/dL <42 [facility] Interpretation and review of laboratory results Abnormal [facility] Triglyceride [Mass/Vol] 78 mg/dL 0 - 150 mg/dL [facility] Comment on above: TRIGLYCERIDE REFEREN CE RANGE Normal <150 mg/dL Borderline High 150-199 mg/dL High 200-499 mg/dL Very High >=500 mg/dL . [facility] Syphilis Treponema AntibodyO rdered By: Olvin Miller on 05-11-2021 Syphilis Treponema Antibody Non-Reactive Nonreactive [facility] Thyroid Function PanelOrdere d By: Olvin Miller on 05-11-2021 TSH [place] 2.040 [facility] Toxicology screen, urineOrde red By: Juan Diego Corral on 05-08-2021 Amphetamines Screen method >1000 ng/mL Ql (U) Not detected CUTOFF <1000 ng/mL [facility] Barbiturates Screen method >200 ng/mL Ql (U) Not detected CUTOFF <200 ng/mL [facility] Benzodiazepines Ql (U) Not detected CUTOF F <200 ng/mL [facility] Benzoylecgonine Screen (U) [Mass/Vol] Not detected CUTOFF <300 ng/mL [facility] Cannabinoids Screen method >50 ng/mL Ql (U) Not detected CUTOFF <50 ng/mL [facility] Fentanyl Not detected CUTOFF 1.0 ng/mL [facility] Opiates Screen (U) [Mass/Vol] Not detected CUTOFF <300 ng/mL [facility] Phencyclidine (U) [Mass/Vol] Not detected CUTOFF <25 ng/mL [facility] Tox Message see below [facility] Comment on above: Notes: 1. SCREENING RESULTS SHOULD BE CONSIDERED PRESUMPTIVE UNLESS THE PRESENCE OF THE ANALYTE HAS BEEN CONFIRMED BY A REFERENCE LAB. 2. ALL DRUG GROUPS ARE ANALYZED ON URINE. [facility] Urinalysis with reflex cultu reOrdered By: Juan Diego Corral on 05-08-2021 Appearance (U) Cloudy [facility] Bacteria identified Aer cx Nom (Unsp spec) NOT INDICATED [facility] Bilirubin Ql (U) Negative Negative [facility] Color (CSF) Yellow [facility] Glucose Ql (U) Negative Negative mg/dL [facility] Hemoglobin Ql (U) 1 [facility] Interpretation and review of laboratory results Abnormal [facility] Ketones Ql (U) Negative Negative mg/dL [facility] Leukoesterase Negative Negative [facility] Mucous-Urine Many /LPF [facility] Nitrite Ql (U) Negative Negative [facility] Occult Bld Negative Negative [facility] pH (U) 6.0 [pH] [facility] Protein (U) [Mass/Vol] 30 mg/dL Abnormal Negative [facility] Specific gravity (U) [Rel density] 1.026 [facility] Squamous Epi Cells 11 /LPF [facility] Urine Source Voided [facility] Urobilinogen Qn (U) 2.0 mg/dL <2.0 [facility] WBC (U) [#/Vol] 3 /uL [facility] AmylaseOrdered By: Concepcion montoya on 05-07-2021 Amylase [Catalytic activity/Vol] 47 U/L 30 - 110 U/L [facility] CBC with DifferentialOrdered By: Concepcion Fortune on 05-07-2021 Absolute Immature Granulocytes 0.0 0 10 3/uL [facility] Absolute Lymph 2.9 [facility] Absolute [place] 0.[address] [facility] Basophils (Bld) [#/Vol] 0.0 10*3/uL [facility] Basophils/100 WBC (Bld) 0.4 % [facility] Eosinophils (Bld) [#/Vol] 0.1 10*3/uL [facility] Eosinophils/100 WBC (Bld) 0.6 % [facility] Erythrocyte distribution width (RBC) [Ratio] 13.0 % 11.5 - 14.5 % [facility] Hematocrit (Bld) [Volume fraction] 45.5 % 37.7 - 51.1 % [facility] Hemoglobin (Bld) [Mass/Vol] 14.5 g/dL 12.8 - 17.7 g/dL [facility] Immature granulocytes/100 WBC (Bld) 0.3 % [facility] Interpretation and review of laboratory results Abnormal [facility] Lymphocytes/100 WBC (Bld) 30.7 % [facility] MCH (RBC) [Entitic mass] 29.2 pg 27.0 - 34.[address] [facility] MCHC (RBC) [Mass/Vol] 31.9 g/dL 31.4 - 36.2 g/dl [facility] MCV (RBC) [Entitic vol] 91.7 fL 80.6 - 99.[address] [facility] Monocytes/100 WBC (Bld) 7.3 % [facility] Neutrophils (Bld) [#/Vol] 5.8 10*3/uL [facility] Neutrophils/100 WBC (Bld) 60.7 % [facility] Platelets (Bld) [#/Vol] 221.0 10*3/uL [facility] RBC (Bld) [#/Vol] 4.96 10*6/uL [facility] WBC LM Ql (Sput) 9.5 [facility] Comprehensive metabolic pane lOrdered By: Concepcion Fortune on 05-07-2021 Albumin [Mass/Vol] 4.4 g/dL 3.5 - 5.0 g/dL [facility] Alk Phos 160 U/L High 24 - 126 U/L [facility] ALT [Catalytic activity/Vol] 24 U/L 4 - 50 U/L [facility] AST [Catalytic activity/Vol] 26 U/L 3 - 55 U/L [facility] Bilirubin [Mass/Vol] 0.7 mg/dL 0.2 - 1 .6 mg/dL [facility] Calcium [Mass/Vol] 9.4 mg/dL 8.4 - 10. 4 mg/dL [facility] Chloride [Moles/Vol] 104 mmol/L 96 - 10 9 mmol/L [facility] CO2 [Moles/Vol] 27 mmol/L 22 - 30 mmol/L [facility] Creatinine [Mass/Vol] 0.83 mg/dL 0.66 - 1.25 mg/dL [facility] Glucose [Mass/Vol] 89 mg/dL 65 - 100 mg/dL [facility] Interpretation and review of laboratory results Abnormal US PREVENTIVE MEDICINE [facility] Potassium [Moles/Vol] 3.9 mmol/L 3.6 - 5.1 mmol/L [facility] Protein [Mass/Vol] 7.5 g/dL 6.3 - 8.2 g/dL [facility] Sodium [Moles/Vol] 141 mmol/L 135 - 147 mmol/L [facility] Urea nitrogen [Mass/Vol] 14 mg/dL 8 - 26 mg/dL [place] [facility] GLOMERULAR FILTRATION RATEOr dered By: Concepcion Fortune on 05-07-2021 GFR >60 [place] [facility] Comment on above: To estimate the GFR [...] activity/Vol] 38 U/L 23 - 300 U/L [facility] No Panel InformationOrdered By: Concepcion Fortune on 05-07-2021 nRBC 0 [facility] [place] [facility] XR Ribs Left w/ PA Cheston 0 03-04-2021 No radiographic evidence of acute cardiopulmonary disease. No left rib fractures. [facility] EXAMINATION: 3 XRAY VIEWS OF THE LEFT [...] No definite left rib fractures. No pneumothorax. [facility] Marcin, Rad Results In - 03/04/2021 6:22 [...] acute cardiopulmonary disease. No left rib fractures. [facility] Basic metabolic panel aka Ch em 8on 02-23-2021 Calcium [Mass/Vol] 9.2 mg/dL 8.4 - 10. 4 mg/dL [facility] Chloride [Moles/Vol] 108 mmol/L 96 - 10 9 mmol/L [facility] CO2 [Moles/Vol] 24 mmol/L 22 - 30 mmol/L [facility] Comprehensive metabolic 2000 panel 0.90 mg/dL 0.66 - 1.25 mg/dL [facility] Glucose [Mass/Vol] 86 mg/dL 65 - 100 mg/dL [facility] Potassium [Moles/Vol] 4.3 mmol/L 3.6 - 5.1 mmol/L [facility] Sodium [Moles/Vol] 142 mmol/L 135 - 147 mmol/L [facility] Urea nitrogen [Mass/Vol] 19 mg/dL 8 - 26 mg/dL [facility] CBC with Differentialon 01-[address] [facility] Basophils (Bld) [#/Vol] 0.0 10*3/uL [facility] Basophils/100 WBC (Bld) 0.4 % [facility] Eosinophils (Bld) [#/Vol] 0.1 10*3/uL [facility] Eosinophils/100 WBC (Bld) 1.1 % [facility] Erythrocyte distribution width (RBC) [Ratio] 12.7 % 11.5 - 14.5 % [facility] Hematocrit (Bld) [Volume fraction] 40.2 % 37.7 - 51.1 % [facility] Hemoglobin (Bld) [Mass/Vol] 13.3 g/dL 12.8 - 17.7 g/dL [facility] Lymphocytes (Bld) [#/Vol] 2.4 10*3/uL [facility] Lymphocytes/100 WBC (Bld) 29.9 % [facility] MCH (RBC) [Entitic mass] 29.8 pg 27 - 34.[address] [facility] MCHC (RBC) [Mass/Vol] 33.1 g/dL 31.4 - 36.2 g/dl [facility] MCV (RBC) [Entitic vol] 89.9 fL 80.6 - [address] [facility] Monocytes/100 WBC (Bld) 7.8 % [facility] Neutrophils (Bld) [#/Vol] 4.8 10*3/uL [facility] Neutrophils/100 WBC (Bld) 60.8 % [facility] Platelets (Bld) [#/Vol] 202.0 10*3/uL [facility] RBC (Bld) [#/Vol] 4.47 10*6/uL [facility] WBC LM Ql (Sput) 7.9 [facility] GLOMERULAR FILTRATION RATEon 02-23-2021 GFR/1.73 sq M.predicted MDRD (S/P/Bld) [Vol rate/Area] mL/min/{1.73_m2} [facility] Comment on above: To estimate the GFR [...] [Mass/Vol] 4.3 g/dL 3.5 - 5 g/dL [facility] Alk Phos 136 U/L High 24 - 126 U/L [facility] ALT [Catalytic activity/Vol] 21 U/L 4 - 50 U/L [facility] AST [Catalytic activity/Vol] 55 U/L 3 - 55 U/L [facility] Bilirubin [Mass/Vol] 0.9 mg/dL 0.2 - 1 .6 mg/dL [facility] Bilirubin.conjugated [Mass/Vol] 0.2 mg/dL 0 - 0.5 mg/dL [facility] Interpretation and review of laboratory results Abnormal [facility] Protein [Mass/Vol] 7.5 g/dL 6.3 - 8.2 g/dL [facility] Lipaseon 02-23-2021 Lipase [Catalytic activity/Vol] 34 U/L 23 - 300 U/L [facility] Otheron 02-23-2021 [facility] Urinalysis with reflex cultu reon 02-23-2021 Appearance (U) Clear [facility] Bacteria identified Aer cx Nom (Unsp spec) NOT INDICATED [facility] Bilirubin Ql (U) Negative Negative [facility] Color (CSF) Yellow [facility] Glucose Ql (U) Negative Negative mg/dL [facility] Hemoglobin Ql (U) <1 [facility] Interpretation and review of laboratory results Abnormal [facility] Ketones Ql (U) Negative Negative mg/dL [facility] Leukoesterase Negative Negative [facility] Mucous-Urine Rare /LPF [facility] Nitrite Ql (U) Negative Negative [facility] Occult Bld Negative Negative [facility] pH (U) 5.0 [pH] [facility] Protein (U) [Mass/Vol] Negative Negative mg/d L [facility] Specific gravity (U) [Rel density] 1.[address] [facility] Urine Source Voided [facility] Urobilinogen Qn (U) 2.0 mg/dL <2.0 [facility] WBC (U) [#/Vol] /uL [facility] Influenza A&B Molecularon Influenza A Molecular Negative NEGATIVE Gen [facility] Influenza B Molecular Negative NEGATIVE Gen [facility] XR Knee LT 3 Viewson 020 Joint effusion without evidence of acute fracture [facility] EXAMINATION: THREE XRAY VIEWS OF THE LEFT KNEE 02/19/2020 5:42 pm COMPARISON: None. HISTORY: anterior left knee pain without injury NKI, anterior, distal femur pain since . No hx of sx. FINDINGS: Mild medial joint space narrowing. Small joint effusion. No visible fracture. [facility] Marcin, Rad Results In - 02/19/2020 6:00 PM EDT EXAMINATION: THREE XRAY VIEWS OF THE LEFT KNEE 02/19/2020 5:42 pm COMPARISON: None. HISTORY: anterior left knee pain without injury NKI, anterior, distal femur pain since . No hx of sx. FINDINGS: Mild medial joint space narrowing. Small joint effusion. No visible fracture. IMPRESSION: Joint effusion without evidence of acute fracture [facility] Basic metabolic panel aka em 811-11-2019 Calcium [Mass/Vol] 9.8 mg/dL 8.4 - 10. 4 mg/dL [facility] Chloride [Moles/Vol] 104 mmol/L 96 - 10 9 mmol/L [facility] CO2 [Moles/Vol] 30 mmol/L 22 - 30 mmol/L [facility] Comprehensive metabolic 2000 panel 0.86 mg/dL 0.66 - 1.25 mg/dL [facility] Glucose [Mass/Vol] 94 mg/dL 65 - 100 mg/dL [facility] Potassium [Moles/Vol] 4.4 mmol/L 3.6 - 5.1 mmol/L [facility] Sodium [Moles/Vol] 141 mmol/L 135 - 147 mmol/L [facility] Urea nitrogen [Mass/Vol] 16 mg/dL 8 - 26 mg/dL [facility] CBC with Differentialon 10-[address] [facility] Basophils (Bld) [#/Vol] 0.0 10*3/uL [facility] Basophils/100 WBC (Bld) 0.4 % [facility] Eosinophils (Bld) [#/Vol] 0.1 10*3/uL [facility] Eosinophils/100 WBC (Bld) 1.2 % [facility] Erythrocyte distribution width (RBC) [Ratio] 12.9 % 11.5 - 14.5 % [facility] Hematocrit (Bld) [Volume fraction] 44.2 % 37.7 - 51.1 % [facility] Hemoglobin (Bld) [Mass/Vol] 15.0 g/dL 12.8 - 17.7 g/dL [facility] Lymphocytes (Bld) [#/Vol] 2.1 10*3/uL [facility] Lymphocytes/100 WBC (Bld) 36.8 % [facility] MCH (RBC) [Entitic mass] 31.0 pg 27 - 34.[address] [facility] MCHC (RBC) [Mass/Vol] 33.9 g/dL 31.4 - 36.2 g/dl [facility] MCV (RBC) [Entitic vol] 91.3 fL 80.6 - [address] [facility] Monocytes/100 WBC (Bld) 7.5 % [facility] Neutrophils (Bld) [#/Vol] 3.0 10*3/uL [facility] Neutrophils/100 WBC (Bld) 54.1 % [facility] Platelets (Bld) [#/Vol] 176.0 10*3/uL [facility] RBC (Bld) [#/Vol] 4.84 10*6/uL [facility] WBC LM Ql (Sput) 5.6 [facility] GLOMERULAR FILTRATION RATEon 11-11-2019 GFR/1.73 sq M.predicted MDRD (S/P/Bld) [Vol rate/Area] mL/min/{1.73_m2} [facility] Comment on above: To estimate the GFR [...] 4.9 g/dL 3.5 - 5 g/dL [facility] Alk Phos 138 U/L High 24 - 126 U/L [facility] ALT [Catalytic activity/Vol] 23 U/L 4 - 50 U/L [facility] AST [Catalytic activity/Vol] 40 U/L 3 - 55 U/L [facility] Bilirubin [Mass/Vol] 1.0 mg/dL 0.2 - 1 .6 mg/dL [facility] Bilirubin.conjugated [Mass/Vol] 0.1 mg/dL 0 - 0.5 mg/dL [facility] Interpretation and review of laboratory results Abnormal [facility] Protein [Mass/Vol] 7.8 g/dL 6.3 - 8.2 g/dL [email or web address] [facility] Lipaseon 11-11-2019 Lipase [Catalytic activity/Vol] 26 U/L 23 - 300 U/L [facility] Strep A Molecularon 11-11-20 19 Strep A Molecular Negative NEGATIVE [facility] XR Chest PA and laton 2018 No active cardiopulmonary disease. [place] [facility] Marcin, Rad Results In - 11/11/2019 11:24 [...] are clear. IMPRESSION: No active cardiopulmonary disease. [facility] EXAMINATION: TWO XRAY VIEWS OF THE CHEST 11/11/2019 10:44 am COMPARISON: Chest, single view 10/05/2019 HISTORY: cough for one week. Pt states that he is having dizziness FINDINGS: PA and lateral views of the chest were obtained. Heart, mediastinum, and pulmonary vasculature are within normal limits. Lungs and pleural spaces are clear. [facility] CBC with Differentialon 10-01 Absolute [place] 0.5 [place] Basophils (Bld) [#/Vol] 0.0 10*3/uL [place] Basophils/100 WBC (Bld) 0.3 % [place] Eosinophils (Bld) [#/Vol] 0.1 10*3/uL [facility] Eosinophils/100 WBC (Bld) 1.1 % [facility] Erythrocyte distribution width (RBC) [Ratio] 12.8 % 11.5 - 14.5 % [facility] Hematocrit (Bld) [Volume fraction] 43.8 % 37.7 - 51.1 % [facility] Hemoglobin (Bld) [Mass/Vol] 14.6 g/dL 12.8 - 17.7 g/dL [facility] Lymphocytes (Bld) [#/Vol] 2.5 10*3/uL [facility] Lymphocytes/100 WBC (Bld) 33.2 % [facility] MCH (RBC) [Entitic mass] 30.7 pg 27 - 34.2 pg [facility] MCHC (RBC) [Mass/Vol] 33.3 g/dL 31.4 - 36.2 g/dl [facility] MCV (RBC) [Entitic vol] 92.0 fL 80.6 - [address] [facility] Monocytes/100 WBC (Bld) 6.6 % [facility] Neutrophils (Bld) [#/Vol] 4.5 10*3/uL [place] [facility] Neutrophils/100 WBC (Bld) 58.8 % [facility] Platelets (Bld) [#/Vol] 174.0 10*3/uL [facility] RBC (Bld) [#/Vol] 4.76 10*6/uL [facility] WBC LM Ql (Sput) 7.6 [facility] CT Abdomen / Pelvis Without ANY Contraston [...] No acute abnormality, small umbilicus fat hernia [facility] Marcin, Rad Results In - 10/24/2019 9:09 [...] renal calculus or renal or bowel obstruction. [facility] No renal calculus or renal or bowel obstruction. [facility] Comprehensive metabolic pane l aka [facility] 10-24-2019 Albumin [Mass/Vol] 4.9 g/dL 3.5 - 5 g/dL Gene [facility] Alk Phos 132 U/L High 24 - 126 U/L [facility] ALT [Catalytic activity/Vol] 21 U/L 4 - 50 U/L [facility] AST [Catalytic activity/Vol] 23 U/L 3 - 55 U/L [facility] Bilirubin [Mass/Vol] 0.6 mg/dL 0.2 - 1 .6 mg/dL [facility] Calcium [Mass/Vol] 9.6 mg/dL 8.4 - 10. 4 mg/dL [facility] Chloride [Moles/Vol] 104 mmol/L 96 - 10 9 mmol/L [facility] CO2 [Moles/Vol] 28 mmol/L 22 - 30 mmol/L [facility] Comprehensive metabolic 2000 panel 0.83 mg/dL 0.66 - 1.25 mg/dL [facility] Glucose [Mass/Vol] 109 mg/dL High 65 - 100 mg/dL [facility] Interpretation and review of laboratory results Abnormal [facility] Potassium [Moles/Vol] 4.2 mmol/L 3.6 - 5.1 mmol/L [facility] Protein [Mass/Vol] 7.7 g/dL 6.3 - 8.2 g/dL [facility] Sodium [Moles/Vol] 142 mmol/L 135 - 147 mmol/L [facility] Urea nitrogen [Mass/Vol] 13 mg/dL 8 - 26 mg/dL 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 GLOMERULAR FILTRATION RATEon 10-24-2019 GFR/1.73 sq M.predicted MDRD (S/P/Bld) [Vol rate/Area] mL/min/{1.73_m2} [facility] Comment on above: To estimate the GFR [...] activity/Vol] 31 U/L 23 - 300 U/L [facility] Magnesiumon 10-24-2019 Magnesium [Mass/Vol] 2.0 mg/dL 1.6 - 2 .3 mg/dL [facility] Urinalysis with reflex cultu reon 10-24-2019 Appearance (U) Clear [facility] Bacteria identified Aer cx Nom (Unsp spec) NOT INDICATED [facility] Bilirubin Ql (U) Negative Negative [facility] Color (CSF) Yellow [facility] Glucose Ql (U) Negative Negative mg/dL [facility] Hemoglobin Ql (U) 1 [facility] Ketones Ql (U) Negative Negative mg/dL [facility] Leukoesterase Negative Negative [facility] [facility] Q[facility] (U) Negative Negative [facility] Occult Bld Negative Negative [facility] pH (U) 6.0 [pH] [facility] Protein (U) [Mass/Vol] Negative Negative mg/d L [facility] Specific gravity (U) [Rel density] 1.012 [facility] Urine Source Voided [facility] Urobilinogen Qn (U) Negative <2.0 mg/dL [facility] WBC (U) [#/Vol] /uL [facility] Basic metabolic panel aka Ch em 8on 10-05-2019 Calcium [Mass/Vol] 9.8 mg/dL 8.4 - 10. 4 mg/dL [facility] Chloride [Moles/Vol] 103 mmol/L 96 - 10 9 mmol/L [facility] CO2 [Moles/Vol] 28 mmol/L 22 - 30 mmol/L [facility] Comprehensive metabolic 2000 panel 0.81 mg/dL 0.66 - 1.25 mg/dL [facility] Glucose [Mass/Vol] 89 mg/dL 65 - 100 mg/dL [facility] Potassium [Moles/Vol] 4.2 mmol/L 3.6 - 5.1 mmol/L [facility] Sodium [Moles/Vol] 139 mmol/L 135 - 147 mmol/L [facility] Urea nitrogen [Mass/Vol] 14 mg/dL 8 - 26 mg/dL [facility] CBC with Differentialon Absolute Alexander 0.6 [facility] Basophils (Bld) [#/Vol] 0.0 10*3/uL [facility] Basophils/100 WBC (Bld) 0.2 % [facility] Eosinophils (Bld) [#/Vol] 0.0 10*3/uL Low [facility] Eosinophils/100 WBC (Bld) 0.4 % [facility] Erythrocyte distribution width (RBC) [Ratio] 12.6 % 11.5 - 14.5 % [facility] Hematocrit (Bld) [Volume fraction] 44.5 % 37.7 - 51.1 % [facility] Hemoglobin (Bld) [Mass/Vol] 15.0 g/dL 12.8 - 17.7 g/dL [facility] Interpretation and review of laboratory results Abnormal [facility] Lymphocytes (Bld) [#/Vol] 2.1 10*3/uL [facility] Lymphocytes/100 WBC (Bld) 22.9 % [facility] MCH (RBC) [Entitic mass] 31.0 pg 27 - 34.[address] [facility] MCHC (RBC) [Mass/Vol] 33.7 g/dL 31.4 - 36.2 g/dl [facility] MCV (RBC) [Entitic vol] 91.9 fL 80.6 - [address] [facility] Monocytes/100 WBC (Bld) 6.0 % [facility] Neutrophils (Bld) [#/Vol] 6.5 10*3/uL [facility] Neutrophils/100 WBC (Bld) 70.5 % [facility] Platelets (Bld) [#/Vol] 206.0 10*3/uL [facility] RBC (Bld) [#/Vol] 4.84 10*6/uL [facility] WBC LM Ql (Sput) 9.3 [facility] D-dimeron 10-05-2019 Fibrin D-dimer FEU (PPP) [Mass/Vol] 0.19 [facility] Comment on above: Diagnostic Cutoff (P E/DVT): <=0.50mg/L (FEU) The results of this test should always be interpreted in conjunction with pretest probability assessment as a negative indicator for deep-vein thrombosis (DVT) or pulmonary embolism (PE). GLOMERULAR FILTRATION RATEon 10-05-2019 GFR/1.73 sq M.predicted MDRD (S/P/Bld) [Vol rate/Area] mL/min/{1.73_m2} [facility] Comment on above: To estimate the GFR [...] I.cardiac [Mass/Vol] ng/mL 0 - 0.033 ng/mL [facility] Comment on above: NEGATIVE; No detectable troponin-I. Troponin I.cardiac [Mass/Vol] ng/mL 0 - 0.033 ng/mL [facility] Comment on above: NEGATIVE; No detectable troponin-I. XR Chest 1 Viewon 10-05-2019 EXAMINATION: ONE XRAY VIEW OF THE CHEST 10/05/2019 3:39 pm COMPARISON: 09/08/2019 HISTORY: chest pain Pt. States anterior chest pain x1 day, Hx of smoking x5 months. FINDINGS: Normal cardiac size. Clear lungs. No pneumothorax noted. Normal bony structures. [facility] Marcin, Rad Results In - 10/05/2019 3:47 PM EST EXAMINATION: ONE XRAY VIEW OF THE CHEST 10/05/2019 3:39 pm COMPARISON: 09/08/2019 HISTORY: chest pain Pt. States anterior chest pain x1 day, Hx of smoking x5 months. FINDINGS: Normal cardiac size. Clear lungs. No pneumothorax noted. Normal bony structures. IMPRESSION: No acute finding noted in the chest. [facility] No acute finding noted in the chest. [facility] Troponin Ion 09-08-2019 Troponin I.cardiac [Mass/Vol] ng/mL 0 - 0.033 ng/mL [facility] Comment on above: NEGATIVE; No detectable troponin-I. XR Chest PA and laton 2018 No acute disease. [facility] EXAMINATION: TWO XRAY VIEWS OF THE CHEST 09/08/2019 10:18 pm COMPARISON: None. HISTORY: chest pain and SOB Anxiety attack. Palpitations and right hand numbness. FINDINGS: The lungs are clear. There is no pleural effusion. The cardiomediastinal silhouette is normal. There is no pneumothorax. US PREVENTIVE MEDICINE [facility] Marcin, Rad Results In - 09/08/2019 10:41 PM EDT EXAMINATION: TWO XRAY VIEWS OF THE CHEST 09/08/2019 10:18 pm COMPARISON: None. HISTORY: chest pain and SOB Anxiety attack. Palpitations and right hand numbness. FINDINGS: The lungs are clear. There is no pleural effusion. The cardiomediastinal silhouette is normal. There is no pneumothorax. IMPRESSION: No acute disease. [facility] .GFRon 01-28-2018 eGFR (non-black) 133 ml/min/1.73sqm Normal [facility] ([place]) Comment on above: Result Comment: GFR Population [...] ADIFF, ANEU, GFR, CMP, ACETA, ALC, GEGE ####[facility] [place], [place] [address] eGFR (non-black) mL/min/{1.73_m2} Normal Count includes the [facility] ([place]) Comment on above: Result Comment: GFR Population [...] GFR, CMP, ACETA, ALC, GEGE ####[address] [place], [place] [address] ACETAon 01-28-2018 Acetaminophen mass conc <15.0 Low 15.0-30.0 [facility] ([place]) Comment on above: Performed By: #### C BC, ADIFF, ANEU, GFR, CMP, ACETA, ALC, GEGE ####[address] [place] [address] Gabino 01-28-2018 Ethanol Level <10 Normal [facility] ([place]) Comment on above: Performed By: #### C BC, ADIFF, ANEU, GFR, CMP, ACETA, ALC, GEGE ####[address] [place] [address] CMPon 01-28-2018 Alanine aminotransferase (ALT) 42 U/L High 10-35 [facility] ([place]) Comment on above: Performed By: #### C BC, ADIFF, ANEU, GFR, CMP, ACETA, ALC, GEGE ####[address] [place] [address] Albumin/Globulin Ratio 2.3 {ratio} Normal 1.1-2.5 [facility] ([place]) Comment on above: Performed By: #### C BC, ADIFF, ANEU, GFR, CMP, ACETA, ALC, GEGE ####[address] [place] [address] Alk Phos 146 IU/L High 40-135 [facility] ([place]) Comment on above: Performed By: #### C BC, ADIFF, ANEU, GFR, CMP, ACETA, ALC, GEGE ####[address] [place] [address] Aspartate aminotransferase (AST) 28 U/L Normal 10-40 [facility] ([place]) Comment on above: Performed By: #### C BC, ADIFF, ANEU, GFR, CMP, ACETA, ALC, GEGE ####[address] [place], [place] [address] Bili Total 0.7 mg/dL Normal 0.2-1.0 [facility] ([place]) Comment on above: Performed By: #### C BC, ADIFF, ANEU, GFR, CMP, ACETA, ALC, GEGE ####[address] [place], [place] [address] Globulin 2.2 G/dL Normal [facility] ([place]) Comment on above: Performed By: #### C BC, ADIFF, ANEU, GFR, CMP, ACETA, ALC, GEGE ####[address] [place], [place] [address] Glucose mass conc 124 mg/dL High 70-105 [facility] ([place]) Comment on above: Performed By: #### C BC, ADIFF, ANEU, GFR, CMP, ACETA, ALC, GEGE ####[address] [place], [place] [address] Protein 7.3 G/dL Normal 6.0-8.3 [facility] ([place]) Comment on above: Performed By: #### C BC, ADIFF, ANEU, GFR, CMP, ACETA, ALC, GEGE ####[address] [place], [place] [address] BUN/Creatinine Ratio 16 ratio Normal 7-27 [facility] ([place]) Comment on above: Performed By: #### C BC, ADIFF, ANEU, GFR, CMP, ACETA, ALC, GEGE ####[address] [place], [place] [address] Creatinine 0.9 mg/dL Normal 0.6-1.2 [facility] ([place]) Comment on above: Performed By: #### C BC, ADIFF, ANEU, GFR, CMP, ACETA, ALC, GEGE ####[address] [place], [place] [address] Calcium 9.3 mg/dL Normal 8.4-10.2 [facility] ([place]) Comment on above: Performed By: #### C BC, ADIFF, ANEU, GFR, CMP, ACETA, ALC, GEGE ####[address] [place], [place] [address] CO2 29 mmol/L Normal 22-29 [facility] ([place]) Comment on above: Performed By: #### C BC, ADIFF, ANEU, GFR, CMP, ACETA, ALC, GEGE ####[address] [place], [place] [address] Electrolyte Balance 10.0 mEq/L Normal [facility] ([place]) Comment on above: Performed By: #### C BC, ADIFF, ANEU, GFR, CMP, ACETA, ALC, GEGE ####[address] [place], [place] [address] Albumin 5.1 G/dL High 3.5-5.0 [facility] ([place]) Comment on above: Performed By: #### C BC, ADIFF, ANEU, GFR, CMP, ACETA, ALC, GEGE ####[address] [place], [place] [address] [facility] Note on 01-28-2018 [facility] Note Normal [facility] ([place]) [facility] Note Normal [facility] ([place]) Patient Summary Documentson 01-28-2018 Patient Summary Documents Normal [facility]) SALon 01-28-2018 Salicylate Level <1.0 Low 10.0-25.0 [facility] ([place]) Comment on above: Performed By: #### C BC, ADIFF, ANEU, GFR, CMP, ACETA, ALC, GEGE ####[address] [place], [place] [address] .Auto Diffon 01-27-2018 Basophils Auto #/vol (Bld) 0.10 10 3/mcL Normal 0.00-0.19 [facility] ([place]) Comment on above: Performed By: #### C BC, ADIFF, ANEU, GFR, CMP, ACETA, ALC, GEGE ####[address] [place], [place] [address] Basophils/100 WBC Auto (Bld) 0.7 % Normal 0.0-2.5 [facility]) Comment on above: Performed By: #### C BC, ADIFF, ANEU, GFR, CMP, ACETA, ALC, GEGE ####Jesus [address] [place], [place] [address] Eosinophils 0.00 10 3/mcL Normal 0.00-0.40 [facility] ([place]) Comment on above: Performed By: #### C BC, ADIFF, ANEU, GFR, CMP, ACETA, ALC, GEGE ####Jesus [address] [place], [place] [address] Eosinophils/100 leukocytes 0.4 % Normal 0.0-7.0 [facility] ([place]) Comment on above: Performed By: #### C BC, ADIFF, ANEU, GFR, CMP, ACETA, ALC, GEGE ####[address] [place], [place] [address] Lymphocytes 2.50 10 3/mcL Normal 0.77-3.85 [facility] ([place]) Comment on above: Performed By: #### C BC, ADIFF, ANEU, GFR, CMP, ACETA, ALC, GEGE ####[address] [place], [place] [address] Lymphocytes/100 leukocytes 23.5 % Normal 10.0-50.0 [facility] ([place]) Comment on above: Performed By: #### C BC, ADIFF, ANEU, GFR, CMP, ACETA, ALC, GEGE ####[address] [place], [place] [address] Monocytes 0.80 10 3/mcL Normal 0.15-1.00 [facility] ([place]) Comment on above: Performed By: #### C BC, ADIFF, ANEU, GFR, CMP, ACETA, ALC, GEGE ####[address] [place], [place] [address] Monocytes/100 leukocytes 7.6 % Normal 1.7-13.0 [facility] ([place]) Comment on above: Performed By: #### C BC, ADIFF, ANEU, GFR, CMP, ACETA, ALC, GEGE ####[address] [place], [place] [address] Neutrophils/100 WBC Auto (Bld) 67.8 % Normal 37.0-80.0 [facility] ([place]) Comment on above: Performed By: #### C BC, ADIFF, ANEU, GFR, CMP, ACETA, ALC, GEGE ####[address] [place], [place] [address] .NEUABSon 01-27-2018 Neutrophils 7.20 10 3/mcL High 2.85-6.16 [facility] ([place]) Comment on above: Performed By: #### C BC, ADIFF, ANEU, GFR, CMP, ACETA, ALC, GEGE ####[address] [place], [place] [address] CBCon 01-27-2018 Erythrocyte distribution width Auto Ratio (RBC) 13.4 % Normal 11.5-14.5 [facility] ([place]) Comment on above: Performed By: #### C BC, ADIFF, ANEU, GFR, CMP, ACETA, ALC, GEGE ####[address] [place], [place] [address] Erythrocytes (RBC) 4.83 10 6/mcL Normal 4.04-6.13 [facility] ([place]) Comment on above: Performed By: #### C BC, ADIFF, ANEU, GFR, CMP, ACETA, ALC, GEGE ####[address] [place], [place] [address] Hematocrit (HCT) 44.2 % Normal 42.0-52.0 [facility] ([place]) Comment on above: Performed By: #### C BC, ADIFF, ANEU, GFR, CMP, ACETA, ALC, GEGE ####[address] [place], [place] [address] Hemoglobin mass conc (Bld) 14.9 G/dL Normal 14.0-18.0 [facility] ([place]) Comment on above: Performed By: #### C BC, ADIFF, ANEU, GFR, CMP, ACETA, ALC, EGGE ####[address] [place], [place] [address] MCH 30.9 pg Normal 27.0-31.2 [facility] ([place]) Comment on above: Performed By: #### C BC, ADIFF, ANEU, GFR, CMP, ACETA, ALC, GEGE ####Jesus [address] [place], [place] [address] MCHC mass conc (RBC) 33.7 G/dL Normal 31.8-35.4 [facility] ([place]) Comment on above: Performed By: #### C BC, ADIFF, ANEU, GFR, CMP, ACETA, ALC, GEGE ####Jesus [address] [place], [place] [address] MCV 91.6 fL Normal 80.0-94.0 [facility] ([place]) Comment on above: Performed By: #### C BC, ADIFF, ANEU, GFR, CMP, ACETA, ALC, GEGE ####[address] [place], [place] [address] Platelet mean volume (PMV) 8.9 fL Normal 7.4-10.4 [facility] ([place]) Comment on above: Performed By: #### C BC, ADIFF, ANEU, GFR, CMP, ACETA, ALC, GEGE ####Jesus [address] [place], [place] [address] Platelets 160 10 3/mcL Normal 130-400 [facility] ([place]) Comment on above: Performed By: #### C BC, ADIFF, ANEU, GFR, CMP, ACETA, ALC, GEGE ####Jesus [address] [place], [place] [address] WBC (Leukocytes) 10.70 10 3/mcL Normal 4.60-10.80 [facility] ([place]) Comment on above: Performed By: #### C BC, ADIFF, ANEU, GFR, CMP, ACETA, ALC, GEGE ####[address] [place], [place] [address] CMPon 01-27-2018 Urea nitrogen 14.5 mg/dL Normal 7.0-18.0 [facility] ([place]) Comment on above: Performed By: #### C BC, ADIFF, ANEU, GFR, CMP, ACETA, ALC, GEGE ####Jesus [address] [place], [place] [address] Chloride 104 mmol/L Normal 98-107 [facility] ([place]) Comment on above: Performed By: #### C BC, ADIFF, ANEU, GFR, CMP, ACETA, ALC, GEGE ####Jesus [address] [place], [place] [address] Potassium molar conc 4.1 mmol/L Normal 3.5-5.1 [facility] ([place]) Comment on above: Performed By: #### C BC, ADIFF, ANEU, GFR, CMP, ACETA, ALC, GEGE ####[address] [place], [place] [address] Sodium 143 mmol/L Normal 136-146 [facility] ([place]) Comment on above: Performed By: #### C BC, ADIFF, ANEU, GFR, CMP, ACETA, ALC, GEGE ####Jesus [address] [place], [place] [address] TOXSCon 01-27-2018 QC TOXSC Valid Normal [facility] ([place]) Comment on above: Performed By: #### Mary OXSC ####[address] [place], [place] [address] U Ampheta (AO) Negative [facility] ([place]) Comment on above: Performed By: #### Mary OXSC ####[address] [place], [place] [address] U Alessandra (AO) Negative [facility] ([place]) Comment on above: Performed By: #### T OXSC ####[address] [place], [place] [address] U Chaim (AO) Negative [facility] ([place]) Comment on above: Performed By: #### T OXSC ####[address] [place], [place] [address] U Cannab (AO) Negative [facility] ([place]) Comment on above: Performed By: #### T OXSC ####Jesus [address] [place], [place] [address] U Cocaine (AO) Negative [facility] ([place]) Comment on above: Performed By: #### T OXSC ####[address] [place], [place] [address] U Methadone (AO) Negative Normal [facility] ([place]) Comment on above: Performed By: #### T OXSC ####Jesus [address] [place], [place] [address] U PCP (AO) Negative Normal [facility] ([place]) Comment on above: Performed By: #### T OXSC ####Jesus [address] [place], [place] [address] U TCA (AO) Negative Normal [facility] ([place]) Comment on above: Performed By: #### T OXSC ####Jesus [address] [place], [place] [address] Urine Opiates (AO) Negative Normal [facility] ([place]) Comment on above: Performed By: #### T OXSC ####Jesus [address] [place], [place] [address] Vital Signs Date Time Vital Sign Value Performing Clinician Facility 07-21-2025 16:05-0400 Body temperature 97.8 [degF] No Primary Care Physician [facility] 07-21-2025 16:05-0400 Diastolic blood pressure 98 mm[Hg] No Primary Care Physician [facility] 07-21-2025 16:05-0400 Heart rate 79 /min No Primary Care Physician [facility] 07-21-2025 16:05-0400 Respiratory rate 16 /min No Primary Care Physician [facility] 07-21-2025 16:05-0400 SaO2% (BldA) [Mass fraction] 99 % No Primary Care Physician [facility] 07-21-2025 16:05-0400 Systolic blood pressure 138 mm[Hg] No Primary Care Physician [facility] 07-21-2025 13:11-0400 Body height 175.26 cm No Primary Care Physician [facility] 07-21-2025 13:11-0400 Body mass index (BMI) [Ratio] 28.6 kg/m2 No Primary Care Physician [facility] 07-21-2025 13:11-0400 Body weight 87.9 kg No Primary Care Physician [facility] 05-06-2025 22:31-0400 Body temperature 97 [degF] No Primary Care Physician [facility] 05-06-2025 22:31-0400 Diastolic blood pressure 71 mm[Hg] No Primary Care Physician [facility] 05-06-2025 22:31-0400 Heart rate 72 /min No Primary Care Physician [facility] 05-06-2025 22:31-0400 Respiratory rate 18 /min No Primary Care Physician [facility] 05-06-2025 22:31-0400 SaO2% (BldA) [Mass fraction] 100 % No Primary Care Physician [facility] 05-06-2025 22:31-0400 Systolic blood pressure 123 mm[Hg] No Primary Care Physician [facility] 05-06-2025 21:02-0400 Body height 175.26 cm No Primary Care Physician [facility] 05-06-2025 21:02-0400 Body mass index (BMI) [Ratio] 27.1 kg/m2 No Primary Care Physician [facility] 05-06-2025 21:02-0400 Body weight 83.4 kg No Primary Care Physician [facility] 04-20-2025 13:48-0400 Heart rate 71 /min No Primary Care Physician [facility] 04-20-2025 13:48-0400 Respiratory rate 16 /min No Primary Care Physician [facility] 04-20-2025 13:48-0400 SaO2% (BldA) [Mass fraction] 100 % No Primary Care Physician [facility] 04-20-2025 12:18-0400 Body mass index (BMI) [Ratio] 26.4 kg/m2 No Primary Care Physician [facility] 04-20-2025 12:18-0400 Body temperature 96.3 [degF] No Primary Care Physician [facility] 04-20-2025 12:18-0400 Body weight 81.19 kg No Primary Care Physician [facility] 04-20-2025 12:18-0400 Diastolic blood pressure 72 mm[Hg] No Primary Care Physician [facility] 04-20-2025 12:18-0400 Systolic blood pressure 125 mm[Hg] No Primary Care Physician [facility] 03-10-2025 14:21-0400 Body mass index (BMI) [Ratio] 26.54 kg/m2 Iledfonso Flanagan MD Work Phone: [facility] 03-10-2025 14:21-0400 Body temperature 97.7 [degF] Ildefonso Flanagan MD Work Phone: [facility] 03-10-2025 14:21-0400 Body weight 83.9 kg Ildefonso Flanagan MD Work Phone: [facility] 03-10-2025 14:21-0400 Diastolic blood pressure 74 mm[Hg] Ildefonso Flanagan MD Work Phone: [facility] 03-10-2025 14:21-0400 Heart rate 75 /min Ildefonso Flanagan MD Work Phone: [facility] 03-10-2025 14:21-0400 Respiratory rate 18 /min Ildefonso Flanagan MD Work Phone: [facility] 03-10-2025 14:21-0400 SaO2% (BldA) [Mass fraction] 98 % Ildefonso Flanagan MD Work Phone: [facility] 03-10-2025 14:21-0400 Systolic blood pressure 122 mm[Hg] Ildefonso Flanagan MD Work Phone: [facility] 02-17-2025 09:27-0400 Body mass index (BMI) [Ratio] 26.57 kg/m2 Mellissa Clutter PA-C Work Phone: [facility] 02-17-2025 09:27-0400 Body temperature 97.59 [degF] Mellissa Clutter PA-C Work Phone: [facility] 02-17-2025 09:27-0400 Body weight 84 kg Mellissa Clutter PA-C Work Phone: [facility] 02-17-2025 09:27-0400 Diastolic blood pressure 82 mm[Hg] Mellissa Clutter PA-C Work Phone: [facility] 02-17-2025 09:27-0400 Heart rate 60 /min Mellissa Clutter PA-C Work Phone: [facility] 02-17-2025 09:27-0400 Respiratory rate 20 /min Mellissa Clutter PA-C Work Phone: [facility] 02-17-2025 09:27-0400 SaO2% (BldA) [Mass fraction] 100 % Mellissa Clutter PA-C Work Phone: [facility] 02-17-2025 09:27-0400 Systolic blood pressure 126 mm[Hg] Mellissa Clutter PA-C Work Phone: [facility] 01-04-2025 16:19-0500 Body mass index (BMI) [Ratio] 27.2 kg/m2 Rasheed Leif NEWS ASSIGNMENT EDITOR.INFRASTRUCTURE DESIGN ENGINEER Work Phone: [facility] 01-04-2025 16:19-0500 Body temperature 98.8 [degF] Rasheed Yadav NEWS ASSIGNMENT EDITOR.INFRASTRUCTURE DESIGN ENGINEER Work Phone: [facility] 01-04-2025 16:19-0500 Body weight 86 kg Rasheed Yadav NEWS ASSIGNMENT EDITOR.INFRASTRUCTURE DESIGN ENGINEER Work Phone: [facility] 01-04-2025 16:19-0500 Diastolic blood pressure 78 mm[Hg] Rasheed Yadav NEWS ASSIGNMENT EDITOR.INFRASTRUCTURE DESIGN ENGINEER Work Phone: [facility] 01-04-2025 16:19-0500 Heart rate 74 /min Rasheed Yadav NEWS ASSIGNMENT EDITOR.INFRASTRUCTURE DESIGN ENGINEER Work Phone: [facility] 01-04-2025 16:19-0500 Respiratory rate 16 /min Rasheed Yadav NEWS ASSIGNMENT EDITOR.INFRASTRUCTURE DESIGN ENGINEER Work Phone: [facility] 01-04-2025 16:19-0500 SaO2% (BldA) [Mass fraction] 96 % Rasheed Yadav NEWS ASSIGNMENT EDITOR.INFRASTRUCTURE DESIGN ENGINEER Work Phone: [facility] 01-04-2025 16:19-0500 Systolic blood pressure 122 mm[Hg] Rasheed Yadav NEWS ASSIGNMENT EDITOR.INFRASTRUCTURE DESIGN ENGINEER Work Phone: [facility] 03-18-2024 07:53-0400 Body temperature 97.2 [degF] Misty Powers NEWS ASSIGNMENT EDITOR.INFRASTRUCTURE DESIGN ENGINEER Work Phone: [facility] 03-18-2024 07:53-0400 Body weight 82 kg Misty Powers NEWS ASSIGNMENT EDITOR.INFRASTRUCTURE DESIGN ENGINEER Work Phone: [facility] 03-18-2024 07:53-0400 Diastolic blood pressure 55 mm[Hg] Misty Powers NEWS ASSIGNMENT EDITOR.INFRASTRUCTURE DESIGN ENGINEER Work Phone: [facility] 03-18-2024 07:53-0400 Heart rate 79 /min Misty Powers NEWS ASSIGNMENT EDITOR.INFRASTRUCTURE DESIGN ENGINEER Work Phone: [facility] 03-18-2024 07:53-0400 Respiratory rate 18 /min Misty Powers NEWS ASSIGNMENT EDITOR.INFRASTRUCTURE DESIGN ENGINEER Work Phone: [facility] 03-18-2024 07:53-0400 SaO2% (BldA) [Mass fraction] 100 % Misty Powers NEWS ASSIGNMENT EDITOR.INFRASTRUCTURE DESIGN ENGINEER Work Phone: [facility] 03-18-2024 07:53-0400 Systolic blood pressure 105 mm[Hg] Misty Powers NEWS ASSIGNMENT EDITOR.INFRASTRUCTURE DESIGN ENGINEER Work Phone: [facility] 10-16-2023 19:38-0500 Body height 175.26 cm [facility] 10-16-2023 19:38-0500 Body mass index (BMI) [Ratio] 27.6 kg/m2 [facility] 10-16-2023 19:38-0500 Body temperature 97.7 [degF] [facility] 10-16-2023 19:38-0500 Body weight 84.86 kg [facility] 10-16-2023 19:38-0500 Diastolic blood pressure 87 mm[Hg] [facility] 10-16-2023 19:38-0500 Heart rate 105 /min [facility] 10-16-2023 19:38-0500 Respiratory rate 17 /min [facility] 10-16-2023 19:38-0500 SaO2% (BldA) [Mass fraction] 98 % [facility] 10-16-2023 19:38-0500 Systolic blood pressure 131 mm[Hg] [facility] 06-03-2023 10:52-0400 Body height 175.26 cm [facility] 06-03-2023 10:52-0400 Body mass index (BMI) [Ratio] 28.2 kg/m2 [facility] 06-03-2023 10:52-0400 Body temperature 98.1 [degF] [facility] 06-03-2023 10:52-0400 Body weight 86.63 kg [facility] 06-03-2023 10:52-0400 Diastolic blood pressure 82 mm[Hg] [facility] 06-03-2023 10:52-0400 Heart rate 77 /min [facility] 06-03-2023 10:52-0400 Respiratory rate 14 /min [facility] 06-03-2023 10:52-0400 SaO2% (BldA) [Mass fraction] 99 % [facility] 06-03-2023 10:52-0400 Systolic blood pressure 116 mm[Hg] [facility] 11-15-2022 13:44-0500 Body height 175.3 cm [facility] 11-15-2022 13:43-0500 Body temperature 97.2 [degF] [facility] [employer] [facility] 11-15-2022 13:43-0500 Diastolic blood pressure 74 mm[Hg] [facility] 11-15-2022 13:43-0500 Heart rate 85 /min [facility] [employer] [facility] 11-15-2022 13:43-0500 Respiratory rate 20 /min [facility] 11-15-2022 13:43-0500 SaO2% (BldA) [Mass fraction] 97 % [facility] 11-15-2022 13:43-0500 Systolic blood pressure 138 mm[Hg] [facility] 09-08-2022 11:11-0400 Body height 182.9 cm [facility] 09-08-2022 11:10-0400 Body temperature 96.49 [degF] [facility] 09-08-2022 11:10-0400 Diastolic blood pressure 80 mm[Hg] [facility] 09-08-2022 11:10-0400 Heart rate 71 /min [facility] 09-08-2022 11:10-0400 Respiratory rate 18 /min [facility] 09-08-2022 11:10-0400 SaO2% (BldA) [Mass fraction] 98 % [facility] 09-08-2022 11:10-0400 Systolic blood pressure 137 mm[Hg] [facility] 07-31-2022 12:52-0400 Body height 175.3 cm Jamarcus Jefferson DO Work Phone: [employer] 07-31-2022 12:52-0400 Body mass index (BMI) [Ratio] 32.49 kg/m2 Jamarcus Jefferson DO Work Phone: [employer] 07-31-2022 12:52-0400 Body temperature 98.4 [degF] Jamarcus Jefferson DO Work Phone: [employer] 07-31-2022 12:52-0400 Body weight 99.79 kg Jamarcus Jefferson DO Work Phone: [employer] 07-31-2022 12:52-0400 Diastolic blood pressure 74 mm[Hg] Jamarcus Jefferson DO Work Phone: [employer] 07-31-2022 12:52-0400 Heart rate 85 /min Jamarcus Jefferson DO Work Phone: [employer] 07-31-2022 12:52-0400 Respiratory rate 16 /min Jamarcus Jefferson DO Work Phone: [employer] 07-31-2022 12:52-0400 SaO2% (BldA) [Mass fraction] 98 % Jamarcus Jefferson DO Work Phone: [employer] 07-31-2022 12:52-0400 Systolic blood pressure 130 mm[Hg] Jamarcus Jefferson DO Work Phone: [employer] 05-30-2022 04:43-0400 Body temperature 97.7 [degF] Kaila Lo DO Work Phone: [facility] [employer] [facility] 05-30-2022 04:43-0400 Diastolic blood pressure 64 mm[Hg] Kaila Lo DO Work Phone: [facility] 05-30-2022 04:43-0400 Heart rate 70 /min Kaila Lo DO Work Phone: [employer] 05-30-2022 04:43-0400 Respiratory rate 16 /min Kaila Lo DO Work Phone: [employer] 05-30-2022 04:43-0400 SaO2% (BldA) [Mass fraction] 97 % Kaila Lo DO Work Phone: [employer] 05-30-2022 04:43-0400 Systolic blood pressure 119 mm[Hg] Kaila Lo DO Work Phone: [employer] 05-29-2022 16:02-0400 Body height 175.3 cm Kaila Lo DO Work Phone: [employer] 05-29-2022 16:02-0400 Body mass index (BMI) [Ratio] 32.49 kg/m2 Kaila Lo DO Work Phone: [employer] 05-29-2022 16:02-0400 Body weight 99.79 kg Kaila Lo DO Work Phone: [employer] 05-15-2022 06:15-0400 Body temperature 97.9 [degF] Viktoriya Mendez MD Work Phone: [employer] 05-15-2022 06:15-0400 Diastolic blood pressure 55 mm[Hg] Viktoriya Mendez MD Work Phone: [employer] 05-15-2022 06:15-0400 Heart rate 62 /min Viktoriya Mendez MD Work Phone: [employer] 05-15-2022 06:15-0400 Respiratory rate 16 /min Viktoriya Mendez MD Work Phone: [employer] 05-15-2022 06:15-0400 SaO2% (BldA) [Mass fraction] 98 % Viktoriya Mendez MD Work Phone: [employer] 05-15-2022 06:15-0400 Systolic blood pressure 109 mm[Hg] Viktoriya Mendez MD Work Phone: 5(288)051-968489 [place] [address] 05-14-2022 20:37-0400 Body height 175.3 cm Viktoriya Mendez MD Work Phone: 0(001)[phone] [place] [address] 05-14-2022 20:37-0400 Body mass index (BMI) [Ratio] 32.49 kg/m2 Viktoriya Mendez MD Work Phone: 0(924)332-559699 [place] [address] [employer] [facility] 05-14-2022 20:37-0400 Body weight 99.79 kg Viktoriya Mendez MD Work Phone: 0(903)777-208483 [place] [address] 05-14-2022 16:36-0400 Body height 175.3 cm Phoenix Armstrong MD Work Phone: 9(202)924-456499 [place] [address] [employer] [facility] 05-14-2022 16:36-0400 Body mass index (BMI) [Ratio] 32.49 kg/m2 Phoenix Armstrong MD Work Phone: 9(894)956-101399 [place] [address] [employer] [facility] 05-14-2022 16:36-0400 Body temperature 98.71 [degF] Phoenix Armstrong MD Work Phone: 4(694)814-961399 [place] [address] [employer] [facility] 05-14-2022 16:36-0400 Body weight 99.79 kg Phoenix Armstrong MD Work Phone: 0(348)938-853199 [place] [address] [employer] [facility] 05-14-2022 16:36-0400 Diastolic blood pressure 74 mm[Hg] Phoenix Armstrong MD Work Phone: 8(244)918-271099 [place] [address] [employer] [facility] 05-14-2022 16:36-0400 Heart rate 75 /min Phoenix Armstrong MD Work Phone: 2(337)900-551283 [place] [address] 05-14-2022 16:36-0400 Respiratory rate 20 /min Pohenix Armstrong MD Work Phone: [facility] 05-14-2022 16:36-0400 SaO2% (BldA) [Mass fraction] 99 % Phoenix Armstrong MD Work Phone: 5(201)685-551599 [place] [address] [employer] [facility] 05-14-2022 16:36-0400 Systolic blood pressure 123 mm[Hg] Phoenix Armstrong MD Work Phone: [facility] 08-25-2021 06:24-0400 Body temperature 98.01 [degF] Juan Diego Corral MD Work Phone: [facility] 08-25-2021 06:24-0400 Diastolic blood pressure 67 mm[Hg] Juan Diego Corral MD Work Phone: [facility] 08-25-2021 06:24-0400 Heart rate 84 /min Juan Diego Corral MD Work Phone: [facility] 08-25-2021 06:24-0400 Respiratory rate 16 /min Juan Diego Corral MD Work Phone: [facility] 08-25-2021 06:24-0400 SaO2% (BldA) [Mass fraction] 97 % Juan Diego Corral MD Work Phone: [facility] 08-25-2021 06:24-0400 Systolic blood pressure 125 mm[Hg] Juan Diego Corral MD Work Phone: 9([phone])207-712692 [address] 08-22-2021 21:50-0400 Body height 175.3 cm Juan Diego Corral MD Work Phone: [facility] 08-22-2021 21:50-0400 Body mass index (BMI) [Ratio] 33.97 kg/m2 Juan Diego Corral MD Work Phone: [facility] 08-22-2021 21:50-0400 Body weight 104.33 kg Juan Diego Corral MD Work Phone: [facility] 05-11-2021 07:41-0400 Body temperature 97.59 [degF] Juan Diego Corral MD Work Phone: [facility] 05-11-2021 07:41-0400 Diastolic blood pressure 56 mm[Hg] Juan Diego Corral MD Work Phone: [facility] 05-11-2021 07:41-0400 Heart rate 70 /min Juan Diego Corral MD Work Phone: [facility] 05-11-2021 07:41-0400 Respiratory rate 18 /min Juan Diego Corral MD Work Phone: [facility] 05-11-2021 07:41-0400 SaO2% (BldA) [Mass fraction] 98 % Juan Diego Corral MD Work Phone: [facility] 05-11-2021 07:41-0400 Systolic blood pressure 116 mm[Hg] Juan Diego Corral MD Work Phone: [facility] 05-08-2021 22:35-0400 Body height 172.7 cm Juan Diego Corral MD Work Phone: [facility] 05-08-2021 22:35-0400 Body mass index (BMI) [Ratio] 36.49 kg/m2 Juan Diego Corral MD Work Phone: [facility] 05-08-2021 22:35-0400 Body weight 108.86 kg Juan Diego Corral MD Work Phone: [facility] 02-23-2021 18:16-0400 BP Diastolic 71 mm[Hg[facility] 02-23-2021 18:16-0400 BP Systolic 151 mm[Hg] [facility]Note 2[facility] 02-23-2021 18:16-0400 Pulse (Heart Rate) 81 /min [facility] 02-23-2021 18:16-0400 Pulse Oximetry 99 % [facility][Note 2] [facility] 02-23-2021 18:16-0400 Respiratory Rate 18 /min [facility] 02-23-2021 17:08-0400 BMI (Body Mass Index) 33 kg/m2 [facility] 02-23-2021 17:08-0400 Body Temperature 97.3 [degF] [facility] 02-23-2021 17:08-0400 Body weight 104.33 kg [facility]Note 2] [facility] 02-23-2021 17:08-0400 Height 177.8 cm [facility]Note 2] [facility] 02-27-2020 20:55-0400 BP Diastolic 80 mm[Hg] Lázaro Murray [facility] 02-27-2020 20:55-0400 BP Systolic 129 mm[Hg] Lázaro [facility]una [facility] 02-27-2020 20:55-0400 Pulse (Heart Rate) 84 /min [facility] 02-27-2020 20:55-0400 Pulse Oximetry 98 % Lázaro Acuna [facility] 02-27-2020 20:55-0400 Respiratory Rate 20 /min [facility] 02-27-2020 20:05-0400 BMI (Body Mass Index) 29.53 kg/m2 L[facility] 02-27-2020 20:05-0400 Body weight 90.72 kg Lázaro Acuna [facility] 02-27-2020 19:57-0400 Body Temperature 98.8 [degF] [facility] 02-27-2020 19:57-0400 Height 175.3 cm Lázaro Acuna [facility] 02-19-2020 17:09-0400 BMI (Body Mass Index) 35.44 kg/m2 Chelsiesammie Marquez [facility] 02-19-2020 17:09-0400 Body Temperature 97.5 [degF] Chelsie [facility] 02-19-2020 17:09-0400 Body weight 108.86 kg Chelsiesammie Acuna [facility] 02-19-2020 17:09-0400 BP Diastolic 71 mm[Hg] Chelsiesammie [facility] 02-19-2020 17:09-0400 BP Systolic 161 mm[Hg] Chelsie [facility] 02-19-2020 17:09-0400 Height 175.3 cm Chelsiesammie Acuna [facility] 02-19-2020 17:09-0400 Pulse (Heart Rate) 87 /min [facility] 02-19-2020 17:09-0400 Pulse Oximetry 97 % Chelsie Acuna [facility] 02-19-2020 17:09-0400 Respiratory Rate 20 /min Chelsie Acuna [facility] 11-11-2019 12:03-0500 BP Diastolic 72 mm[Hg] Chelsiesammie Acuna [facility] 11-11-2019 12:03-0500 BP Systolic 127 mm[Hg] Chelsiesammie Acuna [facility] 11-11-2019 12:03-0500 Pulse (Heart Rate) 65 /min Chelsiesammie [facility] 11-11-2019 12:03-0500 Pulse Oximetry 100 % Chelsie Acuna [facility] re System 11-11-2019 12:03-0500 Respiratory Rate 23 /min Chelsie Acuna [facility] are System 11-11-2019 09:39-0500 BMI (Body Mass Index) 34.8 kg/m2 Chelsiesammie Marquez [facility] 11-11-2019 09:39-0500 Body Temperature 98.4 [degF] Chelsie Acuna [facility] are System 11-11-2019 09:39-0500 Body weight 100.79 kg Chelsie Acuna [facility] re System 11-11-2019 09:39-0500 Height 170.2 cm Chelsiesammie Acuna [facility] re System 10-24-2019 21:18-0500 Body Temperature 98.8 [degF] Adalberto Wagner [facility] are System 10-24-2019 21:18-0500 BP Diastolic 64 mm[Hg] [facility] 10-24-2019 21:18-0500 BP Systolic 116 mm[Hg] [facility] 10-24-2019 21:18-0500 Pulse (Heart Rate) 71 /min [facility] 10-24-2019 21:18-0500 Pulse Oximetry 99 % [facility] 10-24-2019 21:18-0500 Respiratory Rate 16 /min Adalberto Wagner [facility] are System 10-24-2019 20:04-0500 BMI (Body Mass Index) 31.01 kg/m2 [facility]note 3[facility] System 10-24-2019 20:04-0500 Body weight 95.25 kg [facility] 10-24-2019 20:04-0500 Height 175.3 cm [facility] 10-05-2019 21:15-0500 Body Temperature 98.6 [degF] Viktoriya Mendez [facility] are System 10-05-2019 21:15-0500 BP Diastolic 64 mm[Hg] Viktoriya Mendez [facility] 10-05-2019 21:15-0500 BP Systolic 123 mm[Hg] Viktoriya Acuna [facility] 10-05-2019 21:15-0500 Pulse (Heart Rate) 83 /min Viktoriya [facility] System 10-05-2019 21:15-0500 Pulse Oximetry 96 % Viktoriya PinedaWa re System 10-05-2019 21:15-0500 Respiratory Rate 20 /min Viktoriya Acuna [facility] are System 10-05-2019 19:53-0500 BMI (Body Mass Index) 31.01 kg/m2 Viktoriya Acuna [facility] System 10-05-2019 19:53-0500 Body weight 95.25 kg Viktoriya Acuna [facility] re System 10-05-2019 19:53-0500 Height 175.3 cm Viktoriya Acuna [facility] re System 10-05-2019 18:02-0500 BP Diastolic 63 mm[Hg] Viktoriya Acuna [facility] 10-05-2019 18:02-0500 BP Systolic 133 mm[Hg] Viktoriya Acuna [facility] 10-05-2019 18:02-0500 Pulse (Heart Rate) 81 /min Viktoriya Mosley [facility] 10-05-2019 18:02-0500 Pulse Oximetry 98 % Viktoriya Acuna [facility] re System 10-05-2019 18:02-0500 Respiratory Rate 17 /min Viktoriya Acuna [facility] are System 10-05-2019 15:00-0500 Body Temperature 99.39 [degF] Viktoriya Acuna [facility] are System 09-08-2019 23:35-0400 Body Temperature 98.4 [degF] Lan Diaz [facility] are System 09-08-2019 23:35-0400 Pulse (Heart Rate) 81 /min [facility] 09-08-2019 23:35-0400 Pulse Oximetry 97 % Lan Diaz [facility] re System 09-08-2019 23:35-0400 Respiratory Rate 22 /min [facility] 09-08-2019 23:32-0400 BP Diastolic 69 mm[Hg] [facility] 09-08-2019 23:32-0400 BP Systolic 125 mm[Hg] [facility] 09-08-2019 21:35-0400 BMI (Body Mass Index) 29.29 kg/m2 [facility] 09-08-2019 21:35-0400 Body weight 95.25 kg [facility] 09-08-2019 21:35-0400 Height 180.3 cm Lan [facility] Encounters Encounter Date Encounter Type Care Provider Facility Start: 09-19-2025 End: 09-19-2025 [facility] Start: 08-31-2025 End: 08-31-2025 ambulatory CANDIDO WILLARD [facility] Start: 07-21-2025 End: 07-21-2025 Emergency department patient visit No Primary Care Physician -Emergency Department Work Phone: Start: 05-06-2025 End: 05-06-2025 Emergency department patient visit No Primary Care Physician -Emergency Department Work Phone: Start: 04-20-2025 End: 04-20-2025 Emergency department patient visit Dr. Dolores Mack DO -Emergency Department Work Phone: Start: 03-10-2025 End: 03-10-2025 Emergency department patient visit No Primary Care Physician -Emergency Department Work Phone: Start: 03-10-2025 End: 03-10-2025 ambulatory [facility] Start: 03-10-2025 End: 03-10-2025 Office outpatient visit 15 minutes Ildefonso Flanagan MD Work Phone: [facility] Comment on above: Bright red blood per rectum (Primary Dx); Right lateral abdominal pain Start: 02-17-2025 End: 02-17-2025 Patient encounter procedure Mellissa Joyce PA-C Work Phone: [facility] Comment on above: RUQ abdominal pain ( Primary Dx) Start: 02-17-2025 End: 02-17-2025 [facility] Start: 01-04-2025 End: 01-04-2025 ambulatory [facility] Start: 01-04-2025 End: 01-04-2025 Patient encounter procedure Rasheed Yadav APRN.CNP Work Phone: [facility] Comment on above: Flu-like symptoms (P rimary Dx); Exposure to the flu Start: 09-11-2024 End: 09-11-2024 Emergency department patient visit No Primary Care Physician Facility[facility] Start: 03-18-2024 End: 03-18-2024 Subsequent hospital visit by physician Xr [facility] Work Phone: Radiology Comment on above: Foot pain, left [[id number]] Start: 03-18-2024 End: 03-18-2024 Patient encounter procedure Misty Powers NEWS ASSIGNMENT EDITOR.INFRASTRUCTURE DESIGN ENGINEER Work Phone: [facility] Comment on above: Foot pain, left (Krista sidra Dx) Start: 10-16-2023 End: 10-16-2023 Emergency department [facility] Work Phone: Start: 06-03-2023 End: 06-03-2023 Emergency department patient visit [facility] Work Phone: Start: 12-18-2022 End: 12-18-2022 Emergency department patient visit PHYSICIAN [facility] Start: 11-15-2022 End: 11-15-2022 Emergency department patient visit [facility] Start: 11-15-2022 End: 11-15-2022 Emergency department patient visit [facility] Start: 11-13-2022 End: 11-13-2022 Emergency department patient visit PHYSICIAN [facility] Start: 09-08-2022 End: 09-08-2022 Emergency department patient visit [facility] Start: 09-08-2022 End: 09-08-2022 Emergency department patient visit [facility] Start: 08-17-2022 End: 08-17-2022 Emergency department patient visit DENITA MARLEY [facility] Start: 08-12-2022 End: 08-12-2022 Emergency department patient visit ODETTE BRIONES [facility] Start: 08-11-2022 End: 08-11-2022 Emergency department patient visit PHYSICIAN [facility] Start: 07-31-2022 End: 07-31-2022 Emergency department patient visit JAMARCUS JEFFERSON [facility] Start: 07-31-2022 End: 07-31-2022 Emergency department patient visit Jamarcus Jefferson DO Work Phone: [facility] Comment on above: Right hip pain (Prim jose Dx); Contusion of right hip, initial encounter Start: 07-18-2022 Telephone encounter Bernadine zelaya [facility] Start: 07-17-2022 End: 07-18-2022 Emergency department patient visit PHYSICIAN [facility] Start: 07-09-2022 End: 07-13-2022 ambulatory [facility] Start: 07-09-2022 End: 07-09-2022 Emergency department patient visit PHYSICIAN [facility] Start: 06-30-2022 End: 07-01-2022 Emergency department patient visit PHYSICIAN [facility] Start: 05-29-2022 End: 05-30-2022 ambulatory NONE PCP [facility] Start: 05-29-2022 End: 05-30-2022 Emergency department patient visit Kaila oL DO Work Phone: [facility] [employer] Comment on above: Suicidal ideation (P rimary Dx) Start: 05-14-2022 End: 05-15-2022 ambulatory NONE PCP [facility] Start: 05-14-2022 End: 05-15-2022 Emergency department patient visit Viktoriya Mendez MD Work Phone: [facility] [employer] Comment on above: Suicidal ideation (P rimary Dx) Start: 05-14-2022 End: 05-14-2022 Emergency department patient visit PHOENIX ARMSTRONG [facility] Start: 05-14-2022 End: 05-14-2022 Emergency department patient visit Phoenix Armstrong MD Work Phone: [facility] Comment on above: Mood disorder (HCC) (Primary Dx) Start: 05-06-2022 End: 05-07-2022 Emergency department patient visit PHYSICIAN [facility] Start: 12-12-2021 End: 12-12-2021 ambulatory NONE PCP US PREVENTIVE MEDICINE [facility] Start: 12-12-2021 End: 12-13-2021 ambulatory NONE PCP US PREVENTIVE MEDICINE [facility] Start: 12-12-2021 End: 12-12-2021 Subsequent hospital visit by physician Shayna KNIGHT Work Phone: [facility] Comment on above: URI with cough and c ongestion; Non-intractable vomiting with nausea, unspecified vomiting type; Diarrhea, unspecified type; At increased risk of exposure to COVID-19 virus Start: 08-22-2021 End: 08-25-2021 Admission to establishment Juan Diego Corral MD Work Phone: [facility] Start: 08-22-2021 End: 08-25-2021 Evaluation and management of inpatient Juan Diego Corral MD Work Phone: [facility] Comment on above: Medical clearance fo r psychiatric admission (Primary Dx); Suicidal ideation; Major depressive disorder, recurrent severe without psychotic features (HCC) Start: 07-16-2021 End: 07-16-2021 Subsequent hospital visit by physician Ayde KNIGHT Work Phone: [facility] Comment on above: Cough Start: 05-08-2021 End: 05-11-2021 Admission to [facility] Juan Diego Corral MD Work Phone: [facility] Start: 05-08-2021 End: 05-11-2021 Evaluation and management of inpatient Juan Diego Corral MD Work Phone: [facility] Comment on above: Suicidal ideation (P rimary Dx); Medical clearance for psychiatric admission Start: 05-07-2021 End: 05-07-2021 Subsequent hospital visit by physician Concepcion Fortune APRN DRIVER TRAINER Work Phone: [facility] Comment on above: Viral illness; Generalized abdominal pain; Non-intractable vomiting with nausea, unspecified vomiting type; Diarrhea, unspecified type Start: 03-04-2021 End: 03-04-2021 Subsequent hospital visit by physician Phlil Ozuna Work Phone: [facility] Comment on above: Rib pain on left woodrow e Start: 02-23-2021 End: 02-23-2021 Emergency department patient visit Candido Vance Work Phone: [facility] Emergency [facility] Comment on above: Flank pain (Primary Dx) Start: 05-21-2020 End: 05-21-2020 Subsequent hospital visit by physician Phill Ozuna Work Phone: [facility] Comment on above: Acute right ankle pa in Start: 04-13-2020 End: 04-13-2020 Subsequent hospital visit by physician Etta Rico Work Phone: [facility] Comment on above: Acute pain of left k nee Start: 03-23-2020 End: 03-23-2020 Subsequent hospital visit by physician Etta Rico Work Phone: [facility] Comment on above: Left leg pain Start: 02-27-2020 End: 02-27-2020 Emergency department patient visit Lázaro Murray Work Phone: [facility] Comment on above: Acute swimmer's ear of left side (Primary Dx); Impacted cerumen of right ear; Left ear pain Start: 02-19-2020 End: 02-19-2020 Emergency department patient visit Chelsie Marquez Work Phone: [facility] Comment on above: Effusion of left kne e (Primary Dx); Nasal congestion; Encounter to obtain excuse from work Start: 11-17-2019 End: 11-17-2019 Letter encounter Grant L Mitchell Work Phone: [facility] Start: 11-11-2019 End: 11-11-2019 Emergency department patient visit Chelsie Marquez Work Phone: [facility] Comment on above: Gastroenteritis (Krista sidra Dx); Bronchitis Start: 10-24-2019 End: 10-24-2019 Emergency department patient visit Adalberto Wagner Work Phone: [facility] Emergency Dept Comment on above: Right flank pain (Pr imary Dx) Start: 10-05-2019 End: 10-05-2019 Emergency department patient visit Viktoriya Mendez Work Phone: [facility] Emergency Dept Comment on above: Musculoskeletal ches t pain (Primary Dx) Start: 10-05-2019 End: 10-05-2019 Emergency department patient visit Viktoriya Mendez Work Phone: [facility] Emergency Dept Comment on above: Chest pain, unspecif ied type (Primary Dx); Nausea; Lightheadedness Start: 09-08-2019 End: 09-08-2019 Emergency department patient visit Lan Diaz Work Phone: [facility] Emergency Dept Comment on above: Anxiety attack (Prim jose Dx) Start: 01-27-2018 End: 01-28-2018 Emergency department patient visit ALEJANDRO DOTY Facility:B Start: 01-21-2018 Emergency department patient visit [facility] Procedures Date Procedure Procedure Detail Performing Clinician Start: 07-21-2025 Plain x-ray of hand No Primary Care Physician Start: 05-06-2025 X-ray of ankle, thre e or more views No Primary Care Physician Start: 03-18-2024 Radex foot complete minimum 3 views Misty Powers NEWS ASSIGNMENT EDITOR.INFRASTRUCTURE DESIGN ENGINEER Work Phone: Start: 06-03-2023 Plain chest X-ray Start: 11-15-2022 Iaadiadoo streptococ cus group a Gabriella Powell Serjio ALEXANDER-C Work Phone: Start: 11-15-2022 Quantitative PCR analysis Gabriella Lechugavaughn ALEXANDER-C Work Phone: Start: 09-08-2022 Iadna nos amplified probe tq each organism Gabriella Powell Serjio PA-C Work Phone: Start: 07-31-2022 Radex hip unilateral with pelvis 2-3 views Nilesh Winston NEWS ASSIGNMENT EDITOR - DRIVER TRAINER Work Phone: Start: 05-29-2022 CBC W Auto Different ial panel - Blood Kaila Lo DO Work Phone: Start: 05-29-2022 Comprehensive metabo lic panel Kaila Lo DO Work Phone: Start: 05-29-2022 GLOMERULAR FILTRATION RATE Kaila Lo DO Work Phone: Start: 05-29-2022 End: 05-29-2022 Lipid panel Kaila Lo DO Work Phone: Start: 06-15-2022 CBC W Auto Different ial panel - [...] Different ial panel - Blood Concepcion Fortune APRN DRIVER TRAINER Work Phone: Start: 05-07-2021 Comprehensive metabo lic panel Concepcion Fortune APRN DRIVER TRAINER Work Phone: Start: 05-07-2021 GLOMERULAR FILTRATION RATE Concepcion Fortune APRN DRIVER TRAINER Work Phone: Start: 05-07-2021 Adult depression scr eening assessment Concepcion Fortune APRN DRIVER TRAINER Work Phone: Start: 03-04-2021 Radex ribs uni w/posteroant ch minimum 3 views Phill Ozuna Work Phone: Start: 03-04-2021 Adult depression scr eening assessment Phill Ozuna Start: 02-23-2021 Assay of lipase Marry Martinez [employer] Work Phone: Start: 02-23-2021 Basic metabolic pane l calcium total Marry Martinez [employer] Work Phone: Start: 02-23-2021 CBC WITH DIFFERENTIAL J shakir Martinez [employer] Work Phone: Start: 02-23-2021 GLOMERULAR FILTRATION RATE Marry Martinez [employer] Work Phone: Start: 02-23-2021 Hepatic function panel Marry Martinez [employer] Work Phone: Start: 02-23-2021 Urnls dip stick/tabl et reagent auto microscopy Marry Martinez [employer] Phone: Start: 02-14-2021 Adult depression scr eening assessment Candido Vance Start: 05-21-2020 Adult depression scr eening assessment Phill Ozuna Start: 03-23-2020 Adult depression scr eening assessment Etta Rico Start: 02-19-2020 Rad[facility] Start: 02-19-2020 Infectious agent dna /rna influenza 1st 2 types [facility] Work Phone: Start: 11-11-2019 XR Chest PA and late ral upright Chelsie Hernandezig Work Phone: Start: 11-11-2019 Iadna streptococcus group a amplified probe tq Chelsie Jimmy Work Phone: Start: 11-11-2019 Assay of lipase Chelsie calle Work Phone: Start: 11-11-2019 Basic metabolic pane [...] Work Phone: Start: 10-25-2019 Standard ECG Adalberto reynoso Work Phone: Start: 10-06-2019 Assay of troponin quantitative Viktoriya Andrea Work Phone: Start: 10-06-2019 Fibrin dgradj produc ts d-dimer quantitative Viktoriya Andrea Work Phone: Start: 10-05-2019 XR Chest Single view El gabriel Andrea Work Phone: Start: 10-05-2019 Assay of troponin quantitative Viktoriya Andrea Work Phone: Start: 10-05-2019 Basic metabolic pane l calcium total Viktoriya Andrea Work Phone: Start: 10-05-2019 CBC WITH DIFFERENTIAL E addi Mendez Work Phone: Start: 10-05-2019 GLOMERULAR FILTRATION RATE Viktoriya Mendez Work Phone: Start: 10-05-2019 Standard ECG Viktoriya jovel Work Phone: Start: 09-09-2019 Assay of troponin quantitative Lan Diaz Work Phone: Start: 09-09-2019 XR Chest PA and late ral upright Lan Diaz Work Phone: Plan of Treatment Date Care Activity Detail Author Start: 10-16-2033 Urine microalbumin profile DTaP,Tdap,Td Vaccine (8 - Td or Tdap) [facility] Start: 07-21-2025 [facility] Start: 04-20-2025 [facility] Start: 07-31-2024 Covid-19 Vaccine ( season) Covid-19 Vaccine ( season) [facility] Start: 07-31-2024 Covid-19 Vaccine ( season) Covid-19 Vaccine ( season) [facility] Start: 07-31-2024 Influenza vaccination [facility] Start: 10-16-2023 [facility] Start: 07-31-2023 Covid-19 Vaccine ( season) Covid-19 Vaccine ( season) [facility] Start: 12-12-2022 Depression screening using PHQ-9 (Patient Health Questionnaire 9) score DEPRESSION SCREENING [facility] Start: 07-31-2022 Influenza vaccination [facility] Start: 07-31-[address]atio n given [facility] Start: 07-21-2022 End: 07-21-2022 Patient encounter procedure 07/21/2022 Office Visit Primary Care Shelli Diaz MD [address] [place] [address] [facility] Start: 07-16-2022 Depression screening using PHQ-9 (Patient Health Questionnaire 9) score DEPRESSION SCREENING [facility] Start: 06-18-2022 Depression screening using PHQ-9 (Patient Health Questionnaire 9) score DEPRESSION SCREENING [facility] Start: 05-07-2022 Depression screening using PHQ-9 (Patient Health Questionnaire 9) score DEPRESSION SCREENING [facility] Start: 02-27-2022 Adult depression screening assessment DEPRESSION SCREENING [facility] Start: 02-14-2022 Adult depression screening assessment DEPRESSION SCREENING [facility] Start: 09-26-2021 COVID-19 VACCINE (3 - Booster for Moderna series) COVID-19 VACCINE (3 - Booster for Moderna series) [facility] Start: 09-04-2021 End: 09-04-2021 Telemedicine consultation with patient 09/04/2021 Telemedicine [facility] [place] [address] [facility] Start: 08-29-2021 End: 08-29-2021 Telemedicine consultation with patient 08/29/2021 Telemedicine [facility] Jackie Cavazos, AMRY [address] [place] [address] [facility] Start: 08-27-2021 COVID-19 VACCINE (3 - Booster for Moderna series) COVID-19 VACCINE (3 - Booster for Moderna series) [facility] Start: 07-31-2021 Influenza vaccinatio n given [facility] Start: 05-08-2021 End: 05-08-2021 Telemedicine consultation with patient 05/08/2021 Telemedicine [facility] [place] [address] [facility] Start: 05-03-2021 Adult depression screening assessment DEPRESSION SCREENING [facility] Start: 03-27-2021 End: 03-27-2021 Immunization 03/27/2021 Immunization Family Medicine [facility] Start: 03-23-2021 Adult depression screening assessment DEPRESSION SCREENING [facility] Start: 02-28-2021 End: 02-28-2021 Office Visit 02/28/2021 Office Visit Podiatry Aditya Abarca, YAA[address]OV [address] [place] [address] [phone] [facility] Start: 07-31-2020 [address]inatio [address] given [facility] Start: 2020 Annual PCP Team Supervisor Plastering kyara Disease Visit Annual PCP Team Chronic Disease Visit [facility] Start: 02-28-2020 Administration of diphtheria + tetanus + acellular pertussis vaccine DTAP/TDAP/TD VACCINE (7 - Td or Tdap) [facility] Start: 02-28-2020 Diphtheria + pertuss is + tetanus vaccine (product) [facility] Start: 02-28-2020 DTaP/Tdap/Td vaccine (7 - Td or Tdap) DTaP/Tdap/Td vaccine (7 - Td or Tdap) [facility] Start: 02-28-2020 Tetanus vaccination [facility] Start: 12-13-2019 End: 12-13-2019 Office Visit 12/13/2019 Office Visit Family Medicine Ngozi Pride APRN INFRASTRUCTURE DESIGN ENGINEER [address] [place] [address] [phone] [facility] Start: 10-10-2019 End: 10-10-2019 Office Visit 10/10/2019 Office Visit Family Medicine Suma Bran APRN INFRASTRUCTURE DESIGN ENGINEER [address] [place] [address] [phone] [facility] Start: 07-31-2019 Influenza vaccinatio n given INFLUENZA VACCINE (#1) [facility] Start: 2019 Tetanus, diphtheria and acellular pertussis vaccination TDAP/TD ADULT [facility] Start: 2016 Annual PCP Team Supervisor Plastering kyara Disease Visit Annual PCP Team Chronic Disease Visit [facility] Start: 2016 ANNUAL WELLNESS VISIT ANNUAL WELLNES S VISIT [facility] Start: 2016 Anxiety Screening Anxiety Screening [facility] Start: 2016 HIV screening HIV Screening [facility] Start: 2016 WELLNESS ANNUAL VISIT WELLNESS ANNUA L VISIT [facility] Start: 2013 HIV screening HIV SCREENING [facility] Start: 2013 Vaccination for mikayla n papillomavirus HPV VACCINES (GARDASIL) (1 - Male 3-dose series) [facility] Start: 2012 Peds To Adult Transi tion Annual Assessment Peds To Adult Transition Annual Assessment [facility] Start: 2010 Adult depression screening assessment [facility] Start: 2010 Depression Monitoring Depression [facility] Start: 2010 Peds To Adult Transi tion Initial Discussion Peds To Adult Transition Initial Discussion [facility] Start: 2009 Diphtheria + pertuss is + tetanus vaccine (product) DTAP/TDAP/TD VACCINE (1 - Tdap) [facility] Start: 2009 Vaccination for mikayla n papillomavirus HPV VACCINES (GARDASIL) (1 - Male 2-dose series) [facility] Start: 2004 Pneumococcal Vaccine : Ped or At-Risk (1 - PCV) Pneumococcal Vaccine: Ped or At-Risk (1 - PCV) [facility] Start: 2001 History and physical examination, annual for health maintenance Wellness Visit [facility] Start: 01-12-1999 COVID-19 VACCINE (#1) COVID-19 VACCI NE (#1) [facility] Start: 1998 Hepatitis B vaccination HEP B VACCINE (1 of 3 - 3-dose series) [facility] Start: 1998 Hepatitis C screening HEPATITI S C VIRUS SCREENING [facility] End: 02-23-2021 CT Abdomen and Pelvis W contrast IV CT Abdomen / Pelvis With IV Contrast ONLY Imaging [facility] One time imaging One time imaging for 1 Occurrences starting 02/23/2021 until 02/23/2021 [facility] Comment on above: One time imaging One time imaging for 1 Occurrences starting 02/23/2021 until 02/23/2021 End: 05-15-2022 Lipid panel Lipid panel Lab Routine One Time for 1 Occurrences starting 05/15/2022 until 05/15/2022 [facility] Comment on above: One Time for 1 Occur rences starting 05/15/2022 until 05/15/2022 Patient Education [facility] Work Phone: Patient referral [facility] Work Phone: End: 05-14-2022 Pulse oximetry, spot Room Air Pulse oximetry, spot Room Air Respiratory Care Routine One Time for 1 Occurrences starting 05/14/2022 until 05/14/2022 [facility] [employer] Work Phone: Comment on above: One Time for 1 Occur rences starting 05/14/2022 until 05/14/2022 End: 07-16-2021 SARS-COV-2, qPCR ([facility]) SARS-COV-2, qPCR ([facility]) Microbiology Routine Cough 1 Occurrences starting 07/16/2021 until 07/16/2021 [facility] Comment on above: 1 Occurrences starti ng 07/16/2021 until 07/16/2021 SARS-COV-2, qPCR ([facility]) SARS-COV-2, qPCR ([facility]) Microbiology Routine Cough 07/16/2021 12:18 PM EDT [facility] End: 12-13-2021 SARS-COV-2, qPCR ([facility]) [facility] [employer] Work Phone: Comment on above: 1 Occurrences starti ng 12/13/2021 until 12/13/2021 Standard ECG [facility] End: 05-15-2022 Syphilis Treponema Antibody Syphilis Treponema Antibody Lab Routine One Time for 1 Occurrences starting 05/15/2022 until 05/15/2022 [facility] [employer] Comment on above: One Time for 1 Occur rences starting 05/15/2022 until 05/15/2022 Throat culture CULTURE THROAT Microbiology Routine 11/15/2022 1:50 PM [facility] Work Phone: End: 05-15-2022 Thyroid Function Panel Thyroid Function Panel Lab Routine One Time for 1 Occurrences starting 05/15/2022 until 05/15/2022 [facility] Comment on above: One Time for 1 Occur rences starting 05/15/2022 until 05/15/2022 End: 05-21-2020 XR Ankle RT 3 View (Routine) XR Ankle RT 3 View (Routine) Imaging Routine Acute right ankle pain 1 Occurrences starting 05/21/2020 until 05/21/2020 [facility] [employer] Comment on above: 1 Occurrences starti ng 05/21/2020 until 05/21/2020 XR Ankle RT 3 View (Routine) XR Ankle RT 3 View (Routine) Imaging Routine Acute right ankle pain 05/21/2020 3:[address] [facility] End: 03-23-2020 XR Femur LT AP and lat XR Femur LT AP and lat Imaging Routine Left leg pain 1 Occurrences starting 03/23/2020 until 03/23/2020 [facility] Comment on above: 1 Occurrences starti ng 03/23/2020 until 03/23/2020 XR Femur LT AP and lat XR Femur LT AP and lat Imaging Routine Left leg pain 03/23/2020 5:[address] [facility] End: 04-13-2020 XR Knee Left 3 Views (Routine) XR Knee Left 3 Views (Routine) Imaging Routine Acute pain of left knee 1 Occurrences starting 04/13/2020 until 04/13/2020 [facility] Comment on above: 1 Occurrences starti ng 04/13/2020 until 04/13/2020 XR Knee Left 3 Views (Routine) XR Knee Left 3 Views (Routine) Imaging Routine Acute pain of left knee 04/13/2020 1:[address] [facility] Immunizations Immunization Date Immunization Notes Care Provider Fa [facility] 10-16-2023 tetanus toxoid, redu elan diphtheria toxoid, and acellular pertussis vaccine, adsorbed [facility] 03-27-2021 Moderna Covid-19 Vaccine Mimi Fortune APRN DRIVER TRAINER Work Phone: [facility] 02-28-2021 Moderna Covid-19 Vaccine [facility] Work Phone: 08-15-2019 influenza, seasonal, injectable [facility] 08-15-2019 influenza virus vacc ine, unspecified formulation [facility] 11-12-2018 influenza, injectabl e, quadrivalent, preservative free [facility] 11-12-2018 influenza, seasonal, injectable [facility] 08-24-2018 tuberculin skin test ; purified protein derivative solution, intradermal [facility] Work Phone: [facility] 07-24-2014 meningococcal polysaccharide (groups A, C, Y and W-135) diphtheria toxoid conjugate vaccine (MCV4P) [facility] 04-26-2013 hepatitis A vaccine, pediatric/adolescent dosage, 2 dose schedule [facility] 10-26-2012 hepatitis A vaccine, pediatric/adolescent dosage, 2 dose schedule [facility] 10-26-2012 human papilloma viru s vaccine, quadrivalent [facility] 10-26-2012 influenza, seasonal, injectable [facility] 04-22-2012 human papilloma viru s vaccine, quadrivalent [facility] 02-27-2010 human papilloma viru s vaccine, quadrivalent [facility] 02-27-2010 meningococcal polysaccharide (groups A, C, Y and W-135) diphtheria toxoid conjugate vaccine (MCV4P) [facility] 02-27-2010 tetanus toxoid, redu elan diphtheria toxoid, and acellular pertussis vaccine, adsorbed [facility] 02-27-2010 varicella virus vaccine [facility] 11-09-2009 novel influenza-H1N1 -09, all formulations [facility] 11-09-2009 novel influenza-H1N1 -09, preservative-free, injectable [facility] 09-02-2009 influenza, seasonal, injectable [facility] 07-26-2003 diphtheria, tetanus toxoids and acellular pertussis vaccine, 5 pertussis antigens [facility] 07-26-2003 diphtheria, tetanus toxoids and acellular pertussis vaccine, unspecified formulation [facility] Work Phone: 07-26-2003 measles, mumps and rubella virus vaccine [facility] 07-26-2003 poliovirus vaccine, inactivated [facility] 04-23-2000 varicella virus vaccine [facility] 10-11-1999 diphtheria, tetanus toxoids and acellular pertussis vaccine, 5 pertussis antigens [facility] 10-11-1999 diphtheria, tetanus toxoids and acellular pertussis vaccine, unspecified formulation [facility] 10-11-1999 haemophilus influenz ae type b vaccine, HbOC conjugate [facility] 10-11-1999 measles, mumps and rubella virus vaccine [facility] 10-11-1999 poliovirus vaccine, inactivated [facility] 10-11-1999 trivalent poliovirus vaccine, live, oral [facility] 03-14-1999 diphtheria, tetanus toxoids and acellular pertussis vaccine, 5 pertussis antigens [facility] 03-14-1999 diphtheria, tetanus toxoids and acellular pertussis vaccine, unspecified formulation [facility] 03-14-1999 haemophilus influenz ae type b vaccine, HbOC conjugate Misty Powers NEWS ASSIGNMENT EDITOR.INFRASTRUCTURE DESIGN ENGINEER Work Phone: [facility] 03-14-1999 haemophilus influenz ae type b vaccine, PRP-OMP conjugate [facility] 03-14-1999 hepatitis B vaccine, pediatric or pediatric/adolescent dosage [facility] 01-10-1999 diphtheria, tetanus toxoids and acellular pertussis vaccine, 5 pertussis antigens [facility] 01-10-1999 diphtheria, tetanus toxoids and acellular pertussis vaccine, unspecified formulation [facility] 01-10-1999 haemophilus influenz ae type b vaccine, HbOC conjugate Misty Powers NEWS ASSIGNMENT EDITOR.INFRASTRUCTURE DESIGN ENGINEER Work Phone: [facility] 01-10-1999 haemophilus influenz ae type b vaccine, PRP-OMP conjugate [facility] 01-10-1999 poliovirus vaccine, inactivated [facility] 1998 diphtheria, tetanus toxoids and acellular pertussis vaccine, 5 pertussis antigens [facility] 1998 diphtheria, tetanus toxoids and acellular pertussis vaccine, unspecified formulation [facility] 1998 haemophilus influenz ae type b vaccine, HbOC conjugate Misty Powers NEWS ASSIGNMENT EDITOR.INFRASTRUCTURE DESIGN ENGINEER Work Phone: [facility] 1998 haemophilus influenz ae type b vaccine, PRP-OMP conjugate [facility] 1998 hepatitis B vaccine, pediatric or pediatric/adolescent dosage [facility] 1998 poliovirus vaccine, inactivated [facility] 1998 hepatitis B vaccine, pediatric or pediatric/adolescent dosage [facility] Payers Date Payer Category Payer Unknown [id number] 2024 Self-pay [id number] 2021 Medicaid [id number] 2019 Medicaid [id number] 1. [id number] 2019 Medicaid [id number] 2019 Medicaid [id number] 1. [id number] 2018 Medicaid [id number] 1998 Unknown [id number] 2.16. [id number] 1998 Unknown [id number] 2.16.8 40.1.071403.3.579.2.177 1998 Unknown [id number] 2.16. 840.1.079258.3.579.2.297 1998 Unknown [id number] 2.16. 840.1.502767.3.579.2.297 1998 Unknown [id number] 2.16. 840.1.478691.3.579.2.297 1998 Unknown [id number] 2.16. 840.1.001033.3.579.2.297 1998 Unknown [id number] 2.16. 840.1.774975.3.579.2.297 1998 Unknown [id number] 2.16. 840.1.839867.3.579.2.297 1998 Unknown [id number] 2.16.8 40.1.840424.3.579.2.983 1998 Unknown [id number] 2.16.8 40.1.022317.3.579.2.983 1998 Unknown [id number] 2.16. 840.1.442320.3.579.2.903 1998 Unknown [id number] 2.16. 840.1.491186.3.579.2.903 1998 Unknown [id number] 2.16. 840.1.517946.3.579.2.903 1998 Unknown [id number] 2.16. 840.1.977843.3.579.2.903 1998 Unknown [id number] 2.16. 840.1.817552.3.579.2.90 1998 Unknown [id number] 2.16. 840.1.991219.3.579.2.903 1998 Unknown [id number] 2.16. 840.1.692240.3.579.2.903 1998 Unknown [id number] 2.16. 840.1.833756.3.579.2.90 1998 Unknown [id number] 2.16. 840.1.062864.3.579.2.903 Unknown Unknown [id number] 2.16.8 40.1.180062.3.579.2.462 Unknown [id number] 2.16.8 40.1.189655.3.579.2.462 Unknown [id number] 2.16.8 40.1.959138.3.579.2.462 Unknown [id number] 2.16.8 40.1.685691.3.579.2.462 Unknown [id number] 2.16.8 40.1.533896.3.579.2.462 Social History Date Type Detail Facility Start: 10-22-2010 End: 05-08-2023 Tobacco smoking status UTIS Never smoker [facility] Start: 10-22-2010 End: 12-10-2023 Alcohol intake No [facility] Start: 1998 Sex Assigned At Not on file [facility] Start: 10-05-2019 End: 03-10-2025 Alcohol intake Current non-drinker of alcohol (finding) [facility] Start: 10-24-2019 End: 07-21-2025 Tobacco smoking status NHIS Current every day smoker [facility] History of tobacco use Cigarette Smoker [facility] Start: 10-24-2019 End: 12-10-2023 Cigarettes smoked current (pack per day) - Reported [facility] Start: 04-13-2020 End: 07-16-2021 Tobacco smoking status NHIS Former smoker [facility] Exposure to SARS-CoV-2 (event) Unable to assess [facility] Start: 05-21-2020 End: 09-08-2022 Tobacco use and exposure Never used [facility] Start: 07-07-2022 End: 09-08-2022 Exposure to SARS-CoV-2 (event) Not sure [facility] Start: 05-14-2022 Education [address] [facility] Start: 05-14-2022 Tobacco Comment Pt. 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 [facility] Start: 05-29-2022 Tobacco Comment no desire to quit [facility] Start: 07-08-2022 Tobacco smoking status NHIS Occasional tobacco smoker [facility] History of tobacco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 Personality disorder Plan: Treatment options and alternatives reviewed with patient and they concur with the plan. Labs were reviewed. Patient admitted to [facility] and will be kept on safety watch. [...] plan. Labs were reviewed. Patient admitted to [facility] and will be kept on safety watch. Encouraged to attend groups. We will provide a therapeutic, non threatening environment. Medications- start Cymbalta 30 mg daily Family conference and discharge planning will be done. Estimated length of stay 2-4 days 05/10/2021 continue medications documented in this encounter [facility] 05-09-2021 History and physical note Date of [...] Past Psychiatric History: Has had admissions in [place] when he was young. Tired multiple meds [...] Social Gatherings with Friends and Family: Attends [employer] Services: Active Member of Clubs or Organizations: [...] Final Appearance Urine 05/08/2021 Cloudy Final Specific Harmony, Urine 05/08/2021 1.026 1.003 - 1.029 Final [...] Final Monocytes 05/07/2021 7.3 % Final Absolute Alexander 05/07/2021 0.7* 0.2 - 0.6 10 3/uL [...] PSYCHIATRIC: It was done in detail in [facility]. Objective: No data found. PHYSICAL EXAMINATION: HEENT: Atraumatic, normocephalic. Extraocular movement intact. NECK: Supple without thyromegaly. CHEST: Lungs clear bilaterally. HEART: Regular rate and rhythm. ABDOMEN: Soft, nontender, positive bowel sounds. EXTREMITIES: Full range of motion without deformity. NEUROLOGIC: Extraocular movements are intact. Pupils equal, reactive to light. No facial asymmetry noted. [id number] within normal limits. Reflexes 2+ and strength [...] depressive disorder, recurrent severe without psychotic features ([facility]) [F33.2] R/o Borderline Personality disorder Plan: Treatment options and alternatives reviewed with patient and they concur with the plan. Labs were reviewed. Patient admitted to [facility] and will be kept on safety watch. Encouraged to attend groups. We will provide a therapeutic, non threatening environment. Medications- start Cymbalta 30 mg daily Family conference and discharge planning will be done. Estimated length of stay 2-4 days Lilly Lopez 05/09/[address] in this encounter [facility] 05-08-2021 Emergency department Note ED Diagnosis and [...] Behavior is slowed. Juan Diego Corral MD 05/08/[address] Lopez, admission orders received. [...] unlabored. NAD noted. documented in this encounter [facility] Evaluation note Diagnosis Viral illness Unspecified viral infection, in conditions classified elsewhere and of unspecified site Generalized abdominal pain Abdominal pain, generalized Non-intractable vomiting with nausea, unspecified vomiting type Diarrhea, unspecified type [facility] Diagnosis Major depressive disorder, recurrent severe without psychotic features (HCC)- Primary Major depressive disorder, recurrent episode, severe, without mention of psychotic behavior Suicidal ideation Medical clearance for psychiatric admission [facility] Diagnosis Cough [facility]* Diagnosis Major depression, recurrent (HCC)- Primary Major depressive disorder, recurrent episode, unspecified Medical clearance for psychiatric admission Suicidal ideation Major depressive disorder, recurrent severe without psychotic features (HCC) Major depressive disorder, recurrent episode, severe, without mention of psychotic behavior Mood disorder (HCC) Unspecified episodic mood disorder [facility]* Diagnosis URI with cough and congestion Non-intractable vomiting with nausea, unspecified vomiting type Diarrhea, unspecified type At increased risk of exposure to COVID-19 virus [facility]* Diagnosis Mood disorder (HCC)- Primary Unspecified episodic mood disorder documented in this encounter [facility] note* Diagnosis Adjustment disorder with depressed mood- Primary Suicidal ideation documented in this encounter [facility] note* Diagnosis Severe episode of recurrent major depressive disorder, without psychotic features (HCC)- Primary Suicidal ideation documented in this encounter [facility] note* Diagnosis Right hip pain- Primary Pain in joint, pelvic region and thigh Contusion of right hip, initial encounter documented in this encounter [facility] Work Phone: evaluation note* Diagnosis Acute cough- Primary documented in this encounter [facility] note* Diagnosis Viral illness- Primary Unspecified viral infection, in conditions classified elsewhere and of unspecified site documented in this encounter [facility] noteNo assessment information availableWUniversity [facility]als [facility] Work Phone: Evaluation note* Diagnosis Foot pain, left- Primary Pain in limb documented in this encounter [facility] note* Diagnosis Foot pain, left Pain in limb documented in this encounter [facility] note* Diagnosis Flu-like symptoms- Primary Other general symptoms Exposure to the flu Contact with or exposure to other viral diseases documented in this encounter [facility] note* Diagnosis RUQ abdominal pain- Primary Abdominal pain, right upper quadrant documented in this encounter [facility] note* Diagnosis Bright red blood per rectum- Primary Hemorrhage of rectum and anus Right lateral abdominal pain Abdominal pain, unspecified site [facility]* Instructions* Esther Gramajo RN [...] Where can you learn more? Go to [email or web address]/[email or web address] Enter T185 in the search box to learn more about Learning About Depression Screening. Current as of: August 22, 2020 Content Version: 12.9 [employer]. Care instructions adapted under license by your healthcare professional. If you have questions about a medical condition or this instruction, always ask your healthcare professional. [employer] disclaims any warranty or liability for your [...] as tolerated. Personal items: Returned upon discharge [facility] Nurse Line: [facility] Child/Adolescent Behavioral Health: By signing below I understand that if any problems occur once I leave the hospital I am to contact the [facility] Nurse Line or doctor's office. I understand and acknowledge receipt of the instructions indicated above. documented in this [facility] Discharge instructions* Attachments The following attachments cannot be sent through Care Everywhere. * Mood Disorders: General Info (Lao Fijian) documented in this [facility] Discharge instructions* Instructions* Joe Brandt RN - 05/15/2022 Images from the original note were not included. What to do after you leave the hospital: Take meds as prescribed and go to follow-up appointments. If you experience any of the following symptoms : increased depression, suicidal thoughts please follow up with [facility] hotline or doctor's office. Activity: as tolerated Diet: as tolerated By signing below, I understand that if any problems occur once I leave the hospital I am to [facility] (toll free ) or Doctor's Office . [...] Call the National Suicide Prevention Lifeline at 9-375-999-QIJT ( ) or text HOME to 003076 to access the [employer] Line. Consider saving these numbers in your [...] Where can you learn more? Scan the dineout code or Go to [email or web address]/patientEd Enter R087 in the search box to learn more about Adjustment Disorder: Care Instructions. Current as of: May 15, 2021 Content Version: 13.2 [employer]. Care instructions adapted under license by your healthcare professional. If you have questions about a medical condition or this instruction, always ask your healthcare professional. [employer] disclaims any warranty or liability for your use of this information. [facility]* Attachments The following attachments cannot be sent through Care Everywhere. * Musculoskeletal Pain (Fijian) * Contusion (Fijian) [facility]: Hospital Discharge instructions* Attachments The following attachments cannot be sent through Care Everywhere. * Cough (Fijian) documented in this [facility] Discharge instructions* Attachments The following attachments cannot be sent through Care Everywhere. * Viral Infections (Fijian) * Gastroenteritis (Fijian) * Sore Throat (Fijian) [facility] Additional Instructions Use ice to the left chest wall. Take Tylenol or ibuprofen as needed for pain. Stop smoking marijuana.[facility] Work Phone: Hospital Discharge instructions Additional Instructions Thank you for trusting us with your care today! Please take Tylenol (2 pills, 650 mg), ibuprofen (2 pills, 400 mg) every 6 hours as needed for pain and fever control. Please return to the emergency department if your symptoms change or worsen. Please follow with your primary care physician for further outpatient evaluation and management.[facility] Work Phone: Hospital Discharge instructionsAdditional Instructions Keep splint on until you follow-up with orthopedic service. Take medications as prescribed. No driving or heavy machinery if taking the hydrocodone.[facility] Work Phone: [facility] for referral (narrative)* Consultation (Urgent) - New Request Specialty Diagnoses / Procedures Referred By Contac t Referred To Contact Family Medicine Diagnoses Viral illness Gabriella Bassett PA-C [address] [place] [address] Referral ID Status Reason Start Date Expiration Date V isits Requested Visits Authorized [id number] New Request 11/15/2022 12/10/2023 1 1 [facility] for referral (narrative)* Diagnostic Procedure Only (Urgent) - Pending Review Specialty Diagnoses / Procedures Referred By Contac t Referred To Contact XR IMAGING Diagnoses Foot pain, left Procedures XR FOOT GENERAL 3V AP/LAT/OBL LEFT RADEX FOOT COMPLETE MINIMUM 3 VIEWS Misty Powers APRN.CNP [address] [place] [address] [place] [address] Referral ID Status Reason Start Date Expiration Date Visits Requested Visits Authorized [id number] Pending Review Auto-Generat ed Referral 03/18/2024 04/17/2025 1 1 [facility] for referral (narrative)No reason for referral information availableWUniversity [facility]als [facility] Work Phone: Reason for visit Narrative* Diagnostic Procedure Only (Urgent) - Pending Review Specialty Diagnoses / Procedures Referred By Contac t Referred To Contact XR IMAGING Diagnoses Foot pain, left Procedures XR FOOT GENERAL 3V AP/LAT/OBL LEFT RADEX FOOT COMPLETE MINIMUM 3 VIEWS Misty Powers APRN.CNP [address] [place] [address] [place] [address] Referral ID Status Reason Start Date Expiration Date Visits Requested Visits Authorized [id number] Pending Review Auto-Generat ed Referral 03/18/2024 04/17/2025 1 1 [facility] Summary Purpose Family History No Family History Records FoundNo Family History Records FoundNo Family History Records FoundNo Family History Records FoundNo Family History Records FoundNo Family History Records FoundNo Family History Records FoundNo Family History Records FoundNo Family History Records Found Advance Directives No Advanced Directives Records FoundDocuments on File Type Date Recorded 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 Expl anation Advance Directives and Living Will Power of Culture Manager Documents on File Type Date Recorded 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 Estimator Expl anation Advance Directives and Living Will Power of Culture Manager Latest Code Status on File Code Status [...] Documents on File Type Date Recorded 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 Estimator Expl anation Advance Directives and Living Will Power of Culture Manager DNR Documentation Latest Code Status on File [...] June 03, 2023 1 1:24am Power of Culture Manager No June 03, 2023 11:24am Advance Directive Response Recorded Date/ Time Living Will No October 16, 2 023 8:54pm Power of Culture Manager No October 16, 2023 8:54pm Advance Directive Response Recorded Date/ Time Do you have a Healthcare Power of Culture Manager? No May 06, 2025 9:15pm Do you have a Healthcare Power of Culture Manager? No April 20, 2025 12:55pm Advance Directive Response Recorded Date/ Time Do you have a Healthcare Power of Culture Manager? No May 06, 2025 9:15pm Do you have a Healthcare Power of Culture Manager? No July 21, 2025 3:58pm Do you have a Healthcare Power of Culture Manager? No April 20, 2025 12:55pm Discharge Instructions * Attachments The following attachments cannot be sent through Care Everywhere. * Panic Attacks (Lao Fijian) documented in this encounter* Attachments The following attachments cannot be sent through Care Everywhere. * Chest Pain: Musculoskeletal (Lao Fijian) documented in this encounter* Attachments The following attachments cannot be sent through Care Everywhere. * Chest Pain: Musculoskeletal (Lao Fijian) documented in this encounter* Attachments The following attachments cannot be sent through Care Everywhere. * Gastroenteritis (Lao Fijian) * Bronchitis (Lao Fijian) documented in this encounter* Instructions* Davonte Hickman PA - 02/19/2020 Please follow-up with orthopedics regarding the visit to this department. Please return with any new or worsening symptoms. Please take the naproxen as prescribed and use the Flonase as needed for nasal congestion. documented in this encounter* Instructions* Janel Caputo APRN CNP - 02/27/[address] debrox in your right ear as prescribed. Please place 4 drops of ciprodex in your left ear twice daily for 10 days. * Attachments The following attachments cannot be sent through Care Everywhere. * Otitis Externa (Lao Fijian) * Earwax Blockage (Lao Fijian) * Earache: Adult (Lao Fijian) documented in this encounter* Attachments The following attachments cannot be sent through Care Everywhere. * Flank Pain (Lao Fijian) documented in this encounter* Attachments The following attachments cannot be sent through Care Everywhere. * Flank Pain (Lao Fijian) documented in this encounter Assessments Diagnosis Anxiety [...] type Nausea Lightheadedness Viktoriya Mendez MD [address] [place] [address] [facility] [address] [place] [address] Status Reason Specialty Diagnoses / Procedures Referred By Contact Referred To Contact Incomplete Family Medicine Diagnoses Gastroenteritis Bronchitis Chelsie Marquez MD [address] [place] [address] [facility] [address] [place] [address] Status Reason Specialty Diagnoses / Procedures Referred By Contact Referred To Contact Open Orthopedic Surgery Diagnoses Effusion of left knee Davonte Hickman PA [address] [place] [address] [facility] [address] [place] [address] Dr. [facility] [place] [address] Status Reason Specialty Diagnoses / Procedures Referred By Contact Referred To Contact Canceled Family Medicine Diagnoses Acute swimmer's ear of left side Impacted cerumen of right ear Janel Caputo APRN CNP [address] [place] [address] [facility] [address] [facility] [place] [address] Status Reason Specialty Diagnoses / Procedures Referred By Contact Referred To Contact Open Family Medicine Diagnoses Right flank pain Jeni Meraz PA [address] [place] [address] [facility] [address] [facility] [place] [address] Specialty Diagnoses / Procedures Referred By Contac t Referred To Contact Podiatry Diagnoses Foot pain, left Procedures CONSULT TO PODIATRY OFFICE/OUTPATIENT [facility] 60 MINUTES Misty Powers, NEWS ASSIGNMENT EDITOR.INFRASTRUCTURE DESIGN ENGINEER [address] [place] [address] Referral ID Status Reason Start Date Expiration Date Visits Requested Visits Authorized [id number] Authorized PCP Requested Referral 03/18/2024 03/18/2025 1 1 Specialty Diagnoses / Procedures Referred By Contac t Referred To Contact XR IMAGING Diagnoses Foot pain, left Procedures XR FOOT GENERAL 3V AP/LAT/OBL LEFT RADEX FOOT COMPLETE MINIMUM 3 VIEWS Misty Powers, NEWS ASSIGNMENT EDITOR.INFRASTRUCTURE DESIGN ENGINEER [address] [place] [address] [place] [address] Referral ID Status Reason Start Date Expiration Date Visits Requested Visits Authorized [id number] Pending Review Auto-Generat ed Referral 03/18/2024 04/17/2025 1 1 Chief Complaint and Reason for Visit Chief Complaint LEFT RIB PAIN Chief Complaint LAC Chief Complaint Admit Date Abd pain, rectal bleeding March 10 2:51pm Chief Complaint Admit Date Abd pain, rectal bleeding March 10 2:51pm headache April 20, 2025 12:17 pm L ankle pain May 06, 2025 9:02p m Chief Complaint Admit Date headache April 20, 2025 12:17 pm L ankle pain May 06, 2025 9:02p m r hand injury July 21, 2025 1: 10pm Additional Source Comments (unrecognized sect ion and content) No Status Records FoundNo Status Records FoundNo Status Records FoundNo Status Records FoundNo Status Records FoundNo Status Records FoundNo Status Records FoundNo Status Records FoundNo Status Records Found INFORMATION SOURCE (unrecogn ized section and content) DATE CREATED AUTHOR 05/21/2018 [facility] ([place]) DATE CREATED AUTHOR AUTHOR'S ORGANIZ ATION 05/21/2018 [facility] DATE CREATED AUTHOR AUTHOR'S ORGANIZ ATION 07/13/2022 [facility] DATE CREATED AUTHOR AUTHOR'S ORGANIZ ATION 08/01/2022 [facility] DATE CREATED AUTHOR AUTHOR'S ORGANIZ ATION 11/21/2022 [facility] DATE CREATED AUTHOR AUTHOR'S ORGANIZ ATION 11/27/2022 [facility] DATE CREATED AUTHOR AUTHOR'S ORGANIZ ATION 12/24/2022 [facility] DATE CREATED AUTHOR AUTHOR'S ORGANIZ ATION 07/28/2025 [facility] DATE CREATED AUTHOR AUTHOR'S ORGANIZ ATION 09/20/2025 [facility] Reason for Visit (unrecogniz ed section and [...] Expiration Date Visits Re quested Visits Authorized [id number] 1 1 Specialty Diagnoses / Procedures Referred By Contac t Referred To Contact Diagnoses Suicidal ideation Suicidal ideations Adjustment disorder with depressed mood Procedures h Referral ID Status Reason Start Date Expiration Date Visits Re quested Visits Authorized [id number] 1 1 Specialty Diagnoses / Procedures Referred By Contac t Referred To Contact Diagnoses Suicidal ideation Major depressive disorder, single episode, unspecified Procedures Referral ID Status Reason Start Date Expiration Date Visits Re quested Visits Authorized [id number] 1 1 Reason Comments Hip Pain Reason [...] Miguelangel Sandoval RN - 02/23/2021 6:32 PM EDMiguelangel Sheffield RN - 02/23/2021 5:37 PM Miguelangel Montalvo RN - 02/23/2021 5:36 PM EDTBelle Rdz On Site Construction Superintendent - 02/23/2021 5:25 PM EDT ED Notes (unrecognized secti on and content) Pt informs this nurse he cannot stay as he lives 20 minutes away and his attendant campground is leaving his child. Dr. Vance aware [...] Kelly Fortune LPN)1627 (Given - Provider: Sole Green RN) aluminum-magnesium hydroxide 200-200 MG/5ML suspension 30 mL 30 mL, Oral, EVERY 6 HOURS PRN, Indigestion, Starting on Thu05/08/21 at 2147, Until Discontinued 2316 (Given - Provider: Misty Newton RN) benzocaine (ORAJEL) 20 % jelly 0.1 g 0.1 g, Mouth/Throat, 4 TIMES DAILY PRN, Mild Pain, Starting on Alida 05/09/21 at 1633, Until Discontinued 1851 (Given - Provider: Sole Green, MIROSLAVA)2347 (Given - Provider: Celeste Osborne, MIROSLAVA) 1123 (Given - Provider: Mary Jo Echols, RN)1427 (Given - Provider: Mary Jo Echols, RN)2056 (Given - Provider: Sole Green, MIROSLAVA) 1300 (Given - Provider: Mary Jo Echols, RN) Magnesium Hydroxide (MOM) suspension (CONC) 10 mL 10 mL, Oral, DAILY PRN, Constipation, Starting on 05/08/21 at 2147, Until Discontinued, This is a [...] medication looks and/or sounds like another medication. 900 (Given - Provid er: Rox Kurtz LPN) busPIRone (BUSPAR) tablet 5 mg 5 mg, Oral, EVERY 8 HOURS SCHEDULED (3 times per day), First dose on Thu05/29/22 at 1845, Until Discontinued 182 (Given - Provider: Jody Jacob RN)2118 (Given - Provider: Jody Jacob RN) 09 (Given - Provider: Rox Kurtz LPN)143 (Given - Provider: Rox Kurtz LPN)2099 (Due - Provider: Cleo Sheikh CPhT) naltrexone (DEPADE) tablet 50 mg 50 mg, Oral, DAILY, First dose on Thu05/30/22 at 0900, Until Discontinued 1126 (Given - Provid er: Rox Kurtz LPN) nicotine (NICODERM CQ) 21 MG/24HR 1 patch 1 patch (21 mg), Transdermal, EVERY 24 HOURS, First dose on Alida 05/29/22 at 1700, Until Discontinued 1806 (Patch Applied - Provider: Chele Yepez RN - Comment: patient request) 1653 (Patch Applied - Provider: Cristal Flowers RN) QUEtiapine (SEROQUEL) tablet 100 mg 100 mg, Oral, NIGHTLY, First dose on Thu05/29/22 at 2100, Until Discontinued, Caution: This medication [...] PRN, Mild Pain, Fever, Headaches, Starting on Thu05/29/22 at 1620, Until Discontinued, Maximum dose of acetaminophen is 4000 mg from all sources in 24 hours. aluminum-magnesium hydroxide 200-200 MG/5ML suspension 30 mL 30 mL, Oral, EVERY 6 HOURS PRN, Indigestion, Starting on Alida 05/29/22 at 1621, Until Discontinued 2207 (Given - [...] tion and content) Team Status: Active Member Role/Relationship Status Dates No Primary Care Physician Primary Care Provider Active Team Status: Inactive Member Role/Relationship Status Dates No Primary Care Physician Primary Care Provider Active Start: April 20, 2025 End: April 20, 2025 Dr. Dolores Mack , Attending Provider Active S tart: April 20, 2025 End: April 20, 2025 Dr. Dolores Mack DO Emergency Provider Active S tart: April 20, 2025 End: April 20, 2025 Team Status: Inactive Member Role/Relationship Status Dates No Primary Care Physician Primary Care Provider Active Start: May 06, 2025 End: May 06, 2025 Dr. Jelani Arias DO Attending Provider Active Start: May 06, 2025 End: May 06, 2025 Dr. Jelani Arias DO Referring Provider Active Start: May 06, 2025 End: May 06, 2025 Dr. Jelani Arias DO Emergency Provider Active Start: May 06, 2025 End: May 06, 2025 Team Status: Inactive Member Role/Relationship Status Dates No Primary Care Physician Primary Care Provider Active Start: July 21, 2025 End: July 21, 2025 Dr. Lonnie Caldwell DO Emergency Provider Active Start : July 21, 2025 End: July 21, 2025 Team Status: Active Member Role Status [...] Member Role Status Dates Dr. Parker Taylor DO Emergency Provider Active No Primary Care Physician Primary Care Provider Active Head Up Operator Helper Relationship Specialty Start Date End Date No, Physician [facility] PCP - General 06/30/22 Head Up Operator Helper Relationship Specialty Start Date End Date Pcp, None [id number] [place] [address] PCP - General 08/22/21 Ordered Prescriptions (unrec [...] or prosecute any alcohol or drug abuse patient.[facility] the event this information is protected by the Federal Confidentiality of Alcohol and Drug Abuse Patient Records regulations: The Federal rules restrict any use of the information to criminally investigate or prosecute any alcohol or drug abuse patient.[facility] the event this information is protected by the Federal Confidentiality of Alcohol and Drug Abuse Patient Records regulations: The Federal rules restrict any use of the information to criminally investigate or prosecute any alcohol or drug abuse patient.[facility] the event this information is protected by the Federal Confidentiality of Alcohol and Drug Abuse Patient Records regulations: The Federal rules restrict any use of the information to criminally investigate or prosecute any alcohol or drug abuse patient.[facility] Center[facility] the event this information is protected by the Federal Confidentiality of Alcohol and Drug Abuse Patient Records regulations: The Federal rules restrict any use of the information to criminally investigate or prosecute any alcohol or drug abuse patient.[facility] FOR RECORDS PERTAINING TO PATIENTS [...] BE BASED ON THE PRIMARY CLINICAL RECORDS. [facility] [employer] [facility]. provides no warranty or guarantee of the accuracy or completeness of information in this document.
[2025-11-08 12:44] VITALS: BP 129/70; PULSE 68; RESP 16; O2SAT 100
[2025-11-08 13:45] VITALS: BP 134/78; PULSE 59; RESP 20; TEMP 36.8; O2SAT 100
== END 2025-11-08 13:48 | disposition home or self-care (01) ==
PROVIDERS: Emergency Provider Emergency Medicine; Visit Provider Emergency Medicine
DX: U07.1 COVID-19 (principal); E86.0 Dehydration; F12.90 Cannabis use, unspecified, uncomplicated; F17.210 Nicotine dependence, cigarettes, uncomplicated; F17.290 Nicotine dependence, other tobacco product, uncomplicated
CPT/HCPCS: 96361; 96374; 99284; A4216; J2405